=== PATIENT | male | born 1940 | race Caucasian/White ===

== ENCOUNTER 2017-09-27 15:44 | Inpatient (IN) | payer OTHER, MEDICARE ==
--- NOTE | 2017-09-27 15:53 | PDOC ---
Attending Attestation - HPI HPI: 09/27/17 16:30 The patient is a 77 year old male, with a significant PMH of NIDDM, parkinson's , dementia, wheelchair bound, who presents to the emergency department sent in from Ldr Nurse Dr. Finnegan office for evaluation of a chronic right heel ulcer and sacral decubitus ulcer. As per patients , she has noted purulent fluid draining from the right heel ulcer over the past 3 days. She also reports the patient has a sacral decubitus ulcer but denies any recent changes or drainage. She denies any recent fevers, changes in behavior, nausea or vomiting. She states she has been dressing the patients wound at home. Allergies: NKA - Physicial Exam PE: 09/27/17 16:31 Vitals: Triage vital signs reviewed General Appearance: +Mild distress. Pt. is nonverbal at baseline, accompanied by family. Head: Atraumatic Neck: Supple; No nuchal rigidity Chest Wall: Nontender Cardiac: +2/6 systolic murmur. Regular rate and rhythm, no rubs, no gallops Lungs: Clear to auscultation bilateral, good air movement bilaterally Abdomen: Soft, nondistended, normal bowel sounds, nontender to palpation Back: +Sacral decubitus ulcer approx. 2x2 cm. Rectal: Exam deferred Extremities: +Right heel 2x2 cm ulceration with surrounding necrotic appearing tissue. +Active drainage. +Malodorous. Full range of motion to all extremities, no cyanosis, clubbing, or edema Skin: Warm and dry - Medical Decision Making 09/27/17 16:35 77 year old male, with a significant PMH of NIDDM, parkinson's, dementia, wheelchair bound, presents to the ED sent in from Ldr Nurse Dr. Finnegan office for evaluation of a chronic right heel ulcer and sacral decubitus ulcer. Plan: Labs, EKG, chest x-ray, right foot x-ray. <Tadeo Mares - Last Filed: 09/27/17 18:25> - Resident Resident Name: Eli Ayala - ED Attending Attestation I have performed the following: I have examined & evaluated the patient, The case was reviewed & discussed with the resident, I agree w/resident's findings & plan, Exceptions are as noted - Medical Decision Making Patient sent to ED for evaluation of diabetic foot ulcer. Cultures drawn Vancocin Zosyn ordered Patient will require inpatient arterial Dopplers vascular consult infectious disease consult <Jg Cuba - Last Filed: 09/27/17 19:05> Attestations - Attestations 09/27/17 16:36 Documentation prepared by Tadeo Mares, acting as medical instrument technician for Jg Cuba MD. <Tadeo Mares - Last Filed: 09/27/17 18:25>
--- NOTE | 2017-09-27 16:09 | PDOC ---
History of Present Illness - General Chief Complaint: Wound Stated Complaint: PCP SENT Time Seen by Provider: 09/27/17 15:46 History Source: Patient, Primary Care Provider Exam Limitations: No Limitations - History of Present Illness Initial Comments: This is a 77 YOM with h/o DM and Parkinson's disease with dementia, wheelchair bound, who presents as directed by his state manager's office (Dr. Cabello) for a chronic right heel wound which has been draining purulent malodorous fluid for the past 3-4 days, as well as a nonhealing sacral decubitus ulcer. Dr. Mccauley called ahead to inform the ED that the patient was coming in at the request of Dr. Cabello. The patient presents with his who provides the bulk of his medical history as the patient is nonverbal 2/2 dementia and Parkinson's. The notes that the patient has had an ulcer on his right heel for the past month or two, but in the past 3-4 days it has been draining malodorous pus. She additionally notes a sacral decubitus ulcer which is unchanged and does not appear to have abnormal drainage. She has not taken his temperature at home. She denies any obvious nausea, vomiting, change in bowel habits, pain, change in baseline mental status, or other symptoms. Past History - Past Medical History Allergies/Adverse Reactions: Allergies Allergy/AdvReac Type Severity Reaction Status Date / Time No Known Allergies Allergy Verified 09/27/17 17:17 Review of Systems - Review of Systems Able to Perform ROS?: No (dementia) *Physical Exam - Physical Exam General Appearance: Yes: Nourished, Other (nonverbal, accompanied by family at bedside, appears to be a bit uncomfortable, consistent shaking/tremor) HEENT: positive: EOMI (but does not make eye contact with examiner or family). negative: Scleral Icterus (R), Scleral Icterus (L), Nasal Congestion Neck: positive: Trachea midline, Supple. negative: Tender, Rigid Respiratory/Chest: positive: Lungs Clear, Normal Breath Sounds. negative: Respiratory Distress, Crackles, Rhonchi, Stridor, Wheezing Cardiovascular: positive: Regular Rhythm, Regular Rate, Murmur (2/6), Other ( unable to palpate DP or PT pulses RLE but foot and digits are wwp and capillary refill is 2 seconds). negative: Edema Gastrointestinal/Abdominal: positive: Normal Bowel Sounds, Flat, Soft. negative : Tender, Organomegaly, Pulsatile Mass, Guarding Musculoskeletal: positive: Normal Inspection. negative: Decreased Range of Motion, Vertebral Tenderness Extremity: positive: Normal Capillary Refill, Normal Inspection, Normal Range of Motion. negative: Tender, Cyanosis Integumentary: positive: Normal Color, Dry, Warm, Other (right heel with 2x2 cm ulcer with overlying necrotic-appearing tissue with malodorous purulent drainage and surrounding white-appearing tissue breakdown extending 1 cm from the ulceration, mild surrounding erythema, no streaking erythema). negative: Rash, Bruising Neurologic: positive: women specialist II-XII NML intact, Alert, Respond to painful stimul, Other (able to move all four extremities but weakness in BLE) Heart Score/ECG Review #1 NSR rate 82 with left axis deviation, T-wave inversion in aVL, no additional ischemic changes ED Treatment Course - LABORATORY CBC & Chemistry Diagram: 09/27/17 17:30 09/27/17 17:30 Medical Decision Making - Medical Decision Making Patient p/w right heel redness/warmth/ulcer with malodorous drainage. Initial Vital Signs Temp Pulse Resp BP Pulse Ox 97.4 F L 81 18 109/73 97 09/27/17 16:29 09/27/17 16:29 09/27/17 16:29 09/27/17 16:29 09/27/17 16:29 Exam: right heel with 2x2 cm ulcer with overlying necrotic-appearing tissue with malodorous purulent drainage and surrounding white-appearing tissue breakdown extending 1 cm from the ulceration, mild surrounding erythema, no streaking erythema DDX IBNLT: infected foot ulcer, cellulitis, osteomyelitis, necrotizing soft tissue infection, sepsis, DVT, superficial venous thrombosis, CHF exacerbation, PVD, pulmonary HTN, etc W/U ordered: CBCD CMP BCx Coags T&S EKG CXR TX ordered: Vancomycin/Zosyn EKG: NSR rate 82 with left axis deviation, T-wave inversion in aVL, no additional ischemic changes CXR: NADP Foot Xray: No soft tissue gas, no bony involvement Laboratory Tests 09/27/17 09/27/17 09/27/17 17:30 17:30 17:30 WBC 7.4 RBC 3.19 L Hgb 10.3 L Hct 30.6 L MCV 95.9 MCH 32.3 MCHC 33.7 RDW 12.6 Plt Count 274 MPV 7.5 Absolute Neuts (auto) 5.5 Neutrophils % 74.8 Lymphocytes % 14.1 Monocytes % 8.0 Eosinophils % 2.8 Basophils % 0.3 Nucleated RBC % 0 Sodium 141 Potassium 4.7 Chloride 104 Carbon Dioxide 29 Anion Gap 8 BUN 51 H Creatinine 1.6 H Random Glucose 124 H Calcium 9.3 C-Reactive Protein 3.9 H Repeat VS: Reassessment: Exam unchanged. The Pt is unsafe for discharge at this time. They require further hospital observation, workup, and treatment. Dr. Mccauley's patients are currently going to hospitalists. Microblog sent to [facility] for admission. Spoke with [facility], in agreement Pt to be admitted to Inpatient Med/Surg. Decision to Admit order placed to covering attending Dr. Spencer. 09/27/17 18:39 *DC/Admit/Observation/Transfer Diagnosis at time of Disposition: YENI (acute kidney injury) Heel ulceration Qualifiers: Laterality: right Non-pressure ulcer stage: unspecified non-pressure ulcer stage Qualified Code(s): L97.419 - Non-pressure chronic ulcer of right heel and midfoot with unspecified severity Cellulitis Qualifiers: Site of cellulitis: extremity Site of cellulitis of extremity: lower extremity Laterality: right Qualified Code(s): L03.115 - Cellulitis of right lower limb - Discharge Dispostion Condition at time of disposition: Guarded Decision to Admit order: Yes - Referrals Referrals: Alexandre Mccauley MD [Primary Care Provider] - - Patient Instructions - Post Discharge Activity
[2017-09-27 17:48] LABS: BASO % 0.3 % (0-2.0); EOS % 2.8 % (0-4.5); HEMATOCRIT 30.6 % (35.4-49); HEMOGLOBIN 10.3 GM/dL (11.7-16.9); LYMPH % 14.1 % (8-40); MCH 32.3 pg (25.7-33.7); MCHC 33.7 g/dl (32.0-35.9); MEAN CELL VOLUME 95.9 fl (80-96); MEAN PLT VOLUME 7.5 fl (7.5-11.1); NEUT % 74.8 % (42.8-82.8); PLATELET COUNT 274 K/MM3 (134-434); RBC 3.19 M/mm3 (4.00-5.60); RDW 12.6 % (11.9-15.9); WHITE BLOOD COUNT 7.4 K/mm3 (4.0-10.0)
[2017-09-27 18:13] LABS: ANION GAP 8 (8-16); BLOOD UREA NITROGEN 51 mg/dL (7-18); CALCIUM 9.3 mg/dL (8.5-10.1); CHLORIDE 104 mmol/L (98-107); CO2 29 mmol/L (21-32); CREATININE 1.6 mg/dL (0.7-1.3); GLUCOSE,RANDOM 124 mg/dL (74-106); POTASSIUM 4.7 mmol/L (3.5-5.1); SODIUM 141 mmol/L (136-145)
[2017-09-27] MEDS ORDERED: VANCOMYCIN 1,000 MG in DEXTROSE 5%-WATER - 250 ML IVPB ONE (18:13)
[2017-09-27] MEDS ORDERED: PIPERACILLIN/TAZOB 3.375 GM 3.375 GM in DEXTROSE 5%-WATER - 50 ML IVPB ONE (18:13)
[2017-09-27] MEDS ORDERED: PIPERACILLIN/TAZOB 3.375 GM 3.375 GM/50 ML BAG IVPB ONE (18:19)
[2017-09-27] MEDS ORDERED: VANCOMYCIN 1 GRAM (PRE-DOCKED) 1,000 MG/250 ML BAG IVPB ONE (18:19)
[2017-09-27] MEDS ORDERED: SODIUM CHLORIDE 0.9% 500 ML INFUS.BAG IV ONE (18:40)
--- NOTE | 2017-09-27 19:29 | HP ---
CHIEF COMPLAINT: R foot ulcer PCP: Dr. Alexandre Mccauley Limitations to hx: Pt demented, nonverbal. All hx given by HISTORY OF PRESENT ILLNESS: 77 yo F with hx of NIDDM2, parkinson's disease, dementia who presents with 3-4 days of scant purulent drainage from R decubitus heel ulcer. Pt with intermittent diabetic ulcers on feet for last 7 years, around 1 per year, most recently on R heel, which began one month ago. Per , pt was seen 1.5 weeks ago by mural painter Dr. Cabello for R heel ulcer, who recommended continuation of typically wound care regimen with daily peroxide rinses and zinc supplements to support wound healing. However, over last 3-4 days, pt's noted scant purulent drainage from R heel ulcer and trace erythema at wound margins. Pt contacted Dr. Cabello and PCP Dr. Mccauley and was urged to go ED for further evaluation. Pt with no prior hx of infected decubitus ulcers requiring IV antibiotics or osteomyelitis. Per , pt diabetes is well controlled on PO hypoglycemic agents, however does not know last A1C value. Denies any f/c/n/v/d , FERNANDEZ, cough, sob, chest pain, chest tightness, ab pain, cva tenderness, LE edema , FNDs. No recent travel, sick contacts or diet changes. Pt is wheelchair bound secondary to progression of parkinson's disease (7 years ago). ER course was notable for: (1)Cr 1.6 (2)Vanc/Zosyn, NS (3)No fever, normal WBC count Recent Travel: None PAST MEDICAL HISTORY: DM2 Parkinson's Dz Dementia PAST SURGICAL HISTORY: Unknown Social History: Smoking: Unknown Alcohol: Unknown Drugs: Unknown Family History: NC Allergies No Known Allergies Allergy (Verified 09/27/17 17:17) HOME MEDICATIONS: Home Medications Medication Instructions Recorded Citalopram HBr 40 mg PO DAILY 09/27/17 Metformin HCl 500 mg PO BID 09/27/17 REVIEW OF SYSTEMS Unable to perform PHYSICAL EXAMINATION Vital Signs - 24 hr 09/27/17 16:29 Temperature 97.4 F L Pulse Rate 81 Respiratory 18 Rate Blood Pressure 109/73 O2 Sat by Pulse 97 Oximetry (%) GENERAL: Elderly man, Awake, A&Ox0, in NAD HEAD: Normal with no signs of trauma. EYES: Pupils equal, round and reactive to light, extraocular movements intact, sclera anicteric, conjunctiva clear. No lid lag. EARS, NOSE, THROAT: Ears normal, nares patent, oropharynx clear without exudates. Moist mucous membranes. NECK: Normal range of motion, supple without lymphadenopathy, JVD, or masses. LUNGS: Breath sounds equal, clear to auscultation bilaterally. No wheezes, and no crackles. No accessory muscle use. HEART: 2/6+ systolic ejection murmur best heard at RUSB, Regular rate and rhythm , normal S1 and S2 without rub or gallop. ABDOMEN: Soft, nontender, not distended, normoactive bowel sounds, no guarding, no rebound, no masses. No hepatomegaly or splenomegaly. MUSCULOSKELETAL: Normal range of motion at all joints. No bony deformities or tenderness. No CVA tenderness. 2x2cm stage 1 decubitus ulcer on mid sacrum, with no drainage, purulence or erythema. UPPER EXTREMITIES: 2+ pulses, warm, well-perfused. No cyanosis. No clubbing. No peripheral edema. LOWER EXTREMITIES: R lateral malleolar deformity and scars. R 2x2cm stage 1 ulcer on dorsal surface of R heel with necrotic center, no purulent drainage/ erythema/crepitus. 2+ DP/PT pulses, warm, well-perfused. No calf tenderness. No peripheral edema. NEUROLOGICAL: Limited due to mental status. Facial symmetry grossly noted. Speech non-sensical. Gait noted observed. PSYCHIATRIC: Cooperative. Good eye contact. Appropriate mood and affect. Laboratory Results - last 24 hr CBC, BMP 09/27/17 17:30 09/27/17 17:30 09/27/17 09/27/17 09/27/17 17:30 17:30 17:30 WBC 7.4 RBC 3.19 L Hgb 10.3 L Hct 30.6 L MCV 95.9 MCH 32.3 MCHC 33.7 RDW 12.6 Plt Count 274 MPV 7.5 Absolute Neuts (auto) 5.5 Neutrophils % 74.8 Lymphocytes % 14.1 Monocytes % 8.0 Eosinophils % 2.8 Basophils % 0.3 Nucleated RBC % 0 Sodium 141 Potassium 4.7 Chloride 104 Carbon Dioxide 29 Anion Gap 8 BUN 51 H Creatinine 1.6 H Random Glucose 124 H Calcium 9.3 C-Reactive Protein 3.9 H No micro Per ED note: EKG: NSR rate 82 with left axis deviation, T-wave inversion in aVL, no additional ischemic changes CXR: No acute pathology Foot Xray: No soft tissue gas, no bony involvement ASSESSMENT/PLAN: 77 yo F with hx of NIDDM2, parkinson's disease, dementia who presents with 3-4 days of scant purulent drainage from R decubitus heel ulcer. Pt with intermittent diabetic ulcers on feet for last 7 years, around 1 per year, most recently on R heel, which began one month ago. #R diabetic ulcer - XR of R ankle with no evidence of osteo; elevated CRP 3.9 - wound culture - f/u blood cultures - clinda/zosyn for abx coverage - ID consult, f/u abx recs - Vascular consult - - podiatry consult - f/u ESR - consider bone scan vs. MRI. Must confirm presence of metal in R ankle. #Elevated Cr - YENI vs. CKD? No prior Cr on record. No hx of renal dz. - Trend Cr - IVFs - avoid nephrotoxic agents - f/u mg, phos, Ca - spot urine protein - Serum PTH levels #Anemia - 10.3 on admission. Normocytic. Likely secondary to chronic renal dz. Unknown date of last colonoscopy. - Tranfuse at <7 - consider FOBT - Iron studies #NIDDM - on metformin at home - bgm q4h - ISS - f/u A1C - endocrine consult - Dr. Mancilla #Parkinson's Disease - wheelchair bound - c/w home Sinemet #Dementia - secondary to parkinson's - f/u with neurology as outpt. Outpt Neurologist based in [place]. PPX HSQ FEN NS 50cc/hr daily lytes Puree diet Plan discussed with attending, Dr. Juvencio Roberts, PGY1 Visit type - Emergency Visit Emergency Visit: Yes ED Registration Date: 09/27/17 Care time: The patient presented to the Emergency Department on the above date and was hospitalized for further evaluation of their emergent condition. - New Patient This patient is new to me today: Yes Date on this admission: 09/28/17 - Critical Care Critical Care patient: No Hospitalist Screening - Colonoscopy Questionnaire Colonoscopy Questionnaire: Colonoscopy Questionnaire - Patient: 50 - 75 years old and never had a screening colonoscopy: Unknown History of colon or rectal polyps, or CA: Unknown History of IBD, Crohn's disease or UC: Unknown History of abdominal radiation therapy as a child: Unknown - Relative: 1 with colon or rectal CA, or polyps at age 60 or younger: Unknown Colon or rectal CA diagnosed at age 45 or younger: Unknown Multiple relatives with colon or rectal CA: Unknown - Outcome: Screening Result: Negative Screen
[2017-09-27] MEDS ORDERED: SODIUM CHLORIDE 1,000 ML IV SCH (21:00)
--- NOTE | 2017-09-27 21:17 | PN ---
Teaching Attending Note Name of Resident: Jayy Roberts ATTENDING PHYSICIAN STATEMENT I saw and evaluated the patient. I reviewed the resident's note and discussed the case with the resident. I agree with the resident's findings and plan as documented. SUBJECTIVE: Patient is a 77 year old man with history of DM, Parkinson's disease, dementia, wheelchair use, receurrent foot ulcers and sacral decubitus ulcer, who presents as directed by his screen room operator's office (Dr. Cabello) for a chronic right heel wound which has been draining purulent malodorous fluid for the past 3-4 days, as well as a nonhealing sacral decubitus ulcer. Patient is nonverbal 2/2 dementia and Parkinson's. The says that the patient has had an ulcer on his right heel for the past month or two, but in the past 3-4 days it has been draining malodorous pus. She additionally notes a sacral decubitus ulcer which is unchanged and does not appear to have abnormal drainage. She denies any obvious nausea, vomiting, change in bowel habits, pain, change in baseline mental status, or other symptoms. OBJECTIVE: Nonverbal and in no acute distress. Vital Signs Period Temp Pulse Resp BP Sys/Kebede Pulse Ox Last 24 Hr 97.4 F-99.3 F 79-81 17-18 109-138/73-105 97-100 HEENT: Alopecia; No Jaundice, eye redness or discharge, PERRLA, Normocephalic, atraumatic. External ears are normal; unable to assess hearing ; No nasal discharge. Neck: Supple, nontender. No palpable adenopathy or thyromegaly. No JVD Chest: Good effort. Clear to auscultation and percussion. Heart: Regular. No S3, rub or murmur Abdomen: Not distended, soft, nontender and no HSM. No rebound or guarding. Wears diapers. Stage I sacral decubitus ulcer. Normoactive bowel sounds. Ext: Right heel ulcer with necrotic base. Hallux valgus deformity of both feet. Peripheral pulses intact. No leg edema. Skin: Warm and dry. No petechiae, rash or ecchymosis. Neuro: Nonverbal. Wheelchair bound. Sensation grossly intact in all four extremities. No facial asymmetry. Current Medications Generic Name Dose Route Start Last Admin Trade Name Freq PRN Reason Stop Dose Admin Acetaminophen 650 mg 09/27/17 20:49 Tylenol - PO Q4H PRN PAIN LEVEL 1-5 Enoxaparin Sodium 40 mg 09/28/17 10:00 Lovenox - SQ DAILY [facility] Sodium Chloride 1,000 mls @ 50 mls/hr 09/27/17 21:00 Normal Saline - IV 09/28/17 20:51 ASDIR ABIGAIL Clindamycin Phosphate 600 mg in 50 mls @ 100 mls/hr 09/28/17 02:00 Cleocin 600 Mg Premix Ivpb - IVPB Q8H-IV [facility] Protocol Insulin Aspart 1 vial 09/27/17 22:00 Novolog Vial Sliding Scale - SQ ACHS [facility] Protocol Abnormal Lab Results 09/27/17 09/27/17 09/27/17 17:30 17:30 17:30 RBC 3.19 L Hgb 10.3 L Hct 30.6 L BUN 51 H Creatinine 1.6 H Random Glucose 124 H C-Reactive Protein 3.9 H ASSESSMENT AND PLAN: 1. Infected diabetic right foot ulcer - Will treat with IV zosyn (dose adjusted to GFR) and clindamycin 600 mg IV q 6hrs pending the result of wound culture. Would avoid vancomycin in view of azotemia. Daily wound care with Santyl dressing. Consult ID, Wound care and podiatry. Xray of the foot is unrevealing. Though the gives a history of a jere inserted in his foot in the past to treat a work-related injury, xray does not show any metal. Will consult PCP and possibly get different views of foot xray to confirm whether he has a metal jere in the foot or not - because he will need an MRI or bone scan to rule out osteomyelitis depending on whether he has a jere or not. 2. YENI vs CKD - He has a risk factor for CKD but may also not be ingesting enough liquids. Will get urinalysis, check for proteinuria, get PTH level, calcium, phosphate, kidney sonogram and check for diabetic retinopathy to help determine whether he has CKD. Will encourage liberal oral fluid intake and give IV NS at 50 ml/hour to correct any superimposed dehydration. 3. Parkinsons/Dementia/Sacral decubitus/Wheelchair use - Will continue comprehensive care and ensure frequent repositioning. Use Desitin powder twice daily on decubitus ulcer. 4. Anemia - Etiology unclear. May be partly due to CKD if he has it. Do basic anemia workup with serial stool guaiacs and iron studies. 5. DM - Continue sliding scale insulin and comprehensive diabetes care. Stress eye care upon discharge. 6. DVT prophylaxis - Heparin 5000u sq tid 7. Advance directives - Full code
[2017-09-27] MEDS: HEPARIN NA (PORCINE) 5,000 UNITS/ML 1ML VIAL SQ SCH (22:26)
[2017-09-27] MEDS: INSULIN SLIDING SCALE (NOVOLOG) 1 VIAL SQ SCH (22:26)
--- NOTE | 2017-09-27 22:40 | CONSULT ---
Consult Consult Specialty:: endocrine/ diabetes mellitus Referred by:: karlee Reason for Consultation:: diabetes mellitus - History of Present Illness Chief Complaint: foot infection History of Present Illness: 77 year old man with history of DM, Parkinson's disease, dementia, wheelchair use, receurrent foot ulcers and sacral decubitus ulcer, who presents as directed by his paint prep technician's office (Dr. Cabello) for a chronic right heel wound which has been draining purulent malodorous fluid.he has had diabetes mellitus for several years which his controls with oral agents,she states she gives him if his sugars are high.she has home care to help with bathing and moving him from bed to chair,which he is totally dependent on others for adl. - History Source History Provided By: Family Member Limitations to Obtaining History: Dementia - Past Medical History DENTAL ASSISTANT: Yes: Dementia, Peripheral Neuropathy, Parkinson's - Alcohol/Substance Use Hx Alcohol Use: No - Smoking History Smoking history: Never smoked Have you smoked in the past 12 months: No Home Medications - Allergies Allergies/Adverse Reactions: Allergies Allergy/AdvReac Type Severity Reaction Status Date / Time No Known Allergies Allergy Verified 09/27/17 17:17 - Home Medications Home Medications: Ambulatory Orders Carbidopa/Levodopa 25/100 PO 09/27/17 Citalopram HBr 40 mg PO DAILY 09/27/17 Glimepiride 4 mg PO PRN 09/27/17 Metformin HCl 500 mg PO BID 09/27/17 Tradjenta 5 mg PO DAILY 09/27/17 Review of Systems Unable to obtain ROS, reason: dementia - Review of Systems Constitutional: reports: Lethargy, Weakness Physical Exam Vital Signs: Vital Signs Temperature 99.3 F 09/27/17 19:53 Pulse Rate 79 09/27/17 19:53 Respiratory Rate 17 09/27/17 19:53 Blood Pressure 138/105 09/27/17 19:53 O2 Sat by Pulse Oximetry (%) 100 09/27/17 19:53 Constitutional: Yes: Calm Eyes: Yes: EOM Intact HENT: Yes: Normocephalic Neck: Yes: Trachea Midline Cardiovascular: Yes: Regular Rate and Rhythm Respiratory: Yes: CTA Bilaterally Gastrointestinal: Yes: Normal Bowel Sounds ...Rectal Exam: Yes: Deferred Renal/: Yes: WNL Extremities: Yes: Pallor Edema: No Integumentary: Yes: Pressure Ulcer, Skin Tear, Venous Stasis Changes Wound/Incision: Yes: Dressing Removed, Draining Neurological: Yes: Alert, Confusion, Lethargy Labs: CBC, BMP 09/27/17 17:30 09/27/17 17:30 Problem List - Problems (1) Type 2 diabetes mellitus with unspecified complications Code(s): E11.8 - TYPE 2 DIABETES MELLITUS WITH UNSPECIFIED COMPLICATIONS (2) YENI (acute kidney injury) Code(s): N17.9 - ACUTE KIDNEY FAILURE, UNSPECIFIED (3) Cellulitis Code(s): L03.90 - CELLULITIS, UNSPECIFIED Qualifiers: Site of cellulitis: extremity Site of cellulitis of extremity: lower extremity Laterality: right Qualified Code(s): L03.115 - Cellulitis of right lower limb (4) Heel ulceration Code(s): L97.409 - NON-PRS CHRONIC ULCER OF UNSP HEEL AND MIDFOOT W UNSP SEVERT Qualifiers: Laterality: right Non-pressure ulcer stage: unspecified non-pressure ulcer stage Qualified Code(s): L97.419 - Non-pressure chronic ulcer of right heel and midfoot with unspecified severity Assessment/Plan Current Active Problems YENI (acute kidney injury) (Acute) Cellulitis (Acute) Heel ulceration (Acute) diabetes mellitus hyperglycemia Abnormal Lab Results 09/27/17 09/27/17 09/27/17 17:30 17:30 17:30 RBC 3.19 L Hgb 10.3 L Hct 30.6 L ESR BUN 51 H Creatinine 1.6 H Random Glucose 124 H C-Reactive Protein 3.9 H 09/27/17 17:30 RBC Hgb Hct ESR 96 H BUN Creatinine Random Glucose C-Reactive Protein Laboratory Tests 09/27/17 09/27/17 17:30 17:30 WBC 7.4 RBC 3.19 L Hgb 10.3 L Hct 30.6 L MCV 95.9 MCH 32.3 MCHC 33.7 RDW 12.6 Plt Count 274 ESR 96 H plan : bgm achs novolog coverage ck hb a 1c renal consult ckd\ nutrition consult for calorie count
[2017-09-27 23:39] VITALS: BMI 23.6
[2017-09-28] MEDS ORDERED: PIPERACILLIN/TAZOBACTAM 3.375 GM VIAL IVPB ONE ×3 (01:53→17:05)
[2017-09-28] MEDS ORDERED: DEXTROSE 5%-WATER - 50 ML IVPB ONE ×3 (01:53→17:05)
[2017-09-28] MEDS ORDERED: CLINDAMYCIN 600MG PREMIX IVPB 600 MG/50 ML BAG IVPB SCH (02:00)
[2017-09-28] MEDS ORDERED: PIPERACILLIN/TAZOB 3.375 GM 3.375 GM in DEXTROSE 5%-WATER - 50 ML IVPB SCH (02:00)
[2017-09-28] MEDS ORDERED: CARBIDOPA PO SCH (06:15)
[2017-09-28] MEDS ORDERED: LEVODOPA PO SCH (06:15)
[2017-09-28] MEDS: HEPARIN NA (PORCINE) 5,000 UNITS/ML 1ML VIAL SQ SCH ×3 (06:30→21:58)
[2017-09-28] MEDS: INSULIN SLIDING SCALE (NOVOLOG) 1 VIAL SQ SCH ×4 (06:31→22:00)
[2017-09-28] MEDS: ACETAMINOPHEN 325 MG TABLET (FP) PO PRN (07:06)
--- NOTE | 2017-09-28 07:44 | PN ---
Progress Note (short form) - Note Progress Note: ID Diabetic heel ulcer Sent by podiatry foul smelling NO fever Microbiology Selected Entries 09/28/17 05:47 Temperature 98.2 F Pulse Rate 98 H Respiratory 20 Rate Blood Pressure 102/75 Laboratory Tests 09/27/17 09/27/17 09/27/17 17:30 17:30 17:30 WBC 7.4 Hgb 10.3 L Hct 30.6 L Plt Count 274 ESR 96 H BUN 51 H Creatinine 1.6 H Plan Zosyn 3.375gr q 8 Debridement Jason GUERRERO Problem List - Problems (1) Heel ulceration Code(s): L97.409 - NON-PRS CHRONIC ULCER OF UNSP HEEL AND MIDFOOT W UNSP SEVERT Qualifiers: Laterality: right Non-pressure ulcer stage: unspecified non-pressure ulcer stage Qualified Code(s): L97.419 - Non-pressure chronic ulcer of right heel and midfoot with unspecified severity (2) Type 2 diabetes mellitus with unspecified complications Code(s): E11.8 - TYPE 2 DIABETES MELLITUS WITH UNSPECIFIED COMPLICATIONS
--- NOTE | 2017-09-28 08:13 | CONS ---
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 He has had a history of diabetic ulcers for several years and Dr. Cabello has been treating him during this period of time. Most recently, purulent drainage from the right heel ulcer has been noted and he was then referred to the emergency room for IV antibiotics. He received a dose of Clindamycin, Vancomycin, and piperacillin/tazobactam and I am asked to see him at this time. He can offer no history. Though he is alert, he is unable to answer questions. PAST MEDICAL HISTORY: Includes [id number] diabetes, Parkinson's and dementia. CURRENT MEDICATIONS: Include Celexa and antibiotics as mentioned. ALLERGIES: None known. SOCIAL HISTORY: , lives at home with his . No history of recent travel. Unknown if ever smoked or drank alcohol. FAMILY HISTORY: The patient cannot provide. REVIEW OF SYSTEMS: Respiratory: No cough, shortness of breath. Cardiac: No recent chest pain, palpitations, syncope. Gastrointestinal: No abdominal pain, vomiting diarrhea, blood per rectum. Genitourinary: Incontinent of urine. No gross hematuria. PHYSICAL EXAMINATION: General: A 77-year-old male in no distress. Vital Signs: Temperature 98.2, pulse 98, blood pressure 102/75, respirations 20. Neck: Supple. No adenopathy. Lungs: Clear to percussion and auscultation. Heart: S1, S2 regular rhythm with 2/6 systolic murmur noted. Abdomen: Soft, nontender without hepatosplenomegaly. Extremities: Contractures of the lower extremities with a right heel ulcer with necrotic center, foul smell, no crepitus, no erythema, no purulent drainage. Fluctuance noted. T The white count is 7.4, hemoglobin 10.3, ESR of 96, BUN 51, creatinine 1.6, CRP of 3.9. X-ray of the foot preliminary reading shows no evidence of bony destruction. ASSESSMENT: A 77-year-old diabetic male with chronic right heel ulcer, infected, as per Dr. Cabello, with foul, necrotic tissue with odor noted. PLAN: Piperacillin/tazobactam 3.375 g q. 8 hours, blood cultures sent. Discontinue clindamycin. Vascular evaluation for circulation. Will need debridement of the ulcer. Given the high sed rate an MRI of the heel should be ordered for evaluation of possible osteomyelitis. ADDENDUM: Mention is made of possible hardware in the right lower extremity, though none seen on evaluation of the ankle and foot. Bone scan could be considered. JAIME KEITH M.D. [id number]
[2017-09-28 08:21] LABS: BASO % 0.5 % (0-2.0); EOS % 3.8 % (0-4.5); HEMATOCRIT 29.8 % (35.4-49); HEMOGLOBIN 10.2 GM/dL (11.7-16.9); LYMPH % 24.1 % (8-40); MCHC 34.3 g/dl (32.0-35.9); MEAN PLT VOLUME 7.6 fl (7.5-11.1); MONO % 8.9 % (3.8-10.2); NEUT % 62.7 % (42.8-82.8); PLATELET COUNT 271 K/MM3 (134-434); RDW 12.5 % (11.9-15.9); WHITE BLOOD COUNT 7.9 K/mm3 (4.0-10.0)
[2017-09-28 08:58] LABS: INR 1.06 (0.82-1.09)
[2017-09-28 09:00] LABS: ACTIVATED PTT 32.1 SECONDS (26.9-34.4)
[2017-09-28 09:02] LABS: CHLORIDE 106 mmol/L (98-107); POTASSIUM 4.6 mmol/L (3.5-5.1); SODIUM 142 mmol/L (136-145)
[2017-09-28 09:14] LABS: ALBUMIN 3.3 g/dl (3.4-5.0); ALK PHOS 102 U/L (45-117); ANION GAP 11 (8-16); BILIRUBIN,TOTAL 0.4 mg/dL (0.2-1.0); BLOOD UREA NITROGEN 40 mg/dL (7-18); CALCIUM 9.2 mg/dL (8.5-10.1); CO2 25 mmol/L (21-32); CREATININE 1.4 mg/dL (0.7-1.3); GLUCOSE,RANDOM 71 mg/dL (74-106); MAGNESIUM 1.9 mg/dL (1.8-2.4); SGOT/AST 16 U/L (15-37); SGPT/ALT 13 U/L (12-78); TOT PROT 6.9 g/dl (6.4-8.2)
--- NOTE | 2017-09-28 09:44 | EKG ---
Test Reason : Blood Pressure : / mmHG Vent. Rate : 082 BPM Atrial Rate : 082 BPM P-R Int : 198 ms QRS Dur : 100 ms QT Int : 380 ms P-R-T Axes : 066 -42 064 degrees QTc Int : 443 ms NORMAL SINUS RHYTHM LEFT AXIS DEVIATION NONSPECIFIC ST ABNORMALITY WHEN COMPARED WITH ECG OF 26-SEP-2008 10:14, NO SIGNIFICANT CHANGE WAS FOUND Confirmed by BERKLEY DAILY MD ([id number]) on 09/28/2017 9:44:37 AM Referred By: Confirmed By:BERKLEY DAILY MD
[2017-09-28 10:00] LABS: URINE APPEARANCE CLEAR; URINE BILIRUBIN NEGATIVE (<2.0 mg/dL); URINE COLOR STRAW; URINE GLUCOSE (UA) NEGATIVE (NEGATIVE); URINE KETONE NEGATIVE (NEGATIVE); URINE LEUK ESTERASE NEGATIVE (NEGATIVE); URINE NITRITE NEGATIVE (NEGATIVE); URINE UROBILINOGEN NEGATIVE mg/dL (0.2-1.0)
[2017-09-28] MEDS ORDERED: ENOXAPARIN NA (PORCINE) 40 MG/0.4 ML DISP.SYRIN SQ SCH (10:00)
[2017-09-28 10:04] LABS: URINE PROTEIN 1+ (NEGATIVE)
[2017-09-28 10:06] LABS: URINE HYALINE CAST 1 /lpf
[2017-09-28] MEDS: PIPERACILLIN/TAZOB 3.375 GM 3.375 GM in DEXTROSE 5%-WATER - 50 ML IVPB SCH ×2 (10:28→17:34)
[2017-09-28] MEDS: CITALOPRAM HYDROBROMIDE 20 MG TABLET (FP) PO SCH (11:24)
[2017-09-28] MEDS ORDERED: CARBIDOPA/LEVODOPA 25/100 TABLET (FP) PO SCH ×2 (13:00→21:00)
--- NOTE | 2017-09-28 14:22 | PN ---
Teaching Attending Note Name of Resident: Cary Gonzales ATTENDING PHYSICIAN STATEMENT I saw and evaluated the patient. I reviewed the resident's note and discussed the case with the resident. I agree with the resident's findings and plan as documented. SUBJECTIVE: Unable to obtain hx due to dementia OBJECTIVE: NAD , awake , not cooperative, minimally communicative round pupils. MMM ,No JVD Cv; RRR, no JVD Lungs: CTAB Abd: soft, NT, ND , NL BS Ext: R heel ulcer with eschcar on part of it, foul smelling . no discharge noted . dark brownish blackish discoloration on R lateral malleolus . no edema on legs . course tremor in hands Skin : stage 2 sacral decub with clean base ASSESSMENT AND PLAN: 77 y/o gentleman with h/o Parkinson's , DM, dementia , sacral decub ulcer and other medical problems who was brought due to R heel ulcer 1- R heel infected wound. although xray has no bone destruction, this luke snot r /o OM . - MRI of foot pending - cont zosyn - follow wound cx - follow ESR, and CRP - podiatry consult l 2- YENI: unclear if he has CKD or not. US with mild L sided hydro. - check CT scan to r/o distal obstruction - cont IVF - will obtain base line cr from PCP 's office 3- Normocytic anemia ;start with iron studies , B12 and folate 4- Decub ulcer: does not look infected. frequent positioning 5- DM: A1c 5.9. on 3 oral meds at home . will not dc on any, and will have to follow A1c. sugars are Nl here . SSi in case exacerbated by infection Heparin Sq .
--- NOTE | 2017-09-28 16:20 | PN ---
Physical Exam: SUBJECTIVE: Patient seen and examined at bedside. Resting in bed, mumbling to self. Unable to provide information d/t dementia. OBJECTIVE: Vital Signs Period Temp Pulse Resp BP Sys/Kebede Pulse Ox Last 24 Hr 97.4 F-99.3 F 68-98 17-20 102-145/59-105 97-100 GENERAL: Mumbling to self. eyes closed. in no acute distress HEAD: Normal with no signs of trauma. EYES: PERRL, extraocular movements intact, sclera anicteric, conjunctiva clear. No ptosis. ENT: Ears normal, nares patent NECK: Trachea midline, supple. LUNGS: would not permit, did not follow commands HEART: Regular rate and rhythm, S1, S2 +systolic ejection murmur RUSB ABDOMEN: Soft, nontender, nondistended, normoactive bowel sounds, no guarding, no rebound EXTREMITIES: 2+ pt pulses, contracted, no edema . +L heel: with eroded ulcer, with mild purulent drainage. non malodorous NEUROLOGICAL: pt mumbling to self, not interactive. able to move upper and lower extremities however with rigidity Laboratory Results 09/28/17 09/28/17 09/28/17 07:00 07:00 07:00 WBC 7.9 Hgb 10.2 L Hct 29.8 L Plt Count 271 Sodium 142 Potassium 4.6 Chloride 106 Carbon Dioxide 25 BUN 40 H D Creatinine 1.4 H PTH Intact Pending 09/28/17 07:00 WBC Carbon Dioxide BUN Creatinine Iron Pending TIBC Pending Iron Saturation Pending Transferrin Pending PTH Intact Active Medications Generic Name Dose Route Start Last Admin Trade Name Jessy PRN Reason Stop Dose Admin Acetaminophen 650 mg 09/27/17 20:49 09/28/17 07:06 Tylenol - PO 650 mg Q4H PRN Administration PAIN LEVEL 1-5 Carbidopa/Levodopa 2 each 09/28/17 21:00 Sinemet 25/100 - PO 0600,1300,2100 ABIGAIL Carbidopa/Levodopa 1 each 09/28/17 17:00 Sinemet 25/100 - PO BID@0900,1700 ABIGAIL Citalopram Hydrobromide 40 mg 09/28/17 10:00 09/28/17 11:24 Celexa - PO 40 mg DAILY ABIGAIL Administration Heparin Sodium (Porcine) 5,000 unit 09/27/17 22:00 09/28/17 14:24 Heparin - SQ 5,000 unit TID ABIGAIL Administration Sodium Chloride 1,000 mls @ 50 mls/hr 09/27/17 21:00 09/27/17 22:25 Normal Saline - IV 09/28/17 20:51 50 mls/hr ASDIR ABIGAIL Administration Piperacillin Sod/Tazobactam 50 mls @ 100 mls/hr 09/28/17 10:00 09/28/17 10:28 Sod 3.375 gm/ Dextrose IVPB 100 mls/hr Q8H-IV ABIGAIL Administration Protocol Insulin Aspart 1 vial 09/27/17 22:00 09/28/17 13:55 Novolog Vial Sliding Scale - SQ Not Given ACHS ABIGAIL Protocol IMAGING 09/27/17: CXR: no active pulmonary disease 09/27/17: R foot XR: loss of bone density, extensive degenerative changes, bunion formation by first MTP joint and previous partial resection of the third metatarsal with the base remaining. the toes are angulated. there are vascular calcifications. a destructive process is not seen. no blastic or lytic findings. incidental note is made of calcification by the distal tibia. 09/28/17: Renal US: mild L sided hydronephrosis Microbiology 09/27/17 17:30 Blood - Peripheral Venous Blood Culture - Preliminary NO GROWTH OBTAINED AFTER 24 HOURS, INCUBATION TO CONTINUE FOR 4 DAYS. 09/27/17 17:30 Blood - Peripheral Venous Blood Culture - Preliminary NO GROWTH OBTAINED AFTER 24 HOURS, INCUBATION TO CONTINUE FOR 4 DAYS. 09/27/17: ankle wound cx - pending ASSESSMENT/PLAN: 77 yo F with hx of NIDDM2, parkinson's disease, dementia who presents with 3-4 days of scant purulent drainage from R decubitus heel ulcer. Pt with intermittent diabetic ulcers on feet for last 7 years, around 1 per year, most recently on R heel, which began one month ago. #R diabetic ulcer - r/o osteo -continue zosyn 3.375gm IVPB q8h (Today is Day 1) -f/u wound cx, blood cx -f/u ESR, CRP elevated -F/u MRI R foot to r/o osteo -vascular consult: Dr. Jerry -podiatry consult : Dr. Cabello -ID: Dr. Gomez #Elevated Cr - YENI vs. CKD -with mild L sided hydronephrosis -F/u CT w/o contrast - to r/o obstruction -Continue to trend Cr -gentle fluids -avoid nephrotoxic agents -spot urine protein -Serum PTH levels - pending #Anemia - 10.3 on admission. Normocytic. Likely secondary to chronic renal dz. Unknown date of last colonoscopy. - Tranfuse at <7 - F/u iron studies, B12, folate #NIDDM - on metformin at home - bgm q4h - ISS - A1c 5.9% - endocrine consult - Dr. 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 Outpt Neurologist based in [place]. #DVT PPX Hep 5000 SQ TID #F/E/N NS 50cc/hr daily lytes Puree diet #Code status unable to reach , will try again - will need to determine d/t pt's age, dementia #Dispo continued monitoring on med -surg Visit type - Emergency Visit Emergency Visit: No - New Patient This patient is new to me today: No - Critical Care Critical Care patient: No
[2017-09-28] MEDS ORDERED: INSULIN (NOVOLOG) ASPART 100 UNITS/ML 10ML VIAL ONE (17:05)
[2017-09-28] MEDS: CARBIDOPA/LEVODOPA 25/100 TABLET (FP) PO SCH ×2 (17:34→22:03)
[2017-09-29] MEDS ORDERED: PIPERACILLIN/TAZOBACTAM 3.375 GM VIAL IVPB ONE ×3 (02:36→17:12)
[2017-09-29] MEDS ORDERED: DEXTROSE 5%-WATER - 50 ML IVPB ONE ×3 (02:36→17:13)
[2017-09-29] MEDS: PIPERACILLIN/TAZOB 3.375 GM 3.375 GM in DEXTROSE 5%-WATER - 50 ML IVPB SCH ×3 (02:44→17:18)
[2017-09-29] MEDS: HEPARIN NA (PORCINE) 5,000 UNITS/ML 1ML VIAL SQ SCH ×3 (06:32→21:48)
[2017-09-29] MEDS: CARBIDOPA/LEVODOPA 25/100 TABLET (FP) PO SCH ×5 (06:32→21:47)
[2017-09-29] MEDS: INSULIN SLIDING SCALE (NOVOLOG) 1 VIAL SQ SCH ×4 (06:36→21:48)
[2017-09-29 07:39] LABS: BASO % 0.4 % (0-2.0); EOS % 3.2 % (0-4.5); HEMATOCRIT 29.3 % (35.4-49); HEMOGLOBIN 10.2 GM/dL (11.7-16.9); LYMPH % 19.2 % (8-40); MCH 33.2 pg (25.7-33.7); MCHC 34.8 g/dl (32.0-35.9); MEAN CELL VOLUME 95.3 fl (80-96); MEAN PLT VOLUME 7.6 fl (7.5-11.1); NEUT % 69.2 % (42.8-82.8); PLATELET COUNT 242 K/MM3 (134-434); RBC 3.08 M/mm3 (4.00-5.60); RDW 12.4 % (11.9-15.9); WHITE BLOOD COUNT 7.6 K/mm3 (4.0-10.0)
[2017-09-29 08:08] LABS: ANION GAP 6 (8-16); BLOOD UREA NITROGEN 35 mg/dL (7-18); CHLORIDE 106 mmol/L (98-107); CO2 29 mmol/L (21-32); GLUCOSE,RANDOM 73 mg/dL (74-106); POTASSIUM 4.2 mmol/L (3.5-5.1); SODIUM 141 mmol/L (136-145)
[2017-09-29 08:46] LABS: CALCIUM 8.8 mg/dL (8.5-10.1); CREATININE 1.5 mg/dL (0.7-1.3)
[2017-09-29 09:04] LABS: MAGNESIUM 1.8 mg/dL (1.8-2.4); PHOSPHOROUS 3.9 mg/dL (2.5-4.9)
[2017-09-29] MEDS ORDERED: CARBIDOPA/LEVODOPA 25/100 TABLET (FP) PO SCH (10:00)
[2017-09-29] MEDS: CITALOPRAM HYDROBROMIDE 20 MG TABLET (FP) PO SCH (10:13)
--- NOTE | 2017-09-29 12:16 | CONSULT ---
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 He also has a sacral wound. He lives at home with nursing care, no home wound medical care. No history of PAD. There is no off-loading used in the home. 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, Peripheral Neuropathy, Parkinson's Endocrine: Yes: Diabetes Mellitus - Alcohol/Substance Use Hx Alcohol Use: No - Smoking History Smoking history: Never smoked Have you smoked in the past 12 months: No Home Medications - Allergies Allergies/Adverse Reactions: Allergies Allergy/AdvReac Type Severity Reaction Status Date / Time No Known Allergies Allergy Verified 09/27/17 17:17 - Home Medications Home Medications: Ambulatory Orders Carbidopa/Levodopa 25/100 PO 09/27/17 Citalopram HBr 40 mg PO DAILY 09/27/17 Glimepiride 4 mg PO PRN 09/27/17 Metformin HCl 500 mg PO BID 09/27/17 Tradjenta 5 mg PO DAILY 09/27/17 Aspirin 81 mg PO DAILY 09/28/17 Physical Exam Vital Signs: Vital Signs Temperature 97.7 F 09/29/17 06:00 Pulse Rate 73 09/29/17 06:00 Respiratory Rate 20 09/28/17 23:06 Blood Pressure 138/66 09/29/17 06:00 O2 Sat by Pulse Oximetry (%) 99 09/28/17 21:00 Constitutional: Yes: No Distress Edema: No Integumentary: Yes: Other (Stage 3 wound right heel, ~4 x 4 cm, with loose skin and callus aroud wound. No erythema or pus. No deep tracts to bone.) Wound/Incision: Yes: Other (Small sacral wound < 1 cm, stage 2) Labs: CBC, BMP 09/29/17 06:15 09/29/17 06:15 Problem List - Problems (1) Heel ulceration Assessment/Plan: Pressure ulcer of right heel related to fixed contracture of hip and knee. Local , non-excisional debridement performed to remove loos surrounding callus and epithelium. No evidence for severe malnutrition or arterial disease. Wound care with foam and Santyl recommended. I have provided family with information about an off-loading splint to relieve the pressure component causing the wound. Home wound care and off-loading should allow for healing of this wound. Foam to sacral wound should also continue. Code(s): L97.409 - NON-PRS CHRONIC ULCER OF UNSP HEEL AND MIDFOOT W UNSP SEVERT Qualifiers: Laterality: right Non-pressure ulcer stage: with fat layer exposed Qualified Code(s): L97.412 - Non-pressure chronic ulcer of right heel and midfoot with fat layer exposed
--- NOTE | 2017-09-29 15:02 | PN ---
Teaching Attending Note Name of Resident: Cary Gonzales ATTENDING PHYSICIAN STATEMENT I saw and evaluated the patient. I reviewed the resident's note and discussed the case with the resident. I agree with the resident's findings and plan as documented. SUBJECTIVE:seen at 9 am No events . unable to take hx .. OBJ : NAD , awake , not cooperative, minimally communicative Cv; RRR, no JVD Lungs: CTAB anteriorly Abd: soft, NT, ND , NL BS Ext: R heel ulcer with callus, foul smelling . no discharge noted. . no edema on legs . course tremor in hands Skin : stage 2 sacral decub with clean base ASSESSMENT AND PLAN: 77 y/o gentleman with h/o Parkinson's , DM, dementia , sacral decub ulcer and other medical problems who was brought due to R heel ulcer 1- R heel infected wound. can't r/o OM . - MRI of foot pending - cont zosyn - wound cx with non lactose fermenting and another pending organism -wound care 2- YENI: unclear if he has CKD or not. US with mild L sided hydro. - CT scan of Abd /pelvis pending to r/o obstruction - uro consult - cont IVF - will obtain base line cr from PCP 's office 3- Normocytic anemia ;iron sudies pending . folate and B12 elevated 4- Decub ulcer: does not look infected. frequent positioning 5- DM: A1c 5.9. cont SSI here . will stop all oral meds at discharge follow a1c in 3 months Heparin Sq .
--- NOTE | 2017-09-29 16:36 | PN ---
Physical Exam: SUBJECTIVE: Patient seen and examined at bedside. No acute events overnight. Today, pt resting with at bedside. Discussed case, answered questions. interested in rehab for pt after d/c. D/t pt's mental state, unable to express physical complaints. OBJECTIVE: Vital Signs Period Temp Pulse Resp BP Sys/Kebede Pulse Ox Last 24 Hr 97.0 F-98.2 F 72-82 20-20 120-138/66-80 98-99 GENERAL: awake. in no acute distress. at bedside HEAD: Normal with no signs of trauma. EYES: PERRL, extraocular movements intact, sclera anicteric, conjunctiva clear. No ptosis. ENT: Ears normal, nares patent NECK: Trachea midline, supple. LUNGS: would not permit, did not follow commands HEART: Regular rate and rhythm, S1, S2 +systolic ejection murmur RUSB ABDOMEN: Soft, nontender, nondistended, normoactive bowel sounds, no guarding, no rebound EXTREMITIES: 2+ pt pulses, contracted, no edema . +L heel: with ulcer, mild purulent drainage. non malodorous. clean NEUROLOGICAL: pt unable to interact to sensory or verbal stimuli. +rigidity Laboratory Results - last 24 hr 09/28/17 09/28/17 09/29/17 17:00 21:57 06:15 Nucleated RBC % Sodium 141 Potassium 4.2 Chloride 106 Carbon Dioxide 29 Anion Gap 6 L BUN 35 H Creatinine 1.5 H Creat Clearance w eGFR 45.62 POC Glucometer 163 175 Random Glucose 73 L Calcium 8.8 Phosphorus 3.9 Magnesium 1.8 Vitamin B12 1533 H Serum Folate 54 H 09/29/17 09/29/17 09/29/17 06:15 06:23 11:03 WBC 7.6 RBC 3.08 L Hgb 10.2 L Hct 29.3 L MCV 95.3 MCH 33.2 MCHC 34.8 RDW 12.4 Plt Count 242 MPV 7.6 Absolute Neuts (auto) 5.2 Neutrophils % 69.2 Lymphocytes % 19.2 D Monocytes % 8.0 Eosinophils % 3.2 Basophils % 0.4 Nucleated RBC % 0 Sodium POC Glucometer 75 151 Active Medications Generic Name Dose Route Start Last Admin Trade Name Freq PRN Reason Stop Dose Admin Acetaminophen 650 mg 09/27/17 20:49 09/28/17 07:06 Tylenol - PO 650 mg Q4H PRN Administration PAIN LEVEL 1-5 Carbidopa/Levodopa 2 each 09/28/17 21:00 09/29/17 13:31 Sinemet 25/100 - PO 2 each 0600,1300,2100 ABIGAIL Administration Carbidopa/Levodopa 1 each 09/28/17 17:00 09/29/17 10:13 Sinemet 25/100 - PO 1 each BID@0900,1700 ABIGAIL Administration Citalopram Hydrobromide 40 mg 09/28/17 10:00 09/29/17 10:13 Celexa - PO 40 mg DAILY ABIGAIL Administration Collagenase 1 applic 09/29/17 13:00 Santyl - TP DAILY ABIGAIL Heparin Sodium (Porcine) 5,000 unit 09/27/17 22:00 09/29/17 13:30 Heparin - SQ 5,000 unit TID ABIGAIL Administration Piperacillin Sod/Tazobactam 50 mls @ 100 mls/hr 09/28/17 10:00 09/29/17 10:12 Sod 3.375 gm/ Dextrose IVPB 100 mls/hr Q8H-IV ABIGAIL Administration Protocol Insulin Aspart 1 vial 09/27/17 22:00 09/29/17 12:32 Novolog Vial Sliding Scale - SQ Not Given ACHS ABIGAIL Protocol IMAGING 09/27/17: CXR: no active pulmonary disease 09/27/17: R foot XR: loss of bone density, extensive degenerative changes, bunion formation by first MTP joint and previous partial resection of the third metatarsal with the base remaining. the toes are angulated. there are vascular calcifications. a destructive process is not seen. no blastic or lytic findings. incidental note is made of calcification by the distal tibia. 09/28/17: Renal US: mild L sided hydronephrosis Microbiology 09/27/17 06:45 Ankle - Right Gram Stain - Final 09/27/17 17:30 Blood - Peripheral Venous Blood Culture - Preliminary NO GROWTH OBTAINED AFTER 24 HOURS, INCUBATION TO CONTINUE FOR 4 DAYS. 09/27/17 17:30 Blood - Peripheral Venous Blood Culture - Preliminary NO GROWTH OBTAINED AFTER 24 HOURS, INCUBATION TO CONTINUE FOR 4 DAYS. 09/27/17 06:45 Ankle - Right Wound Culture - Preliminary Non Lactose Fermenting Gnb Pending Organism ASSESSMENT/PLAN: 77 yo F with hx of NIDDM2, parkinson's disease, dementia who presents with 3-4 days of scant purulent drainage from R decubitus heel ulcer. Pt with intermittent diabetic ulcers on feet for last 7 years, around 1 per year, most recently on R heel, which began one month ago. #R diabetic ulcer - r/o osteo -continue zosyn 3.375gm IVPB q8h (Today is Day 2) -Wound cx, ankle: non lactose fermenting gnb, follow sensitivities -non excisional debridement, Santyl application -wound care -F/u MRI R foot to r/o osteo. Questionnaire completed -vascular consult: Dr. Jerry -podiatry consult : Dr. Cabello. Message left -ID: Dr. Gomez #Elevated Cr - YENI vs. CKD -with mild L sided hydronephrosis -F/u CT w/o contrast - to r/o obstruction -Continue to trend Cr -gentle fluids -avoid nephrotoxic agents -spot urine protein -Serum PTH levels - pending #Anemia - 10.3 on admission. Normocytic. Likely secondary to chronic renal dz. Unknown date of last colonoscopy. - Tranfuse at <7 - F/u iron studies -B12, folate - elevated #NIDDM - on metformin at home - bgm q4h - ISS - A1c 5.9% - endocrine consult - Dr. 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 Outpt Neurologist based in [place]. #DVT PPX Hep 5000 SQ TID #F/E/N NS 50cc/hr daily lytes Puree diet #Code status requesting full code #Dispo continued monitoring on med -surg interested in wound care and rehab after d/c Visit type - Emergency Visit Emergency Visit: No - New Patient This patient is new to me today: No - Critical Care Critical Care patient: No
[2017-09-29] MEDS ORDERED: INSULIN (NOVOLOG) ASPART 100 UNITS/ML 10ML VIAL ONE (17:12)
[2017-09-30] MEDS ORDERED: DEXTROSE 5%-WATER - 50 ML IVPB ONE ×3 (01:53→17:06)
[2017-09-30] MEDS ORDERED: PIPERACILLIN/TAZOBACTAM 3.375 GM VIAL IVPB ONE ×3 (01:53→17:06)
[2017-09-30] MEDS: PIPERACILLIN/TAZOB 3.375 GM 3.375 GM in DEXTROSE 5%-WATER - 50 ML IVPB SCH ×3 (02:05→17:08)
[2017-09-30] MEDS: CARBIDOPA/LEVODOPA 25/100 TABLET (FP) PO SCH ×5 (06:22→20:51)
[2017-09-30] MEDS: HEPARIN NA (PORCINE) 5,000 UNITS/ML 1ML VIAL SQ SCH ×3 (06:22→21:43)
[2017-09-30] MEDS: INSULIN SLIDING SCALE (NOVOLOG) 1 VIAL SQ SCH ×4 (06:30→21:43)
[2017-09-30 07:17] LABS: BASO % 0.5 % (0-2.0); EOS % 2.6 % (0-4.5); HEMATOCRIT 29.9 % (35.4-49); HEMOGLOBIN 10.1 GM/dL (11.7-16.9); LYMPH % 22.1 % (8-40); MCH 32.6 pg (25.7-33.7); MCHC 33.9 g/dl (32.0-35.9); MEAN CELL VOLUME 96.2 fl (80-96); MEAN PLT VOLUME 7.5 fl (7.5-11.1); MONO % 10.1 % (3.8-10.2); NEUT % 64.7 % (42.8-82.8); PLATELET COUNT 223 K/MM3 (134-434); RBC 3.11 M/mm3 (4.00-5.60); RDW 12.4 % (11.9-15.9); WHITE BLOOD COUNT 7.3 K/mm3 (4.0-10.0)
[2017-09-30 07:42] LABS: ANION GAP 5 (8-16); BLOOD UREA NITROGEN 32 mg/dL (7-18); CALCIUM 8.8 mg/dL (8.5-10.1); CHLORIDE 105 mmol/L (98-107); CO2 29 mmol/L (21-32); CREATININE 1.4 mg/dL (0.7-1.3); GLUCOSE,RANDOM 94 mg/dL (74-106); POTASSIUM 4.5 mmol/L (3.5-5.1); SODIUM 139 mmol/L (136-145)
[2017-09-30 08:07] LABS: SERUM IRON SATURATION 12 % (15-55); TOTAL IRON BINDING CAPACITY 234 ug/dL (250-450); TRANSFERRIN 164 mg/dL (200-370); UIBC 206 ug/dL (111-343)
[2017-09-30] MEDS: ACETAMINOPHEN 325 MG TABLET (FP) PO PRN (08:50)
[2017-09-30] MEDS: COLLAGENASE CLOSTRIDIUM HIST. 30 GRAMS TUBE TP SCH ×2 (09:03→20:40)
[2017-09-30] MEDS: CITALOPRAM HYDROBROMIDE 20 MG TABLET (FP) PO SCH (09:06)
--- NOTE | 2017-09-30 10:23 | CON.GU ---
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, Peripheral Neuropathy, Parkinson's Endocrine: Yes: Diabetes Mellitus - Alcohol/Substance Use Hx Alcohol Use: No - Smoking History Smoking history: Never smoked Have you smoked in the past 12 months: No Home Medications - Allergies Allergies/Adverse Reactions: Allergies Allergy/AdvReac Type Severity Reaction Status Date / Time No Known Allergies Allergy Verified 09/27/17 17:17 - Home Medications Home Medications: Ambulatory Orders Carbidopa/Levodopa 25/100 PO 09/27/17 Citalopram HBr 40 mg PO DAILY 09/27/17 Glimepiride 4 mg PO PRN 09/27/17 Metformin HCl 500 mg PO BID 09/27/17 Tradjenta 5 mg PO DAILY 09/27/17 Aspirin 81 mg PO DAILY 09/28/17 Physical Exam- Vital Signs: Vital Signs Temperature 98.9 F 09/30/17 05:30 Pulse Rate 67 09/30/17 05:30 Respiratory Rate 18 09/30/17 03:00 Blood Pressure 128/73 09/30/17 05:30 O2 Sat by Pulse Oximetry (%) 98 09/29/17 21:00 Labs: CBC, BMP 09/30/17 07:00 09/30/17 07:00 Assessment/Plan 77 year old male seen in 6 S, asked to the pt. for mild hydro. He had ct scan will review the films. Pt unresponsive. Does not appear to be in any acute urological condition. Dr Perera will be back tomorrow. Will follow as necessary.
--- NOTE | 2017-09-30 17:08 | PN ---
Progress Note (short form) - Note Progress Note: Subjective: unable to get hx . at bed side states he is at base line Objective: Vital Signs: Last Vital Signs Temp Pulse Resp BP Pulse Ox 98.7 F 72 16 110/57 95 09/30/17 14:40 09/30/17 09:00 09/30/17 14:40 09/30/17 14:40 09/30/17 09:00 Laboratory Results - last 24 hr 09/28/17 09/29/17 09/29/17 07:00 17:10 21:47 WBC RBC Hgb Hct MCV MCH MCHC RDW Plt Count MPV Absolute Neuts (auto) Neutrophils % Lymphocytes % Monocytes % Eosinophils % Basophils % Nucleated RBC % Sodium Potassium Chloride Carbon Dioxide Anion Gap BUN Creatinine Creat Clearance w eGFR POC Glucometer 199 124 Random Glucose Calcium Iron 28 L TIBC 234 L Iron Saturation 12 L Transferrin 164 L 09/30/17 09/30/17 09/30/17 06:27 07:00 07:00 WBC 7.3 RBC 3.11 L Hgb 10.1 L Hct 29.9 L MCV 96.2 H MCH 32.6 MCHC 33.9 RDW 12.4 Plt Count 223 MPV 7.5 Absolute Neuts (auto) 4.7 Neutrophils % 64.7 Lymphocytes % 22.1 Monocytes % 10.1 Eosinophils % 2.6 Basophils % 0.5 Nucleated RBC % 0 Sodium 139 Potassium 4.5 Chloride 105 Carbon Dioxide 29 Anion Gap 5 L BUN 32 H Creatinine 1.4 H Creat Clearance w eGFR 49.41 POC Glucometer 94 Random Glucose 94 D Calcium 8.8 Iron TIBC Iron Saturation Transferrin 09/30/17 09/30/17 10:16 15:30 WBC RBC Hgb Hct MCV MCH MCHC RDW Plt Count MPV Absolute Neuts (auto) Neutrophils % Lymphocytes % Monocytes % Eosinophils % Basophils % Nucleated RBC % Sodium Potassium Chloride Carbon Dioxide Anion Gap BUN Creatinine Creat Clearance w eGFR POC Glucometer 157 197 Random Glucose Calcium Iron TIBC Iron Saturation Transferrin OBJectives: NAD, awake , not cooperative, minimally communicative Cv; RRR, no JVD Lungs: CTAB anteriorly Abd: soft, NT, ND , NL BS Ext: R heel ulcer with minimal draiange . no discharge noted. no edema on legs . course tremor in hands ASSESSMENT AND PLAN: 77 y/o gentleman with h/o Parkinson's , DM, dementia , sacral decub ulcer and other medical problems who was brought due to R heel ulcer 1- R heel infected wound. can't r/o OM. - MRI of foot pending - cont zosyn - wound cx with non lactose fermenting lactose fermenting organisms. follow sinal - wound care 2- YENI: unclear if he has CKD or not. - CT scan with bilateral dilation of collecting system but no actual obstruction - uro input appreciated - cont IVF - will obtain base line cr from PCP 's office when able to reach 3- Normocytic anemia ;iron sudies indicate anemia of chronic disease. folate and B12 elevated stable HB 4- Decub ulcer: frequent positioning. clean 5- DM: A1c 5.9. cont SSI here . will stop all oral meds at discharge follow a1c in 3 months Heparin Sq . Visit type - Emergency Visit Emergency Visit: Yes ED Registration Date: 09/27/17 Care time: The patient presented to the Emergency Department on the above date and was hospitalized for further evaluation of their emergent condition. - New Patient This patient is new to me today: No - Critical Care Critical Care patient: No
[2017-09-30] MEDS ORDERED: INSULIN (NOVOLOG) ASPART 100 UNITS/ML 10ML VIAL ONE (21:36)
[2017-10-01] MEDS ORDERED: PIPERACILLIN/TAZOBACTAM 3.375 GM VIAL IVPB ONE ×3 (01:30→16:51)
[2017-10-01] MEDS ORDERED: DEXTROSE 5%-WATER - 50 ML IVPB ONE ×3 (01:31→16:51)
[2017-10-01] MEDS: PIPERACILLIN/TAZOB 3.375 GM 3.375 GM in DEXTROSE 5%-WATER - 50 ML IVPB SCH ×3 (01:38→17:13)
[2017-10-01] MEDS: CARBIDOPA/LEVODOPA 25/100 TABLET (FP) PO SCH ×5 (06:42→21:30)
[2017-10-01] MEDS: HEPARIN NA (PORCINE) 5,000 UNITS/ML 1ML VIAL SQ SCH ×3 (06:43→21:27)
[2017-10-01] MEDS: sitaGLIPtin PHOSPHATE 25 MG TABLET (FP) PO SCH (06:43)
[2017-10-01] MEDS: INSULIN SLIDING SCALE (NOVOLOG) 1 VIAL SQ SCH ×4 (06:44→21:27)
[2017-10-01 08:15] LABS: ANION GAP 7 (8-16); BLOOD UREA NITROGEN 34 mg/dL (7-18); CALCIUM 8.7 mg/dL (8.5-10.1); CHLORIDE 105 mmol/L (98-107); CO2 27 mmol/L (21-32); CREATININE 1.7 mg/dL (0.7-1.3); GLUCOSE,RANDOM 108 mg/dL (74-106); POTASSIUM 4.2 mmol/L (3.5-5.1); SODIUM 139 mmol/L (136-145)
[2017-10-01] MEDS ORDERED: PT OWN MED DRAWER 7, Y5N ONE (09:55)
[2017-10-01] MEDS: CITALOPRAM HYDROBROMIDE 20 MG TABLET (FP) PO SCH (10:00)
[2017-10-01] MEDS: COLLAGENASE CLOSTRIDIUM HIST. 30 GRAMS TUBE TP SCH (10:01)
--- NOTE | 2017-10-01 12:17 | PN ---
Progress Note (short form) - Note Progress Note: ID Zosyn gus Seen by Dr Jerry and debrided heel ulcer Selected Entries 10/01/17 10/01/17 02:00 05:30 Temperature 97.9 F Pulse Rate 70 Respiratory 18 Rate Blood Pressure 123/55 Microbiology 09/27/17 06:45 Ankle - Right Gram Stain - Final 09/27/17 17:30 Blood - Peripheral Venous Blood Culture - Preliminary NO GROWTH OBTAINED AFTER 72 HOURS, INCUBATION TO CONTINUE FOR 2 DAYS. 09/27/17 17:30 Blood - Peripheral Venous Blood Culture - Preliminary NO GROWTH OBTAINED AFTER 72 HOURS, INCUBATION TO CONTINUE FOR 2 DAYS. 09/27/17 06:45 Ankle - Right Wound Culture - Preliminary Non Lactose Fermenting Gnb Lactose Fermenting Neg Bacilli Laboratory Tests 09/30/17 10/01/17 07:00 06:20 WBC 7.3 Hgb 10.1 L Hct 29.9 L Plt Count 223 BUN 34 H Creatinine 1.7 H D Assessment Diabetic heel ulcer debrided MRI pending for osteo Plan Please advise me with MRI report so can determine need for antibiotics Jason GUERRERO Problem List - Problems (1) Heel ulceration Code(s): L97.409 - NON-PRS CHRONIC ULCER OF UNSP HEEL AND MIDFOOT W UNSP SEVERT Qualifiers: Laterality: right Non-pressure ulcer stage: with fat layer exposed Qualified Code(s): L97.412 - Non-pressure chronic ulcer of right heel and midfoot with fat layer exposed (2) Type 2 diabetes mellitus with unspecified complications Code(s): E11.8 - TYPE 2 DIABETES MELLITUS WITH UNSPECIFIED COMPLICATIONS
--- NOTE | 2017-10-01 16:40 | PN ---
Teaching Attending Note Name of Resident: Cary Gonzales ATTENDING PHYSICIAN STATEMENT I saw and evaluated the patient. I reviewed the resident's note and discussed the case with the resident. I agree with the resident's findings and plan as documented. SUBJECTIVE: same per . no change . [facility] base [facility] Ext: R heel ulcer with minimal drainage . no discharge noted. no edema on legs . course tremor in hands ASSESSMENT AND PLAN: 77 y/o gentleman with h/o Parkinson's , DM, dementia , sacral decub ulcer and other medical problems who was brought due to R heel ulcer 1- R heel infected wound. MRI limited but no OM seen . will d/w ID if further imaging is needed - cont zosyn - wound cx with non lactose fermenting and E coli - wound care 2- YENI: unclear if he has CKD or not. unable to reach PCP fro [facility] . - no intervention per urology - cr is worse, will check PVR and insert dawn if needed - cont IVF 3- Decub ulcer: frequent positioning. 5- DM: A1c 5.9. cont SSI here . will stop all oral meds at discharge follow a1c in 3 months Heparin Sq .
--- NOTE | 2017-10-01 18:35 | PN ---
Physical Exam: SUBJECTIVE: Patient seen and examined at bedside. Overnight, pt afebrile. No acute events. Today, pt with at bedside. For MRI. denies pt has other complaints. OBJECTIVE: Vital Signs Period Temp Pulse Resp BP Sys/Kebede Pulse Ox Last 24 Hr 97.8 F-98.9 F 70-86 18-22 110-138/55-70 96-98 GENERAL: resting in bed, awake. in no acute distress. HEAD: Normal with no signs of trauma. EYES: PERRL, extraocular movements intact, sclera anicteric, conjunctiva clear. ENT: Ears normal, nares patent NECK: Trachea midline, supple. LUNGS: did not follow commands HEART: Regular rate and rhythm, S1, S2 +systolic ejection murmur RUSB ABDOMEN: Soft, nontender, nondistended, normoactive bowel sounds, no guarding, no rebound EXTREMITIES: 2+ pt pulses, contracted, no edema . +L heel: with ulcer, clean. NEUROLOGICAL: pt unable to interact to sensory or verbal stimuli. +rigidity Laboratory Results - last 24 hr 09/28/17 09/30/17 10/01/17 07:00 21:43 06:20 Sodium 139 Potassium 4.2 Chloride 105 Carbon Dioxide 27 Anion Gap 7 L BUN 34 H Creatinine 1.7 H D Creat Clearance w eGFR 39.49 POC Glucometer 198 Random Glucose 108 H Calcium 8.7 PTH Intact 26 10/01/17 10/01/17 10/01/17 06:42 12:13 17:09 Creatinine POC Glucometer 123 186 137 Random Glucose Active Medications Generic Name Dose Route Start Last Admin Trade Name Jessy PRN Reason Stop Dose Admin Acetaminophen 650 mg 09/27/17 20:49 09/30/17 08:50 Tylenol - PO 650 mg Q4H PRN Administration PAIN LEVEL 1-5 Carbidopa/Levodopa 2 each 09/28/17 21:00 10/01/17 14:21 Sinemet 25/100 - PO 2 each 0600,1300,2100 ABIGAIL Administration Carbidopa/Levodopa 1 each 09/28/17 17:00 10/01/17 17:12 Sinemet 25/100 - PO 1 each BID@0900,1700 ABIGAIL Administration Citalopram Hydrobromide 40 mg 09/28/17 10:00 10/01/17 10:00 Celexa - PO 40 mg DAILY ABIGAIL Administration Collagenase 1 applic 09/29/17 13:00 10/01/17 10:01 Santyl - TP 1 applic DAILY ABIGAIL Administration Heparin Sodium (Porcine) 5,000 unit 09/27/17 22:00 10/01/17 14:21 Heparin - SQ 5,000 unit TID ABIGAIL Administration Piperacillin Sod/Tazobactam 50 mls @ 100 mls/hr 09/28/17 10:00 10/01/17 17:13 Sod 3.375 gm/ Dextrose IVPB 100 mls/hr Q8H-IV ABIGAIL Administration Protocol Insulin Aspart 1 vial 09/27/17 22:00 10/01/17 17:11 Novolog Vial Sliding Scale - SQ Not Given ACHS [facility] Protocol Sitagliptin Phosphate 25 mg 10/01/17 07:00 10/01/17 06:43 Januvia - PO 25 mg DAILY@0700 ABIGAIL Administration Tamsulosin HCl 0.4 mg 10/02/17 08:30 Flomax - PO DAILY@0830 [facility] IMAGING 09/27/17: CXR: no active pulmonary disease 09/27/17: R foot XR: loss of bone density, extensive degenerative changes, bunion formation by first MTP joint and previous partial resection of the third metatarsal with the base remaining. the toes are angulated. there are vascular calcifications. a destructive process is not seen. no blastic or lytic findings. incidental note is made of calcification by the distal tibia. 09/28/17: Renal US: mild L sided hydronephrosis 09/29/17: CTAP w/o contrast: dilation of R renal collecting system and proximal R ureter. mild distensionof left renal collecting system and proximal left ureter. no definitive obstructing calculi identified but recommend follow up studies 10/01/17: MRI w/o cont: severely limited exam d/t motion artifact. probable open wound versus micrometallic artifact over the posterior plantar aspect over the lateral calcaneous with underlying soft tissue edema. no definite osteomyelitis is seen however examination is limited Microbiology 09/27/17 06:45 Ankle - Right Gram Stain - Final 09/27/17 17:30 Blood - Peripheral Venous Blood Culture - Preliminary NO GROWTH OBTAINED AFTER 96 HOURS, INCUBATION TO CONTINUE FOR 1 DAYS. 09/27/17 17:30 Blood - Peripheral Venous Blood Culture - Preliminary NO GROWTH OBTAINED AFTER 96 HOURS, INCUBATION TO CONTINUE FOR 1 DAYS. 09/27/17 06:45 Ankle - Right Wound Culture - Preliminary Non Lactose Fermenting Gnb Escherichia Coli ASSESSMENT/PLAN: 77 yo F with hx of NIDDM2, parkinson's disease, dementia who presents with 3-4 days of scant purulent drainage from R decubitus heel ulcer. Pt with intermittent diabetic ulcers on feet for last 7 years, around 1 per year, most recently on R heel, which began one month ago. #R diabetic ulcer - r/o osteo -continue zosyn 3.375gm IVPB q8h (Today is Day 4) -Wound cx, ankle: e.coli (sens to zosyn) and non lactose fermenting gnb- awaiting sensitivity -Santyl application -wound care -MRI: poor study, however without evidence of osteo -vascular consult: Dr. Jerry -podiatry consult : Dr. Cabello. Message left -ID: Dr. Gomez #Elevated Cr - YENI vs. CKD -with mild L sided hydronephrosis -CT without evidence obstruction -Continue to trend Cr -gentle fluids -avoid nephrotoxic agents -started on flomax 0.4mg PO qd -continue to follow urinary void -message left for Dr. Mccauley - [phone]; to find out baseline Cr -uro consult- Dr. Perera #Anemia - 10.3 on admission. Normocytic. Likely secondary to chronic renal dz. Unknown date of last colonoscopy. -Tranfuse at <7 -iron studies - decr iron, TIBC, iron sat -possible 2/2 acd -B12, folate - elevated #NIDDM - on metformin at home -bgm q4h -ISS -started on sitagliptin 25mg PO qd -A1c 5.9% -F/u A1c - endocrine consult - Dr. 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 Outpt Neurologist based in [place]. #DVT PPX Hep 5000 SQ TID #F/E/N NS 50cc/hr daily lytes Puree diet #Code status full code #Dispo continued monitoring on med -surg interested in wound care and rehab after d/c Visit type - Emergency Visit Emergency Visit: No - New Patient This patient is new to me today: No - Critical Care Critical Care patient: No
[2017-10-02] MEDS ORDERED: PIPERACILLIN/TAZOBACTAM 3.375 GM VIAL IVPB ONE ×2 (02:30→09:14)
[2017-10-02] MEDS ORDERED: DEXTROSE 5%-WATER - 50 ML IVPB ONE ×2 (02:31→09:14)
[2017-10-02] MEDS: PIPERACILLIN/TAZOB 3.375 GM 3.375 GM in DEXTROSE 5%-WATER - 50 ML IVPB SCH ×2 (02:36→09:15)
[2017-10-02] MEDS: CARBIDOPA/LEVODOPA 25/100 TABLET (FP) PO SCH ×5 (06:14→22:30)
[2017-10-02] MEDS: HEPARIN NA (PORCINE) 5,000 UNITS/ML 1ML VIAL SQ SCH ×3 (06:15→22:31)
[2017-10-02] MEDS: sitaGLIPtin PHOSPHATE 25 MG TABLET (FP) PO SCH (06:15)
[2017-10-02] MEDS: INSULIN SLIDING SCALE (NOVOLOG) 1 VIAL SQ SCH ×4 (06:17→22:33)
[2017-10-02] MEDS: TAMSULOSIN HCL 0.4 MG CAP.ER.24H (FP) PO SCH (08:19)
[2017-10-02] MEDS: CITALOPRAM HYDROBROMIDE 20 MG TABLET (FP) PO SCH (09:16)
[2017-10-02 10:36] LABS: CHLORIDE 106 mmol/L (98-107); POTASSIUM 4.1 mmol/L (3.5-5.1); SODIUM 141 mmol/L (136-145)
[2017-10-02] MEDS: COLLAGENASE CLOSTRIDIUM HIST. 30 GRAMS TUBE TP SCH (10:36)
[2017-10-02 10:51] LABS: ANION GAP 9 (8-16); BLOOD UREA NITROGEN 36 mg/dL (7-18); CALCIUM 8.5 mg/dL (8.5-10.1); CO2 26 mmol/L (21-32); CREATININE 1.7 mg/dL (0.7-1.3); GLUCOSE,RANDOM 96 mg/dL (74-106)
[2017-10-02] MEDS ORDERED: INSULIN (NOVOLOG) ASPART 100 UNITS/ML 10ML VIAL ONE ×4 (11:45→17:29)
--- NOTE | 2017-10-02 15:24 | PN ---
Progress Note (short form) - Note Progress Note: alert nad s/p bedside debridement Vital Signs Period Temp Pulse Resp BP Sys/Kebede Pulse Ox Last 24 Hr 97.8 F-99.6 F 64-71 19-21 112-137/51-61 96-98 cor-rrr lungs clear abd soft,nt ext heel is clean no drainage, no fluctuance, no exposed bone, no erythema MRI-no osteomyelitis CBC, BMP 09/30/17 07:00 10/02/17 09:50 Microbiology 09/27/17 06:45 Ankle - Right Gram Stain - Final 09/27/17 06:45 Ankle - Right Wound Culture - Final Morganella Morganii Escherichia Coli 09/27/17 17:30 Blood - Peripheral Venous Blood Culture - Preliminary NO GROWTH OBTAINED AFTER 96 HOURS, INCUBATION TO CONTINUE FOR 1 DAYS. 09/27/17 17:30 Blood - Peripheral Venous Blood Culture - Preliminary NO GROWTH OBTAINED AFTER 96 HOURS, INCUBATION TO CONTINUE FOR 1 DAYS. a/p pressure ulcer on the heel- wound is clean, no cellulitis, no drainage no evidence of osteomyelitis this is a pressure phenomenon and the heel will never heal unless the pressure if offloaded please call back if needed
--- NOTE | 2017-10-02 15:52 | PN ---
Physical Exam: SUBJECTIVE: Patient seen and examined at bedside. No acute events overnight. Today, pt resting in bed. Unable to offer additional information d/t clinical state. OBJECTIVE: Vital Signs Period Temp Pulse Resp BP Sys/Kebede Pulse Ox Last 24 Hr 97.8 F-99.6 F 64-71 19-21 112-137/51-61 96-98 GENERAL: The patient is resting in bed. awake, appears in no acute distress HEAD: Normal with no signs of trauma. EYES: PERRL, extraocular movements intact, sclera anicteric, conjunctiva clear. ENT: Ears normal, nares patent, oropharynx clear without exudates, moist mucous membranes. NECK: Trachea midline, supple. LUNGS: Breath sounds equal, clear to auscultation bilaterally, no wheezes, no crackles, no accessory muscle use. HEART: Regular rate and rhythm, +systolic murmur 2nd R IS ABDOMEN: Soft, nontender, nondistended, normoactive bowel sounds, no guarding EXTREMITIES: 2+ pt pulses, contracted. no edema. +R ankle - clean ulcer, w/o drainage. NEUROLOGICAL: pt minimally interactive, observed moving upper and lower extremities. PSYCH: Normal mood, normal affect. SKIN: Warm, dry Laboratory Results - last 24 hr 10/01/17 10/01/17 10/02/17 17:09 21:26 05:20 BUN POC Glucometer 137 214 97 Calcium 10/02/17 10/02/17 09:50 11:31 Sodium 141 Potassium 4.1 Chloride 106 Carbon Dioxide 26 Anion Gap 9 BUN 36 H Creatinine 1.7 H Creat Clearance w eGFR 39.49 POC Glucometer 161 Random Glucose 96 Calcium 8.5 Active Medications Generic Name Dose Route Start Last Admin Trade Name Freq PRN Reason Stop Dose Admin Acetaminophen 650 mg 09/27/17 20:49 09/30/17 08:50 Tylenol - PO 650 mg Q4H PRN Administration PAIN LEVEL 1-5 Carbidopa/Levodopa 2 each 09/28/17 21:00 10/02/17 13:19 Sinemet 25/100 - PO 2 each 0600,1300,2100 ABIGAIL Administration Carbidopa/Levodopa 1 each 09/28/17 17:00 10/02/17 08:20 Sinemet 25/100 - PO 1 each BID@0900,1700 ABIGAIL Administration Citalopram Hydrobromide 40 mg 09/28/17 10:00 10/02/17 09:16 Celexa - PO 40 mg DAILY ABIGAIL Administration Collagenase 1 applic 09/29/17 13:00 10/02/17 10:36 Santyl - TP 1 applic DAILY ABIGAIL Administration Heparin Sodium (Porcine) 5,000 unit 09/27/17 22:00 10/02/17 13:19 Heparin - SQ 5,000 unit TID ABIGAIL Administration Insulin Aspart 1 vial 09/27/17 22:00 10/02/17 11:58 Novolog Vial Sliding Scale - SQ 2 units ACHS ABIGAIL Administration Protocol Sitagliptin Phosphate 25 mg 10/01/17 07:00 10/02/17 06:15 Januvia - PO 25 mg DAILY@0700 ABIGAIL Administration Tamsulosin HCl 0.4 mg 10/02/17 08:30 10/02/17 08:19 Flomax - PO 0.4 mg DAILY@0830 ABIGAIL Administration IMAGING 09/27/17: CXR: no active pulmonary disease 09/27/17: R foot XR: loss of bone density, extensive degenerative changes, bunion formation by first MTP joint and previous partial resection of the third metatarsal with the base remaining. the toes are angulated. there are vascular calcifications. a destructive process is not seen. no blastic or lytic findings. incidental note is made of calcification by the distal tibia. 09/28/17: Renal US: mild L sided hydronephrosis 09/29/17: CTAP w/o contrast: dilation of R renal collecting system and proximal R ureter. mild distensionof left renal collecting system and proximal left ureter. no definitive obstructing calculi identified but recommend follow up studies 10/01/17: MRI w/o cont: severely limited exam d/t motion artifact. probable open wound versus micrometallic artifact over the posterior plantar aspect over the lateral calcaneous with underlying soft tissue edema. no definite osteomyelitis is seen however examination is limited Microbiology 09/27/17 06:45 Ankle - Right Gram Stain - Final 09/27/17 06:45 Ankle - Right Wound Culture - Final Morganella Morganii Escherichia Coli 09/27/17 17:30 Blood - Peripheral Venous Blood Culture - Preliminary NO GROWTH OBTAINED AFTER 96 HOURS, INCUBATION TO CONTINUE FOR 1 DAYS. 09/27/17 17:30 Blood - Peripheral Venous Blood Culture - Preliminary NO GROWTH OBTAINED AFTER 96 HOURS, INCUBATION TO CONTINUE FOR 1 DAYS. ASSESSMENT/PLAN: 77 yo F with hx of NIDDM2, parkinson's disease, dementia who presents with 3-4 days of scant purulent drainage from R decubitus heel ulcer. Pt with intermittent diabetic ulcers on feet for last 7 years, around 1 per year, most recently on R heel, which began one month ago. #R diabetic ulcer - r/o osteo -completed five days zosyn 3.375gm IVPB q8h -without white count, afebrile, clean ulcer already debrided. -will watch off abx, d/t pressure. will continue to occur - d/w ID -foam dressing ordered for off loading area -Santyl application -wound care -MRI: poor study, however without evidence of osteo -vascular consult: Dr. Jerry -podiatry consult : Dr. Cabello. Message left -ID: Dr. Gomez #Elevated Cr - YENI vs. CKD -with mild L sided hydronephrosis -CT without evidence obstruction -Continue to trend Cr -gentle fluids -avoid nephrotoxic agents -started on flomax 0.4mg PO qd -continue to follow urinary void -message left for Dr. Mccauley - [phone]; to find out baseline Cr -uro consult- Dr. Perera #Anemia - 10.3 on admission. Normocytic. Likely secondary to chronic renal dz. Unknown date of last colonoscopy. -Tranfuse at <7 -iron studies - decr iron, TIBC, iron sat -possible 2/2 acd -B12, folate - elevated #NIDDM - on metformin at home -bgm q4h -ISS -started on sitagliptin 25mg PO qd -A1c 5.9% -endocrine consult - Dr. 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 Outpt Neurologist based in [place]. #DVT PPX Hep 5000 SQ TID #F/E/N off IVF daily lytes Puree diet #Code status full code #Dispo continued monitoring on med -surg d/c planning; d/w SW, will go tomorrow Visit type - Emergency Visit Emergency Visit: No - New Patient This patient is new to me today: No - Critical Care Critical Care patient: No
--- NOTE | 2017-10-02 18:59 | PN ---
Teaching Attending Note Name of Resident: Cary Gonzales ATTENDING PHYSICIAN STATEMENT I saw and evaluated the patient. I reviewed the resident's note and discussed the case with the resident. I agree with the resident's findings and plan as documented. SUBJECTIVE: Unable to get history . no events OBJECTIVE: NAD, non verbal CV: RRR Lungs: CTAB Ext: R heel ulcer with no drainage . no discharge noted. no edema on legs . course tremor in hands ASSESSMENT AND PLAN: 77 y/o gentleman with h/o Parkinson's , DM, dementia , sacral decub ulcer and other medical problems who was brought due to R heel ulcer 1- R heel infected wound. MRI with no OM seen . - d/w ID . stop Abx and monitor as out pt - wound cx reviewed. 2- Likely CKD, cr has been stable during this hospitalization. hydro on CT: no intervention per uro PCP on vacation can't obtain base line cr on IVF here . can dc in am 3- Sacral Decub ulcer: frequent positioning. 5- DM: A1c 5.9. cont SSI here. will stop all oral meds at discharge follow a1c in 3 months Heparin Sq . d/w . wants patient to go home with services . SW updated. arrange for dc tomorrow if services are set
[2017-10-02] MEDS: ACETAMINOPHEN 325 MG TABLET (FP) PO PRN (22:31)
[2017-10-03 03:38] VITALS: TEMP 98.8
[2017-10-03] MEDS: HEPARIN NA (PORCINE) 5,000 UNITS/ML 1ML VIAL SQ SCH ×2 (06:18→13:04)
[2017-10-03] MEDS: sitaGLIPtin PHOSPHATE 25 MG TABLET (FP) PO SCH (06:19)
[2017-10-03] MEDS: CARBIDOPA/LEVODOPA 25/100 TABLET (FP) PO SCH ×3 (06:19→13:04)
[2017-10-03] MEDS: INSULIN SLIDING SCALE (NOVOLOG) 1 VIAL SQ SCH ×2 (06:20→12:08)
[2017-10-03] MEDS: TAMSULOSIN HCL 0.4 MG CAP.ER.24H (FP) PO SCH (08:15)
[2017-10-03] MEDS: ACETAMINOPHEN 325 MG TABLET (FP) PO PRN (08:47)
[2017-10-03] MEDS: CITALOPRAM HYDROBROMIDE 20 MG TABLET (FP) PO SCH (09:11)
[2017-10-03] MEDS: COLLAGENASE CLOSTRIDIUM HIST. 30 GRAMS TUBE TP SCH (09:12)
--- NOTE | 2017-10-03 13:37 | DS ---
Physical Exam: SUBJECTIVE: Patient seen and examined at bedside. No acute events overnight. Today, pt resting comfortably. D/t mental status, unable to voice any physical complaints. OBJECTIVE: Vital Signs Period Temp Pulse Resp BP Sys/Kebede Pulse Ox Last 24 Hr 97.9 F-99.4 F 64-76 19-20 95-114/48-63 97-97 PHYSICAL EXAM GENERAL: The patient has dementia. resting in bed, in no acute distress. HEAD: Normal with no signs of trauma. EYES: PERRL, extraocular movements intact, sclera anicteric, conjunctiva clear. ENT: Ears normal, nares patent, oropharynx clear without exudates, moist mucous membranes. NECK: Trachea midline, supple. LUNGS: Breath sounds equal, clear to auscultation bilaterally, no wheezes, no crackles, no accessory muscle use. +poor effort as pt unable to follow commands HEART: Regular rate and rhythm, S1, S2. +systolic ejection murmur R 2nd IS ABDOMEN: Soft, nontender, nondistended, normoactive bowel sounds, no guarding, no rebound EXTREMITIES: 2+ pt pulses, contracted. rigid, no edema. +R heel: with clean ulcer, without drainage. NEUROLOGICAL: pt with dementia. able to move upper and lower extremities. non interactive. unable to follow commands. PSYCH: +dementia SKIN: Warm, dry, normal turgor LABS 09/27/17 09/27/17 09/28/17 17:30 17:30 07:00 WBC 7.4 7.9 Hgb 10.3 L 10.2 L Hct 30.6 L 29.8 L BUN 51 H Creatinine 1.6 H 09/28/17 09/28/17 09/29/17 07:00 07:00 06:15 BUN 40 H D 35 H Creatinine 1.4 H 1.5 H Iron 28 L TIBC 234 L Iron Saturation 12 L Transferrin 164 L Vitamin B12 1533 H Serum Folate 54 H 09/29/17 09/30/17 09/30/17 06:15 07:00 07:00 WBC 7.6 7.3 Hgb 10.1 L Hct 29.9 L BUN 32 H Creatinine 1.4 H 10/01/17 10/02/17 06:20 09:50 BUN 34 H 36 H Creatinine 1.7 H D 1.7 H IMAGING 09/27/17: CXR: no active pulmonary disease 09/27/17: R foot XR: loss of bone density, extensive degenerative changes, bunion formation by first MTP joint and previous partial resection of the third metatarsal with the base remaining. the toes are angulated. there are vascular calcifications. a destructive process is not seen. no blastic or lytic findings. incidental note is made of calcification by the distal tibia. 09/28/17: Renal US: mild L sided hydronephrosis 09/29/17: CTAP w/o contrast: dilation of R renal collecting system and proximal R ureter. mild distensionof left renal collecting system and proximal left ureter. no definitive obstructing calculi identified but recommend follow up studies 10/01/17: MRI w/o cont: severely limited exam d/t motion artifact. probable open wound versus micrometallic artifact over the posterior plantar aspect over the lateral calcaneous with underlying soft tissue edema. no definite osteomyelitis is seen however examination is limited Microbiology 09/27/17 17:30 Blood - Peripheral Venous Blood Culture - Final NO GROWTH AFTER 5 DAYS INCUBATION 09/27/17 17:30 Blood - Peripheral Venous Blood Culture - Final NO GROWTH AFTER 5 DAYS INCUBATION 09/27/17 06:45 Ankle - Right Gram Stain - Final 09/27/17 06:45 Ankle - Right Wound Culture - Final Morganella Morganii Escherichia Coli HOSPITAL COURSE: Date of Admission:09/27/17 Date of Discharge: 10/03/17 Admit diagnosis: R diabetic foot ulcer 77 y/o M with hx of NIDDM2,Parkinson's disease, dementia who presented to the ED with 3-4 days of scant purulent drainage from R decubitus diabetic heel ulcer. Pt has had intermittent diabetic ulcers on feet for the past seven years. His most recent infection on his R heel began one month ago. Per , pt was seen 1.5 weeks before admission by caustic liquor maker, Dr. Cabello for R heel ulcer, who recommended continuation of typically wound care regimen with daily peroxide rinses and zinc supplements to support wound healing. However, more recently, pt's noted scant purulent drainage and trace erythema at wound margins. Pt contacted Dr. Cabello and PCP Dr. Mccauley and was urged to go ED for further evaluation. Pt with no prior hx of infected decubitus ulcers requiring IV antibiotics or osteomyelitis. Per , pt diabetes is well controlled on PO hypoglycemic agents, however did not know last A1C value. Denied any f/c/n/v/d, FERNANDEZ, cough, sob, chest pain, chest tightness, abd pain, CVA tenderness, LE edema, FNDs. No recent travel, sick contacts or diet changes. Pt is wheelchair bound secondary to progression of Pparkinson's disease (7 years ago). Pt admitted for R diabetic foot ulcer. While pt on the floor, he underwent an MRI which did not reveal osteomyelitis. His R heel ulcer was also cultured and grew Morganella Morgaii and E.coli. However, blood cx negative. During this time, pt was afebrile, without white count and did not meet sepsis criteria. He was tx with five days of zosyn 3.375gm IVPB q8h. Pt is not recommended abx on d/c as per ID, as wound not infected, without signs of sepsis and appears clean. Wound debrided at bedside by vascular team, with recommendation of off-loading and santyl application. Concerning pt's YENI, pt underwent CT which did not reveal signs of obstruction/ nephrolithiasis. Only revealed mild L sided hydronephrosis. Pt seen by urology without further interventions/recommendations needed. Pt is rec wound care, f/u with vascular, PCP in 1 week. He should also f/u with his outpt neurologist. Minutes to complete discharge: 45 <Cary Gonzales - Last Filed: 10/03/17 14:15> Physical Exam: Agree with the resident's note. Vital Signs Temperature 98.8 F 10/03/17 14:00 Pulse Rate 74 10/03/17 14:00 Respiratory Rate 20 10/03/17 14:00 Blood Pressure 128/68 10/03/17 14:00 O2 Sat by Pulse Oximetry (%) 97 10/03/17 09:00 CBCD WBC 7.3 K/mm3 (4.0-10.0) 09/30/17 07:00 RBC 3.11 M/mm3 (4.00-5.60) L 09/30/17 07:00 Hgb 10.1 GM/dL (11.7-16.9) L 09/30/17 07:00 Hct 29.9 % (35.4-49) L 09/30/17 07:00 MCV 96.2 fl (80-96) H 09/30/17 07:00 MCHC 33.9 g/dl (32.0-35.9) 09/30/17 07:00 RDW 12.4 % (11.9-15.9) 09/30/17 07:00 Plt Count 223 K/MM3 (134-434) 09/30/17 07:00 MPV 7.5 fl (7.5-11.1) 09/30/17 07:00 CMP Sodium 141 mmol/L (136-145) 10/02/17 09:50 Potassium 4.1 mmol/L (3.5-5.1) 10/02/17 09:50 Chloride 106 mmol/L (98-107) 10/02/17 09:50 Carbon Dioxide 26 mmol/L (21-32) 10/02/17 09:50 Anion Gap 9 (8-16) 10/02/17 09:50 BUN 36 mg/dL (7-18) H 10/02/17 09:50 Creatinine 1.7 mg/dL (0.7-1.3) H 10/02/17 09:50 Creat Clearance w eGFR 39.49 (>60) 10/02/17 09:50 Random Glucose 96 mg/dL (74-106) 10/02/17 09:50 Calcium 8.5 mg/dL (8.5-10.1) 10/02/17 09:50 Total Bilirubin 0.4 mg/dL (0.2-1.0) 09/28/17 07:00 AST 16 U/L (15-37) 09/28/17 07:00 ALT 13 U/L (12-78) 09/28/17 07:00 Alkaline Phosphatase 102 U/L (45-117) 09/28/17 07:00 Total Protein 6.9 g/dl (6.4-8.2) 09/28/17 07:00 Albumin 3.3 g/dl (3.4-5.0) L 09/28/17 07:00 Home Medications Medication Instructions Recorded Citalopram HBr 40 mg PO DAILY 09/27/17 Aspirin 81 mg PO DAILY 09/28/17 Carbidopa/Levodopa 25/ [Sinemet 1 each PO BID@0900,1700 tablet 10/03/17 25/100 -] Carbidopa/Levodopa 25/100 [Sinemet 2 each PO 0600,1300,2100 tablet 10/03/17 25/100 -] Collagenase Clostridium Hist. 1 applic TP DAILY tube 10/03/17 [Santyl -] <Stephanie Clemons - Last Filed: 10/03/17 18:59> Discharge Summary Reason For Visit: ACUTE KIDNEY INJURY,PRESSURE ULCER,CELLULITIS Current Active Problems YENI (acute kidney injury) (Acute) Heel ulceration (Acute) Parkinson disease (Chronic) Sacral decubitus ulcer (Chronic) Type 2 diabetes mellitus with unspecified complications (Chronic) - Home Medications Comprehensive Discharge Medication List: Ambulatory Orders Citalopram HBr 40 mg PO DAILY 09/27/17 Aspirin 81 mg PO DAILY 09/28/17 Carbidopa/Levodopa 25/100 [Sinemet 25/100 -] 1 each PO BID@0900,1700 tablet Carbidopa/Levodopa 25/100 [Sinemet 25/100 -] 2 each PO 0600,1300,2100 tablet Collagenase Clostridium Hist. [Santyl -] 1 applic TP DAILY tube 10/03/17 <Cary Gonzales - Last Filed: 10/03/17 14:15> - Home Medications Comprehensive Discharge Medication List: Ambulatory Orders Citalopram HBr 40 mg PO DAILY 09/27/17 Aspirin 81 mg PO DAILY 09/28/17 Carbidopa/Levodopa 25/100 [Sinemet 25/100 -] 1 each PO BID@0900,1700 tablet Carbidopa/Levodopa 25/100 [Sinemet 25/100 -] 2 each PO 0600,1300,2100 tablet Collagenase Clostridium Hist. [Santyl -] 1 applic TP DAILY tube 10/03/17 <Stephanie Clemons - Last Filed: 10/03/17 18:59> Condition: Guarded - Instructions Diet, Activity, Other Instructions: You were in the hospital for a diabetic ulcer of your right foot. You were treated with IV antibiotics. You will not need to continue antibiotics upon leaving the hospital. Your visit You were seen by: the vascular, medicine, endocrinology, urology, and infection teams Medications You may continue your home medications. Your recent A1c was 5.6. This means that you are currently not diabetic. We have stopped the following medications: Januvia Tests -Please have your facility check your A1c level (for diabetes) in 3 months. Care -Please continue with wound care to the affected area -You will need to offload your right heel. This means decreasing the amount of pressure placed on the area. You can do this by using a foam insert on your foot. You will continue to develop these ulcers, or they will worsen if you do not offload affected areas. -You will need to be frequently repositioned to avoid worsening of your sacral ulcer. Follow up Please follow up with the following doctors: -Dr. Mccauley - your primary care doctor, 1 week -Dr. Jerry, the vascular doctor that saw you in the hospital - 1week -Dr. Cabello, your caustic liquor maker - 1 week If you develop chest pain, shortness of breath, or worsening ulcers, please go to the hospital. Referrals: Nic Cabello MD [Staff Physician] - 1 Week Alexandre Mccauley MD [Primary Care Provider] - 1 Week Ken Jerry MD [Staff Physician] - 1 Week Disposition: LONGTERM FACILITY This patient is new to me today: No Emergency Visit: No Critical Care patient: No - Discharge Referral Referred to [facility] Med P.C.: No <Cary Gonzales - Last Filed: 10/03/17 14:15>
[2017-10-03 15:04] VITALS: BP 128/68; PULSE 74
== END 2017-10-03 16:40 | DRG 592 ==
LOC: JER 15:44 → J6S 18:19 → JERBED 20:01 → J6S 20:59
PROVIDERS: ADMIT Internal Medicine; ATTEND Internal Medicine
PROC: 0HDMXZZ Extraction of Right Foot Skin, External Approach (ICD-10-PCS; principal; 2017-09-29)
DX: L89.613 Pressure ulcer of right heel, stage 3 (principal); L03.115 Cellulitis of right lower limb; N13.30 Unspecified hydronephrosis; R47.01 Aphasia; N17.9 Acute kidney failure, unspecified; E11.621 Type 2 diabetes mellitus with foot ulcer; G20 Parkinson's disease; F02.80 Dementia in other diseases classified elsewhere, unspecified severity, without behavioral disturbance, psychotic disturbance, mood disturbance, and anxiety; L89.152 Pressure ulcer of sacral region, stage 2; E11.65 Type 2 diabetes mellitus with hyperglycemia; E11.42 Type 2 diabetes mellitus with diabetic polyneuropathy; M24.552 Contracture, left hip; M24.551 Contracture, right hip; M24.562 Contracture, left knee; M24.561 Contracture, right knee; N18.9 Chronic kidney disease, unspecified; D63.8 Anemia in other chronic diseases classified elsewhere; Z99.3 Dependence on wheelchair
CPT/HCPCS: 36415; 71045-TC-FY; 73630-TC-RT-FY; 73718-TC; 74176-TC; 76775-TC; 80048; 80053; 81003; 81015; 82607; 82728; 82746; 82962; 83036; 83540; 83550; 83735; 83970; 84100; 84156; 84466; 85025; 85610; 85651; 85730; 86140; 87040; 87070; 87186; 87205; 93005; 93010; 99283-25; J1644; J7030

== ENCOUNTER 2017-11-29 12:31 | Inpatient (IN) | payer OTHER, MEDICARE ==
[2017-11-29] MEDS ORDERED: VANCOMYCIN 1,000 MG in DEXTROSE 5%-WATER - 250 ML IVPB ONE (13:28)
[2017-11-29] MEDS ORDERED: AZTREONAM 1 GM VIAL (RESTRICTED TO ID) IVPB ONE (13:46)
[2017-11-29] MEDS ORDERED: VANCOMYCIN 1 GRAM (PRE-DOCKED) 1,000 MG/250 ML BAG IVPB ONE (14:00)
[2017-11-29 14:08] LABS: BASO % 0.7 % (0-2.0); EOS % 1.1 % (0-4.5); HEMATOCRIT 24.7 % (35.4-49); HEMOGLOBIN 8.3 GM/dL (11.7-16.9); LYMPH % 16.7 % (8-40); MCH 30.8 pg (25.7-33.7); MCHC 33.5 g/dl (32.0-35.9); MEAN CELL VOLUME 91.9 fl (80-96); MEAN PLT VOLUME 7.4 fl (7.5-11.1); MONO % 8.2 % (3.8-10.2); NEUT % 73.3 % (42.8-82.8); PLATELET COUNT 283 K/MM3 (134-434); RBC 2.68 M/mm3 (4.00-5.60); RDW 14.7 % (11.9-15.9); WHITE BLOOD COUNT 6.7 K/mm3 (4.0-10.0)
--- NOTE | 2017-11-29 14:17 | PDOC ---
History of Present Illness - General Chief Complaint: Wound Stated Complaint: INFECTED WOUND Time Seen by Provider: 11/29/17 12:51 History Source: Patient Exam Limitations: No Limitations - History of Present Illness Initial Comments: 11/29/17 13:52 The patient is a 77M with a PMH of DM, HTN, CKD, and Parkinson's disease with dementia who presents to the ER with complaints of R heel chronic wound. The patient is with his who provides the history as the patient is nonverbal. The states that she was in the prison as the prison physician evaluated the patient's wound and recommended coming to the ER. The patient has no complaints but is also nonverbal. Past History - Past Medical History Allergies/Adverse Reactions: Allergies Allergy/AdvReac Type Severity Reaction Status Date / Time shellfish derived Allergy Verified 11/29/17 14:23 Home Medications: Ambulatory Orders Aspirin 81 mg PO DAILY 09/28/17 Carbidopa/Levodopa 25/100 [Sinemet 25/100 -] 1 each PO BID@0900,1700 tablet Carbidopa/Levodopa 25/100 [Sinemet 25/100 -] 2 each PO 0600,1300,2100 tablet Collagenase Clostridium Hist. [Santyl -] 1 applic TP DAILY tube 10/03/17 Acetaminophen [8Hr Arthritis Pain Relief] 650 mg PO BID 11/29/17 Ascorbic Acid [Vitamin C] 500 mg PO DAILY 11/29/17 Citalopram Hydrobromide [Citalopram HBr] 40 mg PO DAILY 11/29/17 Insulin Glargine,Hum.rec.anlog [Lantus Solostar] 15 unit SQ DAILY 11/29/17 Insulin Lispro [Humalog] 5 unit SQ ASDIR 11/29/17 Multivitamin [Daily Multiple Vitamin] 1 each PO DAILY 11/29/17 Anemia: No Asthma: No Cancer: No Cardiac Disorders: No CVA: No COPD: No CHF: No Dementia: No Diabetes: Yes GI Disorders: No Disorders: No HTN: No Hypercholesterolemia: No Liver Disease: No Seizures: No Thyroid Disease: No - Suicide/Smoking/Psychosocial Hx Smoking History: Never smoked Have you smoked in the past 12 months: No Information on smoking cessation initiated: No Hx Alcohol Use: No Drug/Substance Use Hx: No Substance Use Type: None Review of Systems - Review of Systems Able to Perform ROS?: No (nonverbal) *Physical Exam - Vital Signs Last Vital Signs Temp Pulse Resp BP Pulse Ox 98.4 F 61 20 127/57 100 11/29/17 13:07 11/29/17 13:07 11/29/17 13:07 11/29/17 13:07 11/29/17 13:07 - Physical Exam Comments: 11/29/17 14:17 GENERAL: Well developed, well nourished. Awake. No acute distress. HEENT: Normocephalic, atraumatic. Hearing grossly normal. Moist mucous membranes. PERRLA, EOMI. No conjunctival pallor. Sclera are non-icteric. NECK: Supple. Full ROM. CARDIOVASCULAR: Regular rate and rhythm. No murmurs, rubs, or gallops. Distal pulses are 2+ and symmetric. PULMONARY: No evidence of respiratory distress. Lungs clear to auscultation bilaterally. No wheezing, rales or rhonchi. ABDOMINAL: Soft. Non-tender. Non-distended. No rebound or guarding. RECTAL: No gross blood noted. No hemorrhoids noted. MUSCULOSKELETAL: Not moving with commands. EXTREMITIES: No cyanosis. No clubbing. No edema. No calf tenderness or swelling. SKIN: 4cm x 8.5cm unstageable wound on R heel. .5cm healing wound on L bunion. Warm and dry. Normal capillary refill. No jaundice. NEUROLOGICAL: Awake, nonverbal. Cranial nerves grossly 2-12 intact. PSYCHIATRIC: Noncooperative, nonverbal. ED Treatment Course - LABORATORY CBC & Chemistry Diagram: 11/29/17 13:30 11/29/17 13:30 - RADIOLOGY Radiology Studies Ordered: Category Date Time Status FOOT-RIGHT [RAD] Stat Radiology 11/29/17 13:46 Ordered Medical Decision Making - Medical Decision Making 11/29/17 14:19 The patient is a 77M from a NH with a PMH of DM, HTN, CKD, and dementia who presents to the ER with a worsening R heel wound. He sees Dr. Lopez for his wound. Will order labs and admit for worsening chronic wound. 11/29/17 15:28 Pt has new anemia of 8.3 from 10.1. Stool occult pending. Cr elevated indicating YENI. I have endorsed the pt to Dr. Hutton for admission. 11/29/17 16:23 Family has asked me to document that they request another vascular surgeon as they are not content with the care of Dr. Lopez. *DC/Admit/Observation/Transfer Diagnosis at time of Disposition: YENI (acute kidney injury), Chronic wound of extremity - Discharge Dispostion Condition at time of disposition: Guarded Decision to Admit order: Yes - Referrals - Patient Instructions - Post Discharge Activity
--- NOTE | 2017-11-29 14:18 | PDOC ---
Attending Attestation - Resident Resident Name: Kyaw Aparicio - ED Attending Attestation I have performed the following: I have examined & evaluated the patient, The case was reviewed & discussed with the resident, I agree w/resident's findings & plan - HPI HPI: 11/29/17 17:21 [place] 77M with DM2, Parkinsons dementia, [facility] with worsening right heel wound/ulceration with malodor and discharge. No known fever or chills. history limited due to dementia and nonverbal status 11/29/17 17:33 - Physicial Exam PE: 11/29/17 17:21 NAD, nonverbal; neck supple. lungs clear, RRR, abdomen soft nontender. No peripheral edema. normal color for ethnicity, WWP. +right heel large ulcer no active drainage or purulence, +malodor - Medical Decision Making 11/29/17 14:18 [place] 77M with DM2, Parkinsons dementia, baseline nonverbal from [facility] with worsening right heel wound/ulceration with malodor and discharge. No known fever or chills. history limited due to dementia and nonverbal status dDx. Calcaneal ulcer, diabetic foot ulcer, bacteremia, sepsis, osteomyelitis, electrolyte/metabolic derangements, anemia, Vital signs reviewed, wnl. No fever Medical Plan: CBC, CMP, UA, urine cx, ECG, XR foot, IV abx zosyn/vancomycin, IVF , blood and wound cultures. Prior notes reviewed, including admissions, discharges and consultations. laboratory results and imaging reviewed, basic labs and lytes notable for elevated Cr, normal lytes and new anemia, guaiac negative. wound cs obtained. IV abx administered given diabetes and risk factors. Dispo: Admit for diabetic foot ulcer/wound, IV abx and supportive care; also found to have new onset renal insufficiency and anemia requiring further workup.. Discussed results and management plan with pt and family member at bedside, agree with impression and plan 11/29/17 17:31
[2017-11-29 14:23] LABS: INR 1.18 (0.83-1.09); PROTHROMBIN TIME (PATIENT) 13.3 SEC (9.7-13.0)
[2017-11-29 14:35] LABS: ALBUMIN 2.5 g/dl (3.4-5.0); ANION GAP 9 (8-16); BLOOD UREA NITROGEN 84 mg/dL (7-18); CALCIUM 8.6 mg/dL (8.5-10.1); CHLORIDE 104 mmol/L (98-107); CO2 28 mmol/L (21-32); GLUCOSE,RANDOM 80 mg/dL (74-106); POTASSIUM 4.4 mmol/L (3.5-5.1); SODIUM 141 mmol/L (136-145)
[2017-11-29 14:41] LABS: ALK PHOS 104 U/L (45-117); BILIRUBIN,TOTAL 0.3 mg/dL (0.2-1.0); CREATININE 2.1 mg/dL (0.7-1.3); SGOT/AST 14 U/L (15-37); SGPT/ALT 8 U/L (12-78); TOT PROT 6.7 g/dl (6.4-8.2)
--- NOTE | 2017-11-29 16:28 | CONSULT ---
<Tadeo Canchola - Last Filed: 11/29/17 16:18> - Consultation REQUESTING PROVIDER: CONSULT REQUEST: We have been asked to surgically evaluate this patient for Right heel pressure wound PCP: HISTORY OF PRESENT ILLNESS: 77yo M h/o Parkinson's and contractures presents to the ED from his longterm for concerns of infection of Right heel ulcer. Pt is known to service and has chronic Right heel ulcer. Pt was noted to have redness and malordorous drainage from heel so was sent to the ED for ealuation. Pt is nonverbal so history is limited. no fevers. PMHx: DM, Parkinson's, dementia Home Medications Medication Instructions Recorded Aspirin 81 mg PO DAILY 09/28/17 Carbidopa/Levodopa 25/100 [Sinemet 1 each PO BID@0900,1700 tablet 10/03/17 25/100 -] Carbidopa/Levodopa 25/100 [Sinemet 2 each PO 0600,1300,2100 tablet 10/03/17 25/100 -] Collagenase Clostridium Hist. 1 applic TP DAILY tube 10/03/17 [Santyl -] Acetaminophen [8Hr Arthritis Pain 650 mg PO BID 11/29/17 Relief] Ascorbic Acid [Vitamin C] 500 mg PO DAILY 11/29/17 Citalopram Hydrobromide 40 mg PO DAILY 11/29/17 [Citalopram HBr] Insulin Glargine,Hum.rec.anlog 15 unit SQ DAILY 11/29/17 [Lantus Solostar] Insulin Lispro [Humalog] 5 unit SQ ASDIR 11/29/17 Multivitamin [Daily Multiple 1 each PO DAILY 11/29/17 Vitamin] Allergies Allergy/AdvReac Type Severity Reaction Status Date / Time shellfish derived Allergy Verified 11/29/17 14:23 PHYSICAL EXAM: GENERAL: Awake HEAD: Normal with no signs of trauma. EYES: PERRL, sclera anicteric, conjunctiva clear. NECK: Normal ROM, supple without lymphadenopathy, JVD, or masses. LUNGS: Clear to auscultation bilat anteriorly. No wheezes, and no crackles. No accessory muscle use. LOWER EXTREMITIES: 2+ pulses, warm, well-perfused. No calf tenderness. No peripheral edema. Bilateral contractures, Right heel ulcer 7 x 4 cm with eschar in place, surrounding erythema and mild swelling, no bogginess, serous drainage. Vital Signs Temperature 98.4 F 11/29/17 13:07 Pulse Rate 61 11/29/17 13:07 Respiratory Rate 20 11/29/17 13:07 Blood Pressure 127/57 11/29/17 13:07 O2 Sat by Pulse Oximetry (%) 99 11/29/17 13:30 Lab Results WBC 6.7 K/mm3 (4.0-10.0) 11/29/17 13:30 RBC 2.68 M/mm3 (4.00-5.60) L 11/29/17 13:30 Hgb 8.3 GM/dL (11.7-16.9) L 11/29/17 13:30 Hct 24.7 % (35.4-49) L D 11/29/17 13:30 MCV 91.9 fl (80-96) 11/29/17 13:30 MCHC 33.5 g/dl (32.0-35.9) 11/29/17 13:30 RDW 14.7 % (11.9-15.9) D 11/29/17 13:30 Plt Count 283 K/MM3 (134-434) D 11/29/17 13:30 Sodium 141 mmol/L (136-145) 11/29/17 13:30 Potassium 4.4 mmol/L (3.5-5.1) 11/29/17 13:30 Chloride 104 mmol/L (98-107) 11/29/17 13:30 Carbon Dioxide 28 mmol/L (21-32) 11/29/17 13:30 Anion Gap 9 (8-16) 11/29/17 13:30 BUN 84 mg/dL (7-18) H 11/29/17 13:30 Creatinine 2.1 mg/dL (0.7-1.3) H 11/29/17 13:30 Random Glucose 80 mg/dL (74-106) 11/29/17 13:30 Calcium 8.6 mg/dL (8.5-10.1) 11/29/17 13:30 Blood Type O POSITIVE 11/29/17 13:30 Antibody Screen Negative 11/29/17 13:30 INR 1.18 (0.83-1.09) H 11/29/17 13:30 Problem List - Problems (1) Heel ulceration Assessment/Plan: Plan -continue abx as per medicine/ID -pt has difficult contractures, but heel elevation very important to relieve pressure and wound healing. -Santyl and clean dressing -may require bedside debridement of eschar in future. Code(s): L97.409 - NON-PRS CHRONIC ULCER OF UNSP HEEL AND MIDFOOT W UNSP SEVERT <Ken Jerry - Last Filed: 11/29/17 20:39> - Consultation REQUESTING PROVIDER: CONSULT REQUEST: We have been asked to surgically evaluate this patient for ( specify). PCP:Eliseo Hutton HISTORY OF PRESENT ILLNESS: PMHx: PSHx: Home Medications Medication Instructions Recorded Aspirin 81 mg PO DAILY 09/28/17 Carbidopa/Levodopa 25/100 [Sinemet 1 each PO BID@0900,1700 tablet 10/03/17 25/100 -] Carbidopa/Levodopa 25/100 [Sinemet 2 each PO 0600,1300,2100 tablet 10/03/17 25/100 -] Collagenase Clostridium Hist. 1 applic TP DAILY tube 10/03/17 [Santyl -] Acetaminophen [8Hr Arthritis Pain 650 mg PO BID 11/29/17 Relief] Ascorbic Acid [Vitamin C] 500 mg PO DAILY 11/29/17 Citalopram Hydrobromide 40 mg PO DAILY 11/29/17 [Citalopram HBr] Insulin Glargine,Hum.rec.anlog 15 unit SQ DAILY 11/29/17 [Lantus Solostar] Insulin Lispro [Humalog] 5 unit SQ ASDIR 11/29/17 Multivitamin [Daily Multiple 1 each PO DAILY 11/29/17 Vitamin] Allergies Allergy/AdvReac Type Severity Reaction Status Date / Time shellfish derived Allergy Verified 11/29/17 14:23 REVIEW OF SYSTEMS: CONSTITUTIONAL: Absent: fever, chills, diaphoresis, generalized weakness, malaise, loss of appetite, weight change CARDIOVASCULAR: Absent: chest pain, syncope, palpitations, irregular heart rate, lightheadedness , peripheral edema RESPIRATORY: Absent: cough, shortness of breath, dyspnea with exertion, wheezing, stridor, hemoptysis GASTROINTESTINAL: Absent: abdominal pain, abdominal distension, nausea, vomiting, diarrhea, constipation, melena, hematochezia GENITOURINARY: Absent: dysuria, frequency, urgency, hesitancy, hematuria, flank pain, genital pain MUSCULOSKELETAL: Absent: myalgia, arthralgia, joint swelling, back pain, neck pain SKIN: Absent: rash, itching, pallor HEMATOLOGIC/IMMUNOLOGIC: Absent: easy bleeding, easy bruising, lymphadenopathy NEUROLOGIC: Absent: headache, focal weakness, paresthesias, dizziness, unsteady gait, seizure, mental status changes, bladder or bowel incontinence PSYCHIATRIC: Absent: anxiety, depression, suicidal or homicidal ideation, hallucinations. PHYSICAL EXAM: GENERAL: Awake, alert, and fully oriented, in no acute distress. HEAD: Normal with no signs of trauma. EYES: PERRL, sclera anicteric, conjunctiva clear. NECK: Normal ROM, supple without lymphadenopathy, JVD, or masses. LUNGS: Clear to auscultation bilat anteriorly. No wheezes, and no crackles. No accessory muscle use. HEART: Regular rate and rhythm. No murmurs ABDOMEN: Soft, nontender, not distended, normoactive bowel sounds, no guarding, no rebound, no masses. No organomegaly. MUSCULOSKELETAL: Normal ROM at all joints. No bony deformities or tenderness. No CVA tenderness. UPPER EXTREMITIES: 2+ pulses, warm, well-perfused. No cyanosis. Cap refill <2 seconds. No peripheral edema. LOWER EXTREMITIES: 2+ pulses, warm, well-perfused. No calf tenderness. No peripheral edema. NEUROLOGICAL: Normal speech, gait not observed. PSYCH: Cooperative. Good eye contact. Appropriate mood and affect. SKIN: Warm, dry, normal turgor, no rashes or lesions noted. Vital Signs Temperature 98.9 F 11/29/17 19: Pulse Rate 62 11/29/17 19: Respiratory Rate 17 11/29/17 19:01 Blood Pressure 132/89 11/29/17 19:01 O2 Sat by Pulse Oximetry (%) 96 11/29/17 19:01 Lab Results WBC 6.7 K/mm3 (4.0-10.0) 11/29/17 13:30 RBC 2.68 M/mm3 (4.00-5.60) L 11/29/17 13:30 Hgb 8.3 GM/dL (11.7-16.9) L 11/29/17 13:30 Hct 24.7 % (35.4-49) L D 11/29/17 13:30 MCV 91.9 fl (80-96) 11/29/17 13:30 MCHC 33.5 g/dl (32.0-35.9) 11/29/17 13:30 RDW 14.7 % (11.9-15.9) D 11/29/17 13:30 Plt Count 283 K/MM3 (134-434) D 11/29/17 13:30 Sodium 141 mmol/L (136-145) 11/29/17 13:30 Potassium 4.4 mmol/L (3.5-5.1) 11/29/17 13:30 Chloride 104 mmol/L (98-107) 11/29/17 13:30 Carbon Dioxide 28 mmol/L (21-32) 11/29/17 13:30 Anion Gap 9 (8-16) 11/29/17 13:30 BUN 84 mg/dL (7-18) H 11/29/17 13:30 Creatinine 2.1 mg/dL (0.7-1.3) H 11/29/17 13:30 Random Glucose 80 mg/dL (74-106) 11/29/17 13:30 Calcium 8.6 mg/dL (8.5-10.1) 11/29/17 13:30 Blood Type O POSITIVE 11/29/17 13:30 Antibody Screen Negative 11/29/17 13:30 INR 1.18 (0.83-1.09) H 11/29/17 13:30 History reviewed, patient examined. Stage 3 ulcer right hell due to pressure with leg contracture and tremors from Parkinson's disease. No evidence for systemic infection Foot warm, well perfused. heel with necrotic eschar, no cellulitis. Wound care with Santyl. Heel off-loading boot must be used to allow skin to heal.
--- NOTE | 2017-11-29 19:15 | HP ---
Admitting History and Physical - Primary Care Physician PCP: Eliseo Hutton - Admission Chief Complaint: Heel infection History of Present Illness: Pt is a resident of [facility] with significant Hx/o Dementia, Parkinson, Contractures of LE , Right Heel infection was seen this AM by Wound doctor who recommended transfer to hospital of IV abtx and wound reevaluation. 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 MANAGER: Yes: Dementia, Peripheral Neuropathy, Parkinson's Psych: Yes: Depression Endocrine: Yes: Diabetes Mellitus Dermatology: Yes: Other (right heel ulcer) - Smoking History Smoking history: Never smoked Have you smoked in the past 12 months: No - Alcohol/Substance Use Hx Alcohol Use: No Home Medications - Allergies Allergies/Adverse Reactions: Allergies Allergy/AdvReac Type Severity Reaction Status Date / Time shellfish derived Allergy Verified 11/29/17 14:23 - Home Medications Home Medications: Ambulatory Orders Aspirin 81 mg PO DAILY 09/28/17 Carbidopa/Levodopa 25/100 [Sinemet 25/100 -] 1 each PO BID@0900,1700 tablet Carbidopa/Levodopa 25/100 [Sinemet 25/100 -] 2 each PO 0600,1300,2100 tablet Collagenase Clostridium Hist. [Santyl -] 1 applic TP DAILY tube 10/03/17 Acetaminophen [8Hr Arthritis Pain Relief] 650 mg PO BID 11/29/17 Ascorbic Acid [Vitamin C] 500 mg PO DAILY 11/29/17 Citalopram Hydrobromide [Citalopram HBr] 40 mg PO DAILY 11/29/17 Insulin Glargine,Hum.rec.anlog [Lantus Solostar] 15 unit SQ DAILY 11/29/17 Insulin Lispro [Humalog] 5 unit SQ ASDIR 11/29/17 Multivitamin [Daily Multiple Vitamin] 1 each PO DAILY 11/29/17 Review of Systems Unable to obtain ROS, reason: advanced dementia Physical Examination Vital Signs: Vital Signs Temperature 98.9 F 11/29/17 19:01 Pulse Rate 62 11/29/17 19:01 Respiratory Rate 17 11/29/17 19:01 Blood Pressure 132/89 11/29/17 19:01 O2 Sat by Pulse Oximetry (%) 96 11/29/17 19:01 Findings/Remarks: Limited secondary to pt's lack of cooperation, secondary to dementia. Constitutional: Yes: No Distress, Calm Eyes: Yes: Conjunctiva Clear HENT: Yes: Normocephalic. No: Nasal Congestion Neck: Yes: Trachea Midline. No: Lymphadenopathy Cardiovascular: Yes: Regular Rate and Rhythm, S1, S2 Respiratory: Yes: Regular, CTA Bilaterally. No: Rales Gastrointestinal: Yes: Normal Bowel Sounds, Soft. No: Palpable Mass ...Rectal Exam: Yes: Deferred Extremities: Yes: Other (contracted) Edema: No Wound/Incision: Yes: Dressing Dry and Intact (of right heel) Neurological: Yes: Alert Labs: CBC, BMP 11/29/17 13:30 11/29/17 13:30 Imaging - Results X-ray: Report Reviewed Problem List - Problems (1) Heel ulceration Code(s): L97.409 - NON-PRS CHRONIC ULCER OF UNSP HEEL AND MIDFOOT W UNSP SEVERT Qualifiers: (2) Anemia Assessment/Plan: Can be multifactorial (CRF, Chronic infection) It seems worse than most recent values. Send Iron studies, stool for occult blood. Pt w/o Hx/o CAD, CHF, advanced COPD. To monitor. Code(s): D64.9 - ANEMIA, UNSPECIFIED (3) CRF (chronic renal failure) Assessment/Plan: Creatinine is trending up. Start slight hydration. To monitor in AM Code(s): N18.9 - CHRONIC KIDNEY DISEASE, UNSPECIFIED (4) Parkinson disease Code(s): G20 - PARKINSON'S DISEASE (5) Type 2 diabetes mellitus with unspecified complications Code(s): E11.8 - TYPE 2 DIABETES MELLITUS WITH UNSPECIFIED COMPLICATIONS Assessment/Plan Vasc Sx consult ID consult To hold on PRBC transfusion tonight and f/u H/H in AM. Mild Hydration and f/u creatinine in AM. Pt's condition was d/w pt's , at bedside. AM labs.
[2017-11-29] MEDS ORDERED: SODIUM CHLORIDE 1,000 ML IV SCH (19:30)
--- NOTE | 2017-11-29 20:33 | OP ---
Operative Note - Note: Operative Date: 11/29/17 Pre-Operative Diagnosis: Thrombosed fem-pop bypass Operation: Open thrombectomy fem-pop bypass. Placment covered stent at distal anastomosis Findings: Thrombosed fem-pop graft. Kink in distal graft at site of new anastomosis patent popliteal and proximal tibials Implants: 7 x 39 mm baloon expandable covered stent LifeStent Post-Operative Diagnosis: Same as Pre-op Surgeon: Ken Jerry Curator Herbarium: Isadora Ramírez Anesthesiologist/EARRING MAKER: Yves Norton Anesthesia: Fractional Specimens Removed: Clot from graft Estimated Blood Loss (mls): 150
[2017-11-29] MEDS ORDERED: INSULIN (LEVEMIR) 100 UNITS/ML UNITS SQ ONE (21:01)
[2017-11-29] MEDS ORDERED: INSULIN (NOVOLOG) ASPART 100 UNITS/ML 10ML VIAL ONE (21:01)
[2017-11-29] MEDS: CARBIDOPA/LEVODOPA 25/100 TABLET (FP) PO SCH ×2 (21:09→22:30)
[2017-11-29] MEDS: HEPARIN NA (PORCINE) 5,000 UNITS/ML 1ML VIAL SQ SCH (21:10)
[2017-11-29] MEDS: INSULIN SLIDING SCALE (NOVOLOG) 1 VIAL SQ SCH (21:11)
[2017-11-29] MEDS: ACETAMINOPHEN 325 MG TABLET (FP) PO SCH (21:11)
[2017-11-29] MEDS ORDERED: ACETAMINOPHEN 650 MG PO SCH (22:00)
[2017-11-30] MEDS: INSULIN SLIDING SCALE (NOVOLOG) 1 VIAL SQ SCH ×4 (06:30→21:24)
[2017-11-30] MEDS: CARBIDOPA/LEVODOPA 25/100 TABLET (FP) PO SCH ×5 (06:31→22:49)
[2017-11-30] MEDS: INSULIN (LEVEMIR) 100 UNITS/ML UNITS SQ SCH (06:31)
[2017-11-30 08:23] LABS: HEMATOCRIT 24.7 % (35.4-49); HEMOGLOBIN 8.3 GM/dL (11.7-16.9); MCHC 33.4 g/dl (32.0-35.9); MEAN CELL VOLUME 92.7 fl (80-96); MEAN PLT VOLUME 7.2 fl (7.5-11.1); PLATELET COUNT 249 K/MM3 (134-434); RBC 2.67 M/mm3 (4.00-5.60); RDW 14.4 % (11.9-15.9); WHITE BLOOD COUNT 8.3 K/mm3 (4.0-10.0)
[2017-11-30 09:01] LABS: ALBUMIN 2.6 g/dl (3.4-5.0); ANION GAP 9 (8-16); BILIRUBIN,TOTAL 0.3 mg/dL (0.2-1.0); BLOOD UREA NITROGEN 79 mg/dL (7-18); CALCIUM 8.6 mg/dL (8.5-10.1); CHLORIDE 108 mmol/L (98-107); CO2 26 mmol/L (21-32); CREATININE 2.1 mg/dL (0.7-1.3); GLUCOSE,RANDOM 100 mg/dL (74-106); POTASSIUM 4.7 mmol/L (3.5-5.1); SGOT/AST 14 U/L (15-37); SGPT/ALT 8 U/L (12-78); SODIUM 143 mmol/L (136-145)
[2017-11-30 09:30] LABS: ALK PHOS 111 U/L (45-117); TOT PROT 6.7 g/dl (6.4-8.2)
[2017-11-30] MEDS ORDERED: PT OWN MED DRAWER 7, Y5N ONE (09:37)
[2017-11-30] MEDS: ACETAMINOPHEN 325 MG TABLET (FP) PO SCH ×2 (09:40→22:49)
[2017-11-30] MEDS: MULTIVITAMINS (DAILY MVI) TABLET (FP) PO SCH (09:42)
[2017-11-30] MEDS: HEPARIN NA (PORCINE) 5,000 UNITS/ML 1ML VIAL SQ SCH ×2 (09:42→22:50)
[2017-11-30] MEDS: CITALOPRAM HYDROBROMIDE 20 MG TABLET (FP) PO SCH (09:42)
[2017-11-30] MEDS: ASPIRIN 81 MG CHEWABLE TABLETS PO SCH (09:42)
[2017-11-30] MEDS ORDERED: PATIENT'S OWN MEDICATION (NON-FORMULARY) (Citalopram Hydrobromide [Citalopram Hbr] 40 MG) PO SCH (10:00)
--- NOTE | 2017-11-30 10:12 | PN ---
Progress Note, Physician History of Present Illness: ptis unable to provide HPI nor ROS, secondary to advanced dementia. - Current Medication List Current Medications: Active Medications Acetaminophen (Tylenol -) 650 mg PO BID [facility] Last Admin: 11/30/17 09:40 Dose: 650 mg Aspirin (Asa -) 81 mg PO DAILY [facility] Last Admin: 11/30/17 09:42 Dose: 81 mg Carbidopa/Levodopa (Sinemet 25/100 -) 1 each PO BID@0900,1700 [facility] Last Admin: 11/30/17 09:39 Dose: 1 each Carbidopa/Levodopa (Sinemet 25/100 -) 2 each PO 0600,1300,2100 [facility] Last Admin: 11/30/17 06:31 Dose: 2 each Citalopram Hydrobromide (Celexa -) 40 mg PO DAILY [facility] Last Admin: 11/30/17 09:42 Dose: 40 mg Collagenase (Santyl -) 1 applic TP DAILY [facility]; Protocol Heparin Sodium (Porcine) (Heparin -) 5,000 unit SQ BID [facility] Last Admin: 11/30/17 09:42 Dose: 5,000 unit Sodium Chloride (Normal Saline -) 1,000 mls @ 42 mls/hr IV ASDIR [facility] Stop: 11/30/17 19:19 Last Admin: 11/29/17 21:10 Dose: 42 mls/hr Insulin Aspart (Novolog Vial Sliding Scale -) 1 vial SQ ACHS [facility]; Protocol Last Admin: 11/30/17 06:30 Dose: Not Given Insulin Detemir (Levemir Vial) 15 units SQ DAILY@0700 [facility] Last Admin: 11/30/17 06:31 Dose: 15 units Multivitamins/Minerals/Vitamin C (Tab-A-Vit -) 1 tab PO DAILY [facility] Last Admin: 11/30/17 09:42 Dose: 1 tab - Objective Vital Signs: Vital Signs Temperature 98.0 F 11/30/17 09:03 Pulse Rate 74 11/30/17 09:03 Respiratory Rate 21 11/30/17 09:03 Blood Pressure 120/60 11/30/17 09:03 O2 Sat by Pulse Oximetry (%) 96 11/30/17 04:20 Labs: CBC, BMP 11/30/17 07:00 11/30/17 07:00 INR, PTT INR 1.18 (0.83-1.09) H 11/29/17 13:30 Problem List - Problems (1) Heel ulceration Code(s): L97.409 - NON-PRS CHRONIC ULCER OF UNSP HEEL AND MIDFOOT W UNSP SEVERT Qualifiers: (2) Anemia Code(s): D64.9 - ANEMIA, UNSPECIFIED (3) CRF (chronic renal failure) Code(s): N18.9 - CHRONIC KIDNEY DISEASE, UNSPECIFIED (4) Parkinson disease Code(s): G20 - PARKINSON'S DISEASE (5) Type 2 diabetes mellitus with unspecified complications Code(s): E11.8 - TYPE 2 DIABETES MELLITUS WITH UNSPECIFIED COMPLICATIONS Assessment/Plan Vasc Sx consult ID consult; case was d/w Dr. Mata -to cont abtx, to f/u CXs To hold on PRBC transfusion; H/H stable; to monitor. Mild Hydration and f/u creatinine.
--- NOTE | 2017-11-30 10:55 | PN ---
Progress Note (short form) - Note Progress Note: ID Consult dictated Infected necrotic R heel ulcer Possible underlying osteomyelitis CKD Parkinsonism /OBS Obtain BC, ESR,CRP Empiric zosyn/ vancomycin adjusted for renal failure
--- NOTE | 2017-11-30 11:12 | EKG ---
Test Reason : Blood Pressure : / mmHG Vent. Rate : 062 BPM Atrial Rate : 062 BPM P-R Int : 192 ms QRS Dur : 096 ms QT Int : 432 ms P-R-T Axes : 039 -23 043 degrees QTc Int : 438 ms POOR DATA QUALITY, INTERPRETATION MAY BE ADVERSELY AFFECTED NORMAL SINUS RHYTHM SEPTAL INFARCT , AGE UNDETERMINED ABNORMAL ECG Confirmed by BERKLEY DAILY MD ([id number]) on 11/30/2017 11:11:34 AM Referred By: Confirmed By:BERKLEY DAILY MD
--- NOTE | 2017-11-30 11:56 | CONS ---
DATE OF CONSULTATION: DATE OF DICTATION: 11/30/2017 HISTORY OF PRESENT ILLNESS: The patient is a 77-year-old male with history of Parkinsonism, dementia, diabetes, and chronic kidney disease evaluated for worsening right heel ulcer. He is a resident of a snf facility. He was noted at the facility to have a worsening right heel ulcer with a necrotic eschar, increasing erythema, and malodorous drainage. He was evaluated by his provider and was referred to the emergency room for further evaluation. The patient was found to have a necrotic right heel ulcer with foul odor. He was empirically treated with IV antibiotics. A wound culture was performed and reveals mixed organisms. He suffers from dementia. He is unable to offer any additional details. No reports of high grade fever or shaking chills. He was hospitalized in September of this year with acute kidney injury, pressure ulcer, and cellulitis of the heel. PAST MEDICAL HISTORY: Positive for Parkinsonism, dementia, diabetes mellitus, hypertension, chronic kidney disease, contractures of the extremities. ALLERGIES: To SHELLFISH. MEDICATIONS: Include aspirin, Sinemet, vitamin C, Lantus. SOCIAL HISTORY: He resides in a snf facility. He suffers from dementia. He is dependent on activities of daily living. SYSTEMS REVIEW: Neurologic: Positive for dementia and Parkinsonism. Cardiac: Negative for chest pain or palpitations. Respiratory: Negative for cough or sputum production. Gastrointestinal: Negative for vomiting or diarrhea. Genitourinary: Negative for urinary tract infection. LABORATORY DATA: White count 8.3, hematocrit 24.7, platelet count 249. BUN 79, creatinine 2.1. X-ray shows irregularity of the inferior aspect of the calcaneus, soft tissue calcifications. PHYSICAL EXAMINATION: General: He is awake and alert. He is confused. Vital signs: Temperature 98.0, blood pressure 120/60, pulse 74 and regular, respirations 21 per minute. HEENT: Sclerae anicteric. Heart: Heart sounds S1, S2. Lungs: Clear. Abdomen: Soft. No tenderness elicited. No mass, rebound, or rigidity. Extremities: Examination of the right heel, there is a large necrotic ulceration present over the heel with foul-smelling drainage. There is slight surrounding erythema. No crepitus or fluctuance. No lymphangitic streaking. IMPRESSION: 1. Infected necrotic right heel ulcer. 2. 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 3. Chronic kidney disease. 4. Parkinsonism/dementia. Will obtain blood cultures, C-reactive protein, sedimentation rate, surgical evaluation for possible debridement of the heel, empiric antibiotic coverage with vancomycin and Zosyn adjusted for renal failure. Thank you for the kind referral. BERKLEY MORIN M.D. RAFAEL/[id number]
[2017-11-30] MEDS ORDERED: VANCOMYCIN 1 GM PREMIX - 1 GM/200 ML BAG IVPB ONE (12:00)
[2017-11-30] MEDS ORDERED: PIPERACILLIN/TAZOBACTAM 2.25 GM VIAL IVPB ONE ×3 (12:04→17:56)
[2017-11-30] MEDS ORDERED: DEXTROSE 5%-WATER - 50 ML IVPB ONE ×2 (12:04→17:23)
[2017-11-30] MEDS: PIPERACILLIN/TAZOB 2.25 GM 2.25 GM in DEXTROSE 5%-WATER - 50 ML IVPB SCH ×2 (12:27→17:30)
[2017-11-30] MEDS: COLLAGENASE CLOSTRIDIUM HIST. 30 GRAMS TUBE TP SCH (17:21)
[2017-12-01] MEDS ORDERED: PIPERACILLIN/TAZOBACTAM 2.25 GM VIAL IVPB ONE ×3 (01:38→18:25)
[2017-12-01] MEDS ORDERED: DEXTROSE 5%-WATER - 50 ML IVPB ONE ×3 (01:38→18:25)
[2017-12-01] MEDS: PIPERACILLIN/TAZOB 2.25 GM 2.25 GM in DEXTROSE 5%-WATER - 50 ML IVPB SCH ×3 (02:52→18:28)
[2017-12-01 06:06] LABS: SERUM IRON SATURATION 9 % (15-55); TOTAL IRON BINDING CAPACITY 184 ug/dL (250-450); UIBC 167 ug/dL (111-343)
[2017-12-01] MEDS: INSULIN SLIDING SCALE (NOVOLOG) 1 VIAL SQ SCH ×4 (06:20→21:52)
[2017-12-01] MEDS: INSULIN (LEVEMIR) 100 UNITS/ML UNITS SQ SCH (06:20)
[2017-12-01] MEDS: CARBIDOPA/LEVODOPA 25/100 TABLET (FP) PO SCH ×5 (06:21→21:49)
[2017-12-01] MEDS: COLLAGENASE CLOSTRIDIUM HIST. 30 GRAMS TUBE TP SCH (10:34)
[2017-12-01] MEDS: CITALOPRAM HYDROBROMIDE 20 MG TABLET (FP) PO SCH (10:45)
[2017-12-01] MEDS: ASPIRIN 81 MG CHEWABLE TABLETS PO SCH (10:45)
[2017-12-01] MEDS: ACETAMINOPHEN 325 MG TABLET (FP) PO SCH ×2 (10:45→21:49)
[2017-12-01] MEDS: MULTIVITAMINS (DAILY MVI) TABLET (FP) PO SCH (10:45)
[2017-12-01] MEDS: HEPARIN NA (PORCINE) 5,000 UNITS/ML 1ML VIAL SQ SCH ×2 (10:46→21:50)
--- NOTE | 2017-12-01 11:46 | PN ---
Progress Note, Physician History of Present Illness: Pt is unable to provide HPI nor ROS, secondary to advanced dementia. - Current Medication List Current Medications: Active Medications Acetaminophen (Tylenol -) 650 mg PO BID [facility] Last Admin: 12/01/17 10:45 Dose: 650 mg Aspirin (Asa -) 81 mg PO DAILY [facility] Last Admin: 12/01/17 10:45 Dose: 81 mg Carbidopa/Levodopa (Sinemet 25/100 -) 1 each PO BID@0900,1700 [facility] Last Admin: 12/01/17 10:00 Dose: 1 each Carbidopa/Levodopa (Sinemet 25/100 -) 2 each PO 0600,1300,2100 [facility] Last Admin: 12/01/17 06:21 Dose: 2 each Citalopram Hydrobromide (Celexa -) 40 mg PO DAILY [facility] Last Admin: 12/01/17 10:45 Dose: 40 mg Collagenase (Santyl -) 1 applic TP DAILY [facility]; Protocol Last Admin: 11/30/17 17:21 Dose: 1 applic Heparin Sodium (Porcine) (Heparin -) 5,000 unit SQ BID [facility] Last Admin: 12/01/17 10:46 Dose: 5,000 unit Piperacillin Sod/Tazobactam (Sod 2.25 gm/ Dextrose) 50 mls @ 100 mls/hr IVPB Q8H-IV [facility]; Protocol Last Admin: 12/01/17 10:44 Dose: 100 mls/hr Insulin Aspart (Novolog Vial Sliding Scale -) 1 vial SQ ACHS [facility]; Protocol Last Admin: 12/01/17 06:20 Dose: Not Given Insulin Detemir (Levemir Vial) 15 units SQ DAILY@0700 [facility] Last Admin: 12/01/17 06:20 Dose: 15 units Multivitamins/Minerals/Vitamin C (Tab-A-Vit -) 1 tab PO DAILY [facility] Last Admin: 12/01/17 10:45 Dose: 1 tab - Objective Vital Signs: Vital Signs Temperature 98.2 F 12/01/17 06:00 Pulse Rate 59 L 12/01/17 06:00 Respiratory Rate 18 12/01/17 06:00 Blood Pressure 123/76 12/01/17 06:00 O2 Sat by Pulse Oximetry (%) 100 11/30/17 21:00 Constitutional: Yes: No Distress, Calm Cardiovascular: Yes: Regular Rate and Rhythm, S1, S2 Respiratory: Yes: Regular, CTA Bilaterally. No: Rales Gastrointestinal: Yes: Normal Bowel Sounds, Soft. No: Palpable Mass Edema: No Labs: CBC, BMP 11/30/17 07:00 11/30/17 07:00 INR, PTT INR 1.18 (0.83-1.09) H 11/29/17 13:30 Problem List - Problems (1) Heel ulceration Code(s): L97.409 - NON-PRS CHRONIC ULCER OF UNSP HEEL AND MIDFOOT W UNSP SEVERT Qualifiers: (2) Anemia Code(s): D64.9 - ANEMIA, UNSPECIFIED (3) CRF (chronic renal failure) Code(s): N18.9 - CHRONIC KIDNEY DISEASE, UNSPECIFIED (4) Parkinson disease Code(s): G20 - PARKINSON'S DISEASE (5) Type 2 diabetes mellitus with unspecified complications Code(s): E11.8 - TYPE 2 DIABETES MELLITUS WITH UNSPECIFIED COMPLICATIONS Assessment/Plan Vasc Sx consult ID consult; to cont abtx. Wound CXs + for VREF, pt to be placed in an different room. To f/u labs. Pt's at bedside, pt's condition was reviewed with her, all questions were answered.
[2017-12-01 13:11] LABS: HEMATOCRIT 24.6 % (35.4-49); HEMOGLOBIN 8.2 GM/dL (11.7-16.9); MCH 30.7 pg (25.7-33.7); MCHC 33.3 g/dl (32.0-35.9); PLATELET COUNT 252 K/MM3 (134-434); RBC 2.67 M/mm3 (4.00-5.60); RDW 14.6 % (11.9-15.9); WHITE BLOOD COUNT 7.5 K/mm3 (4.0-10.0)
[2017-12-01 13:37] VITALS: BMI 23.9
[2017-12-01 13:39] LABS: ANION GAP 9 (8-16); BLOOD UREA NITROGEN 70 mg/dL (7-18); CALCIUM 8.5 mg/dL (8.5-10.1); CHLORIDE 106 mmol/L (98-107); CO2 26 mmol/L (21-32); GLUCOSE,RANDOM 207 mg/dL (74-106); POTASSIUM 4.6 mmol/L (3.5-5.1); SODIUM 141 mmol/L (136-145)
--- NOTE | 2017-12-01 16:33 | PN ---
Progress Note, Physician History of Present Illness: Awake, confused Offers no complaints Afebrile WBC WNL Wound c/s mixed organisms, inc VRE - Current Medication List Current Medications: Active Medications Acetaminophen (Tylenol -) 650 mg PO BID [facility] Last Admin: 12/01/17 10:45 Dose: 650 mg Aspirin (Asa -) 81 mg PO DAILY [facility] Last Admin: 12/01/17 10:45 Dose: 81 mg Carbidopa/Levodopa (Sinemet 25/100 -) 1 each PO BID@0900,1700 [facility] Last Admin: 12/01/17 10:00 Dose: 1 each Carbidopa/Levodopa (Sinemet 25/100 -) 2 each PO 0600,1300,2100 [facility] Last Admin: 12/01/17 14:08 Dose: 2 each Citalopram Hydrobromide (Celexa -) 40 mg PO DAILY [facility] Last Admin: 12/01/17 10:45 Dose: 40 mg Collagenase (Santyl -) 1 applic TP DAILY [facility]; Protocol Last Admin: 11/30/17 17:21 Dose: 1 applic Heparin Sodium (Porcine) (Heparin -) 5,000 unit SQ BID [facility] Last Admin: 12/01/17 10:46 Dose: 5,000 unit Piperacillin Sod/Tazobactam (Sod 2.25 gm/ Dextrose) 50 mls @ 100 mls/hr IVPB Q8H-IV [facility]; Protocol Last Admin: 12/01/17 10:44 Dose: 100 mls/hr Insulin Aspart (Novolog Vial Sliding Scale -) 1 vial SQ ACHS [facility]; Protocol Last Admin: 12/01/17 12:12 Dose: 6 units Insulin Detemir (Levemir Vial) 15 units SQ DAILY@0700 [facility] Last Admin: 12/01/17 06:20 Dose: 15 units Multivitamins/Minerals/Vitamin C (Tab-A-Vit -) 1 tab PO DAILY [facility] Last Admin: 12/01/17 10:45 Dose: 1 tab - Objective Vital Signs: Vital Signs Temperature 99.3 F 12/01/17 15:35 Pulse Rate 73 12/01/17 15:35 Respiratory Rate 17 12/01/17 15:35 Blood Pressure 117/60 12/01/17 15:35 O2 Sat by Pulse Oximetry (%) 100 11/30/17 21:00 Constitutional: Yes: No Distress Eyes: Yes: Conjunctiva Clear Cardiovascular: Yes: Regular Rate and Rhythm, S1, S2 Respiratory: Yes: CTA Bilaterally Gastrointestinal: Yes: Normal Bowel Sounds, Soft. No: Tenderness Extremities: Yes: Other (+ necrotic heel ulcer; serous drainage on dressing; malodorous) Labs: CBC, BMP 12/01/17 12:42 12/01/17 12:42 INR, PTT INR 1.18 (0.83-1.09) H 11/29/17 13:30 Assessment/Plan Necrotic heel ulcer CKD Parkinsonism/ WHIT Continue zosyn D/C vancomycin Contact precautions Local wound care
[2017-12-01] MEDS ORDERED: INSULIN (NOVOLOG) ASPART 100 UNITS/ML 10ML VIAL ONE (20:53)
[2017-12-02] MEDS ORDERED: PIPERACILLIN/TAZOBACTAM 2.25 GM VIAL IVPB ONE ×3 (00:48→15:27)
[2017-12-02] MEDS ORDERED: DEXTROSE 5%-WATER - 50 ML IVPB ONE ×3 (00:49→15:27)
[2017-12-02] MEDS: PIPERACILLIN/TAZOB 2.25 GM 2.25 GM in DEXTROSE 5%-WATER - 50 ML IVPB SCH ×3 (02:39→17:03)
[2017-12-02] MEDS: INSULIN SLIDING SCALE (NOVOLOG) 1 VIAL SQ SCH ×4 (06:41→21:44)
[2017-12-02] MEDS: CARBIDOPA/LEVODOPA 25/100 TABLET (FP) PO SCH ×5 (06:50→21:03)
[2017-12-02] MEDS: INSULIN (LEVEMIR) 100 UNITS/ML UNITS SQ SCH (06:56)
[2017-12-02 09:31] LABS: HEMATOCRIT 24.9 % (35.4-49); HEMOGLOBIN 8.4 GM/dL (11.7-16.9); MCH 31.2 pg (25.7-33.7); MCHC 33.8 g/dl (32.0-35.9); MEAN CELL VOLUME 92.2 fl (80-96); PLATELET COUNT 258 K/MM3 (134-434); RDW 14.6 % (11.9-15.9); WHITE BLOOD COUNT 7.3 K/mm3 (4.0-10.0)
[2017-12-02 09:53] LABS: ANION GAP 12 (8-16); BLOOD UREA NITROGEN 68 mg/dL (7-18); CALCIUM 8.6 mg/dL (8.5-10.1); CHLORIDE 109 mmol/L (98-107); CO2 22 mmol/L (21-32); CREATININE 2.2 mg/dL (0.7-1.3); GLUCOSE,RANDOM 123 mg/dL (74-106); POTASSIUM 4.6 mmol/L (3.5-5.1); SODIUM 143 mmol/L (136-145)
[2017-12-02] MEDS: MULTIVITAMINS (DAILY MVI) TABLET (FP) PO SCH (10:11)
[2017-12-02] MEDS: ACETAMINOPHEN 325 MG TABLET (FP) PO SCH ×2 (10:11→21:03)
[2017-12-02] MEDS: ASPIRIN 81 MG CHEWABLE TABLETS PO SCH (10:11)
[2017-12-02] MEDS: CITALOPRAM HYDROBROMIDE 20 MG TABLET (FP) PO SCH (10:11)
[2017-12-02] MEDS: HEPARIN NA (PORCINE) 5,000 UNITS/ML 1ML VIAL SQ SCH ×2 (10:12→21:04)
[2017-12-02] MEDS ORDERED: PT OWN MED DRAWER 7, Y5N ONE (11:55)
[2017-12-02] MEDS: COLLAGENASE CLOSTRIDIUM HIST. 30 GRAMS TUBE TP SCH (11:59)
--- NOTE | 2017-12-02 14:19 | PN ---
Progress Note, Physician History of Present Illness: Pt is unable to provide HPI nor ROS, secondary to advanced dementia. - Current Medication List Current Medications: Active Medications Acetaminophen (Tylenol -) 650 mg PO BID [facility] Last Admin: 12/02/17 10:11 Dose: 650 mg Aspirin (Asa -) 81 mg PO DAILY [facility] Last Admin: 12/02/17 10:11 Dose: 81 mg Carbidopa/Levodopa (Sinemet 25/100 -) 1 each PO BID@0900,1700 [facility] Last Admin: 12/02/17 08:53 Dose: 1 each Carbidopa/Levodopa (Sinemet 25/100 -) 2 each PO 0600,1300,2100 [facility] Last Admin: 12/02/17 13:13 Dose: 2 each Citalopram Hydrobromide (Celexa -) 40 mg PO DAILY [facility] Last Admin: 12/02/17 10:11 Dose: 40 mg Collagenase (Santyl -) 1 applic TP DAILY [facility]; Protocol Last Admin: 12/02/17 11:59 Dose: 1 applic Heparin Sodium (Porcine) (Heparin -) 5,000 unit SQ BID [facility] Last Admin: 12/02/17 10:12 Dose: 5,000 unit Piperacillin Sod/Tazobactam (Sod 2.25 gm/ Dextrose) 50 mls @ 100 mls/hr IVPB Q8H-IV [facility]; Protocol Last Admin: 12/02/17 10:12 Dose: 100 mls/hr Sodium Chloride (Normal Saline -) 1,000 mls @ 50 mls/hr IV ASDIR [facility] Stop: 12/03/17 14:17 Insulin Aspart (Novolog Vial Sliding Scale -) 1 vial SQ ACHS [facility]; Protocol Last Admin: 12/02/17 11:46 Dose: 2 units Insulin Detemir (Levemir Vial) 15 units SQ DAILY@0700 [facility] Last Admin: 12/02/17 06:56 Dose: 15 units Multivitamins/Minerals/Vitamin C (Tab-A-Vit -) 1 tab PO DAILY [facility] Last Admin: 12/02/17 10:11 Dose: 1 tab - Objective Vital Signs: Vital Signs Temperature 97.9 F 12/02/17 06:00 Pulse Rate 61 12/02/17 06:00 Respiratory Rate 20 12/02/17 06:00 Blood Pressure 110/56 12/02/17 06:00 O2 Sat by Pulse Oximetry (%) 100 12/01/17 21:00 Constitutional: Yes: No Distress, Calm HENT: Yes: Other (Dry oral mucosa) Cardiovascular: Yes: Regular Rate and Rhythm, S1, S2 Respiratory: Yes: Regular, CTA Bilaterally. No: Rales Gastrointestinal: Yes: Normal Bowel Sounds, Soft. No: Tenderness Edema: No Neurological: Yes: Alert Labs: CBC, BMP 12/02/17 09:15 12/02/17 09:15 INR, PTT INR 1.18 (0.83-1.09) H 11/29/17 13:30 Problem List - Problems (1) Heel ulceration Code(s): L97.409 - NON-PRS CHRONIC ULCER OF UNSP HEEL AND MIDFOOT W UNSP SEVERT Qualifiers: (2) Anemia Code(s): D64.9 - ANEMIA, UNSPECIFIED (3) CRF (chronic renal failure) Code(s): N18.9 - CHRONIC KIDNEY DISEASE, UNSPECIFIED (4) Parkinson disease Code(s): G20 - PARKINSON'S DISEASE (5) Type 2 diabetes mellitus with unspecified complications Code(s): E11.8 - TYPE 2 DIABETES MELLITUS WITH UNSPECIFIED COMPLICATIONS (6) YENI (acute kidney injury) Assessment/Plan: IVF, Renal and bladder US Code(s): N17.9 - ACUTE KIDNEY FAILURE, UNSPECIFIED Assessment/Plan Vasc Sx consult ID consult; to cont abtx. Wound CXs + for VREF. Renal consult IVF To f/u labs.
[2017-12-02] MEDS: SODIUM CHLORIDE 1,000 ML IV SCH (15:15)
[2017-12-03] MEDS ORDERED: PIPERACILLIN/TAZOBACTAM 2.25 GM VIAL IVPB ONE ×3 (00:31→17:52)
[2017-12-03] MEDS ORDERED: DEXTROSE 5%-WATER - 50 ML IVPB ONE ×3 (00:31→17:52)
[2017-12-03] MEDS: PIPERACILLIN/TAZOB 2.25 GM 2.25 GM in DEXTROSE 5%-WATER - 50 ML IVPB SCH ×3 (01:24→18:04)
[2017-12-03 05:12] LABS: URINE APPEARANCE TURBID; URINE BILIRUBIN NEGATIVE (<2.0 mg/dL); URINE COLOR DKYELLOW; URINE GLUCOSE (UA) NEGATIVE (NEGATIVE); URINE KETONE NEGATIVE (NEGATIVE); URINE NITRITE NEGATIVE (NEGATIVE); URINE UROBILINOGEN NEGATIVE mg/dL (0.2-1.0)
[2017-12-03 05:13] LABS: URINE LEUK ESTERASE 3+ (NEGATIVE); URINE PROTEIN 1+ (NEGATIVE)
[2017-12-03 05:16] LABS: URINE BACTERIA RARE /hpf (NONE SEEN)
[2017-12-03] MEDS: SODIUM CHLORIDE 1,000 ML IV SCH (06:00)
[2017-12-03] MEDS: CARBIDOPA/LEVODOPA 25/100 TABLET (FP) PO SCH ×5 (06:23→22:49)
[2017-12-03] MEDS: INSULIN (LEVEMIR) 100 UNITS/ML UNITS SQ SCH (06:24)
[2017-12-03] MEDS: INSULIN SLIDING SCALE (NOVOLOG) 1 VIAL SQ SCH ×4 (06:25→22:50)
[2017-12-03 08:05] LABS: ANION GAP 10 (8-16); BLOOD UREA NITROGEN 60 mg/dL (7-18); CALCIUM 8.5 mg/dL (8.5-10.1); CHLORIDE 109 mmol/L (98-107); CO2 25 mmol/L (21-32); GLUCOSE,RANDOM 146 mg/dL (74-106); POTASSIUM 4.6 mmol/L (3.5-5.1); SODIUM 144 mmol/L (136-145)
[2017-12-03 08:06] LABS: CREATININE 2.1 mg/dL (0.7-1.3); PHOSPHOROUS 3.9 mg/dL (2.5-4.9)
[2017-12-03 08:17] LABS: HEMATOCRIT 23.4 % (35.4-49); HEMOGLOBIN 7.9 GM/dL (11.7-16.9); MCH 31.3 pg (25.7-33.7); MCHC 33.8 g/dl (32.0-35.9); MEAN CELL VOLUME 92.5 fl (80-96); PLATELET COUNT 260 K/MM3 (134-434); RBC 2.54 M/mm3 (4.00-5.60); RDW 14.7 % (11.9-15.9); WHITE BLOOD COUNT 7.7 K/mm3 (4.0-10.0)
--- NOTE | 2017-12-03 09:56 | PN ---
Progress Note, Physician History of Present Illness: Pt is unable to provide HPI nor ROS, secondary to advanced dementia. Pt's is at bedside. - Current Medication List Current Medications: Active Medications Acetaminophen (Tylenol -) 650 mg PO BID [facility] Last Admin: 12/02/17 21:03 Dose: 650 mg Aspirin (Asa -) 81 mg PO DAILY [facility] Last Admin: 12/02/17 10:11 Dose: 81 mg Carbidopa/Levodopa (Sinemet 25/100 -) 1 each PO BID@0900,1700 [facility] Last Admin: 12/02/17 17:03 Dose: 1 each Carbidopa/Levodopa (Sinemet 25/100 -) 2 each PO 0600,1300,2100 [facility] Last Admin: 12/03/17 06:23 Dose: 2 each Citalopram Hydrobromide (Celexa -) 40 mg PO DAILY [facility] Last Admin: 12/02/17 10:11 Dose: 40 mg Collagenase (Santyl -) 1 applic TP DAILY [facility]; Protocol Last Admin: 12/02/17 11:59 Dose: 1 applic Heparin Sodium (Porcine) (Heparin -) 5,000 unit SQ BID [facility] Last Admin: 12/02/17 21:04 Dose: 5,000 unit Piperacillin Sod/Tazobactam (Sod 2.25 gm/ Dextrose) 50 mls @ 100 mls/hr IVPB Q8H-IV [facility]; Protocol Last Admin: 12/03/17 01:24 Dose: 100 mls/hr Sodium Chloride (Normal Saline -) 1,000 mls @ 50 mls/hr IV ASDIR [facility] Stop: 12/03/17 14:17 Last Admin: 12/03/17 06:00 Dose: 50 mls/hr Insulin Aspart (Novolog Vial Sliding Scale -) 1 vial SQ [facility]; Protocol Last Admin: 12/03/17 06:25 Dose: 2 units Insulin Detemir (Levemir Vial) 15 units SQ DAILY@0700 [facility] Last Admin: 12/03/17 06:24 Dose: 15 units Multivitamins/Minerals/Vitamin C (Tab-A-Vit -) 1 tab PO DAILY [facility] Last Admin: 12/02/17 10:11 Dose: 1 tab - Objective Vital Signs: Vital Signs Temperature 98.1 F 12/03/17 06:00 Pulse Rate 70 12/03/17 06:00 Respiratory Rate 20 12/03/17 06:00 Blood Pressure 132/80 12/03/17 06:00 O2 Sat by Pulse Oximetry (%) 99 12/02/17 21:00 Constitutional: Yes: No Distress, Calm Cardiovascular: Yes: Regular Rate and Rhythm, S1, S2 Respiratory: Yes: Regular, CTA Bilaterally. No: Rales Gastrointestinal: Yes: Normal Bowel Sounds, Soft Edema: No Neurological: Yes: Alert Labs: CBC, BMP 12/03/17 06:30 12/03/17 06:30 INR, PTT INR 1.18 (0.83-1.09) H 11/29/17 13:30 Problem List - Problems (1) Heel ulceration Code(s): L97.409 - NON-PRS CHRONIC ULCER OF UNSP HEEL AND MIDFOOT W UNSP SEVERT Qualifiers: (2) Anemia Code(s): D64.9 - ANEMIA, UNSPECIFIED (3) CRF (chronic renal failure) Code(s): N18.9 - CHRONIC KIDNEY DISEASE, UNSPECIFIED (4) Parkinson disease Code(s): G20 - PARKINSON'S DISEASE (5) Type 2 diabetes mellitus with unspecified complications Code(s): E11.8 - TYPE 2 DIABETES MELLITUS WITH UNSPECIFIED COMPLICATIONS (6) YENI (acute kidney injury) Code(s): N17.9 - ACUTE KIDNEY FAILURE, UNSPECIFIED Assessment/Plan Vasc Sx consult ID consult; to cont abtx. Wound CXs + for VREF. Renal consult IVF To give one unit PRBC To f/u labs. Pt's contions and treatment was reviewed with pt's . Pt's case was d/w his .
[2017-12-03] MEDS ORDERED: PT OWN MED DRAWER 7, Y5N ONE (11:18)
[2017-12-03] MEDS: CITALOPRAM HYDROBROMIDE 20 MG TABLET (FP) PO SCH (11:26)
[2017-12-03] MEDS: MULTIVITAMINS (DAILY MVI) TABLET (FP) PO SCH (11:26)
[2017-12-03] MEDS: ASPIRIN 81 MG CHEWABLE TABLETS PO SCH (11:26)
[2017-12-03] MEDS: ACETAMINOPHEN 325 MG TABLET (FP) PO SCH ×2 (11:26→22:50)
[2017-12-03] MEDS: HEPARIN NA (PORCINE) 5,000 UNITS/ML 1ML VIAL SQ SCH ×2 (11:27→22:52)
[2017-12-03] MEDS: COLLAGENASE CLOSTRIDIUM HIST. 30 GRAMS TUBE TP SCH (11:29)
--- NOTE | 2017-12-03 11:58 | PN ---
Progress Note (short form) - Note Progress Note: Chronic RLE heel wound - re-evaluation Physical exam findings remain unchanged from initial consultation. --> mild periwound erythema. mild odor. eschar soft. no induration/bogginess or discharge WBC 7.7 Last Vital Signs Temp Pulse Resp BP Pulse Ox 98.1 F 70 20 132/80 99 12/03/17 06:00 12/03/17 06:00 12/03/17 06:00 12/03/17 06:00 12/02/17 21:00 Problem List - Problems (1) Chronic wound of extremity Assessment/Plan: Cont leg elevation Offload all pressure sensitive areas. Dry dressing changes (changed on rounds) Cont care per medicine Cont to observe heel as it may require bedside debridement in future. Code(s): [id number] -
--- NOTE | 2017-12-03 12:14 | PN ---
Progress Note, Physician History of Present Illness: Awake, confused Not conversant Afebrile WBC WNL Wound c/s mixed organisms, inc VRE - Current Medication List Current Medications: Active Medications Acetaminophen (Tylenol -) 650 mg PO BID [facility] Last Admin: 12/03/17 11:26 Dose: 650 mg Aspirin (Asa -) 81 mg PO DAILY [facility] Last Admin: 12/03/17 11:26 Dose: 81 mg Carbidopa/Levodopa (Sinemet 25/100 -) 1 each PO BID@0900,1700 [facility] Last Admin: 12/03/17 11:26 Dose: 1 each Carbidopa/Levodopa (Sinemet 25/100 -) 2 each PO 0600,1300,2100 [facility] Last Admin: 12/03/17 06:23 Dose: 2 each Citalopram Hydrobromide (Celexa -) 40 mg PO DAILY [facility] Last Admin: 12/03/17 11:26 Dose: 40 mg Collagenase (Santyl -) 1 applic TP DAILY [facility]; Protocol Last Admin: 12/03/17 11:29 Dose: 1 applic Heparin Sodium (Porcine) (Heparin -) 5,000 unit SQ BID [facility] Last Admin: 12/03/17 11:27 Dose: 5,000 unit Piperacillin Sod/Tazobactam (Sod 2.25 gm/ Dextrose) 50 mls @ 100 mls/hr IVPB Q8H-IV [facility]; Protocol Last Admin: 12/03/17 11:27 Dose: 100 mls/hr Sodium Chloride (Normal Saline -) 1,000 mls @ 50 mls/hr IV ASDIR [facility] Stop: 12/03/17 14:17 Last Admin: 12/03/17 06:00 Dose: 50 mls/hr Insulin Aspart (Novolog Vial Sliding Scale -) 1 vial SQ ACHS [facility]; Protocol Last Admin: 12/03/17 06:25 Dose: 2 units Insulin Detemir (Levemir Vial) 15 units SQ DAILY@0700 [facility] Last Admin: 12/03/17 06:24 Dose: 15 units Multivitamins/Minerals/Vitamin C (Tab-A-Vit -) 1 tab PO DAILY [facility] Last Admin: 12/03/17 11:26 Dose: 1 tab - Objective Vital Signs: Vital Signs Temperature 98.1 F 12/03/17 06:00 Pulse Rate 70 12/03/17 06:00 Respiratory Rate 20 12/03/17 06:00 Blood Pressure 132/80 12/03/17 06:00 O2 Sat by Pulse Oximetry (%) 99 12/02/17 21:00 Constitutional: Yes: No Distress Eyes: Yes: Conjunctiva Clear Cardiovascular: Yes: Regular Rate and Rhythm, S1, S2 Respiratory: Yes: CTA Bilaterally Gastrointestinal: Yes: Normal Bowel Sounds, Soft, Abdomen, Obese. No: Tenderness Extremities: Yes: Other (heel ulcer necrotic, dry, malodorous. Slight surrounding erythema) Labs: CBC, BMP 12/03/17 06:30 12/03/17 06:30 INR, PTT INR 1.18 (0.83-1.09) H 11/29/17 13:30 Assessment/Plan Necrotic heel ulcer CKD Parkinsonism/ WHIT Continue zosyn Contact precautions Local wound care
[2017-12-03] MEDS ORDERED: TAMSULOSIN HCL 0.4 MG CAP.ER.24H (FP) PO ONE (13:00)
--- NOTE | 2017-12-03 17:36 | CON.GU ---
Consult - History of Present Illness History of Present Illness: 77 yo male, NH patient with Dementia, Parkinsons, Diabetes, admitted with wounfdinfection. 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: Dementia, Peripheral Neuropathy, Parkinson's Psych: Yes: Depression Endocrine: Yes: Diabetes Mellitus Dermatology: Yes: Other (right heel ulcer) - Alcohol/Substance Use Hx Alcohol Use: No - Smoking History Smoking history: Never smoked Have you smoked in the past 12 months: No Home Medications - Allergies Allergies/Adverse Reactions: Allergies Allergy/AdvReac Type Severity Reaction Status Date / Time shellfish derived Allergy Verified 11/29/17 14:23 - Home Medications Home Medications: Ambulatory Orders Aspirin 81 mg PO DAILY 09/28/17 Carbidopa/Levodopa 25/100 [Sinemet 25/100 -] 1 each PO BID@0900,1700 tablet Carbidopa/Levodopa 25/100 [Sinemet 25/100 -] 2 each PO 0600,1300,2100 tablet Collagenase Clostridium Hist. [Santyl -] 1 applic TP DAILY tube 10/03/17 Acetaminophen [8Hr Arthritis Pain Relief] 650 mg PO BID 11/29/17 Ascorbic Acid [Vitamin C] 500 mg PO DAILY 11/29/17 Citalopram Hydrobromide [Citalopram HBr] 40 mg PO DAILY 11/29/17 Insulin Glargine,Hum.rec.anlog [Lantus Solostar] 15 unit SQ DAILY 11/29/17 Insulin Lispro [Humalog] 5 unit SQ ASDIR 11/29/17 Multivitamin [Daily Multiple Vitamin] 1 each PO DAILY 11/29/17 Physical Exam- Vital Signs: Vital Signs Temperature 98.3 F 12/03/17 14:48 Pulse Rate 68 12/03/17 14:48 Respiratory Rate 20 12/03/17 14:48 Blood Pressure 122/60 12/03/17 14:48 O2 Sat by Pulse Oximetry (%) 99 12/02/17 21:00 Labs: CBC, BMP 12/03/17 06:30 12/03/17 06:30 Imaging - Results Ultrasound: Report Reviewed Problem List - Problems (1) Incomplete bladder emptying Assessment/Plan: would start flomax 0.4 bid to improve bladder emptying in an effort to avoid chronic cath Code(s): R33.9 - RETENTION OF URINE, UNSPECIFIED
--- NOTE | 2017-12-03 18:28 | CONSULT ---
Consult - text type - Consultation Consultation Note: Renal Consult for YENI on CKD This is a 77 year old gentleman with hx of Parkinson's, Dementia, Contracted LE , Heel infection who presented with suspected wound infection left foot and found to have elevated BUN/Cr. Pt is unable to provide any history. Pt was started on IVF during the admission w/o improvement in renal function. No IV contrast or NSAID exposure noted. Pt had an US yesterday that showed > 900cc bladder volume and an inability to void. Dawn placed today with 1000cc intial output. PMhx: as above Allergies: NKDA Family hx: NC Social hx: No T/A/D ROS: unable to obtain because of clinical status Home Medications Medication Instructions Recorded Aspirin 81 mg PO DAILY 09/28/17 Carbidopa/Levodopa 25/100 [Sinemet 1 each PO BID@0900,1700 tablet 10/03/17 25/100 -] Carbidopa/Levodopa 25/100 [Sinemet 2 each PO 0600,1300,2100 tablet 10/03/17 25/100 -] Collagenase Clostridium Hist. 1 applic TP DAILY tube 10/03/17 [Santyl -] Acetaminophen [8Hr Arthritis Pain 650 mg PO BID 11/29/17 Relief] Ascorbic Acid [Vitamin C] 500 mg PO DAILY 11/29/17 Citalopram Hydrobromide 40 mg PO DAILY 11/29/17 [Citalopram HBr] Insulin Glargine,Hum.rec.anlog 15 unit SQ DAILY 11/29/17 [Lantus Solostar] Insulin Lispro [Humalog] 5 unit SQ ASDIR 11/29/17 Multivitamin [Daily Multiple 1 each PO DAILY 11/29/17 Vitamin] Vital Signs Temperature 98.3 F 12/03/17 14:48 Pulse Rate 68 12/03/17 14:48 Respiratory Rate 20 12/03/17 14:48 Blood Pressure 122/60 12/03/17 14:48 O2 Sat by Pulse Oximetry (%) 99 12/02/17 21:00 Intake & Output 11/30/17 12/01/17 12/02/17 12/03/17 23:59 23:59 23:59 23:59 Intake Total 9128 876 4897 1200 Output Total 1300 Balance 3814 376 2124 -100 Weight 69.4 kg NAD awake Neck supple, no JVD MMM RRR, No M/R + abd distension, mild guarding no Le edmea left foot in dressing CBC, BMP 12/03/17 06:30 12/03/17 06:30 Current Medications Acetaminophen (Tylenol -) 650 mg PO BID [facility] Last Admin: 12/03/17 11:26 Dose: 650 mg Aspirin (Asa -) 81 mg PO DAILY [facility] Last Admin: 12/03/17 11:26 Dose: 81 mg Carbidopa/Levodopa (Sinemet 25/100 -) 1 each PO BID@0900,1700 [facility] Last Admin: 12/03/17 18:03 Dose: 1 each Carbidopa/Levodopa (Sinemet 25/100 -) 2 each PO 0600,1300,2100 [facility] Last Admin: 12/03/17 15:00 Dose: 2 each Citalopram Hydrobromide (Celexa -) 40 mg PO DAILY [facility] Last Admin: 12/03/17 11:26 Dose: 40 mg Collagenase (Santyl -) 1 applic TP DAILY [facility]; Protocol Last Admin: 12/03/17 11:29 Dose: 1 applic Heparin Sodium (Porcine) (Heparin -) 5,000 unit SQ BID [facility] Last Admin: 12/03/17 11:27 Dose: 5,000 unit Piperacillin Sod/Tazobactam (Sod 2.25 gm/ Dextrose) 50 mls @ 100 mls/hr IVPB Q8H-IV [facility]; Protocol Last Admin: 12/03/17 18:04 Dose: 100 mls/hr Insulin Aspart (Novolog Vial Sliding Scale -) 1 vial SQ ACHS [facility]; Protocol Last Admin: 12/03/17 18:04 Dose: 2 units Insulin Detemir (Levemir Vial) 15 units SQ DAILY@0700 [facility] Last Admin: 12/03/17 06:24 Dose: 15 units Multivitamins/Minerals/Vitamin C (Tab-A-Vit -) 1 tab PO DAILY [facility] Last Admin: 12/03/17 11:26 Dose: 1 tab Tamsulosin HCl (Flomax -) 0.8 mg PO DAILY@0830 [facility] 77 year old gentleman with hx of Parkinson's, Dementia, Contracted LE, Heel infection who presented with suspected wound infection left foot and found to have elevated BUN/Cr. #YENI on CKD secondary to bladder outlet obstruction #CKD (Cr 1.5-1.7 during last admission) #wound infection #BPH s/p dawn placement Trend renal function with dawn in place start 1/2 NS as pt may have post obstructive diuresis Continue Abx for LE wound continue flomax Urology follow up Thank you Nicolas Kinney DO
[2017-12-03] MEDS: SODIUM CHLORIDE 0.45% 1,000 ML IV SCH (20:38)
[2017-12-04] MEDS ORDERED: PIPERACILLIN/TAZOBACTAM 2.25 GM VIAL IVPB ONE ×3 (01:39→16:48)
[2017-12-04] MEDS ORDERED: DEXTROSE 5%-WATER - 50 ML IVPB ONE ×3 (01:40→16:49)
[2017-12-04] MEDS: SODIUM CHLORIDE 0.45% 1,000 ML IV SCH ×2 (02:24→18:49)
[2017-12-04] MEDS: PIPERACILLIN/TAZOB 2.25 GM 2.25 GM in DEXTROSE 5%-WATER - 50 ML IVPB SCH ×3 (02:24→18:04)
[2017-12-04] MEDS: CARBIDOPA/LEVODOPA 25/100 TABLET (FP) PO SCH ×5 (06:27→22:24)
[2017-12-04] MEDS: INSULIN (LEVEMIR) 100 UNITS/ML UNITS SQ SCH (06:27)
[2017-12-04] MEDS: INSULIN SLIDING SCALE (NOVOLOG) 1 VIAL SQ SCH ×4 (06:28→22:24)
[2017-12-04 07:55] LABS: BASO % 0.4 % (0-2.0); EOS % 1.1 % (0-4.5); HEMATOCRIT 27.1 % (35.4-49); HEMOGLOBIN 9.2 GM/dL (11.7-16.9); LYMPH % 12.3 % (8-40); MCH 30.4 pg (25.7-33.7); MCHC 33.9 g/dl (32.0-35.9); MEAN CELL VOLUME 89.6 fl (80-96); MEAN PLT VOLUME 6.8 fl (7.5-11.1); MONO % 6.6 % (3.8-10.2); NEUT % 79.6 % (42.8-82.8); PLATELET COUNT 261 K/MM3 (134-434); RBC 3.02 M/mm3 (4.00-5.60); RDW 15.1 % (11.9-15.9); WHITE BLOOD COUNT 8.5 K/mm3 (4.0-10.0)
[2017-12-04] MEDS ORDERED: PT OWN MED DRAWER 7, Y5N ONE ×2 (08:12→17:59)
[2017-12-04 08:33] LABS: ALBUMIN 2.3 g/dl (3.4-5.0); ALK PHOS 107 U/L (45-117); ANION GAP 8 (8-16); BILIRUBIN,TOTAL 0.5 mg/dL (0.2-1.0); BLOOD UREA NITROGEN 51 mg/dL (7-18); CALCIUM 8.5 mg/dL (8.5-10.1); CHLORIDE 108 mmol/L (98-107); CO2 27 mmol/L (21-32); CREATININE 1.8 mg/dL (0.7-1.3); GLUCOSE,RANDOM 147 mg/dL (74-106); MAGNESIUM 2.1 mg/dL (1.8-2.4); PHOSPHOROUS 3.6 mg/dL (2.5-4.9); POTASSIUM 5.2 mmol/L (3.5-5.1); SGOT/AST 20 U/L (15-37); SGPT/ALT 6 U/L (12-78); SODIUM 143 mmol/L (136-145); TOT PROT 6.5 g/dl (6.4-8.2)
[2017-12-04] MEDS: TAMSULOSIN HCL 0.4 MG CAP.ER.24H (FP) PO SCH (09:00)
[2017-12-04] MEDS ORDERED: SODIUM POLYSTYRENE SULFONATE 15 GM/60 ML BOTTLE PO ONE (09:55)
--- NOTE | 2017-12-04 09:55 | PN ---
Progress Note, Physician History of Present Illness: Pt w/o SOB, CP, abd pain (pt is awake, answers simple questions). Pt's is at bedside. - Current Medication List Current Medications: Active Medications Acetaminophen (Tylenol -) 650 mg PO BID [facility] Last Admin: 12/03/17 22:50 Dose: 650 mg Aspirin (Asa -) 81 mg PO DAILY [facility] Last Admin: 12/03/17 11:26 Dose: 81 mg Carbidopa/Levodopa (Sinemet 25/100 -) 1 each PO BID@0900,1700 [facility] Last Admin: 12/03/17 18:03 Dose: 1 each Carbidopa/Levodopa (Sinemet 25/100 -) 2 each PO 0600,1300,2100 [facility] Last Admin: 12/04/17 06:27 Dose: 2 each Citalopram Hydrobromide (Celexa -) 40 mg PO DAILY [facility] Last Admin: 12/03/17 11:26 Dose: 40 mg Collagenase (Santyl -) 1 applic TP DAILY [facility]; Protocol Last Admin: 12/03/17 11:29 Dose: 1 applic Heparin Sodium (Porcine) (Heparin -) 5,000 unit SQ BID [facility] Last Admin: 12/03/17 22:52 Dose: Not Given Piperacillin Sod/Tazobactam (Sod 2.25 gm/ Dextrose) 50 mls @ 100 mls/hr IVPB Q8H-IV [facility]; Protocol Last Admin: 12/04/17 02:24 Dose: 100 mls/hr Sodium Chloride (1/2 Normal Saline) 1,000 mls @ 83 mls/hr IV ASDIR [facility] Last Admin: 12/04/17 02:24 Dose: 83 mls/hr Insulin Aspart (Novolog Vial Sliding Scale -) 1 vial SQ ACHS [facility]; Protocol Last Admin: 12/04/17 06:28 Dose: 2 units Insulin Detemir (Levemir Vial) 15 units SQ DAILY@0700 [facility] Last Admin: 12/04/17 06:27 Dose: 15 units Multivitamins/Minerals/Vitamin C (Tab-A-Vit -) 1 tab PO DAILY [facility] Last Admin: 12/03/17 11:26 Dose: 1 tab Tamsulosin HCl (Flomax -) 0.8 mg PO DAILY@0830 [facility] - Objective Vital Signs: Vital Signs Temperature 97.9 F 08/21/18 06:00 Pulse Rate 68 12/04/17 06:00 Respiratory Rate 20 12/04/17 06:00 Blood Pressure 138/66 12/04/17 06:00 O2 Sat by Pulse Oximetry (%) 99 12/03/17 21:00 Constitutional: Yes: No Distress, Calm Cardiovascular: Yes: Regular Rate and Rhythm, S1, S2 Respiratory: Yes: Regular, CTA Bilaterally. No: Rales Gastrointestinal: Yes: Normal Bowel Sounds, Soft, Tenderness Edema: No Neurological: Yes: Alert, Oriented (to family) Labs: CBC, BMP 12/04/17 06:30 12/04/17 06:30 INR, PTT INR 1.18 (0.83-1.09) H 11/29/17 13:30 Problem List - Problems (1) Heel ulceration Code(s): L97.409 - NON-PRS CHRONIC ULCER OF UNSP HEEL AND MIDFOOT W UNSP SEVERT Qualifiers: (2) Anemia Code(s): D64.9 - ANEMIA, UNSPECIFIED (3) CRF (chronic renal failure) Code(s): N18.9 - CHRONIC KIDNEY DISEASE, UNSPECIFIED (4) Parkinson disease Code(s): G20 - PARKINSON'S DISEASE (5) Type 2 diabetes mellitus with unspecified complications Code(s): E11.8 - TYPE 2 DIABETES MELLITUS WITH UNSPECIFIED COMPLICATIONS (6) YENI (acute kidney injury) Code(s): N17.9 - ACUTE KIDNEY FAILURE, UNSPECIFIED (7) Hyperkalemia Code(s): E87.5 - HYPERKALEMIA (8) Urinary retention Code(s): R33.9 - RETENTION OF URINE, UNSPECIFIED Assessment/Plan Vasc Sx, ID consults are appreciated To cont abtx per ID. Wound CXs + for VREF. Renal consult is appreciated IVF s/p PRBC Tx s/p Hernandez placement secondary to UR; started on Flomax. consult is appreciated. Kayexalate To f/u labs. Pt's contions and treatment was reviewed with pt's . Pt's case was d/w pt's nurse, Joyce
[2017-12-04] MEDS: CITALOPRAM HYDROBROMIDE 20 MG TABLET (FP) PO SCH (11:22)
[2017-12-04] MEDS: ACETAMINOPHEN 325 MG TABLET (FP) PO SCH ×2 (11:22→22:25)
[2017-12-04] MEDS: MULTIVITAMINS (DAILY MVI) TABLET (FP) PO SCH (11:23)
[2017-12-04] MEDS: ASPIRIN 81 MG CHEWABLE TABLETS PO SCH (11:23)
[2017-12-04] MEDS: COLLAGENASE CLOSTRIDIUM HIST. 30 GRAMS TUBE TP SCH (11:24)
[2017-12-04] MEDS: HEPARIN NA (PORCINE) 5,000 UNITS/ML 1ML VIAL SQ SCH ×2 (11:24→22:24)
--- NOTE | 2017-12-04 16:38 | PN ---
Progress Note (short form) - Note Progress Note: Renal follow up for YENI Pt seen and examined at the bedside no overnight events pt unable to provide ROS making urine via dawn gets feed by nursing staff Vital Signs Temperature 99.8 F H 12/04/17 15:25 Pulse Rate 73 12/04/17 15:25 Respiratory Rate 18 12/04/17 15:25 Blood Pressure 150/64 12/04/17 15:25 O2 Sat by Pulse Oximetry (%) 99 12/03/17 21:00 Intake & Output 12/01/17 12/02/17 12/03/17 12/04/17 23:59 23:59 23:59 23:59 Intake Total 605 1020 1200 Output Total 2900 1050 Balance 605 1020 -1700 -1050 Weight 69.4 kg NAD MMM RRR CTA No LE edema no bladder distension CBC, BMP 12/04/17 06:30 12/04/17 06:30 Current Medications Acetaminophen (Tylenol -) 650 mg PO BID [facility] Last Admin: 12/04/17 11:22 Dose: 650 mg Aspirin (Asa -) 81 mg PO DAILY [facility] Last Admin: 12/04/17 11:23 Dose: 81 mg Carbidopa/Levodopa (Sinemet 25/100 -) 1 each PO BID@0900,1700 [facility] Last Admin: 12/04/17 10:00 Dose: 1 each Carbidopa/Levodopa (Sinemet 25/100 -) 2 each PO 0600,1300,2100 [facility] Last Admin: 12/04/17 06:27 Dose: 2 each Citalopram Hydrobromide (Celexa -) 40 mg PO DAILY [facility] Last Admin: 12/04/17 11:22 Dose: 40 mg Collagenase (Santyl -) 1 applic TP DAILY [facility]; Protocol Last Admin: 12/04/17 11:24 Dose: 1 applic Heparin Sodium (Porcine) (Heparin -) 5,000 unit SQ BID [facility] Last Admin: 12/04/17 11:24 Dose: 5,000 unit Piperacillin Sod/Tazobactam (Sod 2.25 gm/ Dextrose) 50 mls @ 100 mls/hr IVPB Q8H-IV [facility]; Protocol Last Admin: 12/04/17 11:24 Dose: 100 mls/hr Sodium Chloride (1/2 Normal Saline) 1,000 mls @ 83 mls/hr IV ASDIR [facility] Last Admin: 12/04/17 02:24 Dose: 83 mls/hr Insulin Aspart (Novolog Vial Sliding Scale -) 1 vial SQ ACHS [facility]; Protocol Last Admin: 12/04/17 14:02 Dose: Not Given Insulin Detemir (Levemir Vial) 15 units SQ DAILY@0700 [facility] Last Admin: 12/04/17 06:27 Dose: 15 units Multivitamins/Minerals/Vitamin C (Tab-A-Vit -) 1 tab PO DAILY [facility] Last Admin: 12/04/17 11:23 Dose: 1 tab Tamsulosin HCl (Flomax -) 0.8 mg PO DAILY@0830 [facility] Last Admin: 12/04/17 09:00 Dose: 0.8 mg 77 year old gentleman with hx of Parkinson's, Dementia, Contracted LE, Heel infection who presented with suspected wound infection left foot and found to have elevated BUN/Cr. #YENI on CKD secondary to bladder outlet obstruction #CKD (Cr 1.5-1.7 during last admission) #wound infection #BPH #Mild hyperkalemia Renal function improved to near baseline continue 1/2 NS for 24 hours maintain dawn continue flomax urology follow up trend serum K, change diet to low potassium trend renal function and electrolytes Thank you Nicolas Kinney DO
[2017-12-05] MEDS ORDERED: PIPERACILLIN/TAZOBACTAM 2.25 GM VIAL IVPB ONE ×2 (01:01→09:37)
[2017-12-05] MEDS ORDERED: DEXTROSE 5%-WATER - 50 ML IVPB ONE ×2 (01:01→09:37)
[2017-12-05] MEDS: PIPERACILLIN/TAZOB 2.25 GM 2.25 GM in DEXTROSE 5%-WATER - 50 ML IVPB SCH ×2 (02:28→09:53)
[2017-12-05] MEDS: SODIUM CHLORIDE 0.45% 1,000 ML IV SCH ×2 (04:23→14:29)
[2017-12-05] MEDS: INSULIN (LEVEMIR) 100 UNITS/ML UNITS SQ SCH (06:45)
[2017-12-05] MEDS: CARBIDOPA/LEVODOPA 25/100 TABLET (FP) PO SCH ×5 (06:46→22:35)
[2017-12-05] MEDS: INSULIN SLIDING SCALE (NOVOLOG) 1 VIAL SQ SCH ×4 (06:46→22:34)
[2017-12-05] MEDS ORDERED: INSULIN (NOVOLOG) ASPART 100 UNITS/ML 10ML VIAL ONE ×2 (06:58→11:46)
[2017-12-05 08:02] LABS: HEMATOCRIT 27.1 % (35.4-49); HEMOGLOBIN 9.1 GM/dL (11.7-16.9); MCH 30.1 pg (25.7-33.7); MCHC 33.5 g/dl (32.0-35.9); MEAN CELL VOLUME 89.7 fl (80-96); MEAN PLT VOLUME 6.6 fl (7.5-11.1); PLATELET COUNT 244 K/MM3 (134-434); RBC 3.02 M/mm3 (4.00-5.60); RDW 14.7 % (11.9-15.9)
[2017-12-05] MEDS: TAMSULOSIN HCL 0.4 MG CAP.ER.24H (FP) PO SCH (08:29)
[2017-12-05 08:48] LABS: CHLORIDE 106 mmol/L (98-107); POTASSIUM 4.4 mmol/L (3.5-5.1); SODIUM 141 mmol/L (136-145)
[2017-12-05 08:58] LABS: ANION GAP 10 MMOL/L (8-16); BLOOD UREA NITROGEN 42 mg/dL (7-18); CALCIUM 8.2 mg/dL (8.5-10.1); CO2 25 mmol/L (21-32); CREATININE 1.7 mg/dL (0.7-1.3); GLUCOSE,RANDOM 122 mg/dL (74-106); MAGNESIUM 1.9 mg/dL (1.8-2.4); PHOSPHOROUS 3.7 mg/dL (2.5-4.9)
[2017-12-05] MEDS ORDERED: PT OWN MED DRAWER 7, Y5N ONE ×2 (09:37→19:56)
[2017-12-05] MEDS: ASPIRIN 81 MG CHEWABLE TABLETS PO SCH (09:54)
[2017-12-05] MEDS: ACETAMINOPHEN 325 MG TABLET (FP) PO SCH ×2 (09:54→22:34)
[2017-12-05] MEDS: CITALOPRAM HYDROBROMIDE 20 MG TABLET (FP) PO SCH (09:55)
[2017-12-05] MEDS: MULTIVITAMINS (DAILY MVI) TABLET (FP) PO SCH (09:55)
[2017-12-05] MEDS: HEPARIN NA (PORCINE) 5,000 UNITS/ML 1ML VIAL SQ SCH ×2 (09:55→22:34)
[2017-12-05] MEDS: COLLAGENASE CLOSTRIDIUM HIST. 30 GRAMS TUBE TP SCH (10:19)
--- NOTE | 2017-12-05 13:02 | PN ---
Progress Note, Physician History of Present Illness: Pt w/o SOB, CP, abd pain (pt is awake, answers simple questions). - Current Medication List Current Medications: Active Medications Acetaminophen (Tylenol -) 650 mg PO BID [facility] Last Admin: 12/05/17 09:54 Dose: 650 mg Aspirin (Asa -) 81 mg PO DAILY [facility] Last Admin: 12/05/17 09:54 Dose: 81 mg Carbidopa/Levodopa (Sinemet 25/100 -) 1 each PO BID@0900,1700 [facility] Last Admin: 12/05/17 08:30 Dose: 1 each Carbidopa/Levodopa (Sinemet 25/100 -) 2 each PO 0600,1300,2100 [facility] Last Admin: 12/05/17 12:32 Dose: 2 each Citalopram Hydrobromide (Celexa -) 40 mg PO DAILY [facility] Last Admin: 12/05/17 09:55 Dose: 40 mg Collagenase (Santyl -) 1 applic TP DAILY [facility]; Protocol Last Admin: 12/05/17 10:19 Dose: 1 applic Heparin Sodium (Porcine) (Heparin -) 5,000 unit SQ BID [facility] Last Admin: 12/05/17 09:55 Dose: 5,000 unit Piperacillin Sod/Tazobactam (Sod 2.25 gm/ Dextrose) 50 mls @ 100 mls/hr IVPB Q8H-IV [facility]; Protocol Last Admin: 12/05/17 09:53 Dose: 100 mls/hr Sodium Chloride (1/2 Normal Saline) 1,000 mls @ 83 mls/hr IV ASDIR [facility] Last Admin: 12/05/17 04:23 Dose: 83 mls/hr Insulin Aspart (Novolog Vial Sliding Scale -) 1 vial SQ ACHS [facility]; Protocol Last Admin: 12/05/17 12:19 Dose: 4 units Insulin Detemir (Levemir Vial) 15 units SQ DAILY@0700 [facility] Last Admin: 12/05/17 06:45 Dose: 15 units Multivitamins/Minerals/Vitamin C (Tab-A-Vit -) 1 tab PO DAILY [facility] Last Admin: 12/05/17 09:55 Dose: 1 tab Tamsulosin HCl (Flomax -) 0.8 mg PO DAILY@0830 [facility] Last Admin: 12/05/17 08:29 Dose: 0.8 mg - Objective Vital Signs: Vital Signs Temperature 98.1 F 12/05/17 10:03 Pulse Rate 63 12/05/17 10:03 Respiratory Rate 17 12/05/17 10:03 Blood Pressure 103/50 12/05/17 10:03 O2 Sat by Pulse Oximetry (%) 98 12/04/17 21:00 Constitutional: Yes: No Distress, Calm Cardiovascular: Yes: Regular Rate and Rhythm, S1, S2 Respiratory: Yes: Regular, CTA Bilaterally. No: Rales Gastrointestinal: Yes: Normal Bowel Sounds, Soft. No: Tenderness Edema: No Neurological: Yes: Alert Labs: CBC, BMP 12/05/17 06:30 12/05/17 06:30 INR, PTT INR 1.18 (0.83-1.09) H 11/29/17 13:30 Problem List - Problems (1) Heel ulceration Code(s): L97.409 - NON-PRS CHRONIC ULCER OF UNSP HEEL AND MIDFOOT W UNSP SEVERT Qualifiers: (2) Anemia Code(s): D64.9 - ANEMIA, UNSPECIFIED (3) CRF (chronic renal failure) Code(s): N18.9 - CHRONIC KIDNEY DISEASE, UNSPECIFIED (4) Parkinson disease Code(s): G20 - PARKINSON'S DISEASE (5) Type 2 diabetes mellitus with unspecified complications Code(s): E11.8 - TYPE 2 DIABETES MELLITUS WITH UNSPECIFIED COMPLICATIONS (6) YENI (acute kidney injury) Code(s): N17.9 - ACUTE KIDNEY FAILURE, UNSPECIFIED (7) Hyperkalemia Code(s): E87.5 - HYPERKALEMIA (8) Urinary retention Code(s): R33.9 - RETENTION OF URINE, UNSPECIFIED Assessment/Plan Vasc Sx, ID consults are appreciated To cont abtx per ID. Wound CXs + for VREF. Renal consult is appreciated IVF s/p PRBC Tx s/p Hernandez placement secondary to UR; started on Flomax. consult is appreciated. To f/u labs. Case was d/w Dr. Jerry at bedside Pt's condition and treatment was reviewed with pt's ; all questions were answered.
--- NOTE | 2017-12-05 13:21 | PROC ---
Procedure Note Procedure: After betadine prep, excisional debridement performed of right heel wound with scalpel to excise skin and subcutaneous tissues. No purulent fluid in wound. Santyl dressing applied. Patent tolerated procedure well.
--- NOTE | 2017-12-05 13:48 | PN ---
Progress Note (short form) - Note Progress Note: Renal follow up for YENI Pt seen and examined at the bedside no overnight events making urine via dawn s/p debridement of wound by vascular sx this am on IVF Vital Signs Temperature 98.1 F 12/05/17 10:03 Pulse Rate 63 12/05/17 10:03 Respiratory Rate 17 12/05/17 10:03 Blood Pressure 103/50 12/05/17 10:03 O2 Sat by Pulse Oximetry (%) 98 12/04/17 21:00 Intake & Output 12/02/17 12/03/17 12/04/17 12/05/17 23:59 23:59 23:59 23:59 Intake Total 1020 1200 250 450 Output Total 2900 1850 1400 Balance 1020 -1700 -1600 -950 NAD MMM RRR CTA No LE edema no bladder distension CBC, BMP 12/05/17 06:30 12/05/17 06:30 Current Medications Acetaminophen (Tylenol -) 650 mg PO BID [facility] Last Admin: 12/05/17 09:54 Dose: 650 mg Aspirin (Asa -) 81 mg PO DAILY [facility] Last Admin: 12/05/17 09:54 Dose: 81 mg Carbidopa/Levodopa (Sinemet 25/100 -) 1 each PO BID@0900,1700 [facility] Last Admin: 12/05/17 08:30 Dose: 1 each Carbidopa/Levodopa (Sinemet 25/100 -) 2 each PO 0600,1300,2100 [facility] Last Admin: 12/05/17 12:32 Dose: 2 each Citalopram Hydrobromide (Celexa -) 40 mg PO DAILY [facility] Last Admin: 12/05/17 09:55 Dose: 40 mg Collagenase (Santyl -) 1 applic TP DAILY [facility]; Protocol Last Admin: 12/05/17 10:19 Dose: 1 applic Heparin Sodium (Porcine) (Heparin -) 5,000 unit SQ BID [facility] Last Admin: 12/05/17 09:55 Dose: 5,000 unit Piperacillin Sod/Tazobactam (Sod 2.25 gm/ Dextrose) 50 mls @ 100 mls/hr IVPB Q8H-IV [facility]; Protocol Last Admin: 12/05/17 09:53 Dose: 100 mls/hr Sodium Chloride (1/2 Normal Saline) 1,000 mls @ 83 mls/hr IV ASDIR [facility] Last Admin: 12/05/17 04:23 Dose: 83 mls/hr Insulin Aspart (Novolog Vial Sliding Scale -) 1 vial SQ ACHS [facility]; Protocol Last Admin: 12/05/17 12:19 Dose: 4 units Insulin Detemir (Levemir Vial) 15 units SQ DAILY@0700 [facility] Last Admin: 12/05/17 06:45 Dose: 15 units Multivitamins/Minerals/Vitamin C (Tab-A-Vit -) 1 tab PO DAILY [facility] Last Admin: 12/05/17 09:55 Dose: 1 tab Tamsulosin HCl (Flomax -) 0.8 mg PO DAILY@0830 [facility] Last Admin: 12/05/17 08:29 Dose: 0.8 mg 77 year old gentleman with hx of Parkinson's, Dementia, Contracted LE, Heel infection who presented with suspected wound infection left foot and found to have elevated BUN/Cr. #YENI on CKD secondary to bladder outlet obstruction #CKD (Cr 1.5-1.7 during last admission) #wound infection #BPH #Mild hyperkalemia Renal function continues to have gradual improvement continue dawn for now continue flomax, add proscar as well will decrease IVF rate trial of void as per urology continue Abx as per ID Wound care Thank you Nicolas Kinney DO
--- NOTE | 2017-12-05 17:35 | PN ---
Progress Note, Physician History of Present Illness: Awake, confused Not conversant Afebrile WBC WNL Wound c/s mixed organisms, inc VRE - Current Medication List Current Medications: Active Medications Acetaminophen (Tylenol -) 650 mg PO BID [facility] Last Admin: 12/05/17 09:54 Dose: 650 mg Aspirin (Asa -) 81 mg PO DAILY [facility] Last Admin: 12/05/17 09:54 Dose: 81 mg Carbidopa/Levodopa (Sinemet 25/100 -) 1 each PO BID@0900,1700 [facility] Last Admin: 12/05/17 08:30 Dose: 1 each Carbidopa/Levodopa (Sinemet 25/100 -) 2 each PO 0600,1300,2100 [facility] Last Admin: 12/05/17 12:32 Dose: 2 each Citalopram Hydrobromide (Celexa -) 40 mg PO DAILY [facility] Last Admin: 12/05/17 09:55 Dose: 40 mg Collagenase (Santyl -) 1 applic TP DAILY [facility]; Protocol Last Admin: 12/05/17 10:19 Dose: 1 applic Heparin Sodium (Porcine) (Heparin -) 5,000 unit SQ BID [facility] Last Admin: 12/05/17 09:55 Dose: 5,000 unit Piperacillin Sod/Tazobactam (Sod 2.25 gm/ Dextrose) 50 mls @ 100 mls/hr IVPB Q8H-IV [facility]; Protocol Last Admin: 12/05/17 09:53 Dose: 100 mls/hr Sodium Chloride (1/2 Normal Saline) 1,000 mls @ 60 mls/hr IV ASDIR [facility] Insulin Aspart (Novolog Vial Sliding Scale -) 1 vial SQ ACHS [facility]; Protocol Last Admin: 12/05/17 12:19 Dose: 4 units Insulin Detemir (Levemir Vial) 15 units SQ DAILY@0700 [facility] Last Admin: 12/05/17 06:45 Dose: 15 units Multivitamins/Minerals/Vitamin C (Tab-A-Vit -) 1 tab PO DAILY [facility] Last Admin: 12/05/17 09:55 Dose: 1 tab Tamsulosin HCl (Flomax -) 0.8 mg PO DAILY@0830 [facility] Last Admin: 12/05/17 08:29 Dose: 0.8 mg - Objective Vital Signs: Vital Signs Temperature 98.5 F 12/05/17 15:40 Pulse Rate 70 12/05/17 15:40 Respiratory Rate 18 12/05/17 15:40 Blood Pressure 97/71 12/05/17 15:40 O2 Sat by Pulse Oximetry (%) 98 12/05/17 09:00 Constitutional: Yes: No Distress Cardiovascular: Yes: Regular Rate and Rhythm, S1, S2 Respiratory: Yes: CTA Bilaterally Gastrointestinal: Yes: Normal Bowel Sounds, Soft Extremities: Yes: Other (+ dry heel ulcer) Labs: CBC, BMP 12/05/17 06:30 12/05/17 06:30 INR, PTT INR 1.18 (0.83-1.09) H 11/29/17 13:30 Assessment/Plan Necrotic heel ulcer S/P debridement CKD Parkinsonism/ WHIT Substitute po Augmentn Local wound care
[2017-12-06] MEDS: INSULIN SLIDING SCALE (NOVOLOG) 1 VIAL SQ SCH ×4 (06:42→23:39)
[2017-12-06] MEDS: INSULIN (LEVEMIR) 100 UNITS/ML UNITS SQ SCH (06:43)
[2017-12-06] MEDS: CARBIDOPA/LEVODOPA 25/100 TABLET (FP) PO SCH ×5 (06:43→23:36)
[2017-12-06] MEDS ORDERED: PT OWN MED DRAWER 7, Y5N ONE ×2 (07:45→17:30)
[2017-12-06] MEDS: CITALOPRAM HYDROBROMIDE 20 MG TABLET (FP) PO SCH (09:27)
[2017-12-06] MEDS: MULTIVITAMINS (DAILY MVI) TABLET (FP) PO SCH (09:28)
[2017-12-06] MEDS: ACETAMINOPHEN 325 MG TABLET (FP) PO SCH ×2 (09:28→23:35)
[2017-12-06] MEDS: HEPARIN NA (PORCINE) 5,000 UNITS/ML 1ML VIAL SQ SCH ×2 (09:28→23:39)
[2017-12-06] MEDS: ASPIRIN 81 MG CHEWABLE TABLETS PO SCH (09:28)
[2017-12-06 09:36] LABS: ANION GAP 7 MMOL/L (8-16); BLOOD UREA NITROGEN 39 mg/dL (7-18); CALCIUM 8.1 mg/dL (8.5-10.1); CHLORIDE 107 mmol/L (98-107); CO2 27 mmol/L (21-32); GLUCOSE,RANDOM 74 mg/dL (74-106); POTASSIUM 4.2 mmol/L (3.5-5.1); SODIUM 141 mmol/L (136-145)
[2017-12-06 09:39] LABS: CREATININE 1.6 mg/dL (0.7-1.3)
[2017-12-06] MEDS: TAMSULOSIN HCL 0.4 MG CAP.ER.24H (FP) PO SCH (09:42)
[2017-12-06] MEDS: AMOX TR/POT CLAV 500MG/125MG TABLETS (FP) PO SCH ×2 (09:43→17:32)
[2017-12-06] MEDS: SODIUM CHLORIDE 0.45% 1,000 ML IV SCH ×2 (12:10→17:33)
--- NOTE | 2017-12-06 17:41 | PN ---
Progress Note (short form) - Note Progress Note: Renal follow up for YENI Pt seen and examined at the bedside no overnight events making urine Vital Signs Temperature 99.5 F 12/06/17 15:40 Pulse Rate 68 12/06/17 15:40 Respiratory Rate 17 12/06/17 15:40 Blood Pressure 101/48 12/06/17 15:40 O2 Sat by Pulse Oximetry (%) 98 12/06/17 09:00 Intake & Output 12/03/17 12/04/17 12/05/17 12/06/17 23:59 23:59 23:59 23:59 Intake Total 6856 179 4414 720 Output Total 2900 1850 2200 1300 Balance -1700 -1600 -1090 -580 NAD MMM RRR CTA No LE edema no bladder distension CBC, BMP 12/05/17 06:30 12/06/17 07:35 Current Medications Acetaminophen (Tylenol -) 650 mg PO BID [facility] Last Admin: 12/06/17 09:28 Dose: 650 mg Amoxicillin/Clavulanate Potassium (Augmentin - 500mg Tablet) 1 tab PO BID@0800, 1730 [facility] Last Admin: 12/06/17 17:32 Dose: 1 tab Aspirin (Asa -) 81 mg PO DAILY [facility] Last Admin: 12/06/17 09:28 Dose: 81 mg Carbidopa/Levodopa (Sinemet 25/100 -) 1 each PO BID@0900,1700 [facility] Last Admin: 12/06/17 17:33 Dose: 1 each Carbidopa/Levodopa (Sinemet 25/100 -) 2 each PO 0600,1300,2100 [facility] Last Admin: 12/06/17 12:12 Dose: 2 each Citalopram Hydrobromide (Celexa -) 40 mg PO DAILY [facility] Last Admin: 12/06/17 09:27 Dose: 40 mg Collagenase (Santyl -) 1 applic TP DAILY [facility]; Protocol Last Admin: 12/05/17 10:19 Dose: 1 applic Heparin Sodium (Porcine) (Heparin -) 5,000 unit SQ BID [facility] Last Admin: 12/06/17 09:28 Dose: 5,000 unit Sodium Chloride (1/2 Normal Saline) 1,000 mls @ 60 mls/hr IV ASDIR [facility] Last Admin: 12/06/17 17:33 Dose: Not Given Insulin Aspart (Novolog Vial Sliding Scale -) 1 vial SQ ACHS [facility]; Protocol Last Admin: 12/06/17 17:33 Dose: Not Given Insulin Detemir (Levemir Vial) 15 units SQ DAILY@0700 [facility] Last Admin: 12/06/17 06:43 Dose: 15 units Multivitamins/Minerals/Vitamin C (Tab-A-Vit -) 1 tab PO DAILY [facility] Last Admin: 12/06/17 09:28 Dose: 1 tab Tamsulosin HCl (Flomax -) 0.8 mg PO DAILY@0830 [facility] Last Admin: 12/06/17 09:42 Dose: 0.8 mg 77 year old gentleman with hx of Parkinson's, Dementia, Contracted LE, Heel infection who presented with suspected wound infection left foot and found to have elevated BUN/Cr. #YENI on CKD secondary to bladder outlet obstruction #CKD (Cr 1.5-1.7 during last admission) #wound infection #BPH #Mild hyperkalemia Renal function improving continue gentle IVF continue dawn and flomax Thank you Nicolas Kinney DO
[2017-12-06] MEDS: COLLAGENASE CLOSTRIDIUM HIST. 30 GRAMS TUBE TP SCH (20:04)
--- NOTE | 2017-12-06 23:11 | PN ---
Progress Note, Physician History of Present Illness: pt cannot provide ROS today; his dg is at bed side this afternoon, states that in AM he was more alert and interactive. - Current Medication List Current Medications: Active Medications Acetaminophen (Tylenol -) 650 mg PO BID [facility] Last Admin: 12/06/17 09:28 Dose: 650 mg Amoxicillin/Clavulanate Potassium (Augmentin - 500mg Tablet) 1 tab PO BID@0800, 1730 [facility] Last Admin: 12/06/17 17:32 Dose: 1 tab Aspirin (Asa -) 81 mg PO DAILY [facility] Last Admin: 12/06/17 09:28 Dose: 81 mg Carbidopa/Levodopa (Sinemet 25/100 -) 1 each PO BID@0900,1700 [facility] Last Admin: 12/06/17 17:33 Dose: 1 each Carbidopa/Levodopa (Sinemet 25/100 -) 2 each PO 0600,1300,2100 [facility] Last Admin: 12/06/17 12:12 Dose: 2 each Citalopram Hydrobromide (Celexa -) 40 mg PO DAILY [facility] Last Admin: 12/06/17 09:27 Dose: 40 mg Collagenase (Santyl -) 1 applic TP DAILY [facility]; Protocol Last Admin: 12/06/17 20:04 Dose: 1 applic Heparin Sodium (Porcine) (Heparin -) 5,000 unit SQ BID [facility] Last Admin: 12/06/17 09:28 Dose: 5,000 unit Sodium Chloride (1/2 Normal Saline) 1,000 mls @ 60 mls/hr IV ASDIR [facility] Last Admin: 12/06/17 17:33 Dose: Not Given Insulin Aspart (Novolog Vial Sliding Scale -) 1 vial SQ ACHS [facility]; Protocol Last Admin: 12/06/17 17:33 Dose: Not Given Insulin Detemir (Levemir Vial) 15 units SQ DAILY@0700 [facility] Last Admin: 12/06/17 06:43 Dose: 15 units Multivitamins/Minerals/Vitamin C (Tab-A-Vit -) 1 tab PO DAILY [facility] Last Admin: 12/06/17 09:28 Dose: 1 tab Tamsulosin HCl (Flomax -) 0.8 mg PO DAILY@0830 [facility] Last Admin: 12/06/17 09:42 Dose: 0.8 mg - Objective Vital Signs: Vital Signs Temperature 98.8 F 12/06/17 19:06 Pulse Rate 84 08/23/18 19:06 Respiratory Rate 18 12/06/17 19:06 Blood Pressure 136/63 12/06/17 19:06 O2 Sat by Pulse Oximetry (%) 98 12/06/17 09:00 Constitutional: Yes: No Distress, Calm Cardiovascular: Yes: Regular Rate and Rhythm, S1, S2 Respiratory: Yes: Regular, CTA Bilaterally. No: Rales Gastrointestinal: Yes: Normal Bowel Sounds, Soft Edema: No Neurological: Yes: Alert Labs: CBC, BMP 12/05/17 06:30 12/06/17 07:35 INR, PTT INR 1.18 (0.83-1.09) H 11/29/17 13:30 Problem List - Problems (1) Heel ulceration Code(s): L97.409 - NON-PRS CHRONIC ULCER OF UNSP HEEL AND MIDFOOT W UNSP SEVERT Qualifiers: (2) Anemia Code(s): D64.9 - ANEMIA, UNSPECIFIED (3) CRF (chronic renal failure) Code(s): N18.9 - CHRONIC KIDNEY DISEASE, UNSPECIFIED (4) Parkinson disease Code(s): G20 - PARKINSON'S DISEASE (5) Type 2 diabetes mellitus with unspecified complications Code(s): E11.8 - TYPE 2 DIABETES MELLITUS WITH UNSPECIFIED COMPLICATIONS (6) YENI (acute kidney injury) Code(s): N17.9 - ACUTE KIDNEY FAILURE, UNSPECIFIED (7) Hyperkalemia Code(s): E87.5 - HYPERKALEMIA (8) Urinary retention Code(s): R33.9 - RETENTION OF URINE, UNSPECIFIED Assessment/Plan Vasc Sx, ID consults are appreciated To cont abtx per ID -were change to PO starting today. Wound CXs + for VREF. Renal consult is appreciated IVF per renal and f/u BUN and creat s/p one unit PRBC Tx s/p Hernandez placement secondary to UR; started on Flomax. consult is appreciated. To f/u labs. Pt's condition and treatment was reviewed with pt's dg (at bedside); all questions were answered. DC plannig as renal function improves and stable.
[2017-12-07] MEDS: CARBIDOPA/LEVODOPA 25/100 TABLET (FP) PO SCH ×5 (06:23→22:51)
[2017-12-07] MEDS: INSULIN SLIDING SCALE (NOVOLOG) 1 VIAL SQ SCH ×4 (06:24→22:51)
[2017-12-07] MEDS: INSULIN (LEVEMIR) 100 UNITS/ML UNITS SQ SCH (06:24)
[2017-12-07 07:50] LABS: ANION GAP 7 MMOL/L (8-16); BLOOD UREA NITROGEN 39 mg/dL (7-18); CALCIUM 8.5 mg/dL (8.5-10.1); CHLORIDE 107 mmol/L (98-107); CO2 27 mmol/L (21-32); GLUCOSE,RANDOM 105 mg/dL (74-106); MAGNESIUM 1.8 mg/dL (1.8-2.4); POTASSIUM 4.7 mmol/L (3.5-5.1); SODIUM 141 mmol/L (136-145)
[2017-12-07 07:59] LABS: CREATININE 1.6 mg/dL (0.7-1.3); PHOSPHOROUS 3.6 mg/dL (2.5-4.9)
[2017-12-07] MEDS ORDERED: PT OWN MED DRAWER 7, Y5N ONE ×2 (08:25→17:14)
[2017-12-07] MEDS: TAMSULOSIN HCL 0.4 MG CAP.ER.24H (FP) PO SCH (08:29)
[2017-12-07] MEDS: AMOX TR/POT CLAV 500MG/125MG TABLETS (FP) PO SCH ×2 (08:29→18:02)
--- NOTE | 2017-12-07 10:29 | PN ---
Progress Note, Physician History of Present Illness: Limited ROS seconadary to pt's dementia Pt w/o SOB, CP, abd pain (pt is awake, answers simple questions). Pt's is at bedside. - Current Medication List Current Medications: Active Medications Acetaminophen (Tylenol -) 650 mg PO BID [facility] Last Admin: 12/06/17 23:35 Dose: 650 mg Amoxicillin/Clavulanate Potassium (Augmentin - 500mg Tablet) 1 tab PO BID@0800, 1730 [facility] Last Admin: 12/07/17 08:29 Dose: 1 tab Aspirin (Asa -) 81 mg PO DAILY [facility] Last Admin: 12/06/17 09:28 Dose: 81 mg Carbidopa/Levodopa (Sinemet 25/100 -) 1 each PO BID@0900,1700 [facility] Last Admin: 12/07/17 08:29 Dose: 1 each Carbidopa/Levodopa (Sinemet 25/100 -) 2 each PO 0600,1300,2100 [facility] Last Admin: 12/07/17 06:23 Dose: 2 each Citalopram Hydrobromide (Celexa -) 40 mg PO DAILY [facility] Last Admin: 12/06/17 09:27 Dose: 40 mg Collagenase (Santyl -) 1 applic TP DAILY [facility]; Protocol Last Admin: 12/06/17 20:04 Dose: 1 applic Heparin Sodium (Porcine) (Heparin -) 5,000 unit SQ BID [facility] Last Admin: 12/06/17 23:39 Dose: 5,000 unit Sodium Chloride (1/2 Normal Saline) 1,000 mls @ 60 mls/hr IV ASDIR [facility] Last Admin: 12/06/17 17:33 Dose: Not Given Insulin Aspart (Novolog Vial Sliding Scale -) [address] [facility]; Protocol Last Admin: 12/07/17 06:24 Dose: Not Given Insulin Detemir (Levemir Vial) 15 units SQ DAILY@0700 [facility] Last Admin: 12/07/17 06:24 Dose: 15 units Multivitamins/Minerals/Vitamin C (Tab-A-Vit -) 1 tab PO DAILY [facility] Last Admin: 12/06/17 09:28 Dose: 1 tab Tamsulosin HCl (Flomax -) 0.8 mg PO DAILY@0830 [facility] Last Admin: 12/07/17 08:29 Dose: 0.8 mg - Objective Vital Signs: Vital Signs Temperature 98.7 F 12/07/17 07:49 Pulse Rate 59 L 12/07/17 07:49 Respiratory Rate 20 12/07/17 07:49 Blood Pressure 126/55 12/07/17 07:49 O2 Sat by Pulse Oximetry (%) 98 12/06/17 09:00 Constitutional: Yes: No Distress, Calm Cardiovascular: Yes: Regular Rate and Rhythm, S1, S2 Respiratory: Yes: Regular, CTA Bilaterally. No: Rales Gastrointestinal: Yes: Normal Bowel Sounds, Soft, Tenderness Edema: No Neurological: Yes: Alert Labs: CBC, BMP 12/05/17 06:30 12/07/17 06:15 INR, PTT INR 1.18 (0.83-1.09) H 11/29/17 13:30 Problem List - Problems (1) Heel ulceration Code(s): L97.409 - NON-PRS CHRONIC ULCER OF UNSP HEEL AND MIDFOOT W UNSP SEVERT Qualifiers: (2) Anemia Code(s): D64.9 - ANEMIA, UNSPECIFIED (3) CRF (chronic renal failure) Code(s): N18.9 - CHRONIC KIDNEY DISEASE, UNSPECIFIED (4) Parkinson disease Code(s): G20 - PARKINSON'S DISEASE (5) Type 2 diabetes mellitus with unspecified complications Code(s): E11.8 - TYPE 2 DIABETES MELLITUS WITH UNSPECIFIED COMPLICATIONS (6) YENI (acute kidney injury) Code(s): N17.9 - ACUTE KIDNEY FAILURE, UNSPECIFIED (7) Hyperkalemia Code(s): E87.5 - HYPERKALEMIA (8) Urinary retention Code(s): R33.9 - RETENTION OF URINE, UNSPECIFIED (9) Functional quadriplegia Assessment/Plan: Pt with functional quadraplegia since admission Code(s): R53.2 - FUNCTIONAL QUADRIPLEGIA Assessment/Plan Vasc Sx, ID consults are appreciated To cont PO abtx for 7 more days -case was d/w Dr. Mata. Wound CXs + for VREF. Renal consult is appreciated; case was d/w Dr. Kinney, renal function at baseline ; consider to DC IVF and f/u renal function. s/p PRBC Tx s/p Hernandez placement secondary to UR; started on Flomax. consult is appreciated. TOV today; to repeat bladder scan in the afternoon if minimum or no voiding Pt's condition and treatment was reviewed with pt's ; DC planning; all questions were answered. Case was d/w pt's nurse and nursing supervisor drapery hanging. Time spent for manging pt's care: over 30 minutes.
[2017-12-07] MEDS: CITALOPRAM HYDROBROMIDE 20 MG TABLET (FP) PO SCH (12:13)
[2017-12-07] MEDS: ACETAMINOPHEN 325 MG TABLET (FP) PO SCH ×2 (12:13→22:50)
[2017-12-07] MEDS: ASPIRIN 81 MG CHEWABLE TABLETS PO SCH (12:13)
[2017-12-07] MEDS: MULTIVITAMINS (DAILY MVI) TABLET (FP) PO SCH (12:14)
[2017-12-07] MEDS: HEPARIN NA (PORCINE) 5,000 UNITS/ML 1ML VIAL SQ SCH ×2 (12:14→22:49)
[2017-12-07] MEDS: COLLAGENASE CLOSTRIDIUM HIST. 30 GRAMS TUBE TP SCH (12:14)
--- NOTE | 2017-12-07 17:37 | PN ---
Progress Note (short form) - Note Progress Note: Renal follow up for YENI Pt seen and examined at the bedside no overnight events nereyda discontinued this am tolerating oral diet when fed Vital Signs Temperature 98.2 F 12/07/17 14:23 Pulse Rate 86 12/07/17 14:23 Respiratory Rate 20 12/07/17 14:23 Blood Pressure 153/53 12/07/17 14:23 O2 Sat by Pulse Oximetry (%) 98 12/06/17 09:00 Intake & Output 12/04/17 12/05/17 12/06/17 12/07/17 23:59 23:59 23:59 23:59 Intake Total 250 1110 1070 1690 Output Total 1850 2200 2000 1100 Balance -1600 -1090 -930 590 NAD MMM RRR CTA No LE edema no bladder distension CBC, BMP 12/05/17 06:30 12/07/17 06:15 Current Medications Acetaminophen (Tylenol -) 650 mg PO BID [facility] Last Admin: 12/07/17 12:13 Dose: 650 mg Amoxicillin/Clavulanate Potassium (Augmentin - 500mg Tablet) 1 tab PO BID@0800, 1730 [facility] Last Admin: 12/07/17 08:29 Dose: 1 tab Aspirin (Asa -) 81 mg PO DAILY [facility] Last Admin: 12/07/17 12:13 Dose: 81 mg Carbidopa/Levodopa (Sinemet 25/100 -) 1 each PO BID@0900,1700 [facility] Last Admin: 12/07/17 08:29 Dose: 1 each Carbidopa/Levodopa (Sinemet 25/100 -) 2 each PO 0600,1300,2100 [facility] Last Admin: 12/07/17 06:23 Dose: 2 each Citalopram Hydrobromide (Celexa -) 40 mg PO DAILY [facility] Last Admin: 12/07/17 12:13 Dose: 40 mg Collagenase (Santyl -) 1 applic TP DAILY [facility]; Protocol Last Admin: 12/07/17 12:14 Dose: 1 applic Heparin Sodium (Porcine) (Heparin -) 5,000 unit SQ BID [facility] Last Admin: 12/07/17 12:14 Dose: 5,000 unit Insulin Aspart (Novolog Vial Sliding Scale -) 1 vial SQ ACHS [facility]; Protocol Last Admin: 12/07/17 12:42 Dose: Not Given Insulin Detemir (Levemir Vial) 15 units SQ DAILY@0700 [facility] Last Admin: 12/07/17 06:24 Dose: 15 units Multivitamins/Minerals/Vitamin C (Tab-A-Vit -) 1 tab PO DAILY [facility] Last Admin: 12/07/17 12:14 Dose: 1 tab Tamsulosin HCl (Flomax -) 0.8 mg PO DAILY@0830 [facility] Last Admin: 12/07/17 08:29 Dose: 0.8 mg 77 year old gentleman with hx of Parkinson's, Dementia, Contracted LE, Heel infection who presented with suspected wound infection left foot and found to have elevated BUN/Cr. #YENI on CKD secondary to bladder outlet obstruction #CKD (Cr 1.5-1.7 during last admission) #wound infection #BPH #Mild hyperkalemia Renal function improved to baseline can d/c IVF Trial fo void today abx as per ID Thank you Nicolas Kinney DO
[2017-12-07] MEDS: SODIUM CHLORIDE 0.45% 1,000 ML IV SCH (22:52)
[2017-12-08 06:10] LABS: SERUM IRON SATURATION 13 % (15-55); TOTAL IRON BINDING CAPACITY 156 ug/dL (250-450); UIBC 136 ug/dL (111-343)
[2017-12-08] MEDS: INSULIN (LEVEMIR) 100 UNITS/ML UNITS SQ SCH (06:25)
[2017-12-08] MEDS: CARBIDOPA/LEVODOPA 25/100 TABLET (FP) PO SCH ×4 (06:25→18:05)
[2017-12-08] MEDS: INSULIN SLIDING SCALE (NOVOLOG) 1 VIAL SQ SCH ×3 (06:27→18:05)
[2017-12-08 07:57] LABS: ANION GAP 9 MMOL/L (8-16); BLOOD UREA NITROGEN 38 mg/dL (7-18); CALCIUM 8.7 mg/dL (8.5-10.1); CHLORIDE 109 mmol/L (98-107); CO2 24 mmol/L (21-32); GLUCOSE,RANDOM 108 mg/dL (74-106); POTASSIUM 5.6 mmol/L (3.5-5.1); SODIUM 142 mmol/L (136-145)
[2017-12-08 07:58] LABS: CREATININE 1.6 mg/dL (0.7-1.3)
[2017-12-08] MEDS ORDERED: PT OWN MED DRAWER 7, Y5N ONE ×2 (08:27→18:01)
[2017-12-08] MEDS: TAMSULOSIN HCL 0.4 MG CAP.ER.24H (FP) PO SCH (08:30)
[2017-12-08] MEDS: AMOX TR/POT CLAV 500MG/125MG TABLETS (FP) PO SCH ×2 (08:30→18:05)
[2017-12-08] MEDS: COLLAGENASE CLOSTRIDIUM HIST. 30 GRAMS TUBE TP SCH (10:01)
[2017-12-08] MEDS: ASPIRIN 81 MG CHEWABLE TABLETS PO SCH (10:32)
[2017-12-08] MEDS: ACETAMINOPHEN 325 MG TABLET (FP) PO SCH (10:32)
[2017-12-08] MEDS: HEPARIN NA (PORCINE) 5,000 UNITS/ML 1ML VIAL SQ SCH (10:32)
[2017-12-08] MEDS: CITALOPRAM HYDROBROMIDE 20 MG TABLET (FP) PO SCH (10:32)
[2017-12-08] MEDS: MULTIVITAMINS (DAILY MVI) TABLET (FP) PO SCH (10:32)
[2017-12-08] MEDS ORDERED: INSULIN (NOVOLOG) ASPART 100 UNITS/ML 10ML VIAL ONE (11:55)
[2017-12-08 14:17] LABS: ANION GAP 5 MMOL/L (8-16); BLOOD UREA NITROGEN 36 mg/dL (7-18); CHLORIDE 106 mmol/L (98-107); CO2 28 mmol/L (21-32); CREATININE 1.5 mg/dL (0.7-1.3); GLUCOSE,RANDOM 97 mg/dL (74-106); SODIUM 139 mmol/L (136-145)
--- NOTE | 2017-12-08 14:35 | DS ---
Physical Examination Vital Signs: Vital Signs Temperature 98.0 F 12/08/17 05:27 Pulse Rate 63 12/08/17 05:27 Respiratory Rate 18 12/08/17 05:27 Blood Pressure 132/50 12/08/17 05:27 O2 Sat by Pulse Oximetry (%) 98 12/06/17 09:00 Findings/Remarks: Pt cannot provide ROS, secondary to dementia Constitutional: Yes: No Distress, Calm Cardiovascular: Yes: Regular Rate and Rhythm, S1, S2 Respiratory: Yes: Regular, CTA Bilaterally. No: Rales Gastrointestinal: Yes: Normal Bowel Sounds, Soft. No: Tenderness Edema: No Neurological: Yes: Alert Labs: CBC, BMP 12/05/17 06:30 12/08/17 13:30 Discharge Summary Reason For Visit: ACUTE KIDNEY INJURY; ULCER OF HEEL Current Active Problems YENI (acute kidney injury) (Acute) Anemia (Acute) CRF (chronic renal failure) (Acute) Chronic wound of extremity (Acute) Hyperkalemia (Acute) Incomplete bladder emptying (Acute) Urinary retention (Acute) Procedures: Principal: Kidney US. Bladder US Hospital Course: Pt with chronic right heel ulcer, f/u at [facility] by Wound doctor who recommended transfer to hospital for evaluation and abtx treatment. Pt was seen by ID (Dr. Mata), was started on IV abtx. Pt was seen by Surgery (Dr. Jerry), had heel ulcer debridement. Pt was noticed to have YENI, was started on IVF, ahd Kidney and bladder US c/w urinary retention (970 ml); Pt was seen by Renal (Dr. Kinney) and (Dr. Uriarte); pt was started on Flomax; pt ahd TOV yesterday but failed it (450 ml). Pt to be DC'ed back to [place] with local heel care and abtx for 6 more days. Condition: Guarded - Instructions Diet, Activity, Other Instructions: Resume diet. Encourage PO fluid intake. Referrals: Eliseo Hutton MD [Primary Care Provider] - Disposition: [facility]ILITY - Home Medications Comprehensive Discharge Medication List: Ambulatory Orders
--- NOTE | 2017-12-08 14:55 | PN ---
Progress Note (short form) - Note Progress Note: Current Medications Acetaminophen (Tylenol -) 650 mg PO BID [facility] Last Admin: 12/08/17 10:32 Dose: 650 mg Amoxicillin/Clavulanate Potassium (Augmentin - 500mg Tablet) 1 tab PO BID@0800, 1730 [facility] Last Admin: 12/08/17 08:30 Dose: 1 tab Aspirin (Asa -) 81 mg PO DAILY [facility] Last Admin: 12/08/17 10:32 Dose: 81 mg Carbidopa/Levodopa (Sinemet 25/100 -) 1 each PO BID@0900,1700 [facility] Last Admin: 12/08/17 08:30 Dose: 1 each Carbidopa/Levodopa (Sinemet 25/100 -) 2 each PO 0600,1300,2100 [facility] Last Admin: 12/08/17 13:59 Dose: 2 each Citalopram Hydrobromide (Celexa -) 40 mg PO DAILY [facility] Last Admin: 12/08/17 10:32 Dose: 40 mg Collagenase (Santyl -) 1 applic TP DAILY [facility]; Protocol Last Admin: 12/08/17 10:01 Dose: 1 applic Heparin Sodium (Porcine) (Heparin -) 5,000 unit SQ BID [facility] Last Admin: 12/08/17 10:32 Dose: 5,000 unit Insulin Aspart (Novolog Vial Sliding Scale -) 1 vial SQ [facility]; Protocol Last Admin: 12/08/17 12:26 Dose: Not Given Insulin Detemir (Levemir Vial) 15 units SQ DAILY@0700 [facility] Last Admin: 12/08/17 06:25 Dose: 15 units Multivitamins/Minerals/Vitamin C (Tab-A-Vit -) 1 tab PO DAILY [facility] Last Admin: 12/08/17 10:32 Dose: 1 tab Tamsulosin HCl (Flomax -) 0.8 mg PO DAILY@0830 [facility] Last Admin: 12/08/17 08:30 Dose: 0.8 mg Last Vital Signs Temp Pulse Resp BP Pulse Ox 98.0 F 63 18 132/50 98 12/08/17 05:27 12/08/17 05:27 12/08/17 05:27 12/08/17 05:27 12/06/17 09:00 CBC, BMP 12/05/17 06:30 12/08/17 13:30 IMP- dementia infected heel wound s/p terry/ obstructive spurious hyperkalemia- self corrected on repeat labs Plan- continue current rx
[2017-12-08 23:37] VITALS: BP 122/53; PULSE 63; TEMP 97.6
== END 2017-12-08 19:45 | DRG 570 ==
LOC: JER 12:31 → JERBED 15:29 → J5S 19:08
PROVIDERS: ADMIT Specialist; ATTEND Specialist
PROC: 30233N1 Transfusion of Nonautologous Red Blood Cells into Peripheral Vein, Percutaneous Approach (ICD-10-PCS; 2017-12-03)
PROC: 0JBQ0ZZ Excision of Right Foot Subcutaneous Tissue and Fascia, Open Approach (ICD-10-PCS; principal; 2017-12-05)
DX: L89.613 Pressure ulcer of right heel, stage 3 (principal); R53.2 Functional quadriplegia; N17.9 Acute kidney failure, unspecified; L97.518 Non-pressure chronic ulcer of other part of right foot with other specified severity; N13.8 Other obstructive and reflux uropathy; I12.9 Hypertensive chronic kidney disease with stage 1 through stage 4 chronic kidney disease, or unspecified chronic kidney disease; E11.22 Type 2 diabetes mellitus with diabetic chronic kidney disease; N18.9 Chronic kidney disease, unspecified; G20 Parkinson's disease; F02.80 Dementia in other diseases classified elsewhere, unspecified severity, without behavioral disturbance, psychotic disturbance, mood disturbance, and anxiety; D64.9 Anemia, unspecified; E11.621 Type 2 diabetes mellitus with foot ulcer; E11.42 Type 2 diabetes mellitus with diabetic polyneuropathy; F32.9 Major depressive disorder, single episode, unspecified; R33.9 Retention of urine, unspecified; N40.1 Benign prostatic hyperplasia with lower urinary tract symptoms; E87.5 Hyperkalemia; M24.50 Contracture, unspecified joint; Z16.21 Resistance to vancomycin
CPT/HCPCS: 36415; 36430; 73630-TC-RT-FY; 76775-TC; 76856-TC; 80048; 80053; 81003; 81015; 82272; 82570; 82607; 82728; 82747; 82962; 83540; 83550; 83735; 84100; 84156; 84300; 84540; 85014; 85025; 85027; 85044; 85610; 85651; 86140; 86850; 86900; 86901; 86922; 87040; 87070; 87186; 87205; 93005; 93010; 99283-25; J1644; J7030; P9038; P9058

== ENCOUNTER 2018-03-13 15:57 | Inpatient (IN) | payer OTHER, MEDICARE ==
--- NOTE | 2018-03-13 16:16 | PDOC ---
Rapid Medical Evaluation Time Seen by Provider: 03/13/18 16:07 Medical Evaluation: Allergies Allergy/AdvReac Type Severity Reaction Status Date / Time shellfish derived Allergy Verified 11/29/17 14:23 03/13/18 16:14 I have performed a brief in-person evaluation of this patient. The patient presents with a chief complaint of:sacral decubitus Pertinent physical exam findings: deferred in triage I have ordered the following: labs The patient will proceed to the ED for further evaluation. Discharge Disposition - Diagnosis Sacral decubitus ulcer - Referrals Referrals: Eliseo Hutton MD [Primary Care Provider] - - Patient Instructions - Post Discharge Activity
--- NOTE | 2018-03-13 18:23 | PDOC ---
History of Present Illness - General Chief Complaint: Wound Stated Complaint: WOUND Time Seen by Provider: 03/13/18 16:07 History Source: Patient Exam Limitations: No Limitations - History of Present Illness Initial Comments: 03/13/18 18:25 This is a 77 YOM with h/o IDDM, infected heel ulcer, peripheral neuropathy, CKD , anemia, Parkinson's disease with dementia, depression, who was BIBEMS from [facility] for evaluation of a month long h/o worsening sacral decubitus ulcer. The patient himself is nonverbal and unable to provide history, and as such his family is at bedside to provide the recap of events. Family notes his ulcer has been present for at least a month but they are unaware of any signs of infection reported by the SNF. He has been acting per his baseline and seems to be uncomfortable. Family explains he was seen in wound care clinic today by Dr. Jerry, and it was recommended that he come in for admission to the hospital and general surgery consultation for OR debridement. Past History - Past Medical History Allergies/Adverse Reactions: Allergies Allergy/AdvReac Type Severity Reaction Status Date / Time shellfish derived Allergy Verified 03/13/18 16:19 Home Medications: Ambulatory Orders Aspirin 81 mg PO DAILY 09/28/17 Carbidopa/Levodopa 25/100 [Sinemet 25/100 -] 1 each PO BID@0900,1700 tablet Carbidopa/Levodopa 25/100 [Sinemet 25/100 -] 2 each PO 0600,1300,2100 tablet Acetaminophen [8Hr Arthritis Pain Relief] 650 mg PO BID 11/29/17 Ascorbic Acid [Vitamin C] 500 mg PO DAILY 11/29/17 Citalopram Hydrobromide [Citalopram HBr] 40 mg PO DAILY 11/29/17 Insulin Glargine,Hum.rec.anlog [Lantus Solostar] 15 unit SQ DAILY 11/29/17 Insulin Lispro [Humalog] 5 unit SQ ASDIR 11/29/17 Multivitamin [Daily Multiple Vitamin] 1 each PO DAILY 11/29/17 Amox-Tr/K Cl [Augmentin 500-125mg Tablet -] 1 tab PO Q12H #12 tablet MDD 2 12/08 Collagenase Clostridium Hist. [Santyl -] 1 applic TP DAILY tube 12/08/17 Heparin - 5,000 unit SQ BID vial 12/08/17 Tamsulosin HCl [Flomax -] 0.8 mg PO DAILY@0830 #60 cap.er.24h MDD 2 12/08/17 Anemia: No Asthma: No Cancer: No Cardiac Disorders: No CVA: No COPD: No CHF: No Dementia: Yes Diabetes: Yes GI Disorders: No Disorders: No HTN: No Hypercholesterolemia: No Liver Disease: No Psychiatric Problems: Yes (Major Depressive Disorder) Seizures: No Thyroid Disease: No Other medical history: PARKINSONS - Suicide/Smoking/Psychosocial Hx Smoking History: Never smoked Have you smoked in the past 12 months: No Hx Alcohol Use: No Drug/Substance Use Hx: No Substance Use Type: None Review of Systems - Review of Systems Able to Perform ROS?: No (dementia, nonverbal) *Physical Exam - Vital Signs Last Vital Signs Temp Pulse Resp BP Pulse Ox 98.0 F 80 18 187/67 H 98 03/13/18 16:11 03/13/18 16:11 03/13/18 16:11 03/13/18 16:11 03/13/18 16:11 03/13/18 18:45 GENERAL: nonverbal, unable to answer questions, not responding to verbal stimuli , BUE and head resting tremor HEENT: PERRLA, EOMI, moist mucous membranes NECK/BACK: no spinal stepoff or deformity, no hematoma, neck supple, see skin exam for decubitus ulcer CARDIOVASCULAR: regular rate/rhythm, normal S1S2, no MGR, capillary refill <2 seconds, extremities wwp, no edema LUNGS/RESPIRATORY: nononlabored respirations, lungs CTAB GI/ABDOMEN: symmetric [id number]-[id number], normoactive BS, soft, no midline pulsatile masses, no organomegaly : normal external appearance, no lesions, no swelling, non-malodorous EXTREMITIES: muscle atrophy BLE>BUE, contractures BUE, RLE AKA, no acute deformity, no edema SKIN: large 10x10 cm lower sacral decubitus ulcer with minimal surrounding erythema and small active nonmalodorous drainage and eschar, otherwise skin is warm and dry, no pallor, no jaundice, no rash, no bruising NEUROLOGICAL: Not alert or oriented, CN II-XII grossly intact, no obvious facial droop, otherwise patient is unable to participate in exam Moderate Sedation - Procedure Monitoring Vital Signs: Procedure Monitoring Vital Signs Temperature 98.0 F 03/13/18 16:11 Pulse Rate 80 03/13/18 16:11 Respiratory Rate 18 03/13/18 16:11 Blood Pressure 187/67 H 03/13/18 16:11 O2 Sat by Pulse Oximetry (%) 98 03/13/18 16:11 ED Treatment Course - LABORATORY CBC & Chemistry Diagram: 03/13/18 19:22 03/13/18 19:00 Medical Decision Making - Medical Decision Making 03/13/18 18:50 Elderly Pt p/w 1 month worsening sacral decubitus ulcer here for evaluation and admission for OR debridement. Initial Vital Signs Temp Pulse Resp BP Pulse Ox 98.0 F 80 18 187/67 H 98 03/13/18 16:11 03/13/18 16:11 03/13/18 16:11 03/13/18 16:11 03/13/18 16:11 Exam: As noted in Physical Exam section. Primary concern in the ER is for infection/sepsis. There is very little concern for pelvic/rectal extension, Pinky's gangrene, or other more serious etiology as the ulcer does not invade the perirectal area. W/U ordered: Septic workup, wound ctx TX ordered: Vancomycin, Zosyn, IVF 30 mg/kg bolus EKG: Reviewed; results as noted in ECG Review section. CXR: Laboratory Tests 03/13/18 03/13/18 03/13/18 19:00 19:00 19:00 WBC RBC Hgb Hct MCV MCH MCHC RDW Plt Count MPV Absolute Neuts (auto) Neutrophils % Lymphocytes % Monocytes % Eosinophils % Basophils % Nucleated RBC % PT with INR INR PTT (Actin FS) Sodium 138 Potassium 5.6 H Chloride 102 Carbon Dioxide 27 Anion Gap 9 BUN 62 H Creatinine 1.5 H Creat Clearance w eGFR 45.62 Random Glucose 105 Lactic Acid 2.5 H* Calcium 8.8 Total Bilirubin 0.3 AST 22 ALT 14 Alkaline Phosphatase 138 H Creatine Kinase 20 L Total Protein 7.5 Albumin 2.4 L Urine Color Urine Appearance Urine pH Ur Specific [place] Urine Protein Urine Glucose (UA) Urine Ketones Urine Blood Urine Nitrite Urine Bilirubin Urine Urobilinogen Ur Leukocyte Esterase Urine WBC (Auto) Urine RBC (Auto) Urine Bacteria Hyaline Casts 03/13/18 03/13/18 03/13/18 19:22 19:53 20:12 WBC 10.8 H RBC 3.33 L Hgb 10.6 L Hct 30.9 L MCV 92.7 MCH 31.9 MCHC 34.4 RDW 17.0 H Plt Count 360 D MPV 7.1 L Absolute Neuts (auto) 9.0 H Neutrophils % 83.8 H Lymphocytes % 10.3 Monocytes % 4.6 Eosinophils % 0.6 Basophils % 0.7 Nucleated RBC % 0 PT with INR 13.80 H INR 1.17 H PTT (Actin FS) 31.8 Sodium Potassium Chloride Carbon Dioxide Anion Gap BUN Creatinine Creat Clearance w eGFR Random Glucose Lactic Acid Calcium Total Bilirubin AST ALT Alkaline Phosphatase Creatine Kinase Total Protein Albumin Urine Color Yellow Urine Appearance Slcloudy Urine pH 5.0 Ur Specific [place] 1.015 Urine Protein 1+ H Urine Glucose (UA) Negative Urine Ketones Trace H Urine Blood Negative Urine Nitrite Negative Urine Bilirubin Negative Urine Urobilinogen Negative Ur Leukocyte Esterase 3+ H Urine WBC (Auto) 42 Urine RBC (Auto) 1 Urine Bacteria Rare Hyaline Casts 4 Vital Signs Temperature 101.9 F H 03/13/18 19:59 Pulse Rate 76 03/13/18 19:59 Respiratory Rate 18 03/13/18 19:59 Blood Pressure 100/63 03/13/18 19:59 O2 Sat by Pulse Oximetry (%) 100 03/13/18 19:59 03/13/18 21:04 The Pt is unsafe for discharge at this time. They require further hospital observation, workup, and treatment. Page sent to patient's PCP Eliseo Hutton. Decision to Admit order placed, patient going to Med/Surg. *DC/Admit/Observation/Transfer Diagnosis at time of Disposition: Sacral decubitus ulcer Qualifiers: Pressure injury stage: unspecified pressure injury stage Qualified Code(s): L89.159 - Pressure ulcer of sacral region, unspecified stage Sepsis Qualifiers: Sepsis type: sepsis due to unspecified organism Qualified Code(s): A41.9 - Sepsis, unspecified organism CRF (chronic renal failure) Qualifiers: Chronic kidney disease stage: unspecified stage Qualified Code(s): N18.9 - Chronic kidney disease, unspecified - Discharge Dispostion Condition at time of disposition: Guarded Decision to Admit order: Yes - Referrals Referrals: Eliseo Hutton MD [Primary Care Provider] - - Patient Instructions - Post Discharge Activity
[2018-03-13] MEDS ORDERED: SODIUM CHLORIDE 1,783 ML IV ONE (19:02)
[2018-03-13 19:40] LABS: ALBUMIN 2.4 g/dl (3.4-5.0); ALK PHOS 138 U/L (45-117); ANION GAP 9 MMOL/L (8-16); BILIRUBIN,TOTAL 0.3 mg/dL (0.2-1); BLOOD UREA NITROGEN 62 mg/dL (7-18); CALCIUM 8.8 mg/dL (8.5-10.1); CHLORIDE 102 mmol/L (98-107); CO2 27 mmol/L (21-32); CREATININE 1.5 mg/dL (0.55-1.3); GLUCOSE,RANDOM 105 mg/dL (74-106); POTASSIUM 5.6 mmol/L (3.5-5.1); SGOT/AST 22 U/L (15-37); SGPT/ALT 14 U/L (13-61); SODIUM 138 mmol/L (136-145); TOT PROT 7.5 g/dl (6.4-8.2)
[2018-03-13 19:41] LABS: BASO % 0.7 % (0-2.0); EOS % 0.6 % (0-4.5); HEMATOCRIT 30.9 % (35.4-49); HEMOGLOBIN 10.6 GM/dL (11.7-16.9); LYMPH % 10.3 % (8-40); MCH 31.9 pg (25.7-33.7); MCHC 34.4 g/dl (32.0-35.9); MEAN CELL VOLUME 92.7 fl (80-96); MEAN PLT VOLUME 7.1 fl (7.5-11.1); MONO % 4.6 % (3.8-10.2); NEUT % 83.8 % (42.8-82.8); PLATELET COUNT 360 K/MM3 (134-434); RBC 3.33 M/mm3 (4.00-5.60); WHITE BLOOD COUNT 10.8 K/mm3 (4.0-10.0)
[2018-03-13] MEDS ORDERED: ACETAMINOPHEN INJECTION 100 ML IVPB ONE (19:47)
--- NOTE | 2018-03-13 19:54 | PDOC ---
Attending Attestation - Resident Resident Name: Eli Ayala - Attending Attestation I have performed the following: I have examined & evaluated the patient, The case was reviewed & discussed with the resident, I agree w/resident's findings & plan, Exceptions are as noted <Alex Ramos - Last Filed: 03/13/18 19:54> - HPI HPI: 03/13/18 19:58 Patient is a 77 year old male with a significant past medical history of Diabetes (on insulin), CKD, Parkinsons, Dementia, and resting tremor, who presents to the ED with complaints of sacral ulcer that began earlier this month. As per patient's family, patient began to develop a sacral ulcer that she states has increased in size over time, prompting them to take the patient in to see Dr. Jerry to have it evaluated and debrided. Patient's family reports Dr. Jerry advised patient to go to the ED for further evaluation and admission to be seen by general surgery, has he was unable to debride in his office due to the size of the ulcer. Denies chest pain, Sob. Denies nausea, vomiting. Denies fevers, chills. Denies contact with sick individuals, out of state travelling.. Denies dysuria, hematuria. Denies diarrhea, constipation. Denies trauma to affected area. Denies any other symptoms. Allergies: None Social history: No smoking. No alcohol. No illicit drugs. Surgical history: PMD: Dr. Hutton Vascular surgery: Dr. Jerry <Adis Joe - Last Filed: 03/13/18 19:58> - Resident Resident Name: Eli Ayala - DENNY Attending Attestation I have performed the following: I have examined & evaluated the patient, The case was reviewed & discussed with the resident, I agree w/resident's findings & plan - Physicial Exam PE: 03/13/18 20:18 nonverbal. dry membranes. neck supple. lungs clear, RRR, abdomen soft nontender. ZAMORA x4, no focal neuro deficits. No peripheral edema. normal color for ethnicity, WWP. +right AKA. dawn in place. +large deep sacral ulcer. left foot with multiple superficial ulcers - Medical Decision Making 03/13/18 20:19 HPI as noted. fever noted. otherwise at baseline status, nonverbal, normotensive. NAD sacral wound noted, basic labs and lytes IV abx with vanc/zosyn coverage, cultures ordered and pending. tylenol for analgesia and antipyretic. UTI present. lactic acid elevated 2.5. mild wbc ct. abx cover for both admit to Dr. Hutton 03/13/18 20:20 <Sasha Ying - Last Filed: 03/13/18 20:21>
[2018-03-13] MEDS ORDERED: VANCOMYCIN 1 GRAM (PRE-DOCKED) 1,000 MG/250 ML BAG IVPB ONE ×2 (19:58→20:01)
[2018-03-13] MEDS ORDERED: PIPERACILLIN/TAZOB 3.375 GM 3.375 GM in DEXTROSE 5%-WATER - 50 ML IVPB ONE (19:59)
[2018-03-13 20:01] LABS: URINE APPEARANCE SLCLOUDY; URINE BILIRUBIN NEGATIVE (<2.0 mg/dL); URINE COLOR YELLOW; URINE GLUCOSE (UA) NEGATIVE (NEGATIVE); URINE KETONE TRACE (NEGATIVE); URINE LEUK ESTERASE 3+ (NEGATIVE); URINE NITRITE NEGATIVE (NEGATIVE); URINE PROTEIN 1+ (NEGATIVE); URINE UROBILINOGEN NEGATIVE mg/dL (0.2-1.0)
[2018-03-13] MEDS ORDERED: PIPERACILLIN/TAZOB 3.375 GM 3.375 GM/50 ML BAG IVPB ONE (20:02)
[2018-03-13] MEDS ORDERED: ACETAMINOPHEN 1000 MG/100 ML VIAL (NON FORMULARY) IVPB ONE (20:03)
[2018-03-13 20:07] LABS: URINE BACTERIA RARE /hpf (NONE SEEN); URINE HYALINE CAST 4 /lpf
[2018-03-13 20:44] LABS: INR 1.17 (0.83-1.09); PROTHROMBIN TIME (PATIENT) 13.8 SEC (9.7-13.0)
[2018-03-13 20:46] LABS: ACTIVATED PTT 31.8 SECONDS (25.2-36.5)
[2018-03-13] MEDS ORDERED: morphine CARPU-JECT 2 MG/1 ML DISP.SYRIN IVPUSH ONE (23:37)
[2018-03-13] MEDS ORDERED: MORPHINE SULFATE 2 MG/ML VIAL ONE (23:40)
[2018-03-14] MEDS ORDERED: SODIUM POLYSTYRENE SULFONATE 15 GM/60 ML BOTTLE PO ONE (00:25)
[2018-03-14] MEDS ORDERED: SODIUM POLYSTYRENE SULFONATE 15 GM/60 ML BOTTLE ONE ×2 (01:12→01:14)
[2018-03-14] MEDS: INSULIN SLIDING SCALE (NOVOLOG) 1 VIAL SQ SCH ×6 (02:14→23:04)
[2018-03-14] MEDS ORDERED: CARBIDOPA/LEVODOPA 25/100 TABLET (FP) ONE ×2 (06:06→15:04)
[2018-03-14] MEDS: CARBIDOPA/LEVODOPA 25/100 TABLET (FP) PO SCH ×3 (06:16→20:23)
[2018-03-14] MEDS: INSULIN (LEVEMIR) 100 UNITS/ML UNITS SQ SCH (07:20)
--- NOTE | 2018-03-14 08:30 | CONSULT ---
- Consultation REQUESTING PROVIDER: Jose A Susannah - General Surgery CONSULT REQUEST: We have been asked to surgically evaluate this patient for sacral ulcer PCP: Eliseo Hutton HPI: Called to evdiana 77 yo male with PMHx as noted below. JULIO from [facility] for evaluation of a month long h/o worsening sacral decubitus ulcer. of patient states she took him to see Dr. Jerry who recommended he go straight to [facility] ED for further evaluation by a General Surgeon. Patient is non-verbal. No apparent distress. at his bedside. Deneis n/v/f/c, CP, SOB, ANDERSON, palpitations. Denies cough. Denies dysuria, hematuria. PMHx: IDDM, CKD, Parkinson's, Dementia, BPH PSHx: RLE AKA - unkown date Home Medications: Aspirin 81 mg PO DAILY 09/28/17 Carbidopa/Levodopa 25/100 [Sinemet 25/100 -] 1 each PO BID@0900,1700 tablet Carbidopa/Levodopa 25/100 [Sinemet 25/100 -] 2 each PO 0600,1300,2100 tablet Acetaminophen [8Hr Arthritis Pain Relief] 650 mg PO BID 11/29/17 Ascorbic Acid [Vitamin C] 500 mg PO DAILY 11/29/17 Citalopram Hydrobromide [Citalopram HBr] 40 mg PO DAILY 11/29/17 Insulin Glargine,Hum.rec.anlog [Lantus Solostar] 15 unit SQ DAILY 11/29/17 Insulin Lispro [Humalog] 5 unit SQ ASDIR 11/29/17 Multivitamin [Daily Multiple Vitamin] 1 each PO DAILY 11/29/17 Amox-Tr/K Cl [Augmentin 500-125mg Tablet -] 1 tab PO Q12H #12 tablet MDD 2 12/08 Collagenase Clostridium Hist. [Santyl -] 1 applic TP DAILY tube 12/08/17 Heparin - 5,000 unit SQ BID vial 12/08/17 Tamsulosin HCl [Flomax -] 0.8 mg PO DAILY@0830 #60 cap.er.24h MDD 2 12/08/17 Allergies: Shellfish ROS: CONSTITUTIONAL: Absent: diaphoresis, generalized weakness, malaise, loss of appetite, weight change CARDIOVASCULAR: Absent: syncope, irregular heart rate, lightheadedness RESPIRATORY: Absent: cough, shortness of breath, dyspnea with exertion, wheezing , stridor, hemoptysis GASTROINTESTINAL:Absent: abd pain, distension, constipation, melena, hematochezia GENITOURINARY: Absent: frequency, urgency, hesitancy, hematuria, flank pain, genital pain MUSCULOSKELETAL: Absent: myalgia, arthralgia, joint swelling, back pain, neck pain SKIN: Absent: rash, itching, pallor HEMATOLOGIC/IMMUNOLOGIC: Absent: easy bleeding, easy bruising, lymphadenopathy NEUROLOGIC: Absent: headache, focal weakness, paresthesias, dizziness, unsteady gait, seizure, mental status changes, bladder or bowel incontinence PSYCHIATRIC: Absent: anxiety, depression, suicidal or homicidal ideation, hallucinations. PE: GENERAL: Awake, alert, non-verbal. In no acute distress. HEAD: Normal with no signs of trauma. NECK: Normal ROM, supple without lymphadenopathy, JVD, or masses. ABD: Soft, nt, nd, normoactive bowel sounds. MUSCULOSKELETAL: No CVA tenderness bilat UE: 2+ pulses, warm, well-perfused. No cyanosis. Cap refill <2 seconds. No peripheral edema. LE: 2+ pulses, warm, well-perfused. No calf tenderness. No peripheral edema. SKIN: Sacrum with UNSATGEABLE ULCER ~ 10 x 10 cm. No bogginess or induration. Mild periwound erythema. No foul odor emanating from wound. No drainage expressed Last Vital Signs Temp Pulse Resp BP Pulse Ox 98.4 F 72 15 114/65 100 03/14/18 06:25 03/14/18 06:25 03/14/18 06:25 03/14/18 06:25 03/14/18 06:25 CBC, BMP 03/13/18 19:22 03/13/18 19:00 INR, PTT INR 1.17 (0.83-1.09) H 03/13/18 20:12 Blood Type Blood Type O POSITIVE 03/13/18 20:12 Hepatic Panel Total Bilirubin 0.3 mg/dL (0.2-1) 03/13/18 19:00 AST 22 U/L (15-37) 03/13/18 19:00 ALT 14 U/L (13-61) 03/13/18 19:00 Alkaline Phosphatase 138 U/L (45-117) H 03/13/18 19:00 Albumin 2.4 g/dl (3.4-5.0) L 03/13/18 19:00 Problem List - Problems (1) Decubitus ulcer of sacral region, unstageable Assessment/Plan: 77 yo male with unstageable sacral ulcer ~ 10 cm x 10 cm with a developing soft eschar. Patient does have a mild leukocytosis. -Tight glycemic control -Recommend getting UA with C/S -Reposition every two hours while in bed -Air mattress recommended -Use drawsheets and Trendelenburg when repositioning to reduce friction and shear -Manage incontinence via timely cleansing, use of appropriate incontinence disposables & use of barrier ointment to intact skin -Ensure adequate hydration/nutrition, supplementation per primary team -Ensure off-loading to all bony areas (Left ankle/heel, hips and tailbone) with Allevyn/Optifoam -Recommend surgical debridement with application of wound VAC (bridged to hip) Above plan discussed with Dr. Davalos and agrees. He will be in to see patient later today as well. Code(s): L89.150 - PRESSURE ULCER OF SACRAL REGION, UNSTAGEABLE (2) Parkinson disease Code(s): G20 - PARKINSON'S DISEASE Visit type - Case Type Case Type: ED Admission - Emergency Emergency Visit: Yes ED Registration Date: 03/13/18 Care time: The patient presented to the Emergency Department on the above date and was hospitalized for further evaluation of their emergent condition. - New patient This patient is new to me today: Yes Date on this admission: 03/14/18
[2018-03-14] MEDS ORDERED: CARBIDOPA/LEVODOPA 25/100 TABLET (FP) PO SCH (10:00)
[2018-03-14] MEDS ORDERED: PIPERACILLIN/TAZOB 3.375 GM 3.375 GM in DEXTROSE 5%-WATER - 50 ML IVPB ONE (10:00)
--- NOTE | 2018-03-14 10:05 | HP ---
Admitting History and Physical - Primary Care Physician PCP: Eliseo Hutton - Admission Chief Complaint: Infected sacral ulcer. Sepsis History of Present Illness: Pt with significant Hx/o DM, right AKA, left heel ulcer, sacral ulcer, dementia was seen History Source: Significant Other (Dr. Jerry, ER doctor) - Past Medical History [employer]: Yes: Dementia, Peripheral Neuropathy, Parkinson's Heme/Onc: Yes: Anemia Psych: Yes: Depression Endocrine: Yes: Diabetes Mellitus Dermatology: Yes: Other (right heel ulcer) - Past Surgical History Additional Past Surgical History: right AKA. left heel ulcer - Smoking History Smoking history: Never smoked Have you smoked in the past 12 months: No - Alcohol/Substance Use Hx Alcohol Use: No Home Medications - Allergies Allergies/Adverse Reactions: Allergies Allergy/AdvReac Type Severity Reaction Status Date / Time shellfish derived Allergy Verified 03/13/18 16:19 - Home Medications Home Medications: Ambulatory Orders Aspirin 81 mg PO DAILY 09/28/17 Acetaminophen [8Hr Arthritis Pain Relief] 650 mg PO BID 11/29/17 Ascorbic Acid [Vitamin C] 500 mg PO DAILY 11/29/17 Citalopram Hydrobromide [Citalopram HBr] 40 mg PO DAILY 11/29/17 Insulin Glargine,Hum.rec.anlog [Lantus Solostar] 16 unit SQ DAILY 11/29/17 Insulin Lispro [Humalog] 5 unit SQ TID 11/29/17 Heparin - 5,000 unit SQ BID vial 12/08/17 Carbidopa/Levodopa 25/100 [Sinemet 25/100 -] 1 each PO TID 03/13/18 Carbidopa/Levodopa [Carbidopa-Levodopa 25-100 Tab] 1 tab PO BID 03/13/18 Polyethylene Glycol 3350 17 gm PO DAILY 03/13/18 Review of Systems Findings/Remarks: unable to obtain secondary to dementia Physical Examination Vital Signs: Vital Signs Temperature 98.4 F 03/14/18 06:25 Pulse Rate 72 03/14/18 06:25 Respiratory Rate 15 03/14/18 06:25 Blood Pressure 114/65 03/14/18 06:25 O2 Sat by Pulse Oximetry (%) 100 03/14/18 06:25 Constitutional: Yes: No Distress, Calm Eyes: Yes: EOM Intact HENT: Yes: Epistaxis. No: Nasal Congestion, Rhinnorhea Neck: Yes: Trachea Midline. No: Lymphadenopathy Cardiovascular: Yes: Regular Rate and Rhythm, S1, S2 Respiratory: Yes: Regular, CTA Bilaterally. No: Rales Gastrointestinal: Yes: Normal Bowel Sounds, Soft ...Rectal Exam: Yes: Deferred Edema: No Neurological: Yes: Alert Labs: CBC, BMP 03/13/18 19:22 03/13/18 19:00 Imaging - Results Chest X-ray: Report Reviewed Problem List - Problems (1) Decubitus ulcer of sacral region, unstageable Code(s): L89.150 - PRESSURE ULCER OF SACRAL REGION, UNSTAGEABLE (2) Sepsis Code(s): A41.9 - SEPSIS, UNSPECIFIED ORGANISM Qualifiers: Sepsis type: sepsis due to unspecified organism Qualified Code(s): A41.9 - Sepsis, unspecified organism (3) Anemia Code(s): D64.9 - ANEMIA, UNSPECIFIED (4) Dementia Code(s): F03.90 - UNSPECIFIED DEMENTIA WITHOUT BEHAVIORAL DISTURBANCE (5) Urinary retention Code(s): R33.9 - RETENTION OF URINE, UNSPECIFIED (6) Parkinson disease Code(s): G20 - PARKINSON'S DISEASE (7) Dysphagia Assessment/Plan: on puree diet and nectar thick fluid Code(s): R13.10 - DYSPHAGIA, UNSPECIFIED Assessment/Plan IV abtx Surgery consult ID consult
[2018-03-14 10:17] LABS: HEMATOCRIT 28.4 % (35.4-49); HEMOGLOBIN 9.9 GM/dL (11.7-16.9); MCH 32.3 pg (25.7-33.7); MCHC 34.8 g/dl (32.0-35.9); MEAN CELL VOLUME 92.7 fl (80-96); MEAN PLT VOLUME 6.8 fl (7.5-11.1); PLATELET COUNT 281 K/MM3 (134-434); RBC 3.06 M/mm3 (4.00-5.60); RDW 16.7 % (11.9-15.9); WHITE BLOOD COUNT 10.1 K/mm3 (4.0-10.0)
[2018-03-14] MEDS: ASPIRIN 81 MG CHEWABLE TABLETS PO SCH (10:58)
[2018-03-14] MEDS: HEPARIN NA (PORCINE) 5,000 UNITS/ML 1ML VIAL SQ SCH ×2 (10:59→23:01)
[2018-03-14] MEDS: CITALOPRAM HYDROBROMIDE 20 MG TABLET (FP) PO SCH (10:59)
[2018-03-14] MEDS ORDERED: ACETAMINOPHEN 325 MG TABLET (FP) ONE (11:08)
[2018-03-14] MEDS: ACETAMINOPHEN 325 MG TABLET (FP) PO PRN ×2 (11:14→21:59)
[2018-03-14 11:35] LABS: ALBUMIN 2.2 g/dl (3.4-5.0); ALK PHOS 258 U/L (45-117); ANION GAP 10 MMOL/L (8-16); BILIRUBIN,TOTAL 0.4 mg/dL (0.2-1); BLOOD UREA NITROGEN 50 mg/dL (7-18); CALCIUM 8.3 mg/dL (8.5-10.1); CHLORIDE 105 mmol/L (98-107); CO2 23 mmol/L (21-32); CREATININE 1.4 mg/dL (0.55-1.3); GLUCOSE,RANDOM 116 mg/dL (74-106); POTASSIUM 4.6 mmol/L (3.5-5.1); SGOT/AST 62 U/L (15-37); SGPT/ALT 19 U/L (13-61); SODIUM 138 mmol/L (136-145)
--- NOTE | 2018-03-14 11:59 | EKG ---
Test Reason : Blood Pressure : / mmHG Vent. Rate : 076 BPM Atrial Rate : 076 BPM P-R Int : 172 ms QRS Dur : 092 ms QT Int : 400 ms P-R-T Axes : 060 -29 085 degrees QTc Int : 450 ms NORMAL SINUS RHYTHM NONSPECIFIC ST AND T WAVE ABNORMALITY ABNORMAL ECG WHEN COMPARED WITH ECG OF 29-NOV-2017 13:58, CRITERIA FOR SEPTAL INFARCT ARE NO LONGER PRESENT NON-SPECIFIC CHANGE IN ST SEGMENT IN INFERIOR LEADS Confirmed by KASIE BALDWIN MD ([id number]) on 03/14/2018 11:58:53 AM Referred By: Confirmed By:KASIE BALDWIN MD
[2018-03-14] MEDS ORDERED: MORPHINE SULFATE 2 MG/ML VIAL IVPUSH PRN (12:42)
--- NOTE | 2018-03-14 12:51 | SPA.PREOP ---
- PRE-OP NOTE Dx: Unstageable Sacral Decubitus Ulcer Planned Procedure: Sacral debridement with wound VAC application Surgeon: Jose A Davalos Consent: To be obtained by surgeon all risks, benefits and alternatives explained to his and or HCP as patient unable to sign for consent due to h/o Dementia. Last Vital Signs Temp Pulse Resp BP Pulse Ox 98.4 F 73 16 120/55 L 100 03/14/18 10:00 03/14/18 10:00 03/14/18 10:00 03/14/18 10:00 03/14/18 06:25 CBC, BMP 03/14/18 09:59 03/14/18 09:59 INR, PTT INR 1.17 (0.83-1.09) H 03/13/18 20:12 Blood Type Blood Type O POSITIVE 03/13/18 20:12 - IMAGING Chest X-ray: Report Reviewed, Image Reviewed - ASSESSMENT/PLAN Problem List - Problems (1) Decubitus ulcer of sacral region, unstageable Assessment/Plan: 1. NPO after midnight except po meds 2. GI/DVT PPX 3. Medical optimization / clearance 4. Consent 5. Wound VAC supplies to be delivered to OR Code(s): L89.150 - PRESSURE ULCER OF SACRAL REGION, UNSTAGEABLE (2) Parkinson disease Code(s): G20 - PARKINSON'S DISEASE Visit type - Case Type Case Type: ED Admission
--- NOTE | 2018-03-14 14:13 | PN ---
Progress Note (short form) - Note Progress Note: ID Consult dictated Infected decubitus ulcers R/O Sepsis secondary to skin focus Azotemia Parkinsonism/ OBS Await c/s Surgical evaluation Empiric vancomycin/ unasyn
--- NOTE | 2018-03-14 14:45 | CONS ---
DATE OF CONSULTATION: DATE OF DICTATION: 03/14/2018 The patient is a 77-year-old male with a history of advanced parkinsonism, evaluated for infected decubitus ulcer. History was obtained from the chart as well as patient's who is present at the time of the examination. He is unable to give a history secondary to dementia. He is a [facility] resident. Over the past several weeks he has had a worsening sacral decubitus ulcer. He had been seen by wound care specialists at the snf. He was taken by his to the office of Dr. Jerry where he was evaluated. At that time he was advised to go to the emergency room for surgical debridement and IV antibiotic therapy. His course has now been complicated by fever of 101.9. He is awake; however, he is not verbally responsive. He does not appear to be in any acute distress. The patient was recently hospitalized at [facility] in November of this year for a nonhealing right heel ulcer. He ultimately required a right [id number] amputation. PAST MEDICAL HISTORY: Positive for parkinsonism, dementia, insulin-dependent diabetes mellitus, peripheral neuropathy, chronic kidney disease, chronic anemia. ALLERGIES: SHELLFISH. MEDICATIONS: Aspirin, Sinemet, vitamin C, insulin, Flomax. SOCIAL HISTORY: He is a snf resident. He is dependent in activities of daily living. No active tobacco or alcohol use. REVIEW OF SYSTEMS: Neurologic: No loss of consciousness, seizure activity, or focal weakness. Positive parkinsonism with rigidity. Cardiac: Negative chest pain or palpitations. Respiratory: Negative cough or sputum production. Gastrointestinal: Negative vomiting or diarrhea. Genitourinary: Negative for urinary tract infection. LABORATORY DATA: White count 10.1, hematocrit 28.4, platelet count 281. BUN 50, creatinine 1.4. Urinalysis with 42 white cells. Cultures are pending. Previous cultures positive for morganella, enterococcus, VRE, coagulase-negative staph, and E. coli. PHYSICAL EXAMINATION: General: He is awake. He is not verbally responsive. Vital Signs: Temperature 98.4, T-max 101.9. Blood pressure 120/55, pulse 73, regular. Respirations 16 per minute. HEENT: Sclerae anicteric. Cardiovascular: Heart sounds S1, S2. Lungs: Clear. Abdomen: Soft. No tenderness elicited. Extremities: Status post right [id number] amputation. Left heel with an infected decubitus ulcer with surrounding erythema. Skin: Sacrum with a large, malodorous decubitus ulcer with surrounding erythema. IMPRESSION: 1. Infected necrotic decubitus ulcers of the sacrum and left heel. 2. Fever, rule out sepsis secondary to skin focus. 3. Azotemia. 4. Parkinsonism/dementia. Cultures have been obtained. Surgical evaluation for debridement. Antibiotic therapy based on previous wound culture results. Local wound care. Case discussed with the patient's present at the time of the examination. Thank you for the kind referral. BERKLEY MORIN M.D. [id number]
--- NOTE | 2018-03-14 14:57 | CON.CARD ---
Consult Consult Specialty:: Cardiology Referred by:: Anni Reason for Consultation:: Preoperative evaluation - History of Present Illness Chief Complaint: decubitus ulcer History of Present Illness: 77M h/o DM, PAD s/p R AKA, sacral ulcer, dementia p/w decub ulcer with plan for debridement. Lives at [facility], patient cannot given history, nonverbal. Ulcer increased in size over time, fever, leukocytosis, started on abx. Plan for debridement and consulted for preoperative evaluation. Patient cannot give further history. Discussed with , patient does not have cardiac history. 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, Parkinson's Psych: Yes: Depression Endocrine: Yes: Diabetes Mellitus Dermatology: Yes: Other (right heel ulcer) - Alcohol/Substance Use Hx Alcohol Use: No - Smoking History Smoking history: Never smoked Have you smoked in the past 12 months: No Home Medications - Allergies Allergies/Adverse Reactions: Allergies Allergy/AdvReac Type Severity Reaction Status Date / Time shellfish derived Allergy Verified 03/13/18 16:19 - Home Medications Home Medications: Ambulatory Orders Aspirin 81 mg PO DAILY 09/28/17 Acetaminophen [8Hr Arthritis Pain Relief] 650 mg PO BID 11/29/17 Ascorbic Acid [Vitamin C] 500 mg PO DAILY 11/29/17 Citalopram Hydrobromide [Citalopram HBr] 40 mg PO DAILY 11/29/17 Insulin Glargine,Hum.rec.anlog [Lantus Solostar] 16 unit SQ DAILY 11/29/17 Insulin Lispro [Humalog] 5 unit SQ TID 11/29/17 Heparin - 5,000 unit SQ BID vial 12/08/17 Carbidopa/Levodopa 25/100 [Sinemet 25/100 -] 1 each PO TID 03/13/18 Carbidopa/Levodopa [Carbidopa-Levodopa 25-100 Tab] 1 tab PO BID 03/13/18 Polyethylene Glycol 3350 17 gm PO DAILY 03/13/18 Family Disease History - Family Disease History Family History: Unable to Obtain Review of Systems Unable to obtain ROS, reason: dementia Vital Signs: Vital Signs Temperature 98.4 F 03/14/18 10:00 Pulse Rate 73 03/14/18 10:00 Respiratory Rate 16 03/14/18 10:00 Blood Pressure 120/55 L 03/14/18 10:00 O2 Sat by Pulse Oximetry (%) 100 03/14/18 06:25 Constitutional: Yes: No Distress, Calm Eyes: Yes: Conjunctiva Clear, EOM Intact HENT: Yes: Atraumatic, Normocephalic Neck: Yes: Supple, Trachea Midline Respiratory: Yes: Regular, CTA Bilaterally (auscultated anteriorly, poor effort) Gastrointestinal: Yes: Normal Bowel Sounds, Soft Cardiovascular: Yes: Regular Rate and Rhythm JVD: No Carotid Bruit: No Heart Sounds: Yes: S1, S2 Musculoskeletal: No: Joint Swelling Extremities: Yes: Amputation. No: Cold Edema: No Peripheral Pulses WNL: No Peripheral Pulses: 1+ Left Doralis Pedis Integumentary: No: Jaundice Neurological: Yes: Other (nonverbal) Psychiatric: No: Agitated - Other Data Labs, Other Data: CBC, BMP 03/14/18 09:59 03/14/18 09:59 INR, PTT INR 1.17 (0.83-1.09) H 03/13/18 20:12 Assessment/Plan EKG: sinus rhythm, nonspecific ST changes CXR: no acute process 77M h/o DM, R AKA, sacral ulcer, dementia p/w decub ulcer with plan for debridement Preoperative evaluation, decubitus ulcer - patient unable to give history, however patient is stable from cardiac perspective and at acceptable risk for noncardiac surgery - EKG no acute changes, echo done today - if benign findings may proceed as planned with debridement of decubitus ulcer with no further testing DM - manage per primary team dementia - nonverbal at baseline PAD, s/p AKA - continue aspirin
[2018-03-14] MEDS ORDERED: AMPICILLIN NA/SULBACTAM NA 1.5 GM in DEXTROSE 5%-WATER 100 ML IVPB SCH (15:00)
[2018-03-14] MEDS ORDERED: VANCOMYCIN 1 GRAM (PRE-DOCKED) 1,000 MG/250 ML BAG IVPB ONE (15:04)
[2018-03-14] MEDS: VANCOMYCIN 1 GRAM (PRE-DOCKED) 1,000 MG/250 ML BAG IVPB SCH (15:16)
[2018-03-14] MEDS: AMPICILLIN NA/SULBACTAM NA 1.5 GM in SODIUM CHLORIDE 100 ML IVPB SCH ×2 (15:42→23:01)
[2018-03-14] MEDS ORDERED: MORPHINE SULFATE 2 MG/ML VIAL ONE (16:24)
[2018-03-15] MEDS: AMPICILLIN NA/SULBACTAM NA 1.5 GM in SODIUM CHLORIDE 100 ML IVPB SCH ×5 (03:08→22:27)
[2018-03-15] MEDS: INSULIN SLIDING SCALE (NOVOLOG) 1 VIAL SQ SCH ×6 (03:21→22:36)
[2018-03-15] MEDS: INSULIN (LEVEMIR) 100 UNITS/ML UNITS SQ SCH (06:39)
[2018-03-15] MEDS: CARBIDOPA/LEVODOPA 25/100 TABLET (FP) PO SCH ×4 (06:40→22:27)
[2018-03-15] MEDS ORDERED: PT OWN MED DRAWER 7, Y5N ONE ×4 (08:02→21:30)
[2018-03-15 08:03] LABS: HEMATOCRIT 25.6 % (35.4-49); HEMOGLOBIN 8.7 GM/dL (11.7-16.9); MCH 31.5 pg (25.7-33.7); MCHC 34.1 g/dl (32.0-35.9); MEAN CELL VOLUME 92.5 fl (80-96); MEAN PLT VOLUME 7.1 fl (7.5-11.1); PLATELET COUNT 248 K/MM3 (134-434); RBC 2.77 M/mm3 (4.00-5.60); RDW 16.8 % (11.9-15.9); WHITE BLOOD COUNT 8.9 K/mm3 (4.0-10.0)
[2018-03-15 08:34] LABS: ALK PHOS 222 U/L (45-117); ANION GAP 9 MMOL/L (8-16); BILIRUBIN,TOTAL 0.3 mg/dL (0.2-1); BLOOD UREA NITROGEN 48 mg/dL (7-18); CALCIUM 7.9 mg/dL (8.5-10.1); CHLORIDE 106 mmol/L (98-107); CO2 22 mmol/L (21-32); CREATININE 1.6 mg/dL (0.55-1.3); GLUCOSE,RANDOM 182 mg/dL (74-106); POTASSIUM 4.7 mmol/L (3.5-5.1); SGOT/AST 41 U/L (15-37); SGPT/ALT 15 U/L (13-61); SODIUM 137 mmol/L (136-145); TOT PROT 6.4 g/dl (6.4-8.2)
[2018-03-15] MEDS ORDERED: CARBIDOPA/LEVODOPA 25/100 TABLET (FP) PO SCH (09:00)
[2018-03-15] MEDS: CITALOPRAM HYDROBROMIDE 20 MG TABLET (FP) PO SCH (09:25)
[2018-03-15] MEDS: ASPIRIN 81 MG CHEWABLE TABLETS PO SCH (09:25)
[2018-03-15] MEDS: HEPARIN NA (PORCINE) 5,000 UNITS/ML 1ML VIAL SQ SCH ×2 (09:53→22:27)
--- NOTE | 2018-03-15 10:41 | PN ---
Progress Note, Physician History of Present Illness: Pt is not able to provide ROS (secondary to dementia) - Current Medication List Current Medications: Active Medications Acetaminophen (Tylenol -) 650 mg PO Q6H PRN PRN Reason: FEVER Last Admin: 03/14/18 21:59 Dose: 650 mg Aspirin (Asa -) 81 mg PO DAILY [facility] Last Admin: 03/15/18 09:25 Dose: 81 mg Carbidopa/Levodopa (Sinemet 25/100 -) 2 each PO 0600,1300,2100 [facility] Last Admin: 03/15/18 06:40 Dose: 2 each Carbidopa/Levodopa (Sinemet 25/100 -) 1 each PO 0900,1700 [facility] Last Admin: 03/15/18 09:26 Dose: 1 each Citalopram Hydrobromide (Celexa -) 40 mg PO DAILY [facility] Last Admin: 03/15/18 09:25 Dose: 40 mg Heparin Sodium (Porcine) (Heparin -) 5,000 unit SQ BID [facility] Last Admin: 03/15/18 09:53 Dose: 5,000 unit Vancomycin HCl (Vancomycin (Pre-Docked)) 1,000 mg in 250 mls @ 200 mls/hr IVPB Q24H [facility]; Protocol Last Admin: 03/14/18 15:16 Dose: 200 mls/hr Ampicillin Sodium/Sulbactam (Sodium 1.5 gm/ Sodium Chloride) 100 mls @ 200 mls/ hr IVPB Q6H-IV [facility] Last Admin: 03/15/18 09:24 Dose: 200 mls/hr Sodium Chloride (Normal Saline -) 1,000 mls @ 50 mls/hr IV ASDIR [facility] Stop: 03/16/18 10:40 Insulin Aspart (Novolog Vial Sliding Scale -) 1 vial SQ Q4HPO [facility]; Protocol Last Admin: 03/15/18 10:01 Dose: 4 unit Insulin Detemir (Levemir Vial) 16 units SQ DAILY@0700 [facility] Last Admin: 03/15/18 06:39 Dose: Not Given Morphine Sulfate (Morphine Sulfate) 2 mg IVPUSH Q3H PRN PRN Reason: PAIN LEVEL 4 - 6 Last Admin: 03/14/18 18:46 Dose: 2 mg - Objective Vital Signs: Vital Signs Temperature 98.6 F 03/15/18 06:00 Pulse Rate 70 03/15/18 06:00 Respiratory Rate 20 03/15/18 06:00 Blood Pressure 104/56 L 03/15/18 06:00 O2 Sat by Pulse Oximetry (%) 96 03/14/18 21:00 Constitutional: Yes: No Distress, Calm Cardiovascular: Yes: Regular Rate and Rhythm, S1, S2 Respiratory: Yes: Regular, CTA Bilaterally. No: Rales Gastrointestinal: Yes: Normal Bowel Sounds, Soft. No: Palpable Mass Extremities: Yes: Amputation (Right AKA) Edema: No Neurological: Yes: Alert Labs: CBC, BMP 03/15/18 06:45 03/15/18 06:45 INR, PTT INR 1.17 (0.83-1.09) H 03/13/18 20:12 Problem List - Problems (1) Decubitus ulcer of sacral region, unstageable Code(s): L89.150 - PRESSURE ULCER OF SACRAL REGION, UNSTAGEABLE (2) Sepsis Code(s): A41.9 - SEPSIS, UNSPECIFIED ORGANISM Qualifiers: Sepsis type: sepsis due to unspecified organism Qualified Code(s): A41.9 - Sepsis, unspecified organism (3) Anemia Code(s): D64.9 - ANEMIA, UNSPECIFIED (4) Dementia Code(s): F03.90 - UNSPECIFIED DEMENTIA WITHOUT BEHAVIORAL DISTURBANCE (5) Urinary retention Code(s): R33.9 - RETENTION OF URINE, UNSPECIFIED (6) Parkinson disease Code(s): G20 - PARKINSON'S DISEASE (7) Dysphagia Code(s): R13.10 - DYSPHAGIA, UNSPECIFIED Assessment/Plan IV abtx Surgery, ID, Cardio consults are appreciated. Pt was cleared by Cardio for surgery consult. Procced with Sx. Pt's is at bedside, pt's condition was d/w his ; all questionsa were answered AM labs
[2018-03-15] MEDS ORDERED: SODIUM CHLORIDE 1,000 ML IV SCH ×2 (10:45→16:08)
--- NOTE | 2018-03-15 11:38 | PN ---
Progress Note (short form) - Note Progress Note: s: lethargic, has been comfortable as per o: Vital Signs Period Temp Pulse Resp BP Sys/Kebede Pulse Ox Last 24 Hr 98.5 F-99.5 F 70-82 16-20 96-117/51-60 95-96 Constitutional: Yes: No Distress, Calm Eyes: Yes: Conjunctiva Clear Neck: Yes: Supple, Trachea Midline Respiratory: Yes: Regular, CTA Bilaterally (auscultated anteriorly, poor effort) Gastrointestinal: Yes: Normal Bowel Sounds, Soft Cardiovascular: Yes: Regular Rate and Rhythm JVD: No Carotid Bruit: No Heart Sounds: Yes: S1, S2 Extremities: Yes: Amputation. No: Cold Edema: No Peripheral Pulses WNL: No Integumentary: No: Jaundice Neurological: Yes: Other (nonverbal) Psychiatric: No: Agitated Current Medications Generic Name Dose Route Start Last Admin Trade Name Freq PRN Reason Stop Dose Admin Acetaminophen 650 mg 03/14/18 00:27 03/14/18 21:59 Tylenol - PO 650 mg Q6H PRN Administration FEVER Aspirin 81 mg 03/14/18 10:00 03/15/18 09:25 Asa - PO 81 mg DAILY [facility] Administration Carbidopa/Levodopa 2 each 03/14/18 21:00 03/15/18 06:40 Sinemet 25/100 - PO 2 each 0600,1300,2100 [facility] Administration Carbidopa/Levodopa 1 each 03/15/18 09:00 03/15/18 09:26 Sinemet 25/100 - PO 1 each 0900,1700 [facility] Administration Citalopram Hydrobromide 40 mg 03/14/18 10:00 03/15/18 09:25 Celexa - PO 40 mg DAILY [facility] Administration Heparin Sodium (Porcine) 5,000 unit 03/14/18 10:00 03/15/18 09:53 Heparin - SQ 5,000 unit BID [facility] Administration Vancomycin HCl 1,000 mg in 250 mls @ 200 mls/hr 03/14/18 14:15 03/14/18 15:16 Vancomycin (Pre-Docked) IVPB 200 mls/hr Q24H [facility] Administration Protocol Ampicillin Sodium/Sulbactam 100 mls @ 200 mls/hr 03/15/18 08:15 03/15/18 09: 24 Sodium 1.5 gm/ Sodium Chloride IVPB 200 mls/hr Q6H-IV [facility] Administration Sodium Chloride 1,000 mls @ 50 mls/hr 03/15/18 10:45 03/15/18 10:53 Normal Saline - IV 03/16/18 10:40 50 mls/hr ASDIR [facility] Administration Insulin Aspart 1 vial 03/14/18 02:00 03/15/18 10:01 Novolog Vial Sliding Scale - SQ 4 unit Q4HPO [facility] Administration Protocol Insulin Detemir 16 units 03/14/18 07:00 03/15/18 06:39 Levemir Vial SQ Not Given DAILY@0700 [facility] Morphine Sulfate 2 mg 03/14/18 12:42 03/14/18 18:46 Morphine Sulfate IVPUSH 2 mg Q3H PRN Administration PAIN LEVEL 4 - 6 CBC, BMP 03/15/18 06:45 03/15/18 06:45 echo 02/2018: nl lv/rv, no sig valve path, ao root 3.9 cm EKG: sinus rhythm, nonspecific ST changes CXR: no acute process a/p: 77M h/o DM, R AKA, sacral ulcer, dementia p/w decub ulcer with plan for debridement Preoperative evaluation, decubitus ulcer - patient unable to give history, however patient is stable from cardiac perspective and at acceptable risk for noncardiac surgery - EKG no acute changes, echo unremarkable DM - manage per primary team dementia - nonverbal at baseline PAD, s/p AKA - continue aspirin
[2018-03-15] MEDS ORDERED: MIDAZOLAM HCL 2 MG/2 ML SINGLE DOSE VIAL ONE (14:31)
[2018-03-15] MEDS ORDERED: PROPOFOL 20 ML ONE (14:31)
[2018-03-15] MEDS ORDERED: VANCOMYCIN 1,000 MG VIAL (RESTRICTED TO ID ONLY) ONE (14:51)
[2018-03-15] MEDS ORDERED: VANCOMYCIN 1 GRAM (PRE-DOCKED) 1,000 MG/250 ML BAG IVPB ONE (14:55)
[2018-03-15] MEDS ORDERED: SODIUM CHLORIDE 100 ML IVPB ONE (15:51)
[2018-03-15] MEDS ORDERED: AMPICILLIN NA/SULBACTAM NA 1.5 GM VIAL ONE ×2 (15:51→21:30)
--- NOTE | 2018-03-15 15:58 | OP ---
Operative Note - Note: Operative Date: 03/15/18 Pre-Operative Diagnosis: sacral decubitus eschar Operation: excisional sharp Debridement of sacral decubitus eschar Findings: skin, subcutaneous fat and muscle and fascia debrided Post-Operative Diagnosis: Same as Pre-op Surgeon: Jose A Davalos Wheel Inspector: Isadora Ramírez Anesthesiologist/DERRICK MAN: Dereje Garduno Anesthesia: MAC Estimated Blood Loss (mls): 50 Fluid Volume Replaced (mls): 500 Operative Report Dictated: Yes
--- NOTE | 2018-03-15 16:00 | SURG ---
Surgery Picture Frames Inspector Note Picture Frames Inspector: Isadora Ramírez PA-C Date of Service: 03/15/18 Diagnosis: sacral decubitus ulcer Procedure: excisional sharp Debridement of sacral decubitus eschar I was present for the entirety of the operative procedure. For further detail, please refer to operative report. Visit type - Case Type Case Type: ED Admission - Emergency Emergency Visit: Yes ED Registration Date: 03/13/18 Care time: The patient presented to the Emergency Department on the above date and was hospitalized for further evaluation of their emergent condition. - New patient This patient is new to me today: Yes Date on this admission: 03/15/18
[2018-03-15] MEDS: VANCOMYCIN 1 GRAM (PRE-DOCKED) 1,000 MG/250 ML BAG IVPB SCH (16:42)
--- NOTE | 2018-03-15 17:54 | ECHO ---
Name: CHELA MERCADO Exam:Adult Echocardiogram Study Date: 03/14/2018 02:46 PM Age: 77 yrs Reason For Study: WALL MOTION ABNORMALITY Height: 68 in Weight: 131 lb BSA: 1.7 m2 MMode/2D Measurements & Calculations Ao root diam: 3.9 cm Doppler Measurements & Calculations MV E max loco: 76.0 cm/sec Ao V2 max: 156.8 cm/sec MV A max loco: 119.4 cm/sec Ao max P.9 mmHg MV E/A: 0.64 MV dec time: 0.21 sec LV V1 max P.3 mmHg PA V2 max: 84.2 cm/sec LV V1 max: 76.5 cm/sec PA max P.8 mmHg Med Peak E' Loco: 6.1 cm/sec Med E/e': 12.4 Lat Peak E' Loco: 8.9 cm/sec Lat E/e': 8.6 Procedure A complete two-dimensional transthoracic echocardiogram was performed (2D, M-mode, Doppler and color flow Doppler). Left Ventricle The left ventricular size, thickness and function are normal. The left ventricular ejection fraction is normal. Ejection Fraction = 60-65%. The left ventricular wall motion is normal. Right Ventricle The right ventricle is normal in size and function. Atria Normal left and right atrial size and function. Mitral Valve There is no mitral regurgitation noted. Tricuspid Valve There is trace tricuspid regurgitation. There was insufficient TR detected to calculate RV systolic p ressure. Aortic Valve No hemodynamically significant valvular aortic stenosis. No aortic regurgitation is present. Pulmonic Valve The pulmonic valve is not well visualized. Great Vessels Mild aortic root dilatation. Pericardium/Pleura There is no pericardial effusion. Interpretation Summary The left ventricular size, thickness and function are normal The right ventricle is normal in size and function. There is trace tricuspid regurgitation. Mild aortic root dilatation. MD Jg Cross 03/14/2018 04:19 PM
--- NOTE | 2018-03-15 18:42 | PN ---
Progress Note, Physician History of Present Illness: S/P debridement of sacral decubitus ulcer Being fed dinner by [employer], WBC down Cultures pending - Current Medication List Current Medications: Active Medications Acetaminophen (Tylenol -) 650 mg PO Q6H PRN PRN Reason: FEVER Aspirin (Asa -) 81 mg PO DAILY [facility] Carbidopa/Levodopa (Sinemet 25/100 -) 2 each PO 0600,1300,2100 [facility] Carbidopa/Levodopa (Sinemet 25/100 -) 1 each PO 0900,1700 [facility] Last Admin: 03/15/18 17:00 Dose: 1 each Citalopram Hydrobromide (Celexa -) 40 mg PO DAILY [facility] Heparin Sodium (Porcine) (Heparin -) 5,000 unit SQ BID [facility] Ampicillin Sodium/Sulbactam (Sodium 1.5 gm/ Sodium Chloride) 100 mls @ 200 mls/ hr IVPB Q6H-IV [facility] Sodium Chloride (Normal Saline -) 1,000 mls @ 50 mls/hr IV ASDIR [facility] Stop: 03/16/18 10:40 Last Admin: 03/15/18 16:42 Dose: 50 mls/hr Vancomycin HCl (Vancomycin (Pre-Docked)) 1,000 mg in 250 mls @ 200 mls/hr IVPB DAILY@1500 [facility]; Protocol Insulin Aspart (Novolog Vial Sliding Scale -) 1 vial SQ Q4HPO [facility]; Protocol Last Admin: 03/15/18 17:01 Dose: Not Given Insulin Detemir (Levemir Vial) 16 units SQ DAILY@0700 [facility] Morphine Sulfate (Morphine Sulfate) 2 mg IVPUSH Q3H PRN PRN Reason: PAIN LEVEL 4 - 6 - Objective Vital Signs: Vital Signs Temperature 99.6 F 03/15/18 16:57 Pulse Rate 76 03/15/18 16:57 Respiratory Rate 18 03/15/18 16:57 Blood Pressure 122/49 L 03/15/18 16:57 O2 Sat by Pulse Oximetry (%) 97 03/15/18 16:57 Constitutional: Yes: No Distress Cardiovascular: Yes: Regular Rate and Rhythm, S1, S2 Respiratory: Yes: CTA Bilaterally, Diminished Gastrointestinal: Yes: Normal Bowel Sounds, Soft Extremities: Yes: Other (+ heel ulcer) Labs: CBC, BMP 03/15/18 06:45 03/15/18 06:45 INR, PTT INR 1.17 (0.83-1.09) H 03/13/18 20:12 Assessment/Plan S/P debridement of sacral decubitus ulcer R/O sepsis secondary to skin source Azotemia Parkinsonism/ dementia Await c/s Continue vancomycin/ unasyn Local wound care
[2018-03-15] MEDS ORDERED: INSULIN (NOVOLOG) ASPART 100 UNITS/ML 10ML VIAL ONE (21:30)
[2018-03-15] MEDS ORDERED: SODIUM CHLORIDE 200 ML IVPB ONE (21:31)
[2018-03-15] MEDS: ACETAMINOPHEN 325 MG TABLET (FP) PO PRN (23:18)
[2018-03-16] MEDS: INSULIN SLIDING SCALE (NOVOLOG) 1 VIAL SQ SCH ×6 (01:04→22:44)
[2018-03-16] MEDS: AMPICILLIN NA/SULBACTAM NA 1.5 GM in SODIUM CHLORIDE 100 ML IVPB SCH ×4 (02:07→22:39)
[2018-03-16] MEDS: CARBIDOPA/LEVODOPA 25/100 TABLET (FP) PO SCH ×5 (06:32→22:42)
[2018-03-16] MEDS: INSULIN (LEVEMIR) 100 UNITS/ML UNITS SQ SCH (06:38)
[2018-03-16 07:33] LABS: HEMATOCRIT 23.8 % (35.4-49); HEMOGLOBIN 7.6 GM/dL (11.7-16.9); MCHC 31.8 g/dl (32.0-35.9); MEAN CELL VOLUME 94.2 fl (80-96); MEAN PLT VOLUME 7.1 fl (7.5-11.1); PLATELET COUNT 235 K/MM3 (134-434); RBC 2.53 M/mm3 (4.00-5.60); RDW 16.9 % (11.9-15.9); WHITE BLOOD COUNT 8.4 K/mm3 (4.0-10.0)
[2018-03-16 08:13] LABS: ALBUMIN 1.9 g/dl (3.4-5.0); ALK PHOS 195 U/L (45-117); ANION GAP 11 MMOL/L (8-16); BILIRUBIN,TOTAL 0.3 mg/dL (0.2-1); BLOOD UREA NITROGEN 52 mg/dL (7-18); CALCIUM 8.1 mg/dL (8.5-10.1); CHLORIDE 112 mmol/L (98-107); CO2 22 mmol/L (21-32); CREATININE 1.6 mg/dL (0.55-1.3); GLUCOSE,RANDOM 107 mg/dL (74-106); POTASSIUM 4.5 mmol/L (3.5-5.1); SGOT/AST 28 U/L (15-37); SGPT/ALT 13 U/L (13-61); SODIUM 145 mmol/L (136-145); TOT PROT 6.1 g/dl (6.4-8.2)
[2018-03-16] MEDS: CITALOPRAM HYDROBROMIDE 20 MG TABLET (FP) PO SCH (09:19)
[2018-03-16] MEDS: ASPIRIN 81 MG CHEWABLE TABLETS PO SCH (09:19)
[2018-03-16] MEDS: HEPARIN NA (PORCINE) 5,000 UNITS/ML 1ML VIAL SQ SCH ×2 (09:19→22:44)
--- NOTE | 2018-03-16 10:36 | PN ---
Progress Note (short form) - Note Progress Note: Progress Note: s: lethargic, nonverbal o: Vital Signs Period Temp Pulse Resp BP Sys/Kebede Pulse Ox Last 24 Hr 97.4 F-101.1 F 67-80 14-18 103-144/49-89 96-100 Constitutional: Yes: No Distress, Calm Eyes: Yes: Conjunctiva Clear Neck: Yes: Supple, Trachea Midline Respiratory: Yes: Regular, CTA Bilaterally (auscultated anteriorly, poor effort) Gastrointestinal: Yes: Normal Bowel Sounds, Soft Cardiovascular: Yes: Regular Rate and Rhythm JVD: No Carotid Bruit: No Heart Sounds: Yes: S1, S2 Extremities: Yes: Amputation. No: Cold Edema: No Peripheral Pulses WNL: No Integumentary: No: Jaundice Neurological: Yes: Other (nonverbal) Psychiatric: No: Agitated Current Medications Acetaminophen (Tylenol -) 650 mg PO Q6H PRN PRN Reason: FEVER Last Admin: 03/15/18 23:18 Dose: 650 mg Aspirin (Asa -) 81 mg PO DAILY [facility] Last Admin: 03/16/18 09:19 Dose: 81 mg Carbidopa/Levodopa (Sinemet 25/100 -) 2 each PO 0600,1300,2100 [facility] Last Admin: 03/16/18 06:32 Dose: 2 each Carbidopa/Levodopa (Sinemet 25/100 -) 1 each PO 0900,1700 [facility] Last Admin: 03/16/18 09:19 Dose: 1 each Citalopram Hydrobromide (Celexa -) 40 mg PO DAILY [facility] Last Admin: 03/16/18 09:19 Dose: 40 mg Heparin Sodium (Porcine) (Heparin -) 5,000 unit SQ BID [facility] Last Admin: 03/16/18 09:19 Dose: 5,000 unit Ampicillin Sodium/Sulbactam (Sodium 1.5 gm/ Sodium Chloride) 100 mls @ 200 mls/ hr IVPB Q6H-IV [facility] Last Admin: 03/16/18 09:18 Dose: 200 mls/hr Sodium Chloride (Normal Saline -) 1,000 mls @ 50 mls/hr IV ASDIR [facility] Stop: 03/16/18 10:40 Last Admin: 03/15/18 16:42 Dose: 50 mls/hr Vancomycin HCl (Vancomycin (Pre-Docked)) 1,000 mg in 250 mls @ 200 mls/hr IVPB DAILY@1500 [facility]; Protocol Insulin Aspart (Novolog Vial Sliding Scale -) 1 vial SQ Q4HPO [facility]; Protocol Last Admin: 03/16/18 10:05 Dose: 4 unit Insulin Detemir (Levemir Vial) 16 units SQ DAILY@0700 [facility] Last Admin: 03/16/18 06:38 Dose: 16 units Morphine Sulfate (Morphine Sulfate) 2 mg IVPUSH Q3H PRN PRN Reason: PAIN LEVEL 4 - 6 echo 02/2018: nl lv/rv, no sig valve path, ao root 3.9 cm EKG: sinus rhythm, nonspecific ST changes CXR: no acute process a/p: 77M h/o DM, R AKA, sacral ulcer, dementia p/w decub ulcer with plan for debridement decubitus ulcer - s/p debridement - manage per surgery, primary DM - manage per primary team dementia - nonverbal at baseline PAD, s/p AKA - continue aspirin
[2018-03-16] MEDS: MORPHINE SULFATE 2 MG/ML VIAL IVPUSH PRN (13:02)
[2018-03-16] MEDS ORDERED: VANCOMYCIN 1 GRAM (PRE-DOCKED) 1,000 MG/250 ML BAG IVPB SCH (15:00)
--- NOTE | 2018-03-16 15:20 | PN ---
Progress Note, Physician History of Present Illness: Pt is not able to provide ROS (secondary to dementia). Pt Hernandez is not draining now (last night was draining pinkish urine); bedside bladder scan is c/w UR. - Current Medication List Current Medications: Active Medications Acetaminophen (Tylenol -) 650 mg PO Q6H PRN PRN Reason: FEVER Last Admin: 03/15/18 23:18 Dose: 650 mg Aspirin (Asa -) 81 mg PO DAILY [facility] Last Admin: 03/16/18 09:19 Dose: 81 mg Carbidopa/Levodopa (Sinemet 25/100 -) 2 each PO 0600,1300,2100 [facility] Last Admin: 03/16/18 13:01 Dose: 2 each Carbidopa/Levodopa (Sinemet 25/100 -) 1 each PO 0900,1700 [facility] Last Admin: 03/16/18 09:19 Dose: 1 each Citalopram Hydrobromide (Celexa -) 40 mg PO DAILY [facility] Last Admin: 03/16/18 09:19 Dose: 40 mg Heparin Sodium (Porcine) (Heparin -) 5,000 unit SQ BID [facility] Last Admin: 03/16/18 09:19 Dose: 5,000 unit Ampicillin Sodium/Sulbactam (Sodium 1.5 gm/ Sodium Chloride) 100 mls @ 200 mls/ hr IVPB Q6H-IV [facility] Last Admin: 03/16/18 09:18 Dose: 200 mls/hr Vancomycin HCl (Vancomycin (Pre-Docked)) 1,000 mg in 250 mls @ 200 mls/hr IVPB DAILY@1500 [facility]; Protocol Insulin Aspart (Novolog Vial Sliding Scale -) 1 vial SQ Q4HPO [facility]; Protocol Last Admin: 03/16/18 14:56 Dose: Not Given Insulin Detemir (Levemir Vial) 16 units SQ DAILY@0700 [facility] Last Admin: 03/16/18 06:38 Dose: 16 units Morphine Sulfate (Morphine Sulfate) 2 mg IVPUSH Q3H PRN PRN Reason: PAIN LEVEL 4 - 6 Last Admin: 03/16/18 13:02 Dose: 2 mg - Objective Vital Signs: Vital Signs Temperature 97.4 F L 03/16/18 14:13 Pulse Rate 62 03/16/18 14:13 Respiratory Rate 20 03/16/18 14:13 Blood Pressure 111/64 03/16/18 14:13 O2 Sat by Pulse Oximetry (%) 96 03/16/18 09:00 Constitutional: Yes: No Distress, Calm Cardiovascular: Yes: Regular Rate and Rhythm, S1, S2 Respiratory: Yes: Regular, CTA Bilaterally. No: Rales Gastrointestinal: Yes: Normal Bowel Sounds, Soft, Other (suprapubic mass) Edema: No Neurological: Yes: Alert Labs: CBC, BMP 03/16/18 06:00 03/16/18 06:00 INR, PTT INR 1.17 (0.83-1.09) H 03/13/18 20:12 Problem List - Problems (1) Decubitus ulcer of sacral region, unstageable Code(s): L89.150 - PRESSURE ULCER OF SACRAL REGION, UNSTAGEABLE (2) Sepsis Code(s): A41.9 - SEPSIS, UNSPECIFIED ORGANISM Qualifiers: Sepsis type: sepsis due to unspecified organism Qualified Code(s): A41.9 - Sepsis, unspecified organism (3) Anemia Code(s): D64.9 - ANEMIA, UNSPECIFIED (4) Dementia Code(s): F03.90 - UNSPECIFIED DEMENTIA WITHOUT BEHAVIORAL DISTURBANCE (5) Urinary retention Code(s): R33.9 - RETENTION OF URINE, UNSPECIFIED (6) S/P AKA (above knee amputation) unilateral Code(s): Z89.619 - ACQUIRED ABSENCE OF UNSPECIFIED LEG ABOVE KNEE (7) PAD (peripheral artery disease) Code(s): I73.9 - PERIPHERAL VASCULAR DISEASE, UNSPECIFIED (8) Parkinson disease Code(s): G20 - PARKINSON'S DISEASE (9) Dysphagia Code(s): R13.10 - DYSPHAGIA, UNSPECIFIED (10) CRF (chronic renal failure) Code(s): N18.9 - CHRONIC KIDNEY DISEASE, UNSPECIFIED Qualifiers: Chronic kidney disease stage: stage 3 (moderate) Qualified Code(s): N18.3 - Chronic kidney disease, stage 3 (moderate) (11) Chronic heel ulcer Code(s): L97.409 - NON-PRS CHRONIC ULCER OF UNSP HEEL AND MIDFOOT W UNSP SEVERT (12) Obstructive and reflux uropathy Code(s): N13.9 - OBSTRUCTIVE AND REFLUX UROPATHY, UNSPECIFIED Assessment/Plan IV abtx -per ID Surgery, ID, Cardio consults are appreciated. S/p sacral ulcer debridement, post op day #1; Dr. Davalos at bedside. Replace Hernandez; it is draining clear urine; to send UA, UCX. Decrease in H/H; repeat CBC today; pt might need PRBC transfusion (his is aware). Pt's is at bedside, pt's condition was d/w his ; all questions were answered. AM labs.
--- NOTE | 2018-03-16 16:17 | PN ---
Progress Note (short form) - Note Progress Note: Attending Surgeon POD #1 No c/o ?? VSS AF wound-85% clean; area over sacrum has some necrotic residual after debridement; o/w negative. IMP: stable s/p debridement PLAN: LWC and VAC on 03/18/18; d/w the patients . Jose A Davalos MD FACS
[2018-03-16 17:25] LABS: HEMATOCRIT 22.7 % (35.4-49); HEMOGLOBIN 7.8 GM/dL (11.7-16.9); MCH 32.2 pg (25.7-33.7); MCHC 34.3 g/dl (32.0-35.9); MEAN CELL VOLUME 93.8 fl (80-96); MEAN PLT VOLUME 6.9 fl (7.5-11.1); PLATELET COUNT 243 K/MM3 (134-434); RBC 2.42 M/mm3 (4.00-5.60); RDW 16.8 % (11.9-15.9); WHITE BLOOD COUNT 8.1 K/mm3 (4.0-10.0)
[2018-03-16 17:28] LABS: URINE APPEARANCE CLOUDY; URINE BILIRUBIN NEGATIVE (<2.0 mg/dL); URINE COLOR YELLOW; URINE GLUCOSE (UA) NEGATIVE (NEGATIVE); URINE KETONE NEGATIVE (NEGATIVE); URINE LEUK ESTERASE 2+ (NEGATIVE); URINE NITRITE NEGATIVE (NEGATIVE); URINE PROTEIN 1+ (NEGATIVE); URINE UROBILINOGEN NEGATIVE mg/dL (0.2-1.0)
[2018-03-16] MEDS ORDERED: PT OWN MED DRAWER 7, Y5N ONE ×2 (17:33→21:38)
[2018-03-16 18:00] LABS: URINE BACTERIA MODERATE /hpf (NONE SEEN)
[2018-03-16] MEDS ORDERED: AMPICILLIN NA/SULBACTAM NA 1.5 GM VIAL ONE (21:38)
[2018-03-16] MEDS ORDERED: SODIUM CHLORIDE 100 ML IVPB ONE (21:38)
[2018-03-17] MEDS ORDERED: AMPICILLIN NA/SULBACTAM NA 1.5 GM VIAL ONE ×4 (01:50→20:04)
[2018-03-17] MEDS ORDERED: SODIUM CHLORIDE 100 ML IVPB ONE ×4 (01:50→20:04)
[2018-03-17] MEDS: INSULIN SLIDING SCALE (NOVOLOG) 1 VIAL SQ SCH ×6 (02:10→22:26)
[2018-03-17] MEDS: AMPICILLIN NA/SULBACTAM NA 1.5 GM in SODIUM CHLORIDE 100 ML IVPB SCH ×4 (02:14→22:19)
[2018-03-17] MEDS: CARBIDOPA/LEVODOPA 25/100 TABLET (FP) PO SCH ×5 (06:34→22:17)
[2018-03-17] MEDS: INSULIN (LEVEMIR) 100 UNITS/ML UNITS SQ SCH (06:55)
[2018-03-17 07:05] LABS: HEMATOCRIT 22.7 % (35.4-49); HEMOGLOBIN 7.2 GM/dL (11.7-16.9); MCH 29.7 pg (25.7-33.7); MCHC 31.9 g/dl (32.0-35.9); MEAN CELL VOLUME 93.1 fl (80-96); MEAN PLT VOLUME 6.6 fl (7.5-11.1); PLATELET COUNT 235 K/MM3 (134-434); RBC 2.43 M/mm3 (4.00-5.60); RDW 16.5 % (11.9-15.9); WHITE BLOOD COUNT 8.3 K/mm3 (4.0-10.0)
[2018-03-17] MEDS: TAMSULOSIN HCL 0.4 MG CAP PO SCH (07:50)
[2018-03-17 08:00] LABS: ALBUMIN 1.7 g/dl (3.4-5.0); ALK PHOS 169 U/L (45-117); ANION GAP 9 MMOL/L (8-16); BILIRUBIN,TOTAL 0.2 mg/dL (0.2-1); BLOOD UREA NITROGEN 46 mg/dL (7-18); CALCIUM 7.9 mg/dL (8.5-10.1); CHLORIDE 114 mmol/L (98-107); CO2 23 mmol/L (21-32); CREATININE 1.3 mg/dL (0.55-1.3); GLUCOSE,RANDOM 75 mg/dL (74-106); POTASSIUM 4.3 mmol/L (3.5-5.1); SGOT/AST 28 U/L (15-37); SGPT/ALT 7 U/L (13-61); SODIUM 146 mmol/L (136-145); TOT PROT 5.8 g/dl (6.4-8.2)
[2018-03-17] MEDS ORDERED: PT OWN MED DRAWER 7, Y5N ONE ×2 (08:14→08:39)
[2018-03-17] MEDS: HEPARIN NA (PORCINE) 5,000 UNITS/ML 1ML VIAL SQ SCH ×2 (09:14→22:19)
[2018-03-17] MEDS: CITALOPRAM HYDROBROMIDE 20 MG TABLET (FP) PO SCH (09:14)
[2018-03-17] MEDS: ASPIRIN 81 MG CHEWABLE TABLETS PO SCH (09:14)
--- NOTE | 2018-03-17 15:18 | PN ---
Progress Note, Physician History of Present Illness: Pt is not able to provide ROS (secondary to dementia). Pt Hernandez is draining clear urine. - Current Medication List Current Medications: Active Medications Acetaminophen (Tylenol -) 650 mg PO Q6H PRN PRN Reason: FEVER Last Admin: 03/15/18 23:18 Dose: 650 mg Aspirin (Asa -) 81 mg PO DAILY [facility] Last Admin: 03/17/18 09:14 Dose: 81 mg Carbidopa/Levodopa (Sinemet 25/100 -) 2 each PO 0600,1300,2100 [facility] Last Admin: 03/17/18 13:36 Dose: 2 each Carbidopa/Levodopa (Sinemet 25/100 -) 1 each PO 0900,1700 [facility] Last Admin: 03/17/18 08:40 Dose: 1 each Citalopram Hydrobromide (Celexa -) 40 mg PO DAILY [facility] Last Admin: 03/17/18 09:14 Dose: 40 mg Heparin Sodium (Porcine) (Heparin -) 5,000 unit SQ BID [facility] Last Admin: 03/17/18 09:14 Dose: 5,000 unit Ampicillin Sodium/Sulbactam (Sodium 1.5 gm/ Sodium Chloride) 100 mls @ 200 mls/ hr IVPB Q6H-IV [facility] Last Admin: 03/17/18 14:06 Dose: 200 mls/hr Insulin Aspart (Novolog Vial Sliding Scale -) 1 vial SQ Q4HPO [facility]; Protocol Last Admin: 03/17/18 13:52 Dose: Not Given Insulin Detemir (Levemir Vial) 16 units SQ DAILY@0700 [facility] Last Admin: 03/17/18 06:55 Dose: 16 units Morphine Sulfate (Morphine Sulfate) 2 mg IVPUSH Q3H PRN PRN Reason: PAIN LEVEL 4 - 6 Last Admin: 03/16/18 13:02 Dose: 2 mg Tamsulosin HCl (Flomax -) 0.4 mg PO DAILY@0830 [facility] Last Admin: 03/17/18 07:50 Dose: 0.4 mg - Objective Vital Signs: Vital Signs Temperature 98.6 F 03/17/18 14:21 Pulse Rate 73 03/17/18 14:21 Respiratory Rate 20 03/17/18 14:21 Blood Pressure 129/56 L 03/17/18 14:21 O2 Sat by Pulse Oximetry (%) 97 03/17/18 09:00 Constitutional: Yes: No Distress, Calm Cardiovascular: Yes: Regular Rate and Rhythm, S1, S2 Respiratory: Yes: Regular, CTA Bilaterally. No: Rales Gastrointestinal: Yes: Normal Bowel Sounds, Soft Extremities: Yes: Other (s/p right AKA) Edema: No (of left leg) Neurological: Yes: Alert Labs: CBC, BMP 03/17/18 06:20 03/17/18 06:20 INR, PTT INR 1.17 (0.83-1.09) H 03/13/18 20:12 Problem List - Problems (1) Decubitus ulcer of sacral region, unstageable Code(s): L89.150 - PRESSURE ULCER OF SACRAL REGION, UNSTAGEABLE (2) Sepsis Code(s): A41.9 - SEPSIS, UNSPECIFIED ORGANISM Qualifiers: Sepsis type: sepsis due to unspecified organism Qualified Code(s): A41.9 - Sepsis, unspecified organism (3) Anemia Code(s): D64.9 - ANEMIA, UNSPECIFIED (4) Dementia Code(s): F03.90 - UNSPECIFIED DEMENTIA WITHOUT BEHAVIORAL DISTURBANCE (5) Urinary retention Code(s): R33.9 - RETENTION OF URINE, UNSPECIFIED (6) S/P AKA (above knee amputation) unilateral Code(s): Z89.619 - ACQUIRED ABSENCE OF UNSPECIFIED LEG ABOVE KNEE (7) PAD (peripheral artery disease) Code(s): I73.9 - PERIPHERAL VASCULAR DISEASE, UNSPECIFIED (8) Parkinson disease Code(s): G20 - PARKINSON'S DISEASE (9) Dysphagia Code(s): R13.10 - DYSPHAGIA, UNSPECIFIED (10) CRF (chronic renal failure) Code(s): N18.9 - CHRONIC KIDNEY DISEASE, UNSPECIFIED Qualifiers: Chronic kidney disease stage: stage 3 (moderate) Qualified Code(s): N18.3 - Chronic kidney disease, stage 3 (moderate) (11) Chronic heel ulcer Code(s): L97.409 - NON-PRS CHRONIC ULCER OF UNSP HEEL AND MIDFOOT W UNSP SEVERT (12) Obstructive and reflux uropathy Code(s): N13.9 - OBSTRUCTIVE AND REFLUX UROPATHY, UNSPECIFIED Assessment/Plan IV abtx -per ID Surgery, ID, Cardio consults are appreciated. S/p sacral ulcer debridement, post op day #2. Decreased H/H; to transfuse PRBC. AM labs.
[2018-03-17] MEDS: ACETAMINOPHEN 325 MG TABLET (FP) PO PRN (17:11)
[2018-03-18] MEDS ORDERED: SODIUM CHLORIDE 100 ML IVPB ONE ×2 (01:13→09:41)
[2018-03-18] MEDS ORDERED: AMPICILLIN NA/SULBACTAM NA 1.5 GM VIAL ONE ×2 (01:13→09:41)
[2018-03-18] MEDS: AMPICILLIN NA/SULBACTAM NA 1.5 GM in SODIUM CHLORIDE 100 ML IVPB SCH ×2 (02:02→09:55)
[2018-03-18] MEDS: INSULIN SLIDING SCALE (NOVOLOG) 1 VIAL SQ SCH ×6 (02:02→22:33)
[2018-03-18] MEDS: CARBIDOPA/LEVODOPA 25/100 TABLET (FP) PO SCH ×5 (06:20→22:34)
[2018-03-18] MEDS: INSULIN (LEVEMIR) 100 UNITS/ML UNITS SQ SCH (06:50)
[2018-03-18] MEDS ORDERED: INSULIN (NOVOLOG) ASPART 100 UNITS/ML 10ML VIAL ONE ×2 (06:53→14:44)
[2018-03-18 07:22] LABS: HEMATOCRIT 26.5 % (35.4-49); HEMOGLOBIN 8.6 GM/dL (11.7-16.9); MCH 30.2 pg (25.7-33.7); MCHC 32.5 g/dl (32.0-35.9); MEAN CELL VOLUME 93.1 fl (80-96); MEAN PLT VOLUME 6.6 fl (7.5-11.1); PLATELET COUNT 241 K/MM3 (134-434); RBC 2.85 M/mm3 (4.00-5.60); RDW 16.3 % (11.9-15.9); WHITE BLOOD COUNT 7.2 K/mm3 (4.0-10.0)
[2018-03-18] MEDS: MORPHINE SULFATE 2 MG/ML VIAL IVPUSH PRN (08:00)
[2018-03-18 08:25] LABS: ANION GAP 9 MMOL/L (8-16); BLOOD UREA NITROGEN 34 mg/dL (7-18); CHLORIDE 114 mmol/L (98-107); CO2 25 mmol/L (21-32); CREATININE 1.3 mg/dL (0.55-1.3); GLUCOSE,RANDOM 113 mg/dL (74-106); POTASSIUM 4.4 mmol/L (3.5-5.1); SODIUM 147 mmol/L (136-145)
--- NOTE | 2018-03-18 08:31 | PN ---
Progress Note (short form) - Note Progress Note: POD# 3 sacral ulcer decubitus ulcer debridement. seen and examined at the bedside. Patient resting comfortably. Vital Signs Temp 98.8 F 03/18/18 06:00 Pulse 64 03/18/18 06:00 Resp 20 03/18/18 06:00 BP 125/60 03/18/18 06:00 Pulse Ox 97 03/17/18 21:00 Intake & Output 03/17/18 03/17/18 03/18/18 11:59 23:59 11:59 Intake Total 100 650 200 Output Total 500 1300 Balance -400 -650 200 Weight 135 lb Intake: IVPB 100 200 200 Oral 450 Output: Urine 500 1300 Hernandez 500 1300 Other: Voiding Method Indwelling Catheter Indwelling Catheter # Unmeasured Voids Hernandez 1 Bowel Movement Yes # Bowel Movements 2 Weight Measurement Method Patient Lift Scale CBC, BMP 03/18/18 06:30 PE: resting comfortably, NAD unlabored resp on RA Wound wound-75% clean; area over sacrum with areas of necrotic residual after debridement, only a few areas of bleeding base, bone exposed. wound margins clean. +odor with no active drainage. Problem List - Problems (1) Decubitus ulcer of sacral region, unstageable Assessment/Plan: POD #3 sacral ulcer debridement with limited bleeding and foul smell, not ready to wound vac at this time. 1) Dakins solution applied daily, wet dry 2) IV ABX per med/ID 3) Offload pressure sensitive areas, frequent positioning 4) Surgical team to follow and apply vac when appropriate. Code(s): L89.150 - PRESSURE ULCER OF SACRAL REGION, UNSTAGEABLE
[2018-03-18] MEDS: CITALOPRAM HYDROBROMIDE 20 MG TABLET (FP) PO SCH (09:55)
[2018-03-18] MEDS: ASPIRIN 81 MG CHEWABLE TABLETS PO SCH (09:55)
[2018-03-18] MEDS: HEPARIN NA (PORCINE) 5,000 UNITS/ML 1ML VIAL SQ SCH ×2 (09:57→22:34)
[2018-03-18] MEDS: TAMSULOSIN HCL 0.4 MG CAP PO SCH (09:57)
--- NOTE | 2018-03-18 11:07 | PN ---
Progress Note, Physician History of Present Illness: Awake, non-verbal S/P debridement of sacral decubitus ulcer POD #3 Temps, WBC down Cultures mixed organisms - Current Medication List Current Medications: Active Medications Acetaminophen (Tylenol -) 650 mg PO Q6H PRN PRN Reason: FEVER Last Admin: 03/17/18 17:11 Dose: 650 mg Aspirin (Asa -) 81 mg PO DAILY [facility] Last Admin: 03/18/18 09:55 Dose: 81 mg Carbidopa/Levodopa (Sinemet 25/100 -) 2 each PO 0600,1300,2100 [facility] Last Admin: 03/18/18 06:20 Dose: 2 each Carbidopa/Levodopa (Sinemet 25/100 -) 1 each PO 0900,1700 [facility] Last Admin: 03/18/18 09:56 Dose: 1 each Citalopram Hydrobromide (Celexa -) 40 mg PO DAILY [facility] Last Admin: 03/18/18 09:55 Dose: 40 mg Heparin Sodium (Porcine) (Heparin -) 5,000 unit SQ BID [facility] Last Admin: 03/18/18 09:57 Dose: 5,000 unit Ampicillin Sodium/Sulbactam (Sodium 1.5 gm/ Sodium Chloride) 100 mls @ 200 mls/ hr IVPB Q6H-IV [facility] Last Admin: 03/18/18 09:55 Dose: 200 mls/hr Insulin Aspart (Novolog Vial Sliding Scale -) 1 vial SQ Q4HPO [facility]; Protocol Last Admin: 03/18/18 06:20 Dose: Not Given Insulin Detemir (Levemir Vial) 16 units SQ DAILY@0700 [facility] Last Admin: 03/18/18 06:50 Dose: 16 units Morphine Sulfate (Morphine Sulfate) 2 mg IVPUSH Q3H PRN PRN Reason: PAIN LEVEL 4 - 6 Last Admin: 03/18/18 08:00 Dose: 2 mg Sodium Hypochlorite (Dakin's Solution 0.25% (Half-Strength) -) 1 applic TP DAILY [facility] Tamsulosin HCl (Flomax -) 0.4 mg PO DAILY@0830 [facility] Last Admin: 03/18/18 09:57 Dose: 0.4 mg - Objective Vital Signs: Vital Signs Temperature 98.8 F 03/18/18 06:00 Pulse Rate 64 03/18/18 06:00 Respiratory Rate 20 03/18/18 06:00 Blood Pressure 125/60 03/18/18 06:00 O2 Sat by Pulse Oximetry (%) 97 03/17/18 21:00 Constitutional: Yes: No Distress Eyes: Yes: Conjunctiva Clear Cardiovascular: Yes: Regular Rate and Rhythm, S1, S2 Respiratory: Yes: CTA Bilaterally Gastrointestinal: Yes: Normal Bowel Sounds, Soft. No: Tenderness Extremities: Yes: Other (S/P R LE amputation) Labs: CBC, BMP 03/18/18 06:30 03/18/18 06:30 INR, PTT INR 1.17 (0.83-1.09) H 03/13/18 20:12 Assessment/Plan S/P debridement of sacral decubitus ulcer POD #3 R/O sepsis secondary to skin source Azotemia improved Parkinsonism/ dementia Substitute zosyn Local wound care
[2018-03-18] MEDS ORDERED: DEXTROSE 5%-WATER - 50 ML IVPB ONE ×2 (11:59→18:17)
[2018-03-18] MEDS ORDERED: PIPERACILLIN/TAZOBACTAM 3.375 GM VIAL IVPB ONE ×2 (11:59→18:17)
[2018-03-18] MEDS: PIPERACILLIN/TAZOB 3.375 GM 3.375 GM in DEXTROSE 5%-WATER - 50 ML IVPB SCH ×2 (12:08→18:22)
[2018-03-18] MEDS: SODIUM HYPOCHLORITE 0.25%- 473 ML BULK BOTTLE TP SCH (12:08)
--- NOTE | 2018-03-18 13:17 | OP ---
DATE OF OPERATION: 03/15/2018 PREOPERATIVE DIAGNOSIS: Unstageable sacral ulcer. POSTOPERATIVE DIAGNOSIS: Unstageable sacral ulcer. PROCEDURE: Excisional debridement of unstageable sacral ulcer. SURGEON: Jose A Davalos MD CAR INSPECTION AND REPAIR MANAGER: Isadora Ramírez PA-C ANESTHESIA: MAC. OPERATIVE FINDINGS: There was an unstageable sacral decubitus consisting of nonviable skin, subcutaneous fat, and muscle. The rest of the findings were unremarkable. PROCEDURE: The patient was placed on the operating room table in supine position and turned to the left lateral decubitus position. A timeout was taken and after appropriate IV sedation and analgesia using the scalpel all nonviable skin, subcutaneous fat, fascia, and muscle were sharply debrided and sent to pathological examination. Excision was taken down to the periosteum of the sacrum. Hemostasis was secured with electrocautery, and the wound was copiously irrigated with a combination of saline and peroxide and then saline. Again, hemostasis was checked for and noted to be good, and then the wound was dressed with saline-soaked Kerlix followed by all gauze, 4 x 4's, and ABD pads. The procedure was terminated at this point, and the patient transferred to the postanesthesia care unit in stable condition awake and in his pre-surgical state. ESTIMATED BLOOD LOSS: 20 mL. REPLACEMENTS: Crystalloid. DRAINS: None. SPECIMENS: No viable sacral ulcer tissue to Pathology. I, Jose A Davalos MD, was physically present in the operating room from the time the patient was placed on the operating room table until he was transferred to the postanesthesia care unit in my accompaniment. Jose A Davalos MD /[id number] MTDD
--- NOTE | 2018-03-18 15:55 | PN ---
Progress Note, Physician History of Present Illness: Pt is not able to provide ROS (secondary to dementia). Pt Hernandez is draining clear urine. Pt is s/p one unit PRBC Tx - Current Medication List Current Medications: Active Medications Acetaminophen (Tylenol -) 650 mg PO Q6H PRN PRN Reason: FEVER Last Admin: 03/17/18 17:11 Dose: 650 mg Aspirin (Asa -) 81 mg PO DAILY [facility] Last Admin: 03/18/18 09:55 Dose: 81 mg Carbidopa/Levodopa (Sinemet 25/100 -) 2 each PO 0600,1300,2100 [facility] Last Admin: 03/18/18 14:39 Dose: 2 each Carbidopa/Levodopa (Sinemet 25/100 -) 1 each PO 0900,1700 [facility] Last Admin: 03/18/18 09:56 Dose: 1 each Citalopram Hydrobromide (Celexa -) 40 mg PO DAILY [facility] Last Admin: 03/18/18 09:55 Dose: 40 mg Heparin Sodium (Porcine) (Heparin -) 5,000 unit SQ BID [facility] Last Admin: 03/18/18 09:57 Dose: 5,000 unit Piperacillin Sod/Tazobactam (Sod 3.375 gm/ Dextrose) 50 mls @ 100 mls/hr IVPB Q8H-IV [facility]; Protocol Last Admin: 03/18/18 12:08 Dose: 100 mls/hr Insulin Aspart (Novolog Vial Sliding Scale -) 1 vial SQ ACHS [facility]; Protocol Insulin Detemir (Levemir Vial) 16 units SQ DAILY@0700 [facility] Last Admin: 03/18/18 06:50 Dose: 16 units Morphine Sulfate (Morphine Sulfate) 2 mg IVPUSH Q3H PRN PRN Reason: PAIN LEVEL 4 - 6 Last Admin: 03/18/18 08:00 Dose: 2 mg Sodium Hypochlorite (Dakin's Solution 0.25% (Half-Strength) -) 1 applic TP DAILY [facility] Last Admin: 03/18/18 12:08 Dose: 1 applic Tamsulosin HCl (Flomax -) 0.4 mg PO DAILY@0830 [facility] Last Admin: 03/18/18 09:57 Dose: 0.4 mg - Objective Vital Signs: Vital Signs Temperature 98.5 F 03/18/18 14:19 Pulse Rate 71 03/18/18 14:19 Respiratory Rate 20 03/18/18 14:19 Blood Pressure 116/54 L 03/18/18 14:19 O2 Sat by Pulse Oximetry (%) 95 03/18/18 09:00 Constitutional: Yes: No Distress, Calm Cardiovascular: Yes: Regular Rate and Rhythm, S1, S2 Respiratory: Yes: Regular, CTA Bilaterally. No: Rales Gastrointestinal: Yes: Normal Bowel Sounds, Soft Extremities: Yes: Delayed Capillary Refill Edema: No Neurological: Yes: Alert, Oriented Labs: CBC, BMP 03/18/18 06:30 03/18/18 06:30 INR, PTT INR 1.17 (0.83-1.09) H 03/13/18 20:12 Problem List - Problems (1) Decubitus ulcer of sacral region, unstageable Code(s): L89.150 - PRESSURE ULCER OF SACRAL REGION, UNSTAGEABLE (2) Sepsis Code(s): A41.9 - SEPSIS, UNSPECIFIED ORGANISM Qualifiers: Sepsis type: sepsis due to unspecified organism Qualified Code(s): A41.9 - Sepsis, unspecified organism (3) Anemia Code(s): D64.9 - ANEMIA, UNSPECIFIED (4) Dementia Code(s): F03.90 - UNSPECIFIED DEMENTIA WITHOUT BEHAVIORAL DISTURBANCE (5) Urinary retention Code(s): R33.9 - RETENTION OF URINE, UNSPECIFIED (6) S/P AKA (above knee amputation) unilateral Code(s): Z89.619 - ACQUIRED ABSENCE OF UNSPECIFIED LEG ABOVE KNEE (7) PAD (peripheral artery disease) Code(s): I73.9 - PERIPHERAL VASCULAR DISEASE, UNSPECIFIED (8) Parkinson disease Code(s): G20 - PARKINSON'S DISEASE (9) Dysphagia Code(s): R13.10 - DYSPHAGIA, UNSPECIFIED (10) CRF (chronic renal failure) Code(s): N18.9 - CHRONIC KIDNEY DISEASE, UNSPECIFIED Qualifiers: Chronic kidney disease stage: stage 3 (moderate) Qualified Code(s): N18.3 - Chronic kidney disease, stage 3 (moderate) (11) Chronic heel ulcer Code(s): L97.409 - NON-PRS CHRONIC ULCER OF UNSP HEEL AND MIDFOOT W UNSP SEVERT (12) Obstructive and reflux uropathy Code(s): N13.9 - OBSTRUCTIVE AND REFLUX UROPATHY, UNSPECIFIED Assessment/Plan IV abtx -per ID Surgery, ID, Cardio consults are appreciated. S/p sacral ulcer debridement, post op day #3. To DC Hernandez after VAC is placed AM labs.
[2018-03-19] MEDS ORDERED: DEXTROSE 5%-WATER - 50 ML IVPB ONE ×3 (01:16→17:50)
[2018-03-19] MEDS ORDERED: PIPERACILLIN/TAZOBACTAM 3.375 GM VIAL IVPB ONE ×3 (01:16→17:50)
[2018-03-19] MEDS: PIPERACILLIN/TAZOB 3.375 GM 3.375 GM in DEXTROSE 5%-WATER - 50 ML IVPB SCH ×3 (02:30→17:40)
[2018-03-19 04:16] LABS: SERUM IRON SATURATION 25 % (15-55); TOTAL IRON BINDING CAPACITY 130 ug/dL (250-450); UIBC 97 ug/dL (111-343)
[2018-03-19] MEDS: CARBIDOPA/LEVODOPA 25/100 TABLET (FP) PO SCH ×5 (06:02→22:20)
[2018-03-19] MEDS: INSULIN (LEVEMIR) 100 UNITS/ML UNITS SQ SCH (06:02)
[2018-03-19] MEDS: INSULIN SLIDING SCALE (NOVOLOG) 1 VIAL SQ SCH ×4 (06:02→22:21)
[2018-03-19 07:06] LABS: HEMATOCRIT 27.2 % (35.4-49); HEMOGLOBIN 8.7 GM/dL (11.7-16.9); MCH 29.7 pg (25.7-33.7); MEAN CELL VOLUME 92.8 fl (80-96); MEAN PLT VOLUME 6.6 fl (7.5-11.1); PLATELET COUNT 245 K/MM3 (134-434); RBC 2.93 M/mm3 (4.00-5.60); RDW 16.3 % (11.9-15.9); WHITE BLOOD COUNT 9.1 K/mm3 (4.0-10.0)
[2018-03-19 07:39] LABS: ANION GAP 9 MMOL/L (8-16); BLOOD UREA NITROGEN 29 mg/dL (7-18); CALCIUM 7.8 mg/dL (8.5-10.1); CHLORIDE 114 mmol/L (98-107); CO2 24 mmol/L (21-32); CREATININE 1.4 mg/dL (0.55-1.3); GLUCOSE,RANDOM 132 mg/dL (74-106); POTASSIUM 4.7 mmol/L (3.5-5.1); SODIUM 147 mmol/L (136-145)
[2018-03-19] MEDS ORDERED: PT OWN MED DRAWER 7, Y5N ONE ×2 (08:29→11:27)
[2018-03-19] MEDS: TAMSULOSIN HCL 0.4 MG CAP PO SCH (09:31)
[2018-03-19] MEDS: CITALOPRAM HYDROBROMIDE 20 MG TABLET (FP) PO SCH (09:31)
[2018-03-19] MEDS: HEPARIN NA (PORCINE) 5,000 UNITS/ML 1ML VIAL SQ SCH ×2 (09:32→22:17)
[2018-03-19] MEDS: ASPIRIN 81 MG CHEWABLE TABLETS PO SCH (09:32)
[2018-03-19] MEDS: SODIUM HYPOCHLORITE 0.25%- 473 ML BULK BOTTLE TP SCH (09:38)
[2018-03-19] MEDS: ACETAMINOPHEN 325 MG TABLET (FP) PO PRN ×2 (09:38→15:14)
--- NOTE | 2018-03-19 09:50 | PN ---
Progress Note, Physician History of Present Illness: Pt is not able to provide ROS (secondary to dementia). Pt's is at the bedside, states that pt becames sleepy after receiving Morphine (2 mg IVP). - Current Medication List Current Medications: Active Medications Acetaminophen (Tylenol -) 650 mg PO Q6H PRN PRN Reason: FEVER Last Admin: 03/19/18 09:38 Dose: 650 mg Aspirin (Asa -) 81 mg PO DAILY [facility] Last Admin: 03/19/18 09:32 Dose: 81 mg Carbidopa/Levodopa (Sinemet 25/100 -) 2 each PO 0600,1300,2100 [facility] Last Admin: 03/19/18 06:02 Dose: 2 each Carbidopa/Levodopa (Sinemet 25/100 -) 1 each PO 0900,1700 [facility] Last Admin: 03/18/18 17:53 Dose: 1 each Citalopram Hydrobromide (Celexa -) 40 mg PO DAILY [facility] Last Admin: 03/19/18 09:31 Dose: 40 mg Heparin Sodium (Porcine) (Heparin -) 5,000 unit SQ BID [facility] Last Admin: 03/19/18 09:32 Dose: 5,000 unit Piperacillin Sod/Tazobactam (Sod 3.375 gm/ Dextrose) 50 mls @ 100 mls/hr IVPB Q8H-IV [facility]; Protocol Last Admin: 03/19/18 09:32 Dose: 100 mls/hr Insulin Aspart (Novolog Vial Sliding Scale -) 1 vial SQ ACHS [facility]; Protocol Last Admin: 03/19/18 06:02 Dose: Not Given Insulin Detemir (Levemir Vial) 16 units SQ DAILY@0700 [facility] Last Admin: 03/19/18 06:02 Dose: 16 units Morphine Sulfate (Morphine Sulfate) 2 mg IVPUSH Q3H PRN PRN Reason: PAIN LEVEL 4 - 6 Last Admin: 03/18/18 08:00 Dose: 2 mg Sodium Hypochlorite (Dakin's Solution 0.25% (Half-Strength) -) 1 applic TP DAILY [facility] Last Admin: 03/19/18 09:38 Dose: 1 applic Tamsulosin HCl (Flomax -) 0.4 mg PO DAILY@0830 [facility] Last Admin: 03/19/18 09:31 Dose: 0.4 mg - Objective Vital Signs: Vital Signs Temperature 98 F 03/19/18 05:58 Pulse Rate 67 03/19/18 05:58 Respiratory Rate 20 03/19/18 05:58 Blood Pressure 143/60 03/19/18 05:58 O2 Sat by Pulse Oximetry (%) 96 03/18/18 21:00 Constitutional: Yes: No Distress, Calm Cardiovascular: Yes: Regular Rate and Rhythm, S1, S2 Respiratory: Yes: Regular, CTA Bilaterally. No: Rales Gastrointestinal: Yes: Normal Bowel Sounds, Soft. No: Tenderness Extremities: Yes: Other (s/p right AKA) Edema: No (on left leg) Neurological: Yes: Alert, Oriented Labs: CBC, BMP 03/19/18 06:30 03/19/18 06:30 INR, PTT INR 1.17 (0.83-1.09) H 03/13/18 20:12 Problem List - Problems (1) Decubitus ulcer of sacral region, unstageable Code(s): L89.150 - PRESSURE ULCER OF SACRAL REGION, UNSTAGEABLE (2) Sepsis Code(s): A41.9 - SEPSIS, UNSPECIFIED ORGANISM Qualifiers: Sepsis type: sepsis due to unspecified organism Qualified Code(s): A41.9 - Sepsis, unspecified organism (3) Anemia Code(s): D64.9 - ANEMIA, UNSPECIFIED (4) Dementia Code(s): F03.90 - UNSPECIFIED DEMENTIA WITHOUT BEHAVIORAL DISTURBANCE (5) Urinary retention Code(s): R33.9 - RETENTION OF URINE, UNSPECIFIED (6) S/P AKA (above knee amputation) unilateral Code(s): Z89.619 - ACQUIRED ABSENCE OF UNSPECIFIED LEG ABOVE KNEE (7) PAD (peripheral artery disease) Code(s): I73.9 - PERIPHERAL VASCULAR DISEASE, UNSPECIFIED (8) Parkinson disease Code(s): G20 - PARKINSON'S DISEASE (9) Dysphagia Code(s): R13.10 - DYSPHAGIA, UNSPECIFIED (10) CRF (chronic renal failure) Code(s): N18.9 - CHRONIC KIDNEY DISEASE, UNSPECIFIED Qualifiers: Chronic kidney disease stage: stage 3 (moderate) Qualified Code(s): N18.3 - Chronic kidney disease, stage 3 (moderate) (11) Chronic heel ulcer Code(s): L97.409 - NON-PRS CHRONIC ULCER OF UNSP HEEL AND MIDFOOT W UNSP SEVERT (12) Obstructive and reflux uropathy Code(s): N13.9 - OBSTRUCTIVE AND REFLUX UROPATHY, UNSPECIFIED Assessment/Plan IV abtx -per ID Surgery, ID, Cardio consults are appreciated. S/p sacral ulcer debridement; VAC placement per surgery. To DC Hernandez after VAC is placed (it was discussed with pt's ). To decrease Morphine dose. Pt's care was d/w pt's nurse. AM labs.
--- NOTE | 2018-03-19 12:16 | PN ---
Progress Note (short form) - Note Progress Note: Progress Note: s: lethargic, nonverbal h/o dementia o: Vital Signs Period Temp Pulse Resp BP Sys/Kebede Pulse Ox Last 24 Hr 98 F-98.6 F 63-73 20-20 116-143/50-66 96 Constitutional: Yes: No Distress, Calm Eyes: Yes: Conjunctiva Clear Neck: Yes: Supple, Trachea Midline Respiratory: Yes: Regular, CTA Bilaterally (auscultated anteriorly) Gastrointestinal: Yes: Normal Bowel Sounds, Soft Cardiovascular: Yes: Regular Rate and Rhythm JVD: No Carotid Bruit: No Heart Sounds: Yes: S1, S2 Extremities: Yes: Amputation. No: Cold Edema: No Peripheral Pulses WNL: No Integumentary: No: Jaundice Neurological: Yes: Other (nonverbal) Psychiatric: No: Agitated Current Medications Acetaminophen (Tylenol -) 650 mg PO Q6H PRN PRN Reason: FEVER Last Admin: 03/19/18 09:38 Dose: 650 mg Aspirin (Asa -) 81 mg PO DAILY [facility] Last Admin: 03/19/18 09:32 Dose: 81 mg Carbidopa/Levodopa (Sinemet 25/100 -) 2 each PO 0600,1300,2100 [facility] Last Admin: 03/19/18 06:02 Dose: 2 each Carbidopa/Levodopa (Sinemet 25/100 -) 1 each PO 0900,1700 [facility] Last Admin: 03/19/18 11:54 Dose: Not Given Citalopram Hydrobromide (Celexa -) 40 mg PO DAILY [facility] Last Admin: 03/19/18 09:31 Dose: 40 mg Heparin Sodium (Porcine) (Heparin -) 5,000 unit SQ BID [facility] Last Admin: 03/19/18 09:32 Dose: 5,000 unit Piperacillin Sod/Tazobactam (Sod 3.375 gm/ Dextrose) 50 mls @ 100 mls/hr IVPB Q8H-IV [facility]; Protocol Last Admin: 03/19/18 09:32 Dose: 100 mls/hr Insulin Aspart (Novolog Vial Sliding Scale -) 1 vial SQ ACHS [facility]; Protocol Last Admin: 03/19/18 12:01 Dose: 4 unit Insulin Detemir (Levemir Vial) 16 units SQ DAILY@0700 [facility] Last Admin: 03/19/18 06:02 Dose: 16 units Morphine Sulfate (Morphine Sulfate) 2 mg IVPUSH Q3H PRN PRN Reason: PAIN LEVEL 4 - 6 Last Admin: 03/18/18 08:00 Dose: 2 mg Sodium Hypochlorite (Dakin's Solution 0.25% (Half-Strength) -) 1 applic TP DAILY [facility] Last Admin: 03/19/18 09:38 Dose: 1 applic Tamsulosin HCl (Flomax -) 0.4 mg PO DAILY@0830 [facility] Last Admin: 03/19/18 09:31 Dose: 0.4 mg echo 02/2018: nl lv/rv, no sig valve path, ao root 3.9 cm EKG: sinus rhythm, nonspecific ST changes CXR: no acute process a/p: 77M h/o DM, R AKA, sacral ulcer, dementia p/w decub ulcer with plan for debridement decubitus ulcer - s/p debridement - manage per surgery, primary DM - manage per primary team dementia - nonverbal at baseline PAD, s/p AKA - continue aspirin
--- NOTE | 2018-03-19 16:07 | PATH ---
Surgical Pathology Report Patient Name: CHELA MERCADO Med. Rec. #: [id number] /Age/Gender: 1940 (Age: 77) / M Account: [id number] [facility] Taken: 03/15/2018 Received: 03/18/2018 Reported: 03/19/2018 Physicians: Jose A Davalos MD PHYSICIAN EMERGENCY DEPT Specimen(s) Received ESCHAR Clinical History Sacral ulcer Final Diagnosis SOFT TISSUE, SACRUM, DEBRIDEMENT: GANGRENOUS NECROSIS. Electronically Signed Timmy Hernandez M.D. Gross Description Received in formalin labeled "eschar decubitus," is an 8.5 x 7.5 x 2.3 cm brown-richardson, unoriented, necrotic portion of skin with underlying soft tissue. A petroleum products sales representative section is submitted in one cassette. 03/18/201803/18/2018
[2018-03-20] MEDS ORDERED: PIPERACILLIN/TAZOBACTAM 3.375 GM VIAL IVPB ONE ×3 (01:45→16:53)
[2018-03-20] MEDS ORDERED: DEXTROSE 5%-WATER - 50 ML IVPB ONE ×3 (01:46→16:53)
[2018-03-20] MEDS: PIPERACILLIN/TAZOB 3.375 GM 3.375 GM in DEXTROSE 5%-WATER - 50 ML IVPB SCH ×3 (02:49→17:28)
[2018-03-20] MEDS: CARBIDOPA/LEVODOPA 25/100 TABLET (FP) PO SCH ×5 (05:44→22:49)
[2018-03-20 06:54] LABS: HEMATOCRIT 26.4 % (35.4-49); HEMOGLOBIN 8.6 GM/dL (11.7-16.9); MCH 30.2 pg (25.7-33.7); MCHC 32.4 g/dl (32.0-35.9); MEAN CELL VOLUME 93.4 fl (80-96); PLATELET COUNT 259 K/MM3 (134-434); RBC 2.83 M/mm3 (4.00-5.60); RDW 16.3 % (11.9-15.9); WHITE BLOOD COUNT 20.9 K/mm3 (4.0-10.0)
[2018-03-20] MEDS: INSULIN (LEVEMIR) 100 UNITS/ML UNITS SQ SCH (06:59)
[2018-03-20] MEDS: INSULIN SLIDING SCALE (NOVOLOG) 1 VIAL SQ SCH ×4 (07:00→22:48)
[2018-03-20 09:29] LABS: ANION GAP 11 MMOL/L (8-16); BLOOD UREA NITROGEN 29 mg/dL (7-18); CALCIUM 7.8 mg/dL (8.5-10.1); CHLORIDE 112 mmol/L (98-107); CO2 22 mmol/L (21-32); CREATININE 1.8 mg/dL (0.55-1.3); GLUCOSE,RANDOM 145 mg/dL (74-106); POTASSIUM 4.7 mmol/L (3.5-5.1); SODIUM 145 mmol/L (136-145)
--- NOTE | 2018-03-20 09:35 | PN ---
Progress Note, Physician Chief Complaint: pt in bed R SALONI opens eyes, at bedside talks to him in yakut seems comfortable s/p decubs debridement; chart meds consults reviewed d/w dr Davalos - Current Medication List Current Medications: Active Medications Acetaminophen (Tylenol -) 650 mg PO Q6H PRN PRN Reason: FEVER Last Admin: 03/19/18 15:14 Dose: 650 mg Aspirin (Asa -) 81 mg PO DAILY [facility] Last Admin: 03/19/18 09:32 Dose: 81 mg Carbidopa/Levodopa (Sinemet 25/100 -) 2 each PO 0600,1300,2100 [facility] Last Admin: 03/20/18 05:44 Dose: 2 each Carbidopa/Levodopa (Sinemet 25/100 -) 1 each PO 0900,1700 [facility] Last Admin: 03/19/18 17:40 Dose: 1 each Citalopram Hydrobromide (Celexa -) 40 mg PO DAILY [facility] Last Admin: 03/19/18 09:31 Dose: 40 mg Heparin Sodium (Porcine) (Heparin -) 5,000 unit SQ BID [facility] Last Admin: 03/19/18 22:17 Dose: 5,000 unit Piperacillin Sod/Tazobactam (Sod 3.375 gm/ Dextrose) 50 mls @ 100 mls/hr IVPB Q8H-IV [facility]; Protocol Last Admin: 03/20/18 02:49 Dose: 100 mls/hr Insulin Aspart (Novolog Vial Sliding Scale -) 1 vial SQ ACHS [facility]; Protocol Last Admin: 03/20/18 07:00 Dose: 2 unit Insulin Detemir (Levemir Vial) 16 units SQ DAILY@0700 [facility] Last Admin: 03/20/18 06:59 Dose: 16 units Morphine Sulfate (Morphine Sulfate) 1 mg IVPUSH Q3H PRN PRN Reason: PAIN LEVEL 4 - 6 Sodium Hypochlorite (Dakin's Solution 0.25% (Half-Strength) -) 1 applic TP DAILY [facility] Last Admin: 03/19/18 09:38 Dose: 1 applic Tamsulosin HCl (Flomax -) 0.4 mg PO DAILY@0830 [facility] Last Admin: 03/19/18 09:31 Dose: 0.4 mg - Objective Vital Signs: Vital Signs Temperature 101.3 F H 03/20/18 06:00 Pulse Rate 71 03/20/18 06:00 Respiratory Rate 20 03/20/18 06:00 Blood Pressure 105/41 L 03/20/18 06:00 O2 Sat by Pulse Oximetry (%) 94 L 03/19/18 21:00 Constitutional: Yes: Calm Eyes: Yes: Conjunctiva Clear HENT: Yes: Atraumatic Neck: Yes: Supple Cardiovascular: Yes: Regular Rate and Rhythm Respiratory: Yes: Diminished Gastrointestinal: Yes: Soft. No: Distention Genitourinary: No: Hematuria Musculoskeletal: No: Joint Stiffness, Joint Swelling Extremities: Yes: Amputation (R AKA). No: Cold, Cool Edema: No Integumentary: Yes: Pressure Ulcer. No: Rash Neurological: Yes: Alert. No: Oriented Psychiatric: Yes: Alert. No: Oriented, Agitated Labs: CBC, BMP 03/20/18 06:00 03/20/18 06:00 INR, PTT INR 1.17 (0.83-1.09) H 03/13/18 20:12 - ....Imaging Other: Report Reviewed Assessment/Plan 78 year old gentleman with history of DM, PVD s/p Right AKA, Sacral ulcers, Dementia, BPH, CKD (baseline Cr ~1.6), anemia, UIT Pseudomonas, presented with sacral ulcerations requiring debridement rising WBC, mild increase in creatinine also noted short trial of IVF in addition to po intake IV ATB per ID f/u labs and cultures surgery f/u dr Davalos, to decide about VAC placement prognosis poor turn in bed for decubs PFX aspiration, falls DVT pfx d/w pt and pt's at bedside
[2018-03-20] MEDS: ASPIRIN 81 MG CHEWABLE TABLETS PO SCH (10:37)
[2018-03-20] MEDS: TAMSULOSIN HCL 0.4 MG CAP PO SCH (10:37)
[2018-03-20] MEDS: CITALOPRAM HYDROBROMIDE 20 MG TABLET (FP) PO SCH (10:37)
[2018-03-20] MEDS: HEPARIN NA (PORCINE) 5,000 UNITS/ML 1ML VIAL SQ SCH ×2 (10:37→22:49)
[2018-03-20] MEDS: SODIUM HYPOCHLORITE 0.25%- 473 ML BULK BOTTLE TP SCH (10:38)
--- NOTE | 2018-03-20 11:34 | PN ---
Progress Note, Physician History of Present Illness: Awake, non-verbal No acute distress Nopn toxic appearing Spiked temp 101.3 WBC increased 20.9 Cr increased 1.8 Cultures mixed organisms - Current Medication List Current Medications: Active Medications Acetaminophen (Tylenol -) 650 mg PO Q6H PRN PRN Reason: FEVER Last Admin: 03/19/18 15:14 Dose: 650 mg Aspirin (Asa -) 81 mg PO DAILY [facility] Last Admin: 03/20/18 10:37 Dose: 81 mg Carbidopa/Levodopa (Sinemet 25/100 -) 2 each PO 0600,1300,2100 [facility] Last Admin: 03/20/18 05:44 Dose: 2 each Carbidopa/Levodopa (Sinemet 25/100 -) 1 each PO 0900,1700 [facility] Last Admin: 03/20/18 10:36 Dose: 1 each Citalopram Hydrobromide (Celexa -) 40 mg PO DAILY [facility] Last Admin: 03/20/18 10:37 Dose: 40 mg Heparin Sodium (Porcine) (Heparin -) 5,000 unit SQ BID [facility] Last Admin: 03/20/18 10:37 Dose: 5,000 unit Piperacillin Sod/Tazobactam (Sod 3.375 gm/ Dextrose) 50 mls @ 100 mls/hr IVPB Q8H-IV [facility]; Protocol Last Admin: 03/20/18 10:37 Dose: 100 mls/hr Insulin Aspart (Novolog Vial Sliding Scale -) 1 vial SQ ACHS [facility]; Protocol Last Admin: 03/20/18 07:00 Dose: 2 unit Insulin Detemir (Levemir Vial) 16 units SQ DAILY@0700 [facility] Last Admin: 03/20/18 06:59 Dose: 16 units Morphine Sulfate (Morphine Sulfate) 1 mg IVPUSH Q3H PRN PRN Reason: PAIN LEVEL 4 - 6 Sodium Hypochlorite (Dakin's Solution 0.25% (Half-Strength) -) 1 applic TP DAILY [facility] Last Admin: 03/20/18 10:38 Dose: 1 applic Tamsulosin HCl (Flomax -) 0.4 mg PO DAILY@0830 [facility] Last Admin: 03/20/18 10:37 Dose: 0.4 mg - Objective Vital Signs: Vital Signs Temperature 101.3 F H 03/20/18 06:00 Pulse Rate 71 03/20/18 06:00 Respiratory Rate 20 03/20/18 06:00 Blood Pressure 105/41 L 03/20/18 06:00 O2 Sat by Pulse Oximetry (%) 94 L 03/19/18 21:00 Constitutional: Yes: No Distress, Pallor Cardiovascular: Yes: Regular Rate and Rhythm, S1, S2 Respiratory: Yes: Diminished Gastrointestinal: Yes: Normal Bowel Sounds, Soft. No: Tenderness Edema: No Labs: CBC, BMP 03/20/18 06:00 03/20/18 06:00 INR, PTT INR 1.17 (0.83-1.09) H 03/13/18 20:12 Assessment/Plan Fever/ leukocytosis S/P debridement of sacral decubitus ulcer POD #5 R/O sepsis secondary to skin source Azotemia worsened Parkinsonism/ dementia Repeat cultures, CXR Continue zosyn Local wound care
--- NOTE | 2018-03-20 11:49 | PN ---
Progress Note (short form) - Note Progress Note: Progress Note: s: lethargic, nonverbal h/o dementia. fever this morning o: Vital Signs Period Temp Pulse Resp BP Sys/Kebede Pulse Ox Last 24 Hr 98.0 F-101.3 F 66-80 20-20 105-122/41-61 94 Constitutional: Yes: No Distress, Calm Eyes: Yes: Conjunctiva Clear Neck: Yes: Supple, Trachea Midline Respiratory: Yes: Regular, CTA Bilaterally (auscultated anteriorly) Gastrointestinal: Yes: Normal Bowel Sounds, Soft Cardiovascular: Yes: Regular Rate and Rhythm JVD: No Carotid Bruit: No Heart Sounds: Yes: S1, S2 Extremities: Yes: Amputation. No: Cold Edema: No Peripheral Pulses WNL: No Integumentary: No: Jaundice Neurological: Yes: Other (nonverbal) Psychiatric: No: Agitated Current Medications Acetaminophen (Tylenol -) 650 mg PO Q6H PRN PRN Reason: FEVER Last Admin: 03/19/18 15:14 Dose: 650 mg Aspirin (Asa -) 81 mg PO DAILY [facility] Last Admin: 03/20/18 10:37 Dose: 81 mg Carbidopa/Levodopa (Sinemet 25/100 -) 2 each PO 0600,1300,2100 [facility] Last Admin: 03/20/18 05:44 Dose: 2 each Carbidopa/Levodopa (Sinemet 25/100 -) 1 each PO 0900,1700 [facility] Last Admin: 03/20/18 10:36 Dose: 1 each Citalopram Hydrobromide (Celexa -) 40 mg PO DAILY [facility] Last Admin: 03/20/18 10:37 Dose: 40 mg Heparin Sodium (Porcine) (Heparin -) 5,000 unit SQ BID [facility] Last Admin: 03/20/18 10:37 Dose: 5,000 unit Piperacillin Sod/Tazobactam (Sod 3.375 gm/ Dextrose) 50 mls @ 100 mls/hr IVPB Q8H-IV [facility]; Protocol Last Admin: 03/20/18 10:37 Dose: 100 mls/hr Insulin Aspart (Novolog Vial Sliding Scale -) 1 vial SQ ACHS [facility]; Protocol Last Admin: 03/20/18 07:00 Dose: 2 unit Insulin Detemir (Levemir Vial) 16 units SQ DAILY@0700 [facility] Last Admin: 03/20/18 06:59 Dose: 16 units Morphine Sulfate (Morphine Sulfate) 1 mg IVPUSH Q3H PRN PRN Reason: PAIN LEVEL 4 - 6 Sodium Hypochlorite (Dakin's Solution 0.25% (Half-Strength) -) 1 applic TP DAILY [facility] Last Admin: 03/20/18 10:38 Dose: 1 applic Tamsulosin HCl (Flomax -) 0.4 mg PO DAILY@0830 [facility] Last Admin: 03/20/18 10:37 Dose: 0.4 mg echo 02/2018: nl lv/rv, no sig valve path, ao root 3.9 cm EKG: sinus rhythm, nonspecific ST changes CXR: no acute process a/p: 77M h/o DM, R AKA, sacral ulcer, dementia p/w decub ulcer s/p debridement decubitus ulcer, fever - s/p debridement - manage per surgery, primary, ID DM - manage per primary team dementia - nonverbal at baseline PAD, s/p AKA - continue aspirin
--- NOTE | 2018-03-20 13:26 | PN ---
Progress Note (short form) - Note Progress Note: Attending Surgeon POD#5 Seen in f/u VSS Temp 101.3 wound open and starting to granulate e/f over the sacrum; o/w negative; wound is 10.0 cm. x 10.0 cm. WBC-elevated IMP: stable post op PLAN:Continue present tx.; if wound continues to improve will consider VAC tx.later in the week. Jose A Davalos MD FACS
[2018-03-20] MEDS: ACETAMINOPHEN 325 MG TABLET (FP) PO PRN (17:33)
[2018-03-20] MEDS ORDERED: PT OWN MED DRAWER 7, Y5N ONE (22:11)
[2018-03-21] MEDS ORDERED: PIPERACILLIN/TAZOBACTAM 3.375 GM VIAL IVPB ONE ×3 (00:14→17:51)
[2018-03-21] MEDS ORDERED: DEXTROSE 5%-WATER - 50 ML IVPB ONE ×3 (00:14→17:51)
[2018-03-21] MEDS: PIPERACILLIN/TAZOB 3.375 GM 3.375 GM in DEXTROSE 5%-WATER - 50 ML IVPB SCH ×3 (01:08→17:55)
[2018-03-21 02:40] LABS: URINE APPEARANCE CLEAR; URINE BILIRUBIN NEGATIVE (<2.0 mg/dL); URINE COLOR LTYELLOW; URINE GLUCOSE (UA) NEGATIVE (NEGATIVE); URINE KETONE NEGATIVE (NEGATIVE); URINE LEUK ESTERASE 1+ (NEGATIVE); URINE NITRITE NEGATIVE (NEGATIVE); URINE PROTEIN 1+ (NEGATIVE); URINE UROBILINOGEN NEGATIVE mg/dL (0.2-1.0)
[2018-03-21 02:46] LABS: URINE BACTERIA FEW /hpf (NONE SEEN); URINE HYALINE CAST 1 /lpf; URINE MUCUS RARE
[2018-03-21] MEDS: CARBIDOPA/LEVODOPA 25/100 TABLET (FP) PO SCH ×5 (06:34→21:32)
[2018-03-21] MEDS: INSULIN (LEVEMIR) 100 UNITS/ML UNITS SQ SCH (06:35)
[2018-03-21] MEDS: INSULIN SLIDING SCALE (NOVOLOG) 1 VIAL SQ SCH ×4 (06:36→21:33)
--- NOTE | 2018-03-21 07:17 | PN ---
Progress Note, Physician Chief Complaint: opens eye; NAD VSS; had some fever yesterday increased WBC increased creatinine; will ask renal in eval consults noted - Current Medication List Current Medications: Active Medications Acetaminophen (Tylenol -) 650 mg PO Q6H PRN PRN Reason: FEVER Last Admin: 03/20/18 17:33 Dose: 650 mg Aspirin (Asa -) 81 mg PO DAILY [facility] Last Admin: 03/20/18 10:37 Dose: 81 mg Carbidopa/Levodopa (Sinemet 25/100 -) 2 each PO 0600,1300,2100 [facility] Last Admin: 03/21/18 06:34 Dose: 2 each Carbidopa/Levodopa (Sinemet 25/100 -) 1 each PO 0900,1700 [facility] Last Admin: 03/20/18 17:28 Dose: 1 each Citalopram Hydrobromide (Celexa -) 40 mg PO DAILY [facility] Last Admin: 03/20/18 10:37 Dose: 40 mg Heparin Sodium (Porcine) (Heparin -) 5,000 unit SQ BID [facility] Last Admin: 03/20/18 22:49 Dose: 5,000 unit Piperacillin Sod/Tazobactam (Sod 3.375 gm/ Dextrose) 50 mls @ 100 mls/hr IVPB Q8H-IV [facility]; Protocol Last Admin: 03/21/18 01:08 Dose: 100 mls/hr Insulin Aspart (Novolog Vial Sliding Scale -) 1 vial SQ ACHS [facility]; Protocol Last Admin: 03/21/18 06:36 Dose: 4 unit Insulin Detemir (Levemir Vial) 16 units SQ DAILY@0700 [facility] Last Admin: 03/21/18 06:35 Dose: 16 units Morphine Sulfate (Morphine Sulfate) 1 mg IVPUSH Q3H PRN PRN Reason: PAIN LEVEL 4 - 6 Sodium Hypochlorite (Dakin's Solution 0.25% (Half-Strength) -) 1 applic TP DAILY [facility] Last Admin: 03/20/18 10:38 Dose: 1 applic Tamsulosin HCl (Flomax -) 0.4 mg PO DAILY@0830 [facility] Last Admin: 03/20/18 10:37 Dose: 0.4 mg - Objective Vital Signs: Vital Signs Temperature 98.1 F 03/21/18 05:39 Pulse Rate 59 L 03/21/18 05:39 Respiratory Rate 20 03/21/18 05:39 Blood Pressure 95/50 L 03/21/18 05:39 O2 Sat by Pulse Oximetry (%) 98 03/20/18 21:00 Constitutional: Yes: Calm Eyes: Yes: Conjunctiva Clear HENT: Yes: Atraumatic Neck: Yes: Supple Cardiovascular: Yes: Regular Rate and Rhythm Respiratory: Yes: Diminished Gastrointestinal: Yes: Soft. No: Distention Genitourinary: No: Hematuria Musculoskeletal: No: Joint Stiffness, Joint Swelling Extremities: Yes: Amputation. No: Cold, Cool, Cyanosis Edema: No Integumentary: Yes: Pressure Ulcer Neurological: Yes: Alert. No: Oriented Psychiatric: Yes: Alert. No: Oriented, Agitated Labs: CBC, BMP 03/20/18 06:00 03/20/18 06:00 INR, PTT INR 1.17 (0.83-1.09) H 03/13/18 20:12 - ....Imaging Other: Report Reviewed Assessment/Plan 78 year old gentleman with history of DM, PVD s/p Right AKA, Sacral ulcers, Dementia, BPH, CKD (baseline Cr ~1.6), anemia, UIT Pseudomonas, presented with sacral ulcerations requiring debridement rising WBC, increase in creatinine also noted short trial of IVF in addition to po intake IV ATB per ID f/u labs and cultures surgery f/u dr Davalos, to decide about VAC placement prognosis poor turn in bed for decubs PFX aspiration, falls DVT pfx d/w pt and staff.
[2018-03-21] MEDS: TAMSULOSIN HCL 0.4 MG CAP PO SCH (08:50)
[2018-03-21] MEDS ORDERED: SODIUM CHLORIDE 1,000 ML IV SCH (09:30)
[2018-03-21] MEDS: CITALOPRAM HYDROBROMIDE 20 MG TABLET (FP) PO SCH (09:44)
[2018-03-21] MEDS: ASPIRIN 81 MG CHEWABLE TABLETS PO SCH (09:44)
[2018-03-21] MEDS: HEPARIN NA (PORCINE) 5,000 UNITS/ML 1ML VIAL SQ SCH ×2 (09:46→21:33)
[2018-03-21] MEDS: SODIUM HYPOCHLORITE 0.25%- 473 ML BULK BOTTLE TP SCH (09:47)
[2018-03-21 10:14] LABS: BASO % 0.4 % (0-2.0); EOS % 0.9 % (0-4.5); HEMATOCRIT 27.4 % (35.4-49); HEMOGLOBIN 9.1 GM/dL (11.7-16.9); LYMPH % 6.8 % (8-40); MCH 31.4 pg (25.7-33.7); MCHC 33.2 g/dl (32.0-35.9); MEAN CELL VOLUME 94.5 fl (80-96); MEAN PLT VOLUME 6.9 fl (7.5-11.1); MONO % 3.1 % (3.8-10.2); NEUT % 88.8 % (42.8-82.8); PLATELET COUNT 281 K/MM3 (134-434); RDW 16.2 % (11.9-15.9); WHITE BLOOD COUNT 18.5 K/mm3 (4.0-10.0)
--- NOTE | 2018-03-21 10:21 | PN ---
Progress Note (short form) - Note Progress Note: s: lethargic, appears comfortable o: Vital Signs Period Temp Pulse Resp BP Sys/Kebede Pulse Ox Last 24 Hr 98.1 F-101.3 F 59-75 20-20 95-119/48-75 98 Constitutional: Yes: No Distress, Calm Eyes: Yes: Conjunctiva Clear Respiratory: Yes: Regular, CTA Bilaterally (auscultated anteriorly, poor effort) Gastrointestinal: Yes: Normal Bowel Sounds, Soft Cardiovascular: Yes: Regular Rate and Rhythm JVD: No Carotid Bruit: No Heart Sounds: Yes: S1, S2 Extremities: Yes: Amputation. No: Cold Edema: No Peripheral Pulses WNL: No Integumentary: No: Jaundice Neurological: Yes: Other (nonverbal) Psychiatric: No: Agitated Current Medications Generic Name Dose Route Start Last Admin Trade Name Freq PRN Reason Stop Dose Admin Acetaminophen 650 mg 03/15/18 16:08 03/20/18 17:33 Tylenol - PO 650 mg Q6H PRN Administration FEVER Aspirin 81 mg 03/16/18 10:00 03/21/18 09:44 Asa - PO 81 mg DAILY [facility] Administration Carbidopa/Levodopa 2 each 03/15/18 21:00 03/21/18 06:34 Sinemet 25/100 - PO 2 each 0600,1300,2100 [facility] Administration Carbidopa/Levodopa 1 each 03/15/18 17:00 03/21/18 09:45 Sinemet 25/100 - PO 1 each 0900,1700 [facility] Administration Citalopram Hydrobromide 40 mg 03/16/18 10:00 03/21/18 09:44 Celexa - PO 40 mg DAILY [facility] Administration Heparin Sodium (Porcine) 5,000 unit 03/15/18 22:00 03/21/18 09:46 Heparin - SQ 5,000 unit BID [facility] Administration Piperacillin Sod/Tazobactam 50 mls @ 100 mls/hr 03/18/18 11:15 03/21/18 09:46 Sod 3.375 gm/ Dextrose IVPB 100 mls/hr Q8H-IV [facility] Administration Protocol Sodium Chloride 1,000 mls @ 50 mls/hr 03/21/18 09:30 03/21/18 09:45 Normal Saline - IV 03/22/18 09:26 50 mls/hr ASDIR [facility] Administration Insulin Aspart 1 vial 03/18/18 16:30 03/21/18 06:36 Novolog Vial Sliding Scale - SQ 4 unit ACHS [facility] Administration Protocol Insulin Detemir 16 units 03/16/18 07:00 03/21/18 06:35 Levemir Vial SQ 16 units DAILY@0700 [facility] Administration Morphine Sulfate 1 mg 03/19/18 15:51 Morphine Sulfate IVPUSH Q3H PRN PAIN LEVEL 4 - 6 Sodium Hypochlorite 1 applic 03/18/18 10:00 03/21/18 09:47 Dakin's Solution 0.25% (Half-Strength) - TP 1 applic DAILY [facility] Administration Tamsulosin HCl 0.4 mg 03/17/18 08:30 03/21/18 08:50 Flomax - PO 0.4 mg DAILY@0830 [facility] Administration CBC, BMP 03/21/18 09:56 echo 02/2018: nl lv/rv, no sig valve path, ao root 3.9 cm EKG: sinus rhythm, nonspecific ST changes CXR: no acute process a/p: 77M h/o DM, R AKA, sacral ulcer, dementia p/w decub ulcer with plan for debridement decubitus ulcer, fever - s/p debridement - manage per surgery, primary, ID DM - manage per primary team dementia - nonverbal at baseline PAD, s/p AKA - continue aspirin
[2018-03-21 11:03] LABS: ALBUMIN 1.8 g/dl (3.4-5.0); ALK PHOS 138 U/L (45-117); ANION GAP 8 MMOL/L (8-16); BILIRUBIN,TOTAL 0.3 mg/dL (0.2-1); BLOOD UREA NITROGEN 32 mg/dL (7-18); CALCIUM 7.9 mg/dL (8.5-10.1); CHLORIDE 109 mmol/L (98-107); CO2 25 mmol/L (21-32); CREATININE 2.1 mg/dL (0.55-1.3); GLUCOSE,RANDOM 142 mg/dL (74-106); POTASSIUM 4.3 mmol/L (3.5-5.1); SGOT/AST 21 U/L (15-37); SGPT/ALT 6 U/L (13-61); SODIUM 142 mmol/L (136-145); TOT PROT 6.3 g/dl (6.4-8.2)
--- NOTE | 2018-03-21 14:48 | PN ---
Progress Note, Physician History of Present Illness: Awake, non-verbal No acute distress Nopn toxic appearing Temps down WBC remains elevated Cr increased Blood c/s prelim negative CXR no new infiltrate No diarrhea Cultures mixed organisms - Current Medication List Current Medications: Active Medications Acetaminophen (Tylenol -) 650 mg PO Q6H PRN PRN Reason: FEVER Last Admin: 03/20/18 17:33 Dose: 650 mg Aspirin (Asa -) 81 mg PO DAILY [facility] Last Admin: 03/21/18 09:44 Dose: 81 mg Carbidopa/Levodopa (Sinemet 25/100 -) 2 each PO 0600,1300,2100 [facility] Last Admin: 03/21/18 14:09 Dose: 2 each Carbidopa/Levodopa (Sinemet 25/100 -) 1 each PO 0900,1700 [facility] Last Admin: 03/21/18 09:45 Dose: 1 each Citalopram Hydrobromide (Celexa -) 40 mg PO DAILY [facility] Last Admin: 03/21/18 09:44 Dose: 40 mg Heparin Sodium (Porcine) (Heparin -) 5,000 unit SQ BID [facility] Last Admin: 03/21/18 09:46 Dose: 5,000 unit Piperacillin Sod/Tazobactam (Sod 3.375 gm/ Dextrose) 50 mls @ 100 mls/hr IVPB Q8H-IV [facility]; Protocol Last Admin: 03/21/18 09:46 Dose: 100 mls/hr Sodium Chloride (Normal Saline -) 1,000 mls @ 50 mls/hr IV ASDIR [facility] Stop: 03/22/18 09:26 Last Admin: 03/21/18 09:45 Dose: 50 mls/hr Insulin Aspart (Novolog Vial Sliding Scale -) 1 vial SQ ACHS [facility]; Protocol Last Admin: 03/21/18 12:02 Dose: Not Given Insulin Detemir (Levemir Vial) 16 units SQ DAILY@0700 [facility] Last Admin: 03/21/18 06:35 Dose: 16 units Morphine Sulfate (Morphine Sulfate) 1 mg IVPUSH Q3H PRN PRN Reason: PAIN LEVEL 4 - 6 Sodium Hypochlorite (Dakin's Solution 0.25% (Half-Strength) -) 1 applic TP DAILY [facility] Last Admin: 03/21/18 09:47 Dose: 1 applic Tamsulosin HCl (Flomax -) 0.4 mg PO DAILY@0830 [facility] Last Admin: 03/21/18 08:50 Dose: 0.4 mg - Objective Vital Signs: Vital Signs Temperature 97.4 F L 03/21/18 14:38 Pulse Rate 70 03/21/18 14:38 Respiratory Rate 18 03/21/18 14:38 Blood Pressure 115/52 L 03/21/18 10:00 O2 Sat by Pulse Oximetry (%) 98 03/20/18 21:00 Constitutional: Yes: No Distress, Cachectic Cardiovascular: Yes: Regular Rate and Rhythm, S1, S2 Respiratory: Yes: Diminished Gastrointestinal: Yes: Normal Bowel Sounds, Soft. No: Tenderness Extremities: Yes: Other (S/P AKA) Edema: No Integumentary: Yes: Other (sacral decubitus no drainage/ foul odor) Labs: CBC, BMP 03/21/18 09:56 03/21/18 09:56 INR, PTT INR 1.17 (0.83-1.09) H 03/13/18 20:12 Assessment/Plan Fever/ leukocytosis ? source S/P debridement of sacral decubitus ulcer R/O sepsis secondary to skin source Azotemia Parkinsonism/ dementia Check repeat BC Continue zosyn Local wound care
--- NOTE | 2018-03-21 15:45 | CONSULT ---
Consult - text type - Consultation Consultation Note: Renal consult for YENI This is a 78 year old gentleman with history of DM, PVD s/p Right AKA, Sacral ulcers, Dementia, CKD (baseline Cr ~1.6) presented with sacral ulcerations requiring debridement with rise in serum Cr to 2.1. PMhx: as above Allergies: NKDA Family Hx: NC Social Hx: No T/A/D ROS: as per HPI Home Medications Medication Instructions Recorded Aspirin 81 mg PO DAILY 09/28/17 Acetaminophen [8Hr Arthritis Pain 650 mg PO BID 11/29/17 Relief] Ascorbic Acid [Vitamin C] 500 mg PO DAILY 11/29/17 Citalopram Hydrobromide 40 mg PO DAILY 11/29/17 [Citalopram HBr] Insulin Glargine,Hum.rec.anlog 16 unit SQ DAILY 11/29/17 [Lantus Solostar] Insulin Lispro [Humalog] 5 unit SQ TID 11/29/17 Heparin - 5,000 unit SQ BID vial 12/08/17 Carbidopa/Levodopa 25/100 [Sinemet 1 each PO TID 03/13/18 25/100 -] Carbidopa/Levodopa 1 tab PO BID 03/13/18 [Carbidopa-Levodopa 25-100 Tab] Polyethylene Glycol 3350 17 gm PO DAILY 03/13/18 Vital Signs Temperature 97.4 F L 03/21/18 14:38 Pulse Rate 70 03/21/18 14:38 Respiratory Rate 18 03/21/18 14:38 Blood Pressure 115/41 L 03/21/18 14:38 O2 Sat by Pulse Oximetry (%) 98 03/20/18 21:00 Intake & Output 03/18/18 03/19/18 03/20/18 03/21/18 23:59 23:59 23:59 23:59 Intake Total 900 470 0 340 Output Total 1550 600 400 200 Balance -650 -130 -400 140 Weight 60.056 kg 60.146 kg 60.282 kg CBC, BMP 03/21/18 09:56 03/21/18 09:56 Current Medications Acetaminophen (Tylenol -) 650 mg PO Q6H PRN PRN Reason: FEVER Last Admin: 03/20/18 17:33 Dose: 650 mg Aspirin (Asa -) 81 mg PO DAILY [facility] Last Admin: 03/21/18 09:44 Dose: 81 mg Carbidopa/Levodopa (Sinemet 25/100 -) 2 each PO 0600,1300,2100 [facility] Last Admin: 03/21/18 14:09 Dose: 2 each Carbidopa/Levodopa (Sinemet 25/100 -) 1 each PO 0900,1700 [facility] Last Admin: 03/21/18 09:45 Dose: 1 each Citalopram Hydrobromide (Celexa -) 40 mg PO DAILY [facility] Last Admin: 03/21/18 09:44 Dose: 40 mg Heparin Sodium (Porcine) (Heparin -) 5,000 unit SQ BID [facility] Last Admin: 03/21/18 09:46 Dose: 5,000 unit Piperacillin Sod/Tazobactam (Sod 3.375 gm/ Dextrose) 50 mls @ 100 mls/hr IVPB Q8H-IV [facility]; Protocol Last Admin: 03/21/18 09:46 Dose: 100 mls/hr Sodium Chloride (Normal Saline -) 1,000 mls @ 50 mls/hr IV ASDIR [facility] Stop: 03/22/18 09:26 Last Admin: 03/21/18 09:45 Dose: 50 mls/hr Insulin Aspart (Novolog Vial Sliding Scale -) 1 vial SQ [facility]; Protocol Last Admin: 03/21/18 12:02 Dose: Not Given Insulin Detemir (Levemir Vial) 16 units SQ DAILY@0700 [facility] Last Admin: 03/21/18 06:35 Dose: 16 units Morphine Sulfate (Morphine Sulfate) 1 mg IVPUSH Q3H PRN PRN Reason: PAIN LEVEL 4 - 6 Sodium Hypochlorite (Dakin's Solution 0.25% (Half-Strength) -) 1 applic TP DAILY [facility] Last Admin: 03/21/18 09:47 Dose: 1 applic Tamsulosin HCl (Flomax -) 0.4 mg PO DAILY@0830 [facility] Last Admin: 03/21/18 08:50 Dose: 0.4 mg 78 year old gentleman with history of DM, PVD s/p Right AKA, Sacral ulcers, Dementia, CKD (baseline Cr ~1.6) presented with sacral ulcerations requiring debridement with rise in serum Cr to 2.1. #YENI on CKD #Sacral ulcers #BPH with urinar retention #Anemia #DM #Pseudomonas UTI
[2018-03-21 17:57] LABS: URINE APPEARANCE CLEAR; URINE BILIRUBIN NEGATIVE (<2.0 mg/dL); URINE COLOR LTYELLOW; URINE GLUCOSE (UA) NEGATIVE (NEGATIVE); URINE KETONE NEGATIVE (NEGATIVE); URINE LEUK ESTERASE TRACE (NEGATIVE); URINE NITRITE NEGATIVE (NEGATIVE); URINE PROTEIN 1+ (NEGATIVE); URINE UROBILINOGEN NEGATIVE mg/dL (0.2-1.0)
[2018-03-21] MEDS ORDERED: INSULIN (LEVEMIR) 100 UNITS/ML UNITS SQ ONE (20:37)
[2018-03-21] MEDS ORDERED: INSULIN (NOVOLOG) ASPART 100 UNITS/ML 10ML VIAL ONE (20:37)
[2018-03-21] MEDS ORDERED: PT OWN MED DRAWER 7, Y5N ONE (20:38)
[2018-03-22] MEDS ORDERED: PIPERACILLIN/TAZOBACTAM 3.375 GM VIAL IVPB ONE ×3 (00:28→17:02)
[2018-03-22] MEDS ORDERED: DEXTROSE 5%-WATER - 50 ML IVPB ONE ×3 (00:28→17:02)
[2018-03-22] MEDS: PIPERACILLIN/TAZOB 3.375 GM 3.375 GM in DEXTROSE 5%-WATER - 50 ML IVPB SCH ×3 (01:42→17:32)
[2018-03-22] MEDS: CARBIDOPA/LEVODOPA 25/100 TABLET (FP) PO SCH ×5 (06:05→23:13)
[2018-03-22] MEDS: INSULIN SLIDING SCALE (NOVOLOG) 1 VIAL SQ SCH ×4 (06:06→23:18)
[2018-03-22] MEDS: INSULIN (LEVEMIR) 100 UNITS/ML UNITS SQ SCH (06:44)
[2018-03-22] MEDS ORDERED: INSULIN (LEVEMIR) 100 UNITS/ML UNITS SQ ONE (06:52)
[2018-03-22] MEDS ORDERED: PT OWN MED DRAWER 7, Y5N ONE ×3 (06:53→09:10)
[2018-03-22] MEDS ORDERED: INSULIN (NOVOLOG) ASPART 100 UNITS/ML 10ML VIAL ONE ×2 (06:53→11:34)
--- NOTE | 2018-03-22 07:45 | PN ---
Progress Note (short form) - Note Progress Note: POD #6 s/p excisional sharp Debridement of sacral decubitus eschar No acute events per RN notes. In bed with roll propping patient towards the left. On Zosyn per ID. AVSS. Afebrile. WBC TREND 3 03/19/18 03/20/18 03/21/18 03/22/18 06:30 06:00 09:56 06:00 WBC 9.1 20.9 H 18.5 H Pending Gen: nad Back: Stage 4. Wound looks much better s/p Dakins dressing changes. Capillary oozing to wound borders and base. Patches fibrinous slough to base. No undermining. No purulent drainage. <Severo Roman P - Last Filed: 03/22/18 07:48> - Note Progress Note: Patient seen and evluated; concur w/ a/p as outlined by SANDY Roman. Jose A Davalos MD FACS <Jose A Davalos - Last Filed: 03/22/18 10:54> Problem List - Problems (1) Decubitus ulcer of sacral region, unstageable Assessment/Plan: POD #6 s/p excisional sharp Debridement of sacral decubitus eschar Wound looks much better s/p Dakin's dressing changes. Dakin's dc'd Will continue conservative wound care/management at this time with Santyl ( liberal application) to base. Will re-evaluate in a few days to see if ready for wound VAC. Cont care per primary team. IV ABX Code(s): L89.150 - PRESSURE ULCER OF SACRAL REGION, UNSTAGEABLE (2) Parkinson disease Code(s): G20 - PARKINSON'S DISEASE <Severo Roman P - Last Filed: 03/22/18 07:48>
[2018-03-22 08:08] LABS: ALBUMIN 1.6 g/dl (3.4-5.0); ALK PHOS 137 U/L (45-117); ANION GAP 7 MMOL/L (8-16); BILIRUBIN,TOTAL 0.3 mg/dL (0.2-1); BLOOD UREA NITROGEN 31 mg/dL (7-18); CALCIUM 7.9 mg/dL (8.5-10.1); CHLORIDE 109 mmol/L (98-107); CO2 26 mmol/L (21-32); CREATININE 1.9 mg/dL (0.55-1.3); GLUCOSE,RANDOM 105 mg/dL (74-106); POTASSIUM 4.5 mmol/L (3.5-5.1); SGOT/AST 47 U/L (15-37); SGPT/ALT < 6 U/L (13-61); SODIUM 142 mmol/L (136-145)
[2018-03-22] MEDS: TAMSULOSIN HCL 0.4 MG CAP PO SCH (08:40)
[2018-03-22 09:23] LABS: BASO % 0.5 % (0-2.0); EOS % 2.7 % (0-4.5); HEMATOCRIT 25.1 % (35.4-49); LYMPH % 16.5 % (8-40); MCH 30.2 pg (25.7-33.7); MCHC 31.9 g/dl (32.0-35.9); MEAN CELL VOLUME 94.5 fl (80-96); MEAN PLT VOLUME 7.2 fl (7.5-11.1); MONO % 4.4 % (3.8-10.2); NEUT % 75.9 % (42.8-82.8); PLATELET COUNT 277 K/MM3 (134-434); RBC 2.66 M/mm3 (4.00-5.60); RDW 16.1 % (11.9-15.9); WHITE BLOOD COUNT 10.2 K/mm3 (4.0-10.0)
[2018-03-22] MEDS: HEPARIN NA (PORCINE) 5,000 UNITS/ML 1ML VIAL SQ SCH ×2 (09:36→23:14)
[2018-03-22] MEDS: ASPIRIN 81 MG CHEWABLE TABLETS PO SCH (09:36)
[2018-03-22] MEDS: CITALOPRAM HYDROBROMIDE 20 MG TABLET (FP) PO SCH (09:37)
[2018-03-22] MEDS: COLLAGENASE CLOSTRIDIUM HIST. 30 GRAMS TUBE TP SCH (09:39)
[2018-03-22] MEDS: SODIUM HYPOCHLORITE 0.25%- 473 ML BULK BOTTLE TP SCH (09:39)
--- NOTE | 2018-03-22 10:01 | PN ---
Progress Note (short form) - Note Progress Note: s: lethargic, appears comfortable o: Vital Signs Period Temp Pulse Resp BP Sys/Kebede Pulse Ox Last 24 Hr 97.4 F-98.4 F 65-74 18-20 101-129/41-66 Constitutional: Yes: No Distress, Calm Eyes: Yes: Conjunctiva Clear Respiratory: Yes: Regular, CTA Bilaterally (auscultated anteriorly, poor effort) Gastrointestinal: Yes: Normal Bowel Sounds, Soft Cardiovascular: Yes: Regular Rate and Rhythm JVD: No Carotid Bruit: No Heart Sounds: Yes: S1, S2 Extremities: Yes: Amputation. No: Cold Edema: No Peripheral Pulses WNL: No Integumentary: No: Jaundice Neurological: Yes: Other (nonverbal) Psychiatric: No: Agitated Current Medications Generic Name Dose Route Start Last Admin Trade Name Freq PRN Reason Stop Dose Admin Acetaminophen 650 mg 03/15/18 16:08 03/20/18 17:33 Tylenol - PO 650 mg Q6H PRN Administration FEVER Aspirin 81 mg 03/16/18 10:00 03/22/18 09:36 Asa - PO 81 mg DAILY [facility] Administration Carbidopa/Levodopa 2 each 03/15/18 21:00 03/22/18 06:05 Sinemet 25/100 - PO 2 each 0600,1300,2100 [facility] Administration Carbidopa/Levodopa 1 each 03/15/18 17:00 03/22/18 09:38 Sinemet 25/100 - PO 1 each 0900,1700 [facility] Administration Citalopram Hydrobromide 40 mg 03/16/18 10:00 03/22/18 09:37 Celexa - PO 40 mg DAILY [facility] Administration Collagenase 1 applic 03/22/18 10:00 03/22/18 09:39 Santyl - TP 1 applic DAILY [facility] Administration Protocol Heparin Sodium (Porcine) 5,000 unit 03/15/18 22:00 03/22/18 09:36 Heparin - SQ 5,000 unit BID [facility] Administration Piperacillin Sod/Tazobactam 50 mls @ 100 mls/hr 03/18/18 11:15 03/22/18 09:35 Sod 3.375 gm/ Dextrose IVPB 100 mls/hr Q8H-IV [facility] Administration Protocol Insulin Aspart 1 vial 03/18/18 16:30 03/22/18 06:06 Novolog Vial Sliding Scale - SQ Not Given ACHS [facility] Protocol Insulin Detemir 16 units 03/16/18 07:00 03/22/18 06:44 Levemir Vial SQ 16 units DAILY@0700 [facility] Administration Morphine Sulfate 1 mg 03/19/18 15:51 Morphine Sulfate IVPUSH Q3H PRN PAIN LEVEL 4 - 6 Sodium Hypochlorite 1 applic 03/18/18 10:00 03/22/18 09:39 Dakin's Solution 0.25% (Half-Strength) - TP Not Given DAILY [facility] Tamsulosin HCl 0.4 mg 03/17/18 08:30 03/22/18 08:40 Flomax - PO 0.4 mg DAILY@0830 [facility] Administration CBC, BMP 03/22/18 06:00 03/22/18 06:00 echo 02/2018: nl lv/rv, no sig valve path, ao root 3.9 cm EKG: sinus rhythm, nonspecific ST changes CXR: no acute process a/p: 77M h/o DM, R AKA, sacral ulcer, dementia p/w decub ulcer with plan for debridement decubitus ulcer, fever - s/p debridement - manage per surgery, primary, ID DM - manage per primary team dementia - nonverbal at baseline PAD, s/p AKA - continue aspirin
--- NOTE | 2018-03-22 10:58 | PN ---
Progress Note, Physician History of Present Illness: Pt is not able to provide ROS (secondary to dementia). Pt is awake, looks at his baseline. - Current Medication List Current Medications: Active Medications Acetaminophen (Tylenol -) 650 mg PO Q6H PRN PRN Reason: FEVER Last Admin: 03/20/18 17:33 Dose: 650 mg Aspirin (Asa -) 81 mg PO DAILY [facility] Last Admin: 03/22/18 09:36 Dose: 81 mg Carbidopa/Levodopa (Sinemet 25/100 -) 2 each PO 0600,1300,2100 [facility] Last Admin: 03/22/18 06:05 Dose: 2 each Carbidopa/Levodopa (Sinemet 25/100 -) 1 each PO 0900,1700 [facility] Last Admin: 03/22/18 09:38 Dose: 1 each Citalopram Hydrobromide (Celexa -) 40 mg PO DAILY [facility] Last Admin: 03/22/18 09:37 Dose: 40 mg Collagenase (Santyl -) 1 applic TP DAILY [facility]; Protocol Last Admin: 03/22/18 09:39 Dose: 1 applic Heparin Sodium (Porcine) (Heparin -) 5,000 unit SQ BID [facility] Last Admin: 03/22/18 09:36 Dose: 5,000 unit Piperacillin Sod/Tazobactam (Sod 3.375 gm/ Dextrose) 50 mls @ 100 mls/hr IVPB Q8H-IV [facility]; Protocol Last Admin: 03/22/18 09:35 Dose: 100 mls/hr Insulin Aspart (Novolog Vial Sliding Scale -) 1 vial SQ ACHS [facility]; Protocol Last Admin: 03/22/18 06:06 Dose: Not Given Insulin Detemir (Levemir Vial) 16 units SQ DAILY@0700 [facility] Last Admin: 03/22/18 06:44 Dose: 16 units Morphine Sulfate (Morphine Sulfate) 1 mg IVPUSH Q3H PRN PRN Reason: PAIN LEVEL 4 - 6 Sodium Hypochlorite (Dakin's Solution 0.25% (Half-Strength) -) 1 applic TP DAILY [facility] Last Admin: 03/22/18 09:39 Dose: Not Given Tamsulosin HCl (Flomax -) 0.4 mg PO DAILY@0830 [facility] Last Admin: 03/22/18 08:40 Dose: 0.4 mg - Objective Vital Signs: Vital Signs Temperature 98 F 03/22/18 06:00 Pulse Rate 65 03/22/18 06:00 Respiratory Rate 20 03/22/18 06:00 Blood Pressure 112/50 L 03/22/18 06:00 O2 Sat by Pulse Oximetry (%) 98 03/20/18 21:00 Constitutional: Yes: No Distress, Moderate Distress Cardiovascular: Yes: Regular Rate and Rhythm, S1, S2 Respiratory: Yes: Regular, CTA Bilaterally. No: Rales Gastrointestinal: Yes: Normal Bowel Sounds, Soft. No: Tenderness Edema: No Labs: CBC, BMP 03/22/18 06:00 03/22/18 06:00 INR, PTT INR 1.17 (0.83-1.09) H 03/13/18 20:12 Problem List - Problems (1) Decubitus ulcer of sacral region, unstageable Code(s): L89.150 - PRESSURE ULCER OF SACRAL REGION, UNSTAGEABLE (2) Sepsis Code(s): A41.9 - SEPSIS, UNSPECIFIED ORGANISM Qualifiers: Sepsis type: sepsis due to unspecified organism Qualified Code(s): A41.9 - Sepsis, unspecified organism (3) Anemia Code(s): D64.9 - ANEMIA, UNSPECIFIED (4) Dementia Code(s): F03.90 - UNSPECIFIED DEMENTIA WITHOUT BEHAVIORAL DISTURBANCE (5) Urinary retention Code(s): R33.9 - RETENTION OF URINE, UNSPECIFIED (6) S/P AKA (above knee amputation) unilateral Code(s): Z89.619 - ACQUIRED ABSENCE OF UNSPECIFIED LEG ABOVE KNEE (7) PAD (peripheral artery disease) Code(s): I73.9 - PERIPHERAL VASCULAR DISEASE, UNSPECIFIED (8) Parkinson disease Code(s): G20 - PARKINSON'S DISEASE (9) Dysphagia Code(s): R13.10 - DYSPHAGIA, UNSPECIFIED (10) CRF (chronic renal failure) Code(s): N18.9 - CHRONIC KIDNEY DISEASE, UNSPECIFIED Qualifiers: Chronic kidney disease stage: stage 3 (moderate) Qualified Code(s): N18.3 - Chronic kidney disease, stage 3 (moderate) (11) Chronic heel ulcer Code(s): L97.409 - NON-PRS CHRONIC ULCER OF UNSP HEEL AND MIDFOOT W UNSP SEVERT (12) Obstructive and reflux uropathy Code(s): N13.9 - OBSTRUCTIVE AND REFLUX UROPATHY, UNSPECIFIED (13) YENI (acute kidney injury) Code(s): N17.9 - ACUTE KIDNEY FAILURE, UNSPECIFIED Assessment/Plan IV abtx -per ID Surgery, ID, Cardio consults are appreciated. S/p sacral ulcer debridement; VAC placement per surgery. To DC Hernandez after VAC is placed (it was discussed with pt's ). Local wound care per surgery Pt's care was d/w pt's nurse. AM labs; to f/u H/H
[2018-03-22] MEDS: SODIUM CHLORIDE 1,000 ML IV SCH (11:32)
--- NOTE | 2018-03-22 12:03 | PN ---
Progress Note (short form) - Note Progress Note: Renal follow up for YENI on CKD Pt seen and examined at the bedside awake but not verbal no overnight events Vital Signs Temperature 98.4 F 03/22/18 10:00 Pulse Rate 64 03/22/18 10:00 Respiratory Rate 20 03/22/18 10:00 Blood Pressure 119/55 L 03/22/18 10:00 O2 Sat by Pulse Oximetry (%) 97 03/22/18 09:00 Intake & Output 03/19/18 03/20/18 03/21/18 03/22/18 23:59 23:59 23:59 23:59 Intake Total 470 0 740 800 Output Total 161 274 1018 600 Balance -130 -400 -260 200 Weight 60.056 kg 60.146 kg 60.282 kg 60.781 kg NAD no Le edema CBC, BMP 03/22/18 06:00 03/22/18 06:00 Current Medications Acetaminophen (Tylenol -) 650 mg PO Q6H PRN PRN Reason: FEVER Last Admin: 03/20/18 17:33 Dose: 650 mg Aspirin (Asa -) 81 mg PO DAILY [facility] Last Admin: 03/22/18 09:36 Dose: 81 mg Carbidopa/Levodopa (Sinemet 25/100 -) 2 each PO 0600,1300,2100 [facility] Last Admin: 03/22/18 06:05 Dose: 2 each Carbidopa/Levodopa (Sinemet 25/100 -) 1 each PO 0900,1700 [facility] Last Admin: 03/22/18 09:38 Dose: 1 each Citalopram Hydrobromide (Celexa -) 40 mg PO DAILY [facility] Last Admin: 03/22/18 09:37 Dose: 40 mg Collagenase (Santyl -) 1 applic TP DAILY [facility]; Protocol Last Admin: 03/22/18 09:39 Dose: 1 applic Heparin Sodium (Porcine) (Heparin -) 5,000 unit SQ BID [facility] Last Admin: 03/22/18 09:36 Dose: 5,000 unit Piperacillin Sod/Tazobactam (Sod 3.375 gm/ Dextrose) 50 mls @ 100 mls/hr IVPB Q8H-IV [facility]; Protocol Last Admin: 03/22/18 09:35 Dose: 100 mls/hr Sodium Chloride (Normal Saline -) 1,000 mls @ 50 mls/hr IV ASDIR [facility] Last Admin: 12/07/18 11:32 Dose: Not Given Insulin Aspart (Novolog Vial Sliding Scale -) 1 vial SQ ACHS [facility]; Protocol Last Admin: 03/22/18 11:33 Dose: Not Given Insulin Detemir (Levemir Vial) 16 units SQ DAILY@0700 [facility] Last Admin: 03/22/18 06:44 Dose: 16 units Morphine Sulfate (Morphine Sulfate) 1 mg IVPUSH Q3H PRN PRN Reason: PAIN LEVEL 4 - 6 Sodium Hypochlorite (Dakin's Solution 0.25% (Half-Strength) -) 1 applic TP DAILY [facility] Last Admin: 03/22/18 09:39 Dose: Not Given Tamsulosin HCl (Flomax -) 0.4 mg PO DAILY@0830 [facility] Last Admin: 03/22/18 08:40 Dose: 0.4 mg 78 year old gentleman with history of DM, PVD s/p Right AKA, Sacral ulcers, Dementia, CKD (baseline Cr ~1.6) presented with sacral ulcerations requiring debridement with rise in serum Cr to 2.1. #YENI on CKD #Sacral ulcers #BPH with urinar retention #Anemia #DM #Pseudomonas UTI Urien studies show FeNa of 1.9 renal function essentially unchanged will check US of kidneys to r/o obstruction continue gentle IVF hydration trend renal function and electrolytes Nicolas Kinney DO
[2018-03-22 15:29] LABS: HGB SOLUBILITY Negative (Negative); Hgb A 97.8 % (96.4-98.8); Hgb C 0 % (0.0); Hgb F 0 % (0.0-2.0); Hgb S 0 % (0.0)
[2018-03-22] MEDS: ACETAMINOPHEN 325 MG TABLET (FP) PO PRN (23:13)
[2018-03-23] MEDS ORDERED: DEXTROSE 5%-WATER - 50 ML IVPB ONE ×3 (01:13→15:12)
[2018-03-23] MEDS ORDERED: PIPERACILLIN/TAZOBACTAM 3.375 GM VIAL IVPB ONE ×3 (01:13→15:11)
[2018-03-23] MEDS: PIPERACILLIN/TAZOB 3.375 GM 3.375 GM in DEXTROSE 5%-WATER - 50 ML IVPB SCH ×3 (01:33→17:30)
[2018-03-23] MEDS: CARBIDOPA/LEVODOPA 25/100 TABLET (FP) PO SCH ×5 (05:59→21:41)
[2018-03-23] MEDS: INSULIN (LEVEMIR) 100 UNITS/ML UNITS SQ SCH (05:59)
[2018-03-23] MEDS: INSULIN SLIDING SCALE (NOVOLOG) 1 VIAL SQ SCH ×4 (06:02→21:46)
[2018-03-23 07:24] LABS: HEMATOCRIT 26.9 % (35.4-49); HEMOGLOBIN 8.5 GM/dL (11.7-16.9); MCH 29.9 pg (25.7-33.7); MCHC 31.6 g/dl (32.0-35.9); MEAN CELL VOLUME 94.5 fl (80-96); MEAN PLT VOLUME 6.8 fl (7.5-11.1); PLATELET COUNT 278 K/MM3 (134-434); RBC 2.85 M/mm3 (4.00-5.60); RDW 16.1 % (11.9-15.9); WHITE BLOOD COUNT 7.8 K/mm3 (4.0-10.0)
[2018-03-23 07:53] LABS: ANION GAP 10 MMOL/L (8-16); BLOOD UREA NITROGEN 27 mg/dL (7-18); CALCIUM 7.8 mg/dL (8.5-10.1); CHLORIDE 109 mmol/L (98-107); CO2 24 mmol/L (21-32); CREATININE 1.8 mg/dL (0.55-1.3); GLUCOSE,RANDOM 119 mg/dL (74-106); POTASSIUM 4.5 mmol/L (3.5-5.1); SODIUM 142 mmol/L (136-145)
[2018-03-23] MEDS: CITALOPRAM HYDROBROMIDE 20 MG TABLET (FP) PO SCH (10:09)
[2018-03-23] MEDS: ASPIRIN 81 MG CHEWABLE TABLETS PO SCH (10:09)
[2018-03-23] MEDS: TAMSULOSIN HCL 0.4 MG CAP PO SCH (10:09)
[2018-03-23] MEDS: SODIUM HYPOCHLORITE 0.25%- 473 ML BULK BOTTLE TP SCH (10:10)
[2018-03-23] MEDS: HEPARIN NA (PORCINE) 5,000 UNITS/ML 1ML VIAL SQ SCH ×2 (10:11→21:41)
[2018-03-23] MEDS: COLLAGENASE CLOSTRIDIUM HIST. 30 GRAMS TUBE TP SCH (10:13)
--- NOTE | 2018-03-23 12:30 | PN ---
Progress Note, Physician Chief Complaint: The patient seen and examined in his bed. Seems alert, but non verbal. Maintains good urine output. History of Present Illness: 78 year old gentleman with history of DM, PVD s/p Right AKA, Sacral ulcers, Dementia, CKD (baseline Cr ~1.6) presented with sacral ulcerations requiring debridement with rise in serum Cr to 2.1. Renal functions improving - Current Medication List Current Medications: Active Medications Acetaminophen (Tylenol -) 650 mg PO Q6H PRN PRN Reason: FEVER Last Admin: 03/22/18 23:13 Dose: 650 mg Aspirin (Asa -) 81 mg PO DAILY [facility] Last Admin: 03/23/18 10:09 Dose: 81 mg Carbidopa/Levodopa (Sinemet 25/100 -) 2 each PO 0600,1300,2100 [facility] Last Admin: 03/23/18 05:59 Dose: 2 each Carbidopa/Levodopa (Sinemet 25/100 -) 1 each PO 0900,1700 [facility] Last Admin: 03/23/18 10:10 Dose: 1 each Citalopram Hydrobromide (Celexa -) 40 mg PO DAILY [facility] Last Admin: 03/23/18 10:09 Dose: 40 mg Collagenase (Santyl -) 1 applic TP DAILY [facility]; Protocol Last Admin: 03/23/18 10:13 Dose: 1 applic Heparin Sodium (Porcine) (Heparin -) 5,000 unit SQ BID [facility] Last Admin: 03/23/18 10:11 Dose: 5,000 unit Piperacillin Sod/Tazobactam (Sod 3.375 gm/ Dextrose) 50 mls @ 100 mls/hr IVPB Q8H-IV [facility]; Protocol Last Admin: 03/23/18 10:13 Dose: 100 mls/hr Sodium Chloride (Normal Saline -) 1,000 mls @ 50 mls/hr IV ASDIR [facility] Last Admin: 03/22/18 11:32 Dose: Not Given Insulin Aspart (Novolog Vial Sliding Scale -) 1 vial SQ ACHS [facility]; Protocol Last Admin: 03/23/18 11:28 Dose: Not Given Insulin Detemir (Levemir Vial) 16 units SQ DAILY@0700 [facility] Last Admin: 03/23/18 05:59 Dose: 16 units Morphine Sulfate (Morphine Sulfate) 1 mg IVPUSH Q3H PRN PRN Reason: PAIN LEVEL 4 - 6 Sodium Hypochlorite (Dakin's Solution 0.25% (Half-Strength) -) 1 applic TP DAILY [facility] Last Admin: 03/23/18 10:10 Dose: Not Given Tamsulosin HCl (Flomax -) 0.4 mg PO DAILY@0830 [facility] Last Admin: 03/23/18 10:09 Dose: 0.4 mg - Objective Vital Signs: Vital Signs Temperature 98.8 F 03/23/18 08:48 Pulse Rate 63 03/23/18 08:48 Respiratory Rate 18 03/23/18 09:00 Blood Pressure 111/42 L 03/23/18 08:48 O2 Sat by Pulse Oximetry (%) 96 03/23/18 09:00 Constitutional: Yes: No Distress, Calm HENT: Yes: Atraumatic Neck: Yes: Trachea Midline Cardiovascular: Yes: S1, S2 Respiratory: Yes: Regular, CTA Bilaterally Gastrointestinal: Yes: Normal Bowel Sounds, Soft Edema: No Labs: CBC, BMP 03/23/18 06:00 03/23/18 06:00 INR, PTT INR 1.17 (0.83-1.09) H 03/13/18 20:12 Assessment/Plan 78 year old gentleman with history of DM, PVD s/p Right AKA, Sacral ulcers, Dementia, CKD (baseline Cr ~1.6) presented with sacral ulcerations requiring debridement with rise in serum Cr to 2.1. #YENI on CKD. Renal functions improving. #Sacral ulcers #BPH with urinary retention #Anemia #DM #Pseudomonas UTI IV fluids well tolerated. Will trend renal functions. Codi Willis MD
--- NOTE | 2018-03-23 14:26 | PN ---
Progress Note, Physician Chief Complaint: pt awake alert NAD, occasionally in pain; wound seen at bedside with staff who was changing pt at the time of exam; deep, necrotic, large - Current Medication List Current Medications: Active Medications Acetaminophen (Tylenol -) 650 mg PO Q6H PRN PRN Reason: FEVER Last Admin: 03/22/18 23:13 Dose: 650 mg Aspirin (Asa -) 81 mg PO DAILY [facility] Last Admin: 03/23/18 10:09 Dose: 81 mg Carbidopa/Levodopa (Sinemet 25/100 -) 2 each PO 0600,1300,2100 [facility] Last Admin: 03/23/18 05:59 Dose: 2 each Carbidopa/Levodopa (Sinemet 25/100 -) 1 each PO 0900,1700 [facility] Last Admin: 03/23/18 10:10 Dose: 1 each Citalopram Hydrobromide (Celexa -) 40 mg PO DAILY [facility] Last Admin: 03/23/18 10:09 Dose: 40 mg Collagenase (Santyl -) 1 applic TP DAILY [facility] [place]; Protocol Last Admin: 03/23/18 10:13 Dose: 1 applic Heparin Sodium (Porcine) (Heparin -) 5,000 unit SQ BID [facility] Last Admin: 03/23/18 10:11 Dose: 5,000 unit Piperacillin Sod/Tazobactam (Sod 3.375 gm/ Dextrose) 50 mls @ 100 mls/hr IVPB Q8H-IV [facility]; Protocol Last Admin: 03/23/18 10:13 Dose: 100 mls/hr Sodium Chloride (Normal Saline -) 1,000 mls @ 50 mls/hr IV ASDIR [facility] [place] Last Admin: 03/22/18 11:32 Dose: Not Given Insulin Aspart (Novolog Vial Sliding Scale -) 1 vial SQ ACHS [facility]; Protocol Last Admin: 03/23/18 11:28 Dose: Not Given Insulin Detemir (Levemir Vial) 16 units SQ DAILY@0700 [facility] Last Admin: 03/23/18 05:59 Dose: 16 units Morphine Sulfate (Morphine Sulfate) 1 mg IVPUSH Q3H PRN PRN Reason: PAIN LEVEL 4 - 6 Sodium Hypochlorite (Dakin's Solution 0.25% (Half-Strength) -) 1 applic TP DAILY [facility] [place] Last Admin: 03/23/18 10:10 Dose: Not Given Tamsulosin HCl (Flomax -) 0.4 mg PO DAILY@0830 [facility] Last Admin: 03/23/18 10:09 Dose: 0.4 mg - Objective Vital Signs: Vital Signs Temperature 97.4 F L 03/23/18 13:26 Pulse Rate 58 L 03/23/18 13:26 Respiratory Rate 18 03/23/18 09:00 Blood Pressure 124/55 L 03/23/18 13:26 O2 Sat by Pulse Oximetry (%) 96 03/23/18 09:00 Constitutional: Yes: No Distress, Calm Eyes: Yes: Conjunctiva Clear HENT: Yes: Atraumatic Neck: Yes: Supple Cardiovascular: Yes: Regular Rate and Rhythm Respiratory: Yes: CTA Bilaterally Gastrointestinal: Yes: Soft. No: Distention Genitourinary: No: Hematuria Musculoskeletal: No: Joint Stiffness, Joint Swelling Extremities: Yes: Amputation. No: Cold, Cool, Cyanosis Edema: No Integumentary: Yes: Pressure Ulcer Neurological: Yes: Alert. No: Oriented Psychiatric: Yes: Alert. No: Oriented, Agitated Labs: CBC, BMP 03/23/18 06:00 03/23/18 06:00 INR, PTT INR 1.17 (0.83-1.09) H 03/13/18 20:12 - ....Imaging Other: Report Reviewed Assessment/Plan 78 year old gentleman with history of DM, PVD s/p Right AKA, Sacral ulcers, Dementia, BPH, CKD (baseline Cr ~1.6), anemia, UIT Pseudomonas, presented with sacral ulcerations requiring debridement rising WBC, increase in creatinine also noted IVF, renal f/u, po water; f/u labs IV ATB per ID surgery f/u dr Davalos, to decide about VAC placement prognosis poor turn in bed for decubs PFX aspiration, falls DVT pfx d/w pt and staff.
[2018-03-23] MEDS: SODIUM CHLORIDE 1,000 ML IV SCH (14:32)
[2018-03-23] MEDS: ACETAMINOPHEN 325 MG TABLET (FP) PO PRN (14:59)
[2018-03-23] MEDS ORDERED: INSULIN (NOVOLOG) ASPART 100 UNITS/ML 10ML VIAL ONE (18:39)
[2018-03-24] MEDS ORDERED: PIPERACILLIN/TAZOBACTAM 3.375 GM VIAL IVPB ONE ×3 (01:04→16:01)
[2018-03-24] MEDS ORDERED: DEXTROSE 5%-WATER - 50 ML IVPB ONE ×3 (01:04→16:01)
[2018-03-24] MEDS: PIPERACILLIN/TAZOB 3.375 GM 3.375 GM in DEXTROSE 5%-WATER - 50 ML IVPB SCH ×3 (01:40→17:13)
[2018-03-24] MEDS: CARBIDOPA/LEVODOPA 25/100 TABLET (FP) PO SCH ×5 (06:08→22:38)
[2018-03-24] MEDS: INSULIN (LEVEMIR) 100 UNITS/ML UNITS SQ SCH (06:08)
[2018-03-24] MEDS: INSULIN SLIDING SCALE (NOVOLOG) 1 VIAL SQ SCH ×4 (06:10→22:36)
[2018-03-24 08:15] LABS: ALBUMIN 1.7 g/dl (3.4-5.0); ALK PHOS 122 U/L (45-117); ANION GAP 9 MMOL/L (8-16); BILIRUBIN,TOTAL 0.2 mg/dL (0.2-1); BLOOD UREA NITROGEN 27 mg/dL (7-18); CALCIUM 7.9 mg/dL (8.5-10.1); CHLORIDE 110 mmol/L (98-107); CO2 23 mmol/L (21-32); CREATININE 1.9 mg/dL (0.55-1.3); GLUCOSE,RANDOM 206 mg/dL (74-106); POTASSIUM 4.7 mmol/L (3.5-5.1); SGOT/AST 23 U/L (15-37); SGPT/ALT 10 U/L (13-61); SODIUM 141 mmol/L (136-145); TOT PROT 6.1 g/dl (6.4-8.2)
[2018-03-24] MEDS: TAMSULOSIN HCL 0.4 MG CAP PO SCH (08:47)
--- NOTE | 2018-03-24 09:06 | PN ---
Progress Note, Physician Chief Complaint: in bed awake alert NAD; wound necrotic; seen by surgery; VAC when starts to granulate - Current Medication List Current Medications: Active Medications Acetaminophen (Tylenol -) 650 mg PO Q6H PRN PRN Reason: FEVER Last Admin: 03/23/18 14:59 Dose: 650 mg Aspirin (Asa -) 81 mg PO DAILY [facility] Last Admin: 03/23/18 10:09 Dose: 81 mg Carbidopa/Levodopa (Sinemet 25/100 -) 2 each PO 0600,1300,2100 [facility] Last Admin: 03/24/18 06:08 Dose: 2 each Carbidopa/Levodopa (Sinemet 25/100 -) 1 each PO 0900,1700 [facility] Last Admin: 03/24/18 08:47 Dose: 1 each Citalopram Hydrobromide (Celexa -) 40 mg PO DAILY [facility] Last Admin: 03/23/18 10:09 Dose: 40 mg Collagenase (Santyl -) 1 applic TP DAILY [facility]; Protocol Last Admin: 03/23/18 10:13 Dose: 1 applic Heparin Sodium (Porcine) (Heparin -) 5,000 unit SQ BID [facility] Last Admin: 03/23/18 21:41 Dose: 5,000 unit Piperacillin Sod/Tazobactam (Sod 3.375 gm/ Dextrose) 50 mls @ 100 mls/hr IVPB Q8H-IV [facility]; Protocol Last Admin: 03/24/18 01:40 Dose: 100 mls/hr Sodium Chloride (Normal Saline -) 1,000 mls @ 50 mls/hr IV ASDIR [facility] Last Admin: 03/23/18 14:32 Dose: 50 mls/hr Insulin Aspart (Novolog Vial Sliding Scale -) 1 vial SQ ACHS [facility]; Protocol Last Admin: 03/24/18 06:10 Dose: 4 unit Insulin Detemir (Levemir Vial) 16 units SQ DAILY@0700 [facility] Last Admin: 03/24/18 06:08 Dose: 16 units Morphine Sulfate (Morphine Sulfate) 1 mg IVPUSH Q3H PRN PRN Reason: PAIN LEVEL 4 - 6 Sodium Hypochlorite (Dakin's Solution 0.25% (Half-Strength) -) 1 applic TP DAILY [facility] Last Admin: 03/23/18 10:10 Dose: Not Given Tamsulosin HCl (Flomax -) 0.4 mg PO DAILY@0830 [facility] Last Admin: 03/24/18 08:47 Dose: 0.4 mg - Objective Vital Signs: Vital Signs Temperature 97.9 F 03/24/18 08:30 Pulse Rate 66 03/24/18 08:30 Respiratory Rate 18 03/24/18 08:30 Blood Pressure 141/69 03/24/18 08:30 O2 Sat by Pulse Oximetry (%) 97 03/23/18 21:00 Constitutional: Yes: Calm Eyes: Yes: Conjunctiva Clear HENT: Yes: Atraumatic Neck: Yes: Supple Cardiovascular: Yes: Regular Rate and Rhythm Respiratory: Yes: Diminished Gastrointestinal: Yes: Soft. No: Tenderness Genitourinary: No: Hematuria Musculoskeletal: No: Joint Stiffness, Joint Swelling Extremities: Yes: Amputation. No: Cold, Cool Edema: No Integumentary: Yes: Pressure Ulcer. No: Rash Neurological: Yes: Alert. No: Oriented Psychiatric: Yes: Alert. No: Oriented, Agitated Labs: CBC, BMP 03/23/18 06:00 03/24/18 06:00 INR, PTT INR 1.17 (0.83-1.09) H 03/13/18 20:12 - ....Imaging Other: Report Reviewed Assessment/Plan 78 year old gentleman with history of DM, PVD s/p Right AKA, Sacral ulcers, Dementia, BPH, CKD (baseline Cr ~1.6), anemia, UIT Pseudomonas, presented with sacral ulcerations requiring debridement rising WBC, increase in creatinine also noted IVF, renal f/u, po water; f/u labs IV ATB per ID surgery f/u dr Davalos, to decide about VAC placement prognosis poor turn in bed for decubs PFX aspiration, falls DVT pfx d/w pt and staff.
[2018-03-24] MEDS: HEPARIN NA (PORCINE) 5,000 UNITS/ML 1ML VIAL SQ SCH ×2 (09:10→22:38)
[2018-03-24] MEDS: CITALOPRAM HYDROBROMIDE 20 MG TABLET (FP) PO SCH (09:10)
[2018-03-24] MEDS: ASPIRIN 81 MG CHEWABLE TABLETS PO SCH (09:10)
[2018-03-24] MEDS: SODIUM HYPOCHLORITE 0.25%- 473 ML BULK BOTTLE TP SCH (09:10)
[2018-03-24] MEDS: ACETAMINOPHEN 325 MG TABLET (FP) PO PRN (09:12)
[2018-03-24] MEDS: SODIUM CHLORIDE 1,000 ML IV SCH ×2 (09:21→13:36)
[2018-03-24] MEDS: COLLAGENASE CLOSTRIDIUM HIST. 30 GRAMS TUBE TP SCH (09:21)
--- NOTE | 2018-03-24 10:18 | PN ---
Progress Note, Physician Chief Complaint: fever History of Present Illness: opens eyes, non-verbal. appears comfortable - Current Medication List Current Medications: Active Medications Acetaminophen (Tylenol -) 650 mg PO Q6H PRN PRN Reason: FEVER Last Admin: 03/24/18 09:12 Dose: 650 mg Aspirin (Asa -) 81 mg PO DAILY [facility] Last Admin: 03/24/18 09:10 Dose: 81 mg Carbidopa/Levodopa (Sinemet 25/100 -) 2 each PO 0600,1300,2100 [facility] Last Admin: 03/24/18 06:08 Dose: 2 each Carbidopa/Levodopa (Sinemet 25/100 -) 1 each PO 0900,1700 [facility] Last Admin: 03/24/18 08:47 Dose: 1 each Citalopram Hydrobromide (Celexa -) 40 mg PO DAILY [facility] Last Admin: 03/24/18 09:10 Dose: 40 mg Collagenase (Santyl -) 1 applic TP DAILY [facility]; Protocol Last Admin: 03/24/18 09:21 Dose: 1 applic Heparin Sodium (Porcine) (Heparin -) 5,000 unit SQ BID [facility] Last Admin: 03/24/18 09:10 Dose: 5,000 unit Piperacillin Sod/Tazobactam (Sod 3.375 gm/ Dextrose) 50 mls @ 100 mls/hr IVPB Q8H-IV [facility]; Protocol Last Admin: 03/24/18 09:11 Dose: 100 mls/hr Sodium Chloride (Normal Saline -) 1,000 mls @ 50 mls/hr IV ASDIR [facility] Last Admin: 03/24/18 09:21 Dose: 50 mls/hr Insulin Aspart (Novolog Vial Sliding Scale -) 1 vial SQ ACHS [facility]; Protocol Last Admin: 03/24/18 06:10 Dose: 4 unit Insulin Detemir (Levemir Vial) 16 units SQ DAILY@0700 [facility] Last Admin: 03/24/18 06:08 Dose: 16 units Morphine Sulfate (Morphine Sulfate) 1 mg IVPUSH Q3H PRN PRN Reason: PAIN LEVEL 4 - 6 Sodium Hypochlorite (Dakin's Solution 0.25% (Half-Strength) -) 1 applic TP DAILY [facility] Last Admin: 03/24/18 09:10 Dose: Not Given Tamsulosin HCl (Flomax -) 0.4 mg PO DAILY@0830 [facility] Last Admin: 03/24/18 08:47 Dose: 0.4 mg - Objective Vital Signs: Vital Signs Temperature 97.9 F 03/24/18 08:30 Pulse Rate 66 03/24/18 08:30 Respiratory Rate 18 03/24/18 08:30 Blood Pressure 141/69 03/24/18 08:30 O2 Sat by Pulse Oximetry (%) 97 03/23/18 21:00 Constitutional: Yes: Well Nourished, No Distress, Calm Cardiovascular: Yes: Regular Rate and Rhythm (decr intensity), S1, S2. No: JVD , Gallop, Murmur Respiratory: Yes: Regular, CTA Bilaterally (not taking deep breaths on request) . No: Accessory Muscle Use, Rales, Wheezes Extremities: No: Cold Edema: No (s/p RLE amputation) Neurological: Yes: Alert. No: Seizure Psychiatric: No: Agitated Labs: CBC, BMP 03/23/18 06:00 03/24/18 06:00 INR, PTT INR 1.17 (0.83-1.09) H 03/13/18 20:12 Assessment/Plan echo 02/2018: nl lv/rv, no sig valve path, ao root 3.9 cm EKG: sinus rhythm, nonspecific ST changes CXR: no acute process a/p: 77M h/o DM, R AKA, sacral ulcer, dementia p/w decub ulcer with plan for debridement decubitus ulcer, fever - s/p debridement - manage per surgery, primary, ID DM - manage per primary team dementia - nonverbal at baseline PAD, s/p R AKA - continue aspirin YENI: - ? sec to UTI - on IVF, plan per renal
--- NOTE | 2018-03-24 12:03 | PN ---
Progress Note, Physician Chief Complaint: The patient seen and examined in his bed. Seems alert, but non verbal. Maintains good urine output. No new developments. History of Present Illness: 78 year old gentleman with history of DM, PVD s/p Right AKA, Sacral ulcers, Dementia, CKD presented with sacral ulcerations requiring debridement with rise in serum Cr to 2.1. Renal functions improving slowly - Current Medication List Current Medications: Active Medications Acetaminophen (Tylenol -) 650 mg PO Q6H PRN PRN Reason: FEVER Last Admin: 03/24/18 09:12 Dose: 650 mg Aspirin (Asa -) 81 mg PO DAILY [facility] Last Admin: 03/24/18 09:10 Dose: 81 mg Carbidopa/Levodopa (Sinemet 25/100 -) 2 each PO 0600,1300,2100 [facility] Last Admin: 03/24/18 06:08 Dose: 2 each Carbidopa/Levodopa (Sinemet 25/100 -) 1 each PO 0900,1700 [facility] Last Admin: 03/24/18 08:47 Dose: 1 each Citalopram Hydrobromide (Celexa -) 40 mg PO DAILY [facility] Last Admin: 03/24/18 09:10 Dose: 40 mg Collagenase (Santyl -) 1 applic TP DAILY [facility]; Protocol Last Admin: 03/24/18 09:21 Dose: 1 applic Heparin Sodium (Porcine) (Heparin -) 5,000 unit SQ BID [facility] Last Admin: 03/24/18 09:10 Dose: 5,000 unit Piperacillin Sod/Tazobactam (Sod 3.375 gm/ Dextrose) 50 mls @ 100 mls/hr IVPB Q8H-IV [facility]; Protocol Last Admin: 03/24/18 09:11 Dose: 100 mls/hr Sodium Chloride (Normal Saline -) 1,000 mls @ 50 mls/hr IV ASDIR [facility] Last Admin: 03/24/18 09:21 Dose: 50 mls/hr Insulin Aspart (Novolog Vial Sliding Scale -) 1 vial SQ ACHS [facility]; Protocol Last Admin: 03/24/18 11:18 Dose: Not Given Insulin Detemir (Levemir Vial) 16 units SQ DAILY@0700 [facility] Last Admin: 03/24/18 06:08 Dose: 16 units Morphine Sulfate (Morphine Sulfate) 1 mg IVPUSH Q3H PRN PRN Reason: PAIN LEVEL 4 - 6 Sodium Hypochlorite (Dakin's Solution 0.25% (Half-Strength) -) 1 applic TP DAILY [facility] Last Admin: 03/24/18 09:10 Dose: Not Given Tamsulosin HCl (Flomax -) 0.4 mg PO DAILY@0830 [facility] Last Admin: 03/24/18 08:47 Dose: 0.4 mg - Objective Vital Signs: Vital Signs Temperature 97.9 F 03/24/18 08:30 Pulse Rate 66 03/24/18 08:30 Respiratory Rate 18 03/24/18 09:00 Blood Pressure 141/69 03/24/18 08:30 O2 Sat by Pulse Oximetry (%) 95 03/24/18 09:00 Constitutional: Yes: No Distress HENT: Yes: Normocephalic Cardiovascular: Yes: S1, S2 Respiratory: Yes: CTA Bilaterally Gastrointestinal: Yes: Normal Bowel Sounds, Soft Genitourinary: Yes: Hernandez Present. No: Hematuria Neurological: Yes: Aphasia Labs: CBC, BMP 03/23/18 06:00 03/24/18 06:00 INR, PTT INR 1.17 (0.83-1.09) H 03/13/18 20:12 Assessment/Plan 78 year old gentleman with history of DM, PVD s/p Right AKA, Sacral ulcers, Dementia, CKD presented with sacral ulcerations requiring debridement with rise in serum Cr to 2.1. #YENI on CKD. Renal functions improving. Last Serum Cr 1.9 #Sacral ulcers #BPH with urinary retention . Hernadnez catheter in place. #Anemia #DM #Pseudomonas UTI IV fluids well tolerated. Will trend renal functions. Codi Willis MD
[2018-03-24 15:15] LABS: BASO % 0.7 % (0-2.0); EOS % 3.2 % (0-4.5); HEMATOCRIT 26.2 % (35.4-49); HEMOGLOBIN 8.2 GM/dL (11.7-16.9); LYMPH % 18.2 % (8-40); MCHC 31.4 g/dl (32.0-35.9); MEAN CELL VOLUME 95.5 fl (80-96); MEAN PLT VOLUME 6.9 fl (7.5-11.1); MONO % 6.1 % (3.8-10.2); NEUT % 71.8 % (42.8-82.8); PLATELET COUNT 297 K/MM3 (134-434); RBC 2.74 M/mm3 (4.00-5.60); RDW 15.7 % (11.9-15.9); WHITE BLOOD COUNT 6.2 K/mm3 (4.0-10.0)
[2018-03-25] MEDS ORDERED: PIPERACILLIN/TAZOBACTAM 3.375 GM VIAL IVPB ONE ×3 (00:56→17:01)
[2018-03-25] MEDS ORDERED: DEXTROSE 5%-WATER - 50 ML IVPB ONE ×3 (00:56→17:02)
[2018-03-25] MEDS: PIPERACILLIN/TAZOB 3.375 GM 3.375 GM in DEXTROSE 5%-WATER - 50 ML IVPB SCH ×3 (02:02→17:11)
[2018-03-25] MEDS: CARBIDOPA/LEVODOPA 25/100 TABLET (FP) PO SCH ×5 (06:22→22:01)
[2018-03-25] MEDS: INSULIN SLIDING SCALE (NOVOLOG) 1 VIAL SQ SCH ×4 (06:24→22:01)
[2018-03-25] MEDS: INSULIN (LEVEMIR) 100 UNITS/ML UNITS SQ SCH (06:24)
[2018-03-25 06:30] LABS: BASO % 0.5 % (0-2.0); EOS % 3.6 % (0-4.5); HEMATOCRIT 26.3 % (35.4-49); HEMOGLOBIN 8.3 GM/dL (11.7-16.9); LYMPH % 22.4 % (8-40); MCH 29.7 pg (25.7-33.7); MCHC 31.7 g/dl (32.0-35.9); MEAN CELL VOLUME 93.8 fl (80-96); MEAN PLT VOLUME 6.9 fl (7.5-11.1); MONO % 6.2 % (3.8-10.2); NEUT % 67.3 % (42.8-82.8); PLATELET COUNT 295 K/MM3 (134-434); RDW 15.9 % (11.9-15.9); WHITE BLOOD COUNT 6.6 K/mm3 (4.0-10.0)
[2018-03-25 06:55] LABS: ALBUMIN 1.6 g/dl (3.4-5.0); ALK PHOS 115 U/L (45-117); ANION GAP 6 MMOL/L (8-16); BILIRUBIN,TOTAL 0.4 mg/dL (0.2-1); BLOOD UREA NITROGEN 23 mg/dL (7-18); CALCIUM 7.7 mg/dL (8.5-10.1); CHLORIDE 110 mmol/L (98-107); CO2 24 mmol/L (21-32); CREATININE 1.6 mg/dL (0.55-1.3); GLUCOSE,RANDOM 103 mg/dL (74-106); POTASSIUM 4.8 mmol/L (3.5-5.1); SGOT/AST 19 U/L (15-37); SGPT/ALT 7 U/L (13-61); SODIUM 140 mmol/L (136-145); TOT PROT 5.9 g/dl (6.4-8.2)
--- NOTE | 2018-03-25 07:56 | PN ---
Progress Note (short form) - Note Progress Note: POD #10 s/p excisional sharp Debridement of sacral decubitus eschar No acute events over the weekend per RN. In bed with roll propping patient towards the left. On Zosyn per ID. VSS. Afebrile. Vital Signs Temp 97.6 F 03/25/18 06:00 Pulse 61 03/25/18 06:00 Resp 20 03/25/18 06:00 BP 138/59 L 03/25/18 06:00 Pulse Ox 96 03/24/18 21:00 Intake & Output 03/24/18 03/24/18 03/25/18 11:59 23:59 11:59 Intake Total 350 1120 550 Output Total 800 1300 Balance -450 -180 550 Weight 134 lb 9.6 oz Intake: IV 350 700 500 Normal Saline - 1,000 ml 350 700 500 @ 50 mls/hr IV ASDIR [facility] Rx#:[id number] IVPB 100 Oral 320 50 Output: Urine 800 1300 Hernandez 800 1300 Other: Voiding Method Indwelling Catheter Indwelling Catheter Indwelling Catheter Bowel Movement No Weight Measurement Method Patient Lift Scale CBC, BMP 03/25/18 06:00 03/25/18 06:00 Gen: nad Back: Large, stage 4 sacral decubitus, approx [id number] with approx 3cm of undermining proximally. Proximal half of ulcer base with moderate fibrinous slough well adhered to muscle. Remainder of wound bed clean with good granulation tissue present. Moderate serous drainage on 4x4's. Proximal skin tissue with necrosis along border. No purulent drainage noted. Wound looks improving slowly. Will continue conservative wound care/management at this time with Santyl ( liberal application) to base (cover with damp to dry 4x4's and Allevyn) Will re-evaluate in a few days to see if ready for wound VAC. Cont care per primary team. Continue IV ABX per ID
[2018-03-25] MEDS ORDERED: PT OWN MED DRAWER 7, Y5N ONE ×3 (08:22→21:00)
[2018-03-25] MEDS: MORPHINE SULFATE 2 MG/ML VIAL IVPUSH PRN (09:24)
[2018-03-25] MEDS: ASPIRIN 81 MG CHEWABLE TABLETS PO SCH (09:25)
[2018-03-25] MEDS: CITALOPRAM HYDROBROMIDE 20 MG TABLET (FP) PO SCH (09:25)
[2018-03-25] MEDS: TAMSULOSIN HCL 0.4 MG CAP PO SCH (09:25)
[2018-03-25] MEDS: SODIUM HYPOCHLORITE 0.25%- 473 ML BULK BOTTLE TP SCH (09:26)
[2018-03-25] MEDS: COLLAGENASE CLOSTRIDIUM HIST. 30 GRAMS TUBE TP SCH (09:27)
--- NOTE | 2018-03-25 10:23 | PN ---
Progress Note, Physician Chief Complaint: decub ulcer History of Present Illness: non-verbal/not communicative. eyes open, appears comfortable. - Current Medication List Current Medications: Active Medications Acetaminophen (Tylenol -) 650 mg PO Q6H PRN PRN Reason: FEVER Last Admin: 03/24/18 09:12 Dose: 650 mg Aspirin (Asa -) 81 mg PO DAILY [facility] Last Admin: 03/25/18 09:25 Dose: 81 mg Carbidopa/Levodopa (Sinemet 25/100 -) 2 each PO 0600,1300,2100 [facility] Last Admin: 03/25/18 06:22 Dose: 2 each Carbidopa/Levodopa (Sinemet 25/100 -) 1 each PO 0900,1700 [facility] Last Admin: 03/25/18 09:26 Dose: 1 each Citalopram Hydrobromide (Celexa -) 40 mg PO DAILY [facility] Last Admin: 03/25/18 09:25 Dose: 40 mg Collagenase (Santyl -) 1 applic TP DAILY [facility]; Protocol Last Admin: 03/25/18 09:27 Dose: 1 applic Heparin Sodium (Porcine) (Heparin -) 5,000 unit SQ BID [facility] Last Admin: 03/24/18 22:38 Dose: 5,000 unit Piperacillin Sod/Tazobactam (Sod 3.375 gm/ Dextrose) 50 mls @ 100 mls/hr IVPB Q8H-IV [facility]; Protocol Last Admin: 03/25/18 09:23 Dose: 100 mls/hr Sodium Chloride (Normal Saline -) 1,000 mls @ 50 mls/hr IV ASDIR [facility] Last Admin: 03/24/18 13:36 Dose: Not Given Insulin Aspart (Novolog Vial Sliding Scale -) 1 vial SQ ACHS [facility]; Protocol Last Admin: 03/25/18 06:24 Dose: Not Given Insulin Detemir (Levemir Vial) 16 units SQ DAILY@0700 [facility] Last Admin: 03/25/18 06:24 Dose: 16 units Morphine Sulfate (Morphine Sulfate) 1 mg IVPUSH Q3H PRN PRN Reason: PAIN LEVEL 4 - 6 Last Admin: 03/25/18 09:24 Dose: 1 mg Sodium Hypochlorite (Dakin's Solution 0.25% (Half-Strength) -) 1 applic TP DAILY [facility] Last Admin: 03/25/18 09:26 Dose: Not Given Tamsulosin HCl (Flomax -) 0.4 mg PO DAILY@0830 [facility] Last Admin: 03/25/18 09:25 Dose: 0.4 mg - Objective Vital Signs: Vital Signs Temperature 97.0 F L 03/25/18 09:33 Pulse Rate 68 03/25/18 09:33 Respiratory Rate 20 03/25/18 09:33 Blood Pressure 120/60 03/25/18 09:33 O2 Sat by Pulse Oximetry (%) 96 03/24/18 21:00 Constitutional: Yes: Well Nourished, No Distress, Calm Cardiovascular: Yes: Regular Rate and Rhythm, S1, S2. No: JVD, Gallop, Murmur Respiratory: Yes: Regular, CTA Bilaterally. No: Accessory Muscle Use, Rales, Wheezes Extremities: No: Cold Edema: No (s/p RLE amputation) Neurological: Yes: Alert. No: Seizure Psychiatric: No: Agitated Labs: CBC, BMP 03/25/18 06:00 03/25/18 06:00 INR, PTT INR 1.17 (0.83-1.09) H 03/13/18 20:12 Assessment/Plan echo 02/2018: nl lv/rv, no sig valve path, ao root 3.9 cm EKG: sinus rhythm, nonspecific ST changes CXR: no acute process a/p: 77M h/o DM, R AKA, sacral ulcer, dementia p/w decub ulcer with plan for debridement decubitus ulcer, fever - s/p debridement - manage per surgery, primary, ID DM - manage per primary team dementia - nonverbal at baseline PAD, s/p R AKA - continue aspirin YENI: - ? sec to UTI - on IVF, plan per renal
[2018-03-25] MEDS: HEPARIN NA (PORCINE) 5,000 UNITS/ML 1ML VIAL SQ SCH ×2 (11:00→22:01)
--- NOTE | 2018-03-25 11:57 | PN ---
Progress Note, Physician Chief Complaint: awake alert NAD VSS afebrile no new c/o - Current Medication List Current Medications: Active Medications Acetaminophen (Tylenol -) 650 mg PO Q6H PRN PRN Reason: FEVER Last Admin: 03/24/18 09:12 Dose: 650 mg Aspirin (Asa -) 81 mg PO DAILY [facility] Last Admin: 03/25/18 09:25 Dose: 81 mg Carbidopa/Levodopa (Sinemet 25/100 -) 2 each PO 0600,1300,2100 [facility] Last Admin: 03/25/18 06:22 Dose: 2 each Carbidopa/Levodopa (Sinemet 25/100 -) 1 each PO 0900,1700 [facility] Last Admin: 03/25/18 09:26 Dose: 1 each Citalopram Hydrobromide (Celexa -) 40 mg PO DAILY [facility] Last Admin: 03/25/18 09:25 Dose: 40 mg Collagenase (Santyl -) 1 applic TP DAILY [facility]; Protocol Last Admin: 03/25/18 09:27 Dose: 1 applic Heparin Sodium (Porcine) (Heparin -) 5,000 unit SQ BID [facility] Last Admin: 03/24/18 22:38 Dose: 5,000 unit Piperacillin Sod/Tazobactam (Sod 3.375 gm/ Dextrose) 50 mls @ 100 mls/hr IVPB Q8H-IV [facility]; Protocol Last Admin: 03/25/18 09:23 Dose: 100 mls/hr Sodium Chloride (Normal Saline -) 1,000 mls @ 50 mls/hr IV ASDIR [facility] Last Admin: 03/24/18 13:36 Dose: Not Given Insulin Aspart (Novolog Vial Sliding Scale -) 1 vial SQ ACHS [facility]; Protocol Last Admin: 03/25/18 06:24 Dose: Not Given Insulin Detemir (Levemir Vial) 16 units SQ DAILY@0700 [facility] Last Admin: 03/25/18 06:24 Dose: 16 units Morphine Sulfate (Morphine Sulfate) 1 mg IVPUSH Q3H PRN PRN Reason: PAIN LEVEL 4 - 6 Last Admin: 03/25/18 09:24 Dose: 1 mg Sodium Hypochlorite (Dakin's Solution 0.25% (Half-Strength) -) 1 applic TP DAILY [facility] Last Admin: 03/25/18 09:26 Dose: Not Given Tamsulosin HCl (Flomax -) 0.4 mg PO DAILY@0830 [facility] Last Admin: 03/25/18 09:25 Dose: 0.4 mg - Objective Vital Signs: Vital Signs Temperature 97.0 F L 03/25/18 09:33 Pulse Rate 68 03/25/18 09:33 Respiratory Rate 20 03/25/18 09:33 Blood Pressure 120/60 03/25/18 09:33 O2 Sat by Pulse Oximetry (%) 96 03/24/18 21:00 Constitutional: Yes: No Distress Eyes: Yes: Conjunctiva Clear HENT: Yes: Atraumatic Neck: Yes: Supple Cardiovascular: Yes: Regular Rate and Rhythm Respiratory: Yes: CTA Bilaterally Gastrointestinal: Yes: Soft. No: Tenderness Musculoskeletal: No: Joint Stiffness, Joint Swelling Extremities: No: Cold, Cool Edema: No Integumentary: Yes: Pressure Ulcer Neurological: Yes: Alert. No: Oriented Psychiatric: Yes: Alert. No: Oriented, Agitated Labs: CBC, BMP 03/25/18 06:00 03/25/18 06:00 INR, PTT INR 1.17 (0.83-1.09) H 03/13/18 20:12 - ....Imaging Other: Report Reviewed Assessment/Plan 78 year old gentleman with history of DM, PVD s/p Right AKA, Sacral ulcers, Dementia, BPH, CKD (baseline Cr ~1.6), anemia, UIT Pseudomonas, presented with sacral ulcerations requiring debridement rising WBC,s/p ARF/CRF also noted IVF, renal f/u, po water; f/u labs IV ATB per ID surgery f/u dr Davalos, to decide about VAC placement prognosis poor turn in bed for decubs PFX aspiration, falls DVT pfx d/w pt and staff.
[2018-03-25] MEDS: SODIUM CHLORIDE 1,000 ML IV SCH (12:19)
--- NOTE | 2018-03-25 17:45 | PN ---
Progress Note, Physician History of Present Illness: Awake, responsive No acute distress Chronically ill appearing Temps down WBC WNL Blood c/s negative Cultures mixed organisms - Current Medication List Current Medications: Active Medications Acetaminophen (Tylenol -) 650 mg PO Q6H PRN PRN Reason: FEVER Last Admin: 03/24/18 09:12 Dose: 650 mg Aspirin (Asa -) 81 mg PO DAILY [facility] Last Admin: 03/25/18 09:25 Dose: 81 mg Carbidopa/Levodopa (Sinemet 25/100 -) 2 each PO 0600,1300,2100 [facility] Last Admin: 03/25/18 13:18 Dose: 2 each Carbidopa/Levodopa (Sinemet 25/100 -) 1 each PO 0900,1700 [facility] Last Admin: 03/25/18 17:10 Dose: 1 each Citalopram Hydrobromide (Celexa -) 40 mg PO DAILY [facility] Last Admin: 03/25/18 09:25 Dose: 40 mg Collagenase (Santyl -) 1 applic TP DAILY [facility]; Protocol Last Admin: 03/25/18 09:27 Dose: 1 applic Heparin Sodium (Porcine) (Heparin -) 5,000 unit SQ BID [facility] Last Admin: 03/25/18 11:00 Dose: 5,000 unit Piperacillin Sod/Tazobactam (Sod 3.375 gm/ Dextrose) 50 mls @ 100 mls/hr IVPB Q8H-IV [facility]; Protocol Last Admin: 03/25/18 17:11 Dose: 100 mls/hr Sodium Chloride (Normal Saline -) 1,000 mls @ 50 mls/hr IV ASDIR [facility] Last Admin: 03/25/18 12:19 Dose: Not Given Insulin Aspart (Novolog Vial Sliding Scale -) 1 vial SQ ACHS [facility]; Protocol Last Admin: 03/25/18 17:10 Dose: Not Given Insulin Detemir (Levemir Vial) 16 units SQ DAILY@0700 [facility] Last Admin: 03/25/18 06:24 Dose: 16 units Morphine Sulfate (Morphine Sulfate) 1 mg IVPUSH Q3H PRN PRN Reason: PAIN LEVEL 4 - 6 Last Admin: 03/25/18 09:24 Dose: 1 mg Sodium Hypochlorite (Dakin's Solution 0.25% (Half-Strength) -) 1 applic TP DAILY [facility] Last Admin: 12/10/18 09:26 Dose: Not Given Tamsulosin HCl (Flomax -) 0.4 mg PO DAILY@0830 [facility] Last Admin: 03/25/18 09:25 Dose: 0.4 mg - Objective Vital Signs: Vital Signs Temperature 98.9 F 03/25/18 17:31 Pulse Rate 74 03/25/18 17:31 Respiratory Rate 20 03/25/18 17:31 Blood Pressure 108/55 L 03/25/18 17:31 O2 Sat by Pulse Oximetry (%) 96 03/25/18 09:00 Constitutional: Yes: No Distress Cardiovascular: Yes: Regular Rate and Rhythm, S1, S2 Respiratory: Yes: Diminished Gastrointestinal: Yes: Normal Bowel Sounds, Soft Extremities: Yes: Other (s/p AKA) Integumentary: Yes: Other (large sacral decubitus) Labs: CBC, BMP 03/25/18 06:00 03/25/18 06:00 INR, PTT INR 1.17 (0.83-1.09) H 03/13/18 20:12 Assessment/Plan S/P debridement of sacral decubitus ulcer R/O sepsis secondary to skin source Azotemia Parkinsonism/ dementia Continue zosyn Local wound care
--- NOTE | 2018-03-25 18:10 | PN ---
Progress Note (short form) - Note Progress Note: Renal follow up for YENI on CKD Pt seen and examined at the bedside no overnight events on IVF tolerating oral diet as per aid Vital Signs Temperature 98.9 F 03/25/18 17:31 Pulse Rate 74 03/25/18 17:31 Respiratory Rate 20 03/25/18 17:31 Blood Pressure 108/55 L 03/25/18 17:31 O2 Sat by Pulse Oximetry (%) 96 03/25/18 09:00 NAD no LE edema CBC, BMP 03/25/18 06:00 03/25/18 06:00 Current Medications Acetaminophen (Tylenol -) 650 mg PO Q6H PRN PRN Reason: FEVER Last Admin: 03/24/18 09:12 Dose: 650 mg Aspirin (Asa -) 81 mg PO DAILY [facility] Last Admin: 03/25/18 09:25 Dose: 81 mg Carbidopa/Levodopa (Sinemet 25/100 -) 2 each PO 0600,1300,2100 [facility] Last Admin: 03/25/18 13:18 Dose: 2 each Carbidopa/Levodopa (Sinemet 25/100 -) 1 each PO 0900,1700 [facility] Last Admin: 03/25/18 17:10 Dose: 1 each Citalopram Hydrobromide (Celexa -) 40 mg PO DAILY [facility] Last Admin: 03/25/18 09:25 Dose: 40 mg Collagenase (Santyl -) 1 applic TP DAILY [facility]; Protocol Last Admin: 03/25/18 09:27 Dose: 1 applic Heparin Sodium (Porcine) (Heparin -) 5,000 unit SQ BID [facility] Last Admin: 03/25/18 11:00 Dose: 5,000 unit Piperacillin Sod/Tazobactam (Sod 3.375 gm/ Dextrose) 50 mls @ 100 mls/hr IVPB Q8H-IV [facility]; Protocol Last Admin: 03/25/18 17:11 Dose: 100 mls/hr Sodium Chloride (Normal Saline -) 1,000 mls @ 50 mls/hr IV ASDIR [facility] Last Admin: 03/25/18 12:19 Dose: Not Given Insulin Aspart (Novolog Vial Sliding Scale -) 1 vial SQ ACHS [facility]; Protocol Last Admin: 03/25/18 17:10 Dose: Not Given Insulin Detemir (Levemir Vial) 16 units SQ DAILY@0700 [facility] Last Admin: 03/25/18 06:24 Dose: 16 units Morphine Sulfate (Morphine Sulfate) 1 mg IVPUSH Q3H PRN PRN Reason: PAIN LEVEL 4 - 6 Last Admin: 03/25/18 09:24 Dose: 1 mg Sodium Hypochlorite (Dakin's Solution 0.25% (Half-Strength) -) 1 applic TP DAILY [facility] Last Admin: 03/25/18 09:26 Dose: Not Given Tamsulosin HCl (Flomax -) 0.4 mg PO DAILY@0830 [facility] Last Admin: 03/25/18 09:25 Dose: 0.4 mg 78 year old gentleman with history of DM, PVD s/p Right AKA, Sacral ulcers, Dementia, CKD (baseline Cr ~1.6) presented with sacral ulcerations requiring debridement with rise in serum Cr to 2.1. #YENI on CKD #Sacral ulcers #BPH with urinar retention #Anemia #DM #Pseudomonas UTI Renal function with modest improvement continue IVF for additoional 18 hours Trend renal function and electrolytes Nicolas Kinney DO
[2018-03-26] MEDS ORDERED: PIPERACILLIN/TAZOBACTAM 3.375 GM VIAL IVPB ONE ×3 (02:37→17:01)
[2018-03-26] MEDS ORDERED: DEXTROSE 5%-WATER - 50 ML IVPB ONE ×3 (02:38→17:02)
[2018-03-26] MEDS: PIPERACILLIN/TAZOB 3.375 GM 3.375 GM in DEXTROSE 5%-WATER - 50 ML IVPB SCH ×3 (02:52→17:49)
[2018-03-26] MEDS ORDERED: PT OWN MED DRAWER 7, Y5N ONE (05:09)
[2018-03-26] MEDS: CARBIDOPA/LEVODOPA 25/100 TABLET (FP) PO SCH ×5 (05:59→21:14)
[2018-03-26] MEDS: INSULIN SLIDING SCALE (NOVOLOG) 1 VIAL SQ SCH ×4 (06:03→21:18)
[2018-03-26] MEDS: INSULIN (LEVEMIR) 100 UNITS/ML UNITS SQ SCH (06:04)
[2018-03-26] MEDS: COLLAGENASE CLOSTRIDIUM HIST. 30 GRAMS TUBE TP SCH (09:27)
[2018-03-26] MEDS: ASPIRIN 81 MG CHEWABLE TABLETS PO SCH (09:28)
[2018-03-26] MEDS: CITALOPRAM HYDROBROMIDE 20 MG TABLET (FP) PO SCH (09:28)
[2018-03-26] MEDS: HEPARIN NA (PORCINE) 5,000 UNITS/ML 1ML VIAL SQ SCH ×2 (09:29→21:14)
[2018-03-26] MEDS: SODIUM HYPOCHLORITE 0.25%- 473 ML BULK BOTTLE TP SCH (09:29)
[2018-03-26] MEDS: TAMSULOSIN HCL 0.4 MG CAP PO SCH (09:29)
--- NOTE | 2018-03-26 11:56 | PN ---
Progress Note (short form) - Note Progress Note: Chief Complaint: decub ulcer History of Present Illness: non-verbal. appears comfortable Current Medications Acetaminophen (Tylenol -) 650 mg PO Q6H PRN PRN Reason: FEVER Last Admin: 03/24/18 09:12 Dose: 650 mg Aspirin (Asa -) 81 mg PO DAILY [facility] Last Admin: 03/26/18 09:28 Dose: 81 mg Carbidopa/Levodopa (Sinemet 25/100 -) 2 each PO 0600,1300,2100 [facility] Last Admin: 03/26/18 05:59 Dose: 2 each Carbidopa/Levodopa (Sinemet 25/100 -) 1 each PO 0900,1700 [facility] Last Admin: 03/26/18 09:30 Dose: 1 each Citalopram Hydrobromide (Celexa -) 40 mg PO DAILY [facility] Last Admin: 03/26/18 09:28 Dose: 40 mg Collagenase (Santyl -) 1 applic TP DAILY [facility]; Protocol Last Admin: 03/26/18 09:27 Dose: 1 applic Heparin Sodium (Porcine) (Heparin -) 5,000 unit SQ BID [facility] Last Admin: 03/26/18 09:29 Dose: 5,000 unit Piperacillin Sod/Tazobactam (Sod 3.375 gm/ Dextrose) 50 mls @ 100 mls/hr IVPB Q8H-IV [facility]; Protocol Last Admin: 03/26/18 09:28 Dose: 100 mls/hr Sodium Chloride (Normal Saline -) 1,000 mls @ 50 mls/hr IV [facility]IR [facility] Last Admin: 03/25/18 12:19 Dose: Not Given Insulin Aspart (Novolog Vial Sliding Scale -) 1 vial SQ ACHS [facility]; Protocol Last Admin: 03/26/18 06:03 Dose: Not Given Insulin Detemir (Levemir Vial) 16 units SQ DAILY@0700 [facility] Last Admin: 03/26/18 06:04 Dose: 16 units Morphine Sulfate (Morphine Sulfate) 1 mg IVPUSH Q3H PRN PRN Reason: PAIN LEVEL 4 - 6 Last Admin: 03/25/18 09:24 Dose: 1 mg Sodium Hypochlorite (Dakin's Solution 0.25% (Half-Strength) -) 1 applic TP DAILY [facility] Last Admin: 03/26/18 09:29 Dose: Not Given Tamsulosin HCl (Flomax -) 0.4 mg PO DAILY@0830 [facility] Last Admin: 03/26/18 09:29 Dose: 0.4 mg - Objective Vital Signs Period Temp Pulse Resp BP Sys/Kebede Pulse Ox Last 24 Hr 97.9 F-98.9 F 63-74 18-20 104-129/55-64 97 Constitutional: Yes: Well Nourished, No Distress, Calm Cardiovascular: Yes: Regular Rate and Rhythm, S1, S2. No: JVD, Gallop, Murmur Respiratory: Yes: Regular, CTA Bilaterally. No: Accessory Muscle Use, Rales, Wheezes Extremities: No: Cold Edema: No (s/p RLE amputation) Neurological: Yes: Alert. No: Seizure Psychiatric: No: Agitated Assessment/Plan echo 02/2018: nl lv/rv, no sig valve path, ao root 3.9 cm EKG: sinus rhythm, nonspecific ST changes CXR: no acute process a/p: 77M h/o DM, R AKA, sacral ulcer, dementia p/w decub ulcer with plan for debridement decubitus ulcer, fever - s/p debridement - manage per surgery, primary, ID DM - manage per primary team dementia - nonverbal at baseline PAD, s/p R AKA - continue aspirin YENI: - ? sec to UTI - on IVF, plan per renal
[2018-03-26] MEDS: SODIUM CHLORIDE 1,000 ML IV SCH (12:51)
--- NOTE | 2018-03-26 13:23 | PN ---
Progress Note (short form) - Note Progress Note: Renal follow up for YENI on CKD Vital Signs Temperature 98.0 F 03/26/18 10:00 Pulse Rate 73 03/26/18 10:00 Respiratory Rate 18 03/26/18 10:00 Blood Pressure 104/59 L 03/26/18 10:00 O2 Sat by Pulse Oximetry (%) 97 03/25/18 21:00 Intake & Output 03/23/18 03/24/18 03/25/18 03/26/18 23:59 23:59 23:59 23:59 Intake Total 1250 1470 1618 450 Output Total 2200 2100 1725 1000 Balance -950 -630 -107 -550 Weight 60.781 kg 61.054 kg 60.736 kg 61.745 kg NAD no Le edema CBC, BMP 03/25/18 06:00 03/25/18 06:00 Current Medications Acetaminophen (Tylenol -) 650 mg PO Q6H PRN PRN Reason: FEVER Last Admin: 03/24/18 09:12 Dose: 650 mg Aspirin (Asa -) 81 mg PO DAILY [facility] Last Admin: 03/26/18 09:28 Dose: 81 mg Carbidopa/Levodopa (Sinemet 25/100 -) 2 each PO 0600,1300,2100 [facility] Last Admin: 03/26/18 05:59 Dose: 2 each Carbidopa/Levodopa (Sinemet 25/100 -) 1 each PO 0900,1700 [facility] Last Admin: 03/26/18 09:30 Dose: 1 each Citalopram Hydrobromide (Celexa -) 40 mg PO DAILY [facility] Last Admin: 03/26/18 09:28 Dose: 40 mg Collagenase (Santyl -) 1 applic TP DAILY [facility]; Protocol Last Admin: 03/26/18 09:27 Dose: 1 applic Heparin Sodium (Porcine) (Heparin -) 5,000 unit SQ BID [facility] Last Admin: 03/26/18 09:29 Dose: 5,000 unit Piperacillin Sod/Tazobactam (Sod 3.375 gm/ Dextrose) 50 mls @ 100 mls/hr IVPB Q8H-IV [facility]; Protocol Last Admin: 03/26/18 09:28 Dose: 100 mls/hr Sodium Chloride (Normal Saline -) 1,000 mls @ 50 mls/hr IV ASDIR [facility] Last Admin: 03/26/18 12:51 Dose: Not Given Insulin Aspart (Novolog Vial Sliding Scale -) 1 vial SQ ACHS [facility]; Protocol Last Admin: 03/26/18 12:20 Dose: 4 unit Insulin Detemir (Levemir Vial) 16 units SQ DAILY@0700 [facility] Last Admin: 03/26/18 06:04 Dose: 16 units Morphine Sulfate (Morphine Sulfate) 1 mg IVPUSH Q3H PRN PRN Reason: PAIN LEVEL 4 - 6 Last Admin: 03/25/18 09:24 Dose: 1 mg Sodium Hypochlorite (Dakin's Solution 0.25% (Half-Strength) -) 1 applic TP DAILY [facility] Last Admin: 03/26/18 09:29 Dose: Not Given Tamsulosin HCl (Flomax -) 0.4 mg PO DAILY@0830 [facility] Last Admin: 03/26/18 09:29 Dose: 0.4 mg 78 year old gentleman with history of DM, PVD s/p Right AKA, Sacral ulcers, Dementia, CKD (baseline Cr ~1.6) presented with sacral ulcerations requiring debridement with rise in serum Cr to 2.1. #YENI on CKD #Sacral ulcers #BPH with urinar retention #Anemia #DM #Pseudomonas UTI Renal function improved to near baseline tolerating oral diet will d/c IVF trend BUN/Cr and electrolytes continue abx as per ANDRES Kinney DO
[2018-03-26 14:27] VITALS: BMI 20.7
--- NOTE | 2018-03-26 15:40 | PN ---
Progress Note, Physician Chief Complaint: in bed awake alert NAD afebrile VSS ate OK per staff - Current Medication List Current Medications: Active Medications Acetaminophen (Tylenol -) 650 mg PO Q6H PRN PRN Reason: FEVER Last Admin: 03/24/18 09:12 Dose: 650 mg Aspirin (Asa -) 81 mg PO DAILY [facility] Last Admin: 03/26/18 09:28 Dose: 81 mg Carbidopa/Levodopa (Sinemet 25/100 -) 2 each PO 0600,1300,2100 [facility] Last Admin: 03/26/18 14:00 Dose: 2 each Carbidopa/Levodopa (Sinemet 25/100 -) 1 each PO 0900,1700 [facility] Last Admin: 03/26/18 09:30 Dose: 1 each Citalopram Hydrobromide (Celexa -) 40 mg PO DAILY [facility] Last Admin: 03/26/18 09:28 Dose: 40 mg Collagenase (Santyl -) 1 applic TP DAILY [facility]; Protocol Last Admin: 03/26/18 09:27 Dose: 1 applic Heparin Sodium (Porcine) (Heparin -) 5,000 unit SQ BID [facility] Last Admin: 03/26/18 09:29 Dose: 5,000 unit Piperacillin Sod/Tazobactam (Sod 3.375 gm/ Dextrose) 50 mls @ 100 mls/hr IVPB Q8H-IV [facility]; Protocol Last Admin: 03/26/18 09:28 Dose: 100 mls/hr Insulin Aspart (Novolog Vial Sliding Scale -) 1 vial SQ ACHS [facility]; Protocol Last Admin: 03/26/18 12:20 Dose: 4 unit Insulin Detemir (Levemir Vial) 16 units SQ DAILY@0700 [facility] Last Admin: 03/26/18 06:04 Dose: 16 units Morphine Sulfate (Morphine Sulfate) 1 mg IVPUSH Q3H PRN PRN Reason: PAIN LEVEL 4 - 6 Last Admin: 03/25/18 09:24 Dose: 1 mg Sodium Hypochlorite (Dakin's Solution 0.25% (Half-Strength) -) 1 applic TP DAILY [facility] Last Admin: 03/26/18 09:29 Dose: Not Given Tamsulosin HCl (Flomax -) 0.4 mg PO DAILY@0830 [facility] Last Admin: 03/26/18 09:29 Dose: 0.4 mg - Objective Vital Signs: Vital Signs Temperature 98.8 F 12/11/18 14:08 Pulse Rate 66 03/26/18 14:08 Respiratory Rate 20 03/26/18 14:08 Blood Pressure 110/54 L 03/26/18 14:08 O2 Sat by Pulse Oximetry (%) 97 03/25/18 21:00 Constitutional: Yes: No Distress, Calm Eyes: Yes: Conjunctiva Clear HENT: Yes: Atraumatic Neck: Yes: Supple Cardiovascular: Yes: Regular Rate and Rhythm Respiratory: Yes: CTA Bilaterally Gastrointestinal: Yes: Soft. No: Distention Genitourinary: No: CVA Tenderness - Left, CVA Tenderness - Right, Hematuria Musculoskeletal: No: Joint Stiffness, Joint Swelling Extremities: Yes: Amputation (RUE AKA). No: Cold, Cool, Cyanosis Edema: No (LLE) Integumentary: Yes: Pressure Ulcer (large sacral wound to bone with necrotic tissue, dressed per surgery.). No: Rash, Venous Stasis Changes Neurological: Yes: Alert. No: Oriented Psychiatric: Yes: Alert. No: Oriented, Agitated Labs: CBC, BMP 03/25/18 06:00 03/25/18 06:00 INR, PTT INR 1.17 (0.83-1.09) H 03/13/18 20:12 - ....Imaging Other: Report Reviewed Assessment/Plan 78 year old gentleman with history of DM, PVD s/p Right AKA, Sacral ulcers, Dementia, BPH, CKD (baseline Cr ~1.6), anemia, UIT Pseudomonas, presented with sacral ulcerations requiring debridement rising WBC,s/p ARF/CRF also noted IVF, renal f/u, po water; f/u labs IV ATB per ID surgery f/u dr Davalos, to decide about VAC placement prognosis poor turn in bed for decubs PFX aspiration, falls DVT pfx d/w pt and staff.
[2018-03-26] MEDS ORDERED: INSULIN (NOVOLOG) ASPART 100 UNITS/ML 10ML VIAL ONE ×2 (18:40→20:47)
[2018-03-26] MEDS ORDERED: INSULIN (LEVEMIR) 100 UNITS/ML UNITS SQ ONE (18:41)
[2018-03-27] MEDS ORDERED: PIPERACILLIN/TAZOBACTAM 3.375 GM VIAL IVPB ONE ×3 (00:44→18:06)
[2018-03-27] MEDS ORDERED: DEXTROSE 5%-WATER - 50 ML IVPB ONE ×3 (00:44→18:06)
[2018-03-27] MEDS: PIPERACILLIN/TAZOB 3.375 GM 3.375 GM in DEXTROSE 5%-WATER - 50 ML IVPB SCH ×3 (01:50→18:38)
[2018-03-27] MEDS: CARBIDOPA/LEVODOPA 25/100 TABLET (FP) PO SCH ×5 (05:52→23:10)
[2018-03-27] MEDS: INSULIN SLIDING SCALE (NOVOLOG) 1 VIAL SQ SCH ×4 (06:04→23:10)
[2018-03-27] MEDS: INSULIN (LEVEMIR) 100 UNITS/ML UNITS SQ SCH (06:04)
--- NOTE | 2018-03-27 06:57 | PN ---
Progress Note, Physician Chief Complaint: in bed awake alert NAD afebrile consults appreciated wound care per surgery; IV ATB per ID VAC? renal fct better - Current Medication List Current Medications: Active Medications Acetaminophen (Tylenol -) 650 mg PO Q6H PRN PRN Reason: FEVER Last Admin: 03/24/18 09:12 Dose: 650 mg Aspirin (Asa -) 81 mg PO DAILY [facility] Last Admin: 03/26/18 09:28 Dose: 81 mg Carbidopa/Levodopa (Sinemet 25/100 -) 2 each PO 0600,1300,2100 [facility] Last Admin: 03/27/18 05:52 Dose: 2 each Carbidopa/Levodopa (Sinemet 25/100 -) 1 each PO 0900,1700 [facility] Last Admin: 03/26/18 17:50 Dose: 1 each Citalopram Hydrobromide (Celexa -) 40 mg PO DAILY [facility] Last Admin: 03/26/18 09:28 Dose: 40 mg Collagenase (Santyl -) 1 applic TP DAILY [facility]; Protocol Last Admin: 03/26/18 09:27 Dose: 1 applic Heparin Sodium (Porcine) (Heparin -) 5,000 unit SQ BID [facility] Last Admin: 03/26/18 21:14 Dose: 5,000 unit Piperacillin Sod/Tazobactam (Sod 3.375 gm/ Dextrose) 50 mls @ 100 mls/hr IVPB Q8H-IV [facility]; Protocol Last Admin: 03/27/18 01:50 Dose: 100 mls/hr Insulin Aspart (Novolog Vial Sliding Scale -) 1 vial SQ ACHS [facility]; Protocol Last Admin: 03/27/18 06:04 Dose: 2 unit Insulin Detemir (Levemir Vial) 16 units SQ DAILY@0700 [facility] Last Admin: 03/27/18 06:04 Dose: 16 units Morphine Sulfate (Morphine Sulfate) 1 mg IVPUSH Q3H PRN PRN Reason: PAIN LEVEL 4 - 6 Last Admin: 03/25/18 09:24 Dose: 1 mg Sodium Hypochlorite (Dakin's Solution 0.25% (Half-Strength) -) 1 applic TP DAILY [facility] Last Admin: 03/26/18 09:29 Dose: Not Given Tamsulosin HCl (Flomax -) 0.4 mg PO DAILY@0830 [facility] Last Admin: 03/26/18 09:29 Dose: 0.4 mg - Objective Vital Signs: Vital Signs Temperature 98.7 F 03/27/18 05:59 Pulse Rate 64 03/27/18 05:59 Respiratory Rate 18 03/27/18 05:59 Blood Pressure 122/85 03/27/18 05:59 O2 Sat by Pulse Oximetry (%) 98 03/26/18 21:00 Constitutional: Yes: Calm Eyes: Yes: Conjunctiva Clear HENT: Yes: Atraumatic Neck: Yes: Supple Cardiovascular: Yes: Regular Rate and Rhythm Respiratory: Yes: CTA Bilaterally Gastrointestinal: Yes: Soft. No: Distention Genitourinary: No: Hematuria Musculoskeletal: No: Joint Stiffness, Joint Swelling Extremities: Yes: Amputation (R AKA). No: Cold, Cool, Cyanosis Edema: No Integumentary: No: Rash, Venous Stasis Changes Neurological: Yes: WNL, Alert. No: Oriented ...Motor Strength: WNL Psychiatric: Yes: WNL, Alert. No: Oriented, Agitated Labs: CBC, BMP 03/25/18 06:00 03/25/18 06:00 INR, PTT INR 1.17 (0.83-1.09) H 03/13/18 20:12 - ....Imaging Other: Report Reviewed Assessment/Plan 78 year old gentleman with history of DM, PVD s/p Right AKA, Sacral ulcers, Dementia, BPH, CKD (baseline Cr ~1.6), anemia, UIT Pseudomonas, presented with sacral ulcerations requiring debridement rising WBC,s/p ARF/CRF IVF, renal f/u, po water; f/u labs IV ATB per ID surgery debridement and wound care, to decide about VAC placement prognosis poor turn in bed for decubs PFX aspiration, falls DVT pfx d/w pt and staff.
[2018-03-27 08:07] LABS: ANION GAP 8 MMOL/L (8-16); BLOOD UREA NITROGEN 30 mg/dL (7-18); CALCIUM 7.1 mg/dL (8.5-10.1); CHLORIDE 107 mmol/L (98-107); CO2 26 mmol/L (21-32); CREATININE 1.5 mg/dL (0.55-1.3); GLUCOSE,RANDOM 77 mg/dL (74-106); PHOSPHOROUS 3.2 mg/dL (2.5-4.9); POTASSIUM 3.9 mmol/L (3.5-5.1); SODIUM 141 mmol/L (136-145)
[2018-03-27] MEDS: TAMSULOSIN HCL 0.4 MG CAP PO SCH (08:48)
[2018-03-27] MEDS: CITALOPRAM HYDROBROMIDE 20 MG TABLET (FP) PO SCH (10:41)
[2018-03-27] MEDS: HEPARIN NA (PORCINE) 5,000 UNITS/ML 1ML VIAL SQ SCH ×2 (10:42→23:10)
[2018-03-27] MEDS: ASPIRIN 81 MG CHEWABLE TABLETS PO SCH (10:42)
[2018-03-27] MEDS: SODIUM HYPOCHLORITE 0.25%- 473 ML BULK BOTTLE TP SCH (10:43)
[2018-03-27] MEDS: COLLAGENASE CLOSTRIDIUM HIST. 30 GRAMS TUBE TP SCH (10:43)
--- NOTE | 2018-03-27 12:30 | PN ---
Progress Note (short form) - Note Progress Note: Chief Complaint: decub ulcer History of Present Illness: non-verbal, sleeping comfortably Current Medications Acetaminophen (Tylenol -) 650 mg PO Q6H PRN PRN Reason: FEVER Last Admin: 03/24/18 09:12 Dose: 650 mg Aspirin (Asa -) 81 mg PO DAILY [facility] Last Admin: 03/27/18 10:42 Dose: 81 mg Carbidopa/Levodopa (Sinemet 25/100 -) 2 each PO 0600,1300,2100 [facility] Last Admin: 03/27/18 05:52 Dose: 2 each Carbidopa/Levodopa (Sinemet 25/100 -) 1 each PO 0900,1700 [facility] Last Admin: 03/27/18 10:41 Dose: 1 each Citalopram Hydrobromide (Celexa -) 40 mg PO DAILY [facility] Last Admin: 03/27/18 10:41 Dose: 40 mg Collagenase (Santyl -) 1 applic TP DAILY [facility]; Protocol Last Admin: 03/27/18 10:43 Dose: 1 applic Heparin Sodium (Porcine) (Heparin -) 5,000 unit SQ BID [facility] Last Admin: 03/27/18 10:42 Dose: 5,000 unit Piperacillin Sod/Tazobactam (Sod 3.375 gm/ Dextrose) 50 mls @ 100 mls/hr IVPB Q8H-IV [facility]; Protocol Last Admin: 03/27/18 10:42 Dose: 100 mls/hr Insulin Aspart (Novolog Vial Sliding Scale -) 1 vial SQ ACHS [facility]; Protocol Last Admin: 03/27/18 12:10 Dose: 2 unit Insulin Detemir (Levemir Vial) 16 units SQ DAILY@0700 [facility] Last Admin: 03/27/18 06:04 Dose: 16 units Morphine Sulfate (Morphine Sulfate) 1 mg IVPUSH Q3H PRN PRN Reason: PAIN LEVEL 4 - 6 Last Admin: 03/25/18 09:24 Dose: 1 mg Sodium Hypochlorite (Dakin's Solution 0.25% (Half-Strength) -) 1 applic TP DAILY [facility] Last Admin: 03/27/18 10:43 Dose: Not Given Tamsulosin HCl (Flomax -) 0.4 mg PO DAILY@0830 [facility] Last Admin: 03/27/18 08:48 Dose: 0.4 mg - Objective Vital Signs Period Temp Pulse Resp BP Sys/Kebede Pulse Ox Last 24 Hr 97.4 F-98.8 F 64-77 18-20 110-126/54-85 98 Constitutional: Yes: Well Nourished, No Distress, Calm Cardiovascular: Yes: Regular Rate and Rhythm, S1, S2. No: JVD, Gallop, Murmur Respiratory: Yes: Regular, CTA Bilaterally. No: Accessory Muscle Use, Rales, Wheezes Extremities: No: Cold Edema: No (s/p RLE amputation) Neurological: Yes: Alert. No: Seizure Psychiatric: No: Agitated Assessment/Plan echo 02/2018: nl lv/rv, no sig valve path, ao root 3.9 cm EKG: sinus rhythm, nonspecific ST changes CXR: no acute process a/p: 77M h/o DM, R AKA, sacral ulcer, dementia p/w decub ulcer with plan for debridement decubitus ulcer, fever - s/p debridement - manage per surgery, primary, ID DM - manage per primary team dementia - nonverbal at baseline PAD, s/p R AKA - continue aspirin YENI: - ? sec to UTI - on IVF, plan per renal
[2018-03-27] MEDS ORDERED: EPOETIN ALFA 20,000 UNIT/1 ML VIAL SQ ONE (14:15)
--- NOTE | 2018-03-27 14:15 | PN ---
Progress Note (short form) - Note Progress Note: Renal follow up for YENI on CKD Pt seen and examined at the bedside sleeping no distress no overnight events Vital Signs Temperature 98.1 F 03/27/18 10:00 Pulse Rate 72 03/27/18 10:00 Respiratory Rate 18 03/27/18 10:00 Blood Pressure 135/61 03/27/18 10:00 O2 Sat by Pulse Oximetry (%) 98 03/26/18 21:00 Intake & Output 03/24/18 03/25/18 03/26/18 03/27/18 23:59 23:59 23:59 23:59 Intake Total 1470 1618 1500 150 Output Total 2100 1725 2400 600 Balance -630 -107 -900 -450 Weight 61.054 kg 60.736 kg 61.745 kg 60.872 kg NAD no Le edema CBC, BMP 03/25/18 06:00 03/27/18 06:15 Current Medications Acetaminophen (Tylenol -) 650 mg PO Q6H PRN PRN Reason: FEVER Last Admin: 03/24/18 09:12 Dose: 650 mg Aspirin (Asa -) 81 mg PO DAILY [facility] Last Admin: 03/27/18 10:42 Dose: 81 mg Carbidopa/Levodopa (Sinemet 25/100 -) 2 each PO 0600,1300,2100 [facility] Last Admin: 03/27/18 13:44 Dose: 2 each Carbidopa/Levodopa (Sinemet 25/100 -) 1 each PO 0900,1700 [facility] Last Admin: 03/27/18 10:41 Dose: 1 each Citalopram Hydrobromide (Celexa -) 40 mg PO DAILY [facility] Last Admin: 03/27/18 10:41 Dose: 40 mg Collagenase (Santyl -) 1 applic TP DAILY [facility]; Protocol Last Admin: 03/27/18 10:43 Dose: 1 applic Heparin Sodium (Porcine) (Heparin -) 5,000 unit SQ BID [facility] Last Admin: 03/27/18 10:42 Dose: 5,000 unit Piperacillin Sod/Tazobactam (Sod 3.375 gm/ Dextrose) 50 mls @ 100 mls/hr IVPB Q8H-IV [facility]; Protocol Last Admin: 03/27/18 10:42 Dose: 100 mls/hr Insulin Aspart (Novolog Vial Sliding Scale -) 1 vial SQ ACHS [facility]; Protocol Last Admin: 12/12/18 12:10 Dose: 2 unit Insulin Detemir (Levemir Vial) 16 units SQ DAILY@0700 [facility] Last Admin: 03/27/18 06:04 Dose: 16 units Morphine Sulfate (Morphine Sulfate) 1 mg IVPUSH Q3H PRN PRN Reason: PAIN LEVEL 4 - 6 Last Admin: 03/25/18 09:24 Dose: 1 mg Sodium Hypochlorite (Dakin's Solution 0.25% (Half-Strength) -) 1 applic TP DAILY [facility] Last Admin: 03/27/18 10:43 Dose: Not Given Tamsulosin HCl (Flomax -) 0.4 mg PO DAILY@0830 [facility] Last Admin: 03/27/18 08:48 Dose: 0.4 mg 78 year old gentleman with history of DM, PVD s/p Right AKA, Sacral ulcers, Dementia, CKD (baseline Cr ~1.6) presented with sacral ulcerations requiring debridement with rise in serum Cr to 2.1. #YENI on CKD #Sacral ulcers #BPH with urinar retention #Anemia #DM #Pseudomonas UTI Renal function, electrolytes WNL continue oral intake as tolerated no indication for IVF continue wound care Abx as per ID Trend H/H, iron staturation is at goal will give JENNIFER to rise Hgb Nicolas Kinney DO
[2018-03-27] MEDS ORDERED: PT OWN MED DRAWER 7, Y5N ONE (15:01)
[2018-03-27] MEDS: MORPHINE SULFATE 2 MG/ML VIAL IVPUSH PRN (16:40)
[2018-03-27] MEDS ORDERED: INSULIN (NOVOLOG) ASPART 100 UNITS/ML 10ML VIAL ONE (21:35)
[2018-03-28] MEDS ORDERED: PIPERACILLIN/TAZOBACTAM 3.375 GM VIAL IVPB ONE ×2 (02:01→10:19)
[2018-03-28] MEDS ORDERED: DEXTROSE 5%-WATER - 50 ML IVPB ONE (02:01)
[2018-03-28] MEDS: PIPERACILLIN/TAZOB 3.375 GM 3.375 GM in DEXTROSE 5%-WATER - 50 ML IVPB SCH ×3 (02:42→23:17)
[2018-03-28] MEDS: CARBIDOPA/LEVODOPA 25/100 TABLET (FP) PO SCH ×5 (06:08→21:09)
[2018-03-28] MEDS: INSULIN SLIDING SCALE (NOVOLOG) 1 VIAL SQ SCH ×4 (06:08→21:10)
[2018-03-28] MEDS: INSULIN (LEVEMIR) 100 UNITS/ML UNITS SQ SCH (06:08)
[2018-03-28] MEDS: ACETAMINOPHEN 325 MG TABLET (FP) PO PRN (06:48)
[2018-03-28 07:41] LABS: BASO % 0.6 % (0-2.0); EOS % 2.7 % (0-4.5); HEMATOCRIT 27.4 % (35.4-49); HEMOGLOBIN 8.8 GM/dL (11.7-16.9); LYMPH % 17.6 % (8-40); MCH 30.2 pg (25.7-33.7); MCHC 32.2 g/dl (32.0-35.9); MEAN CELL VOLUME 93.7 fl (80-96); MEAN PLT VOLUME 6.9 fl (7.5-11.1); MONO % 7.1 % (3.8-10.2); PLATELET COUNT 346 K/MM3 (134-434); RBC 2.92 M/mm3 (4.00-5.60); RDW 16.2 % (11.9-15.9); WHITE BLOOD COUNT 7.2 K/mm3 (4.0-10.0)
[2018-03-28] MEDS: TAMSULOSIN HCL 0.4 MG CAP PO SCH (08:30)
[2018-03-28 08:52] LABS: ANION GAP 10 MMOL/L (8-16); BLOOD UREA NITROGEN 28 mg/dL (7-18); CALCIUM 8.2 mg/dL (8.5-10.1); CHLORIDE 105 mmol/L (98-107); CO2 22 mmol/L (21-32); CREATININE 1.8 mg/dL (0.55-1.3); GLUCOSE,RANDOM 177 mg/dL (74-106); POTASSIUM 5.6 mmol/L (3.5-5.1); SODIUM 137 mmol/L (136-145)
[2018-03-28] MEDS ORDERED: PT OWN MED DRAWER 7, Y5N ONE ×2 (10:25→18:22)
[2018-03-28] MEDS: ASPIRIN 81 MG CHEWABLE TABLETS PO SCH (10:28)
[2018-03-28] MEDS: HEPARIN NA (PORCINE) 5,000 UNITS/ML 1ML VIAL SQ SCH ×2 (10:28→21:09)
[2018-03-28] MEDS: CITALOPRAM HYDROBROMIDE 20 MG TABLET (FP) PO SCH (10:29)
[2018-03-28] MEDS: SODIUM HYPOCHLORITE 0.25%- 473 ML BULK BOTTLE TP SCH (10:35)
[2018-03-28] MEDS: COLLAGENASE CLOSTRIDIUM HIST. 30 GRAMS TUBE TP SCH (10:35)
--- NOTE | 2018-03-28 10:43 | PN ---
Progress Note (short form) - Note Progress Note: s: lethargic, appears comfortable o: Vital Signs Period Temp Pulse Resp BP Sys/Kebede Pulse Ox Last 24 Hr 97.7 F-98.5 F 67-75 18-20 103-132/50-63 99 Constitutional: Yes: No Distress, Calm Eyes: Yes: Conjunctiva Clear Respiratory: Yes: Regular, CTA Bilaterally (auscultated anteriorly, poor effort) Gastrointestinal: Yes: Normal Bowel Sounds, Soft Cardiovascular: Yes: Regular Rate and Rhythm JVD: No Carotid Bruit: No Heart Sounds: Yes: S1, S2 Extremities: Yes: Amputation. No: Cold Edema: No Peripheral Pulses WNL: No Integumentary: No: Jaundice Neurological: Yes: Other (nonverbal) Psychiatric: No: Agitated Current Medications Generic Name Dose Route Start Last Admin Trade Name Freq PRN Reason Stop Dose Admin Acetaminophen 650 mg 03/15/18 16:08 03/28/18 06:48 Tylenol - PO 650 mg Q6H PRN Administration FEVER Aspirin 81 mg 03/16/18 10:00 03/28/18 10:28 Asa - PO 81 mg DAILY [facility] Administration Carbidopa/Levodopa 2 each 03/15/18 21:00 03/28/18 06:08 Sinemet 25/100 - PO 2 each 0600,1300,2100 [facility] Administration Carbidopa/Levodopa 1 each 03/15/18 17:00 03/28/18 10:00 Sinemet 25/100 - PO 1 each 0900,1700 [facility] Administration Citalopram Hydrobromide 40 mg 03/16/18 10:00 03/28/18 10:29 Celexa - PO 40 mg DAILY [facility] Administration Collagenase 1 applic 03/22/18 10:00 03/28/18 10:35 Santyl - TP 1 applic DAILY [facility] Administration Protocol Heparin Sodium (Porcine) 5,000 unit 03/15/18 22:00 03/28/18 10:28 Heparin - SQ 5,000 unit BID [facility] Administration Piperacillin Sod/Tazobactam 50 mls @ 100 mls/hr 03/18/18 11:15 03/28/18 10:27 Sod 3.375 gm/ Dextrose IVPB 100 mls/hr Q8H-IV [facility] Administration Protocol Insulin Aspart 1 vial 03/18/18 16:30 03/28/18 06:08 Novolog Vial Sliding Scale - SQ 2 unit ACHS [facility] Administration Protocol Insulin Detemir 16 units 03/16/18 07:00 03/28/18 06:08 Levemir Vial SQ 16 units DAILY@0700 [facility] Administration Morphine Sulfate 1 mg 03/19/18 15:51 03/27/18 16:40 Morphine Sulfate IVPUSH 1 mg Q3H PRN Administration PAIN LEVEL 4 - 6 Sodium Hypochlorite 1 applic 03/18/18 10:00 03/28/18 10:35 Dakin's Solution 0.25% (Half-Strength) - TP 1 applic DAILY [facility] Administration Tamsulosin HCl 0.4 mg 03/17/18 08:30 03/28/18 08:30 Flomax - PO 0.4 mg DAILY@0830 [facility] Administration CBC, BMP 03/28/18 06:15 03/28/18 06:15 echo 02/2018: nl lv/rv, no sig valve path, ao root 3.9 cm EKG: sinus rhythm, nonspecific ST changes CXR: no acute process a/p: 77M h/o DM, R AKA, sacral ulcer, dementia p/w decub ulcer with plan for debridement decubitus ulcer, fever - s/p debridement - manage per surgery, primary, ID DM - manage per primary team dementia - nonverbal at baseline PAD, s/p R AKA - continue aspirin YENI: - ? sec to UTI - on IVF, plan per renal
[2018-03-28] MEDS ORDERED: SODIUM CHLORIDE 1,000 ML IV SCH (11:00)
[2018-03-28] MEDS ORDERED: INSULIN (NOVOLOG) ASPART 100 UNITS/ML 10ML VIAL ONE (11:53)
--- NOTE | 2018-03-28 13:14 | PN ---
Progress Note, Physician Chief Complaint: awake alert NAD VSS afebrile; at bedside consults reviewed and d/w - Current Medication List Current Medications: Active Medications Acetaminophen (Tylenol -) 650 mg PO Q6H PRN PRN Reason: FEVER Last Admin: 03/28/18 06:48 Dose: 650 mg Aspirin (Asa -) 81 mg PO DAILY [facility] Last Admin: 03/28/18 10:28 Dose: 81 mg Carbidopa/Levodopa (Sinemet 25/100 -) 2 each PO 0600,1300,2100 [facility] Last Admin: 03/28/18 06:08 Dose: 2 each Carbidopa/Levodopa (Sinemet 25/100 -) 1 each PO 0900,1700 [facility] Last Admin: 03/28/18 10:00 Dose: 1 each Citalopram Hydrobromide (Celexa -) 40 mg PO DAILY [facility] Last Admin: 03/28/18 10:29 Dose: 40 mg Collagenase (Santyl -) 1 applic TP DAILY [facility]; Protocol Last Admin: 03/28/18 10:35 Dose: 1 applic Heparin Sodium (Porcine) (Heparin -) 5,000 unit SQ BID [facility] Last Admin: 03/28/18 10:28 Dose: 5,000 unit Piperacillin Sod/Tazobactam (Sod 3.375 gm/ Dextrose) 50 mls @ 100 mls/hr IVPB Q8H-IV [facility]; Protocol Last Admin: 03/28/18 10:27 Dose: 100 mls/hr Sodium Chloride (Normal Saline -) 1,000 mls @ 100 mls/hr IV ASDIR [facility] Stop: 03/28/18 22:59 Last Admin: 03/28/18 12:34 Dose: 100 mls/hr Insulin Aspart (Novolog Vial Sliding Scale -) 1 vial SQ ACHS [facility]; Protocol Last Admin: 03/28/18 11:55 Dose: 4 unit Insulin Detemir (Levemir Vial) 16 units SQ DAILY@0700 [facility] Last Admin: 03/28/18 06:08 Dose: 16 units Morphine Sulfate (Morphine Sulfate) 1 mg IVPUSH Q3H PRN PRN Reason: PAIN LEVEL 4 - 6 Last Admin: 03/27/18 16:40 Dose: 1 mg Sodium Hypochlorite (Dakin's Solution 0.25% (Half-Strength) -) 1 applic TP DAILY [facility] Last Admin: 03/28/18 10:35 Dose: 1 applic Tamsulosin HCl (Flomax -) 0.4 mg PO DAILY@0830 [facility] Last Admin: 03/28/18 08:30 Dose: 0.4 mg - Objective Vital Signs: Vital Signs Temperature 98.4 F 03/28/18 10:00 Pulse Rate 78 03/28/18 10:00 Respiratory Rate 18 03/28/18 10:00 Blood Pressure 135/61 03/28/18 10:00 O2 Sat by Pulse Oximetry (%) 99 03/27/18 21:00 Constitutional: Yes: No Distress, Calm Eyes: Yes: Conjunctiva Clear HENT: Yes: Atraumatic Neck: Yes: Supple Cardiovascular: Yes: Regular Rate and Rhythm Respiratory: Yes: CTA Bilaterally Gastrointestinal: Yes: Soft. No: Distention Genitourinary: No: Hematuria Musculoskeletal: No: Joint Stiffness, Joint Swelling Extremities: Yes: Amputation. No: Cold, Cool, Cyanosis Edema: No Integumentary: Yes: Pressure Ulcer. No: Rash, Venous Stasis Changes Neurological: Yes: Alert. No: Oriented Psychiatric: Yes: Alert. No: Oriented, Agitated Labs: CBC, BMP 03/28/18 06:15 03/28/18 06:15 INR, PTT INR 1.17 (0.83-1.09) H 03/13/18 20:12 - ....Imaging Other: Report Reviewed Assessment/Plan 78 year old gentleman with history of DM, PVD s/p Right AKA, Sacral ulcers, Dementia, BPH, CKD (baseline Cr ~1.6), anemia, UIT Pseudomonas, presented with sacral ulcerations requiring debridement rising WBC,s/p ARF/CRF IVF, renal f/u, po water; f/u labs IV ATB per ID surgery debridement and wound care, to decide about VAC placement prognosis poor turn in bed for decubs PFX aspiration, falls DVT pfx d/w pt and staff d/w further management per ID and surgery.
--- NOTE | 2018-03-28 16:55 | PN ---
Progress Note (short form) - Note Progress Note: Renal follow up for YENI on CKD Pt seen and examined at the bedside sleeping no overnight events making urine via dawn Vital Signs Temperature 98.6 F 03/28/18 14:43 Pulse Rate 75 03/28/18 14:43 Respiratory Rate 20 03/28/18 14:43 Blood Pressure 106/48 L 03/28/18 14:43 O2 Sat by Pulse Oximetry (%) 99 03/27/18 21:00 NAD no Le edema CBC, BMP 03/28/18 06:15 03/28/18 06:15 Current Medications Acetaminophen (Tylenol -) 650 mg PO Q6H PRN PRN Reason: FEVER Last Admin: 03/28/18 06:48 Dose: 650 mg Aspirin (Asa -) 81 mg PO DAILY [facility] Last Admin: 03/28/18 10:28 Dose: 81 mg Carbidopa/Levodopa (Sinemet 25/100 -) 2 each PO 0600,1300,2100 [facility] Last Admin: 03/28/18 13:00 Dose: 2 each Carbidopa/Levodopa (Sinemet 25/100 -) 1 each PO 0900,1700 [facility] Last Admin: 03/28/18 10:00 Dose: 1 each Citalopram Hydrobromide (Celexa -) 40 mg PO DAILY [facility] Last Admin: 03/28/18 10:29 Dose: 40 mg Collagenase (Santyl -) 1 applic TP DAILY [facility]; Protocol Last Admin: 03/28/18 10:35 Dose: 1 applic Heparin Sodium (Porcine) (Heparin -) 5,000 unit SQ BID [facility] Last Admin: 03/28/18 10:28 Dose: 5,000 unit Piperacillin Sod/Tazobactam (Sod 3.375 gm/ Dextrose) 50 mls @ 100 mls/hr IVPB Q8H-IV [facility]; Protocol Last Admin: 03/28/18 10:27 Dose: 100 mls/hr Sodium Chloride (Normal Saline -) 1,000 mls @ 100 mls/hr IV [facility] Stop: 03/28/18 22:59 Last Admin: 03/28/18 12:34 Dose: 100 mls/hr Insulin Aspart (Novolog Vial Sliding Scale -) 1 vial SQ ACHS [facility]; Protocol Last Admin: 03/28/18 11:55 Dose: 4 unit Insulin Detemir (Levemir Vial) 16 units SQ DAILY@0700 [facility] Last Admin: 03/28/18 06:08 Dose: 16 units Morphine Sulfate (Morphine Sulfate) 1 mg IVPUSH Q3H PRN PRN Reason: PAIN LEVEL 4 - 6 Last Admin: 03/27/18 16:40 Dose: 1 mg Sodium Hypochlorite (Dakin's Solution 0.25% (Half-Strength) -) 1 applic TP DAILY [facility] Last Admin: 03/28/18 10:35 Dose: 1 applic Tamsulosin HCl (Flomax -) 0.4 mg PO DAILY@0830 [facility] Last Admin: 03/28/18 08:30 Dose: 0.4 mg 78 year old gentleman with history of DM, PVD s/p Right AKA, Sacral ulcers, Dementia, CKD (baseline Cr ~1.6) presented with sacral ulcerations requiring debridement with rise in serum Cr to 2.1. #YENI on CKD #Sacral ulcers #BPH with urinar retention #Anemia #DM #Pseudomonas UTI Cr and K both higher today, ? etiology will give trial of IVF today and repeat labs continue dawn for now continue Abx as per ID Change diet to low potassium Nicolas Kinney DO
--- NOTE | 2018-03-28 18:49 | PN ---
Progress Note, Physician History of Present Illness: Awake, responsive No acute distress Chronically ill appearing Afebrile WBC WNL Blood c/s negative Wound culture mixed organisms - Current Medication List Current Medications: Active Medications Acetaminophen (Tylenol -) 650 mg PO Q6H PRN PRN Reason: FEVER Last Admin: 03/28/18 06:48 Dose: 650 mg Aspirin (Asa -) 81 mg PO DAILY [facility] Last Admin: 03/28/18 10:28 Dose: 81 mg Carbidopa/Levodopa (Sinemet 25/100 -) 2 each PO 0600,1300,2100 [facility] Last Admin: 03/28/18 13:00 Dose: 2 each Carbidopa/Levodopa (Sinemet 25/100 -) 1 each PO 0900,1700 [facility] Last Admin: 03/28/18 17:35 Dose: 1 each Citalopram Hydrobromide (Celexa -) 40 mg PO DAILY [facility] Last Admin: 03/28/18 10:29 Dose: 40 mg Collagenase (Santyl -) 1 applic TP DAILY [facility]; Protocol Last Admin: 03/28/18 10:35 Dose: 1 applic Heparin Sodium (Porcine) (Heparin -) 5,000 unit SQ BID [facility] Last Admin: 03/28/18 10:28 Dose: 5,000 unit Piperacillin Sod/Tazobactam (Sod 3.375 gm/ Dextrose) 50 mls @ 100 mls/hr IVPB Q8H-IV [facility]; Protocol Last Admin: 03/28/18 10:27 Dose: 100 mls/hr Sodium Chloride (Normal Saline -) 1,000 mls @ 100 mls/hr IV ASDIR [facility] Stop: 03/28/18 22:59 Last Admin: 03/28/18 12:34 Dose: 100 mls/hr Insulin Aspart (Novolog Vial Sliding Scale -) 1 vial SQ ACHS [facility]; Protocol Last Admin: 03/28/18 17:38 Dose: Not Given Insulin Detemir (Levemir Vial) 16 units SQ DAILY@0700 [facility] Last Admin: 03/28/18 06:08 Dose: 16 units Morphine Sulfate (Morphine Sulfate) 1 mg IVPUSH Q3H PRN PRN Reason: PAIN LEVEL 4 - 6 Last Admin: 03/27/18 16:40 Dose: 1 mg Sodium Hypochlorite (Dakin's Solution 0.25% (Half-Strength) -) 1 applic TP DAILY [facility] Last Admin: 03/28/18 10:35 Dose: 1 applic Tamsulosin HCl (Flomax -) 0.4 mg PO DAILY@0830 [facility] Last Admin: 03/28/18 08:30 Dose: 0.4 mg - Objective Vital Signs: Vital Signs Temperature 97.8 F 03/28/18 17:19 Pulse Rate 76 03/28/18 17:19 Respiratory Rate 18 03/28/18 17:19 Blood Pressure 131/58 L 03/28/18 17:19 O2 Sat by Pulse Oximetry (%) 99 03/27/18 21:00 Constitutional: Yes: No Distress, Cachectic Cardiovascular: Yes: Regular Rate and Rhythm, S1, S2 Respiratory: Yes: CTA Bilaterally Gastrointestinal: Yes: Normal Bowel Sounds, Soft Extremities: Yes: Other (s/p AKA + necrotic heel ulcer) Labs: CBC, BMP 03/28/18 06:15 03/28/18 06:15 INR, PTT INR 1.17 (0.83-1.09) H 03/13/18 20:12 Assessment/Plan S/P debridement of sacral decubitus ulcer Azotemia Parkinsonism/ dementia Completed 14d course IV antibiotics Will D/C antibiotics, observe Local wound care
[2018-03-28 19:31] LABS: ANION GAP 8 MMOL/L (8-16); BLOOD UREA NITROGEN 30 mg/dL (7-18); CALCIUM 8.2 mg/dL (8.5-10.1); CHLORIDE 104 mmol/L (98-107); CO2 24 mmol/L (21-32); CREATININE 2.2 mg/dL (0.55-1.3); GLUCOSE,RANDOM 79 mg/dL (74-106); POTASSIUM 5.4 mmol/L (3.5-5.1); SODIUM 137 mmol/L (136-145)
[2018-03-29] MEDS: CARBIDOPA/LEVODOPA 25/100 TABLET (FP) PO SCH ×5 (05:23→21:14)
[2018-03-29] MEDS: INSULIN (LEVEMIR) 100 UNITS/ML UNITS SQ SCH (06:18)
[2018-03-29] MEDS: INSULIN SLIDING SCALE (NOVOLOG) 1 VIAL SQ SCH ×4 (06:19→21:19)
[2018-03-29 07:49] LABS: ANION GAP 9 MMOL/L (8-16); BLOOD UREA NITROGEN 32 mg/dL (7-18); CALCIUM 7.7 mg/dL (8.5-10.1); CHLORIDE 108 mmol/L (98-107); CO2 21 mmol/L (21-32); GLUCOSE,RANDOM 100 mg/dL (74-106); POTASSIUM 4.9 mmol/L (3.5-5.1); SODIUM 138 mmol/L (136-145)
[2018-03-29] MEDS: TAMSULOSIN HCL 0.4 MG CAP PO SCH (08:23)
--- NOTE | 2018-03-29 09:42 | PN ---
Progress Note (short form) - Note Progress Note: Attending Surgeon Patient seen in f/u yesterday and today; finished course of antibiotics VSS AFF wound-over sacrum/bone w/ some nonviable tissue; others areas granulating slowly ; o/w negative. IMP: sacral pressure ulcer s/p debridement PLAN: Continue LWC w/BID Santyl; this wound is not amenable to VAC NPWT at this time; we will f/u as needed. Jose A Davalos MD FACS
[2018-03-29] MEDS: ASPIRIN 81 MG CHEWABLE TABLETS PO SCH (10:23)
[2018-03-29] MEDS: CITALOPRAM HYDROBROMIDE 20 MG TABLET (FP) PO SCH (10:24)
[2018-03-29] MEDS: HEPARIN NA (PORCINE) 5,000 UNITS/ML 1ML VIAL SQ SCH ×2 (10:24→21:14)
--- NOTE | 2018-03-29 10:49 | PN ---
Progress Note, Physician Chief Complaint: awake aslert NAD VSS afebrile d/w surgery no VAC indicated at this point; continue local wound care. f/u in office in 1-2 weeks for further management per ID ATB stopped (completed IV 14 days observe off ATB per ID) per renal: no further w/u d/w and CM: NH? home with 24h care? [place]? pt's to d/w CM and decide (pt ran out of medicare days at [place] and would have to private pay for NH) - Current Medication List Current Medications: Active Medications Acetaminophen (Tylenol -) 650 mg PO Q6H PRN PRN Reason: FEVER Last Admin: 03/28/18 06:48 Dose: 650 mg Aspirin (Asa -) [address] [facility] Last Admin: 03/29/18 10:23 Dose: 81 mg Carbidopa/Levodopa (Sinemet 25/100 -) 2 each PO 0600,1300,2100 [facility] Last Admin: 03/29/18 05:23 Dose: 2 each Carbidopa/Levodopa (Sinemet 25/100 -) 1 each PO 0900,1700 [facility] Last Admin: 03/29/18 10:24 Dose: 1 each Citalopram Hydrobromide (Celexa -) [address] [facility] Last Admin: 03/29/18 10:24 Dose: 40 mg Collagenase (Santyl -) [address] [facility]; Protocol Last Admin: 03/28/18 10:35 Dose: 1 applic Heparin Sodium (Porcine) (Heparin -) 5,[address] [facility] Last Admin: 03/29/18 10:24 Dose: 5,000 unit Insulin Aspart (Novolog Vial Sliding Scale -) [address] [facility]; Protocol Last Admin: 03/29/18 06:19 Dose: Not Given Insulin Detemir (Levemir Vial) 16 units SQ DAILY@0700 [facility] Last Admin: 03/29/18 06:18 Dose: 16 units Morphine Sulfate (Morphine Sulfate) 1 mg IVPUSH Q3H PRN PRN Reason: PAIN LEVEL 4 - 6 Last Admin: 03/27/18 16:40 Dose: 1 mg Sodium Hypochlorite (Dakin's Solution 0.25% (Half-Strength) -) [address] [facility] Last Admin: 03/28/18 10:35 Dose: 1 applic Tamsulosin HCl (Flomax -) 0.4 mg PO DAILY@0830 [facility] Last Admin: 03/29/18 08:23 Dose: 0.4 mg - Objective Vital Signs: Vital Signs Temperature 98 F 03/29/18 06:16 Pulse Rate 65 03/29/18 06:16 Respiratory Rate 18 03/29/18 06:16 Blood Pressure 142/53 L 03/29/18 06:16 O2 Sat by Pulse Oximetry (%) 98 03/28/18 21:00 Constitutional: Yes: No Distress, Calm Eyes: Yes: Conjunctiva Clear HENT: Yes: Atraumatic Neck: Yes: Supple Cardiovascular: Yes: Regular Rate and Rhythm Respiratory: Yes: CTA Bilaterally Gastrointestinal: Yes: Soft. No: Distention Genitourinary: No: CVA Tenderness - Left, CVA Tenderness - Right, Hematuria Extremities: Yes: Amputation (RLE AKA) Integumentary: Yes: Pressure Ulcer Neurological: Yes: Alert. No: Oriented Psychiatric: Yes: Alert. No: Oriented, Agitated Labs: CBC, BMP 03/28/18 06:15 03/29/18 06:15 INR, PTT INR 1.17 (0.83-1.09) H 03/13/18 20:12 - ....Imaging Other: Report Reviewed Assessment/Plan 78 year old gentleman with history of DM, PVD s/p Right AKA, Sacral ulcers, Dementia, BPH, CKD (baseline Cr ~1.6), anemia, UIT Pseudomonas, presented with sacral ulcerations requiring debridement rising WBC,s/p ARF/CRF IVF, renal f/u, po water; f/u labs IV ATB completed per ID surgery debridement and wound care f./u outpt prognosis poor turn in bed for decubs PFX aspiration, falls DVT pfx d/w pt and staff d/w and CM
--- NOTE | 2018-03-29 11:49 | PN ---
Progress Note (short form) - Note Progress Note: Renal follow up for YENI on CKD Pt seen and examined at the bedside sleeping, at the bedside no overnight event Vital Signs Temperature 98.6 F 03/28/18 14:43 Pulse Rate 75 03/28/18 14:43 Respiratory Rate 20 03/28/18 14:43 Blood Pressure 106/48 L 03/28/18 14:43 O2 Sat by Pulse Oximetry (%) 99 03/27/18 21:00 NAD No edema dawn in place with clear urine CBC, BMP 03/28/18 06:15 03/29/18 06:15 Current Medications Acetaminophen (Tylenol -) 650 mg PO Q6H PRN PRN Reason: FEVER Last Admin: 03/28/18 06:48 Dose: 650 mg Aspirin (Asa -) 81 mg PO DAILY [facility] Last Admin: 03/29/18 10:23 Dose: 81 mg Carbidopa/Levodopa (Sinemet 25/100 -) 2 each PO 0600,1300,2100 [facility] Last Admin: 03/29/18 05:23 Dose: 2 each Carbidopa/Levodopa (Sinemet 25/100 -) 1 each PO 0900,1700 [facility] Last Admin: 03/29/18 10:24 Dose: 1 each Citalopram Hydrobromide (Celexa -) 40 mg PO DAILY [facility] Last Admin: 03/29/18 10:24 Dose: 40 mg Collagenase (Santyl -) 1 applic TP DAILY [facility]; Protocol Last Admin: 03/28/18 10:35 Dose: 1 applic Heparin Sodium (Porcine) (Heparin -) 5,000 unit SQ BID [facility] Last Admin: 03/29/18 10:24 Dose: 5,000 unit Insulin Aspart (Novolog Vial Sliding Scale -) 1 vial SQ ACHS [facility]; Protocol Last Admin: 03/29/18 06:19 Dose: Not Given Insulin Detemir (Levemir Vial) 16 units SQ DAILY@0700 [facility] Last Admin: 03/29/18 06:18 Dose: 16 units Morphine Sulfate (Morphine Sulfate) 1 mg IVPUSH Q3H PRN PRN Reason: PAIN LEVEL 4 - 6 Last Admin: 03/27/18 16:40 Dose: 1 mg Sodium Hypochlorite (Dakin's Solution 0.25% (Half-Strength) -) 1 applic TP DAILY [facility] Last Admin: 03/28/18 10:35 Dose: 1 applic Tamsulosin HCl (Flomax -) 0.4 mg PO DAILY@0830 [facility] Last Admin: 03/29/18 08:23 Dose: 0.4 mg 78 year old gentleman with history of DM, PVD s/p Right AKA, Sacral ulcers, Dementia, CKD (baseline Cr ~1.6) presented with sacral ulcerations requiring debridement with rise in serum Cr to 2.1. #YENI on CKD #Sacral ulcers #BPH with urinary retention #Anemia #DM #Pseudomonas UTI Cr stable at this time, K is improved likely etiology of secondary injury likely related to hemodynamic changes (BP has been up and down) completed course of Abx Surgery following can d/c IVF today trend renal function and electrolytes with oral intake alone Nicolas Kineny DO
[2018-03-29] MEDS ORDERED: INSULIN (NOVOLOG) ASPART 100 UNITS/ML 10ML VIAL ONE (12:28)
--- NOTE | 2018-03-29 15:24 | PN ---
Progress Note (short form) - Note Progress Note: s: appears comfortable, awake, nonverbal o: Vital Signs Period Temp Pulse Resp BP Sys/Kebede Pulse Ox Last 24 Hr 97.8 F-98.1 F 65-76 18-18 110-142/52-60 98 Constitutional: Yes: No Distress, Calm Eyes: Yes: Conjunctiva Clear Respiratory: Yes: Regular, CTA Bilaterally (auscultated anteriorly, poor effort) Gastrointestinal: Yes: Normal Bowel Sounds, Soft Cardiovascular: Yes: Regular Rate and Rhythm JVD: No Carotid Bruit: No Heart Sounds: Yes: S1, S2 Extremities: Yes: Amputation. No: Cold Edema: No Peripheral Pulses WNL: No Integumentary: No: Jaundice Neurological: Yes: Other (nonverbal) Psychiatric: No: Agitated Current Medications Acetaminophen (Tylenol -) 650 mg PO Q6H PRN PRN Reason: FEVER Last Admin: 03/28/18 06:48 Dose: 650 mg Aspirin (Asa -) 81 mg PO DAILY [facility] Last Admin: 03/29/18 10:23 Dose: 81 mg Carbidopa/Levodopa (Sinemet 25/100 -) 2 each PO 0600,1300,2100 [facility] Last Admin: 03/29/18 05:23 Dose: 2 each Carbidopa/Levodopa (Sinemet 25/100 -) 1 each PO 0900,1700 [facility] Last Admin: 03/29/18 10:24 Dose: 1 each Citalopram Hydrobromide (Celexa -) 40 mg PO DAILY [facility] Last Admin: 03/29/18 10:24 Dose: 40 mg Collagenase (Santyl -) 1 applic TP DAILY [facility]; Protocol Last Admin: 03/28/18 10:35 Dose: 1 applic Heparin Sodium (Porcine) (Heparin -) 5,000 unit SQ BID [facility] Last Admin: 03/29/18 10:24 Dose: 5,000 unit Insulin Aspart (Novolog Vial Sliding Scale -) 1 vial SQ ACHS [facility]; Protocol Last Admin: 03/29/18 12:31 Dose: 2 unit Insulin Detemir (Levemir Vial) 16 units SQ DAILY@0700 [facility] Last Admin: 03/29/18 06:18 Dose: 16 units Morphine Sulfate (Morphine Sulfate) 1 mg IVPUSH Q3H PRN PRN Reason: PAIN LEVEL 4 - 6 Last Admin: 12/12/18 16:40 Dose: 1 mg Sodium Hypochlorite (Dakin's Solution 0.25% (Half-Strength) -) 1 applic TP DAILY [facility] Last Admin: 03/28/18 10:35 Dose: 1 applic Tamsulosin HCl (Flomax -) 0.4 mg PO DAILY@0830 [facility] Last Admin: 03/29/18 08:23 Dose: 0.4 mg echo 02/2018: nl lv/rv, no sig valve path, ao root 3.9 cm EKG: sinus rhythm, nonspecific ST changes CXR: no acute process a/p: 77M h/o DM, R AKA, sacral ulcer, dementia p/w decub ulcer with plan for debridement decubitus ulcer, fever - s/p debridement - manage per surgery, primary, ID DM - manage per primary team dementia - nonverbal at baseline PAD, s/p R AKA - continue aspirin YENI: - ? sec to UTI - IVF held, Cr stable, plan per renal
[2018-03-29] MEDS ORDERED: PT OWN MED DRAWER 7, Y5N ONE (17:40)
[2018-03-30] MEDS: CARBIDOPA/LEVODOPA 25/100 TABLET (FP) PO SCH ×3 (05:38→13:40)
[2018-03-30] MEDS: INSULIN (LEVEMIR) 100 UNITS/ML UNITS SQ SCH (06:18)
[2018-03-30] MEDS: INSULIN SLIDING SCALE (NOVOLOG) 1 VIAL SQ SCH ×2 (06:19→11:28)
[2018-03-30] MEDS ORDERED: PT OWN MED DRAWER 7, Y5N ONE (06:27)
--- NOTE | 2018-03-30 06:33 | PN ---
Progress Note, Physician - Current Medication List Current Medications: Active Medications Acetaminophen (Tylenol -) 650 mg PO Q6H PRN PRN Reason: FEVER Last Admin: 03/28/18 06:48 Dose: 650 mg Aspirin (Asa -) 81 mg PO DAILY [facility] Last Admin: 03/29/18 10:23 Dose: 81 mg Carbidopa/Levodopa (Sinemet 25/100 -) 2 each PO 0600,1300,2100 [facility] Last Admin: 03/30/18 05:38 Dose: 2 each Carbidopa/Levodopa (Sinemet 25/100 -) 1 each PO 0900,1700 [facility] Last Admin: 03/29/18 17:23 Dose: 1 each Citalopram Hydrobromide (Celexa -) 40 mg PO DAILY [facility] Last Admin: 03/29/18 10:24 Dose: 40 mg Collagenase (Santyl -) 1 applic TP DAILY [facility]; Protocol Last Admin: 03/28/18 10:35 Dose: 1 applic Heparin Sodium (Porcine) (Heparin -) 5,000 unit SQ BID [facility] Last Admin: 03/29/18 21:14 Dose: 5,000 unit Insulin Aspart (Novolog Vial Sliding Scale -) 1 vial SQ [facility]; Protocol Last Admin: 03/30/18 06:19 Dose: Not Given Insulin Detemir (Levemir Vial) 16 units SQ DAILY@0700 [facility] Last Admin: 03/30/18 06:18 Dose: 16 units Morphine Sulfate (Morphine Sulfate) 1 mg IVPUSH Q3H PRN PRN Reason: PAIN LEVEL 4 - 6 Last Admin: 03/27/18 16:40 Dose: 1 mg Sodium Hypochlorite (Dakin's Solution 0.25% (Half-Strength) -) 1 applic TP DAILY [facility] Last Admin: 03/28/18 10:35 Dose: 1 applic Tamsulosin HCl (Flomax -) 0.4 mg PO DAILY@0830 [facility] Last Admin: 03/29/18 08:23 Dose: 0.4 mg - Objective Vital Signs: Vital Signs Temperature 98 F 03/30/18 06:00 Pulse Rate 64 03/30/18 06:00 Respiratory Rate 18 03/30/18 06:00 Blood Pressure 102/45 L 03/30/18 06:00 O2 Sat by Pulse Oximetry (%) 98 03/29/18 21:00 Labs: CBC, BMP 03/28/18 06:15 03/29/18 06:15 INR, PTT INR 1.17 (0.83-1.09) H 03/13/18 20:12
[2018-03-30] MEDS: COLLAGENASE CLOSTRIDIUM HIST. 30 GRAMS TUBE TP SCH ×2 (07:32→09:48)
[2018-03-30] MEDS: SODIUM HYPOCHLORITE 0.25%- 473 ML BULK BOTTLE TP SCH ×2 (07:32→09:49)
[2018-03-30 08:19] LABS: BASO % 1.2 % (0-2.0); EOS % 2.6 % (0-4.5); HEMATOCRIT 27.6 % (35.4-49); HEMOGLOBIN 8.9 GM/dL (11.7-16.9); MCH 30.4 pg (25.7-33.7); MCHC 32.2 g/dl (32.0-35.9); MEAN CELL VOLUME 94.5 fl (80-96); MEAN PLT VOLUME 6.5 fl (7.5-11.1); MONO % 6.7 % (3.8-10.2); NEUT % 71.5 % (42.8-82.8); PLATELET COUNT 317 K/MM3 (134-434); RBC 2.92 M/mm3 (4.00-5.60); RDW 16.1 % (11.9-15.9); WHITE BLOOD COUNT 6.5 K/mm3 (4.0-10.0)
[2018-03-30 09:04] LABS: ALBUMIN 1.8 g/dl (3.4-5.0); ALK PHOS 103 U/L (45-117); ANION GAP 8 MMOL/L (8-16); BILIRUBIN,TOTAL 0.2 mg/dL (0.2-1); BLOOD UREA NITROGEN 32 mg/dL (7-18); CALCIUM 8.4 mg/dL (8.5-10.1); CHLORIDE 106 mmol/L (98-107); CO2 24 mmol/L (21-32); CREATININE 1.5 mg/dL (0.55-1.3); GLUCOSE,RANDOM 109 mg/dL (74-106); POTASSIUM 4.6 mmol/L (3.5-5.1); SGOT/AST 17 U/L (15-37); SGPT/ALT < 6 U/L (13-61); SODIUM 137 mmol/L (136-145); TOT PROT 6.4 g/dl (6.4-8.2)
[2018-03-30] MEDS: TAMSULOSIN HCL 0.4 MG CAP PO SCH (09:30)
[2018-03-30] MEDS: HEPARIN NA (PORCINE) 5,000 UNITS/ML 1ML VIAL SQ SCH (09:46)
[2018-03-30] MEDS: CITALOPRAM HYDROBROMIDE 20 MG TABLET (FP) PO SCH (09:47)
[2018-03-30] MEDS: ASPIRIN 81 MG CHEWABLE TABLETS PO SCH (09:47)
[2018-03-30 09:51] VITALS: TEMP 98.5
--- NOTE | 2018-03-30 10:03 | PN ---
Progress Note (short form) - Note Progress Note: Renal follow up for YENI on CKD Pt seen and examined at the bedside no overnight events at the bedside tolerating oral diet Vital Signs Temperature 98.5 F 03/30/18 09:50 Pulse Rate 69 03/30/18 09:50 Respiratory Rate 18 03/30/18 09:50 Blood Pressure 109/49 L 03/30/18 09:50 O2 Sat by Pulse Oximetry (%) 98 03/29/18 21:00 NAD No edema dawn in place with clear urine CBC, BMP 03/30/18 08:00 03/30/18 08:00 Current Medications Acetaminophen (Tylenol -) 650 mg PO Q6H PRN PRN Reason: FEVER Last Admin: 03/28/18 06:48 Dose: 650 mg Aspirin (Asa -) 81 mg PO DAILY [facility] Last Admin: 03/30/18 09:47 Dose: 81 mg Carbidopa/Levodopa (Sinemet 25/100 -) 2 each PO 0600,1300,2100 [facility] Last Admin: 03/30/18 05:38 Dose: 2 each Carbidopa/Levodopa (Sinemet 25/100 -) 1 each PO 0900,1700 [facility] Last Admin: 03/30/18 09:47 Dose: 1 each Citalopram Hydrobromide (Celexa -) 40 mg PO DAILY [facility] Last Admin: 03/30/18 09:47 Dose: 40 mg Collagenase (Santyl -) 1 applic TP DAILY [facility]; Protocol Last Admin: 03/30/18 09:48 Dose: 1 applic Heparin Sodium (Porcine) (Heparin -) 5,000 unit SQ BID [facility] Last Admin: 03/30/18 09:46 Dose: 5,000 unit Insulin Aspart (Novolog Vial Sliding Scale -) 1 vial SQ ACHS [facility]; Protocol Last Admin: 03/30/18 06:19 Dose: Not Given Insulin Detemir (Levemir Vial) 16 units SQ DAILY@0700 [facility] Last Admin: 03/30/18 06:18 Dose: 16 units Morphine Sulfate (Morphine Sulfate) 1 mg IVPUSH Q3H PRN PRN Reason: PAIN LEVEL 4 - 6 Last Admin: 03/27/18 16:40 Dose: 1 mg Sodium Hypochlorite (Dakin's Solution 0.25% (Half-Strength) -) 1 applic TP DAILY [facility] Last Admin: 03/30/18 09:49 Dose: Not Given Tamsulosin HCl (Flomax -) 0.4 mg PO DAILY@0830 [facility] Last Admin: 03/30/18 09:30 Dose: 0.4 mg 78 year old gentleman with history of DM, PVD s/p Right AKA, Sacral ulcers, Dementia, CKD (baseline Cr ~1.6) presented with sacral ulcerations requiring debridement with rise in serum Cr to 2.1. #YENI on CKD #Sacral ulcers #BPH with urinary retention #Anemia #DM #Pseudomonas UTI Renal function improved and K is WNL off IVF continue oral intake as tolerated no antihypertensvies as BP is marginal completed course of Abx Surgery following Nicolas Kinney DO
[2018-03-30 14:30] VITALS: BP 104/55; PULSE 85
--- NOTE | 2018-03-30 17:52 | DS ---
Physical Examination Vital Signs: Vital Signs Temperature 98.5 F 03/30/18 14:27 Pulse Rate 85 03/30/18 14:27 Respiratory Rate 18 03/30/18 09:50 Blood Pressure 104/55 L 03/30/18 14:27 O2 Sat by Pulse Oximetry (%) 98 03/30/18 09:00 Findings/Remarks: in bed awake alert NAD VSS afebrile at bedside; works she can not stay with him home all time; will transfer back to [facility] and to f/u with surgery ID and case management Constitutional: Yes: No Distress, Calm Eyes: Yes: Conjunctiva Clear HENT: Yes: Atraumatic Neck: Yes: Supple Cardiovascular: Yes: Regular Rate and Rhythm Respiratory: Yes: CTA Bilaterally Gastrointestinal: Yes: Soft. No: Distention Renal/: No: Hematuria Extremities: Yes: Amputation. No: Calf Tenderness, Cold, Cool, Cyanosis Edema: No Integumentary: Yes: Pressure Ulcer. No: Rash, Venous Stasis Changes Neurological: Yes: Alert. No: Oriented Psychiatric: Yes: Alert. No: Oriented, Agitated Labs: CBC, BMP 03/30/18 08:00 03/30/18 08:00 Discharge Summary Reason For Visit: FUNCTIONAL QUADRIPLEGIA sacral decubs; ARF/CRF functional quadriplegia Procedures: Principal: admitted with stage 4 sacral decubs nonhealing, h/o DM, advanced dementia, RLE AKA; bed bound and functional quadriplegia. Other Procedures: seen by surgery and ID; local debridement per surgery;. IV antibiotics per ID; wound still nonhealing; pt has RLE amputation, bedbound, functional quadriplegia unable to move or turn himself in bed. also developed ARF/CRF received IVF seen by renal; renal function improved; Hospital Course: DC to [place] and f/u with surgery and ID outpt; local wound care per surgery; turn in bed q1-2 H d/w pt's - poor prognosis. Condition: Guarded - Instructions Diet, Activity, Other Instructions: f/u PCP and wound care in [facility] within1 week check CBC CMP in 2-3 days; wound care per wound dr; surgery and ID f/u in 1-2 weeks; falls decubs aspiration PFX; turn in bed q1 h RTER if fever/worsening wound Referrals: Eliseo Hutton MD [Primary Care Provider] - Jose A Davalos MD [Staff Physician] - Librado Mata MD [Staff Physician] - Disposition: [facility] - Home Medications Comprehensive Discharge Medication List: Ambulatory Orders Aspirin 81 mg PO DAILY 09/28/17 Ascorbic Acid [Vitamin C] 500 mg PO DAILY 11/29/17 Citalopram Hydrobromide [Citalopram HBr] 40 mg PO DAILY 11/29/17 Heparin - 5,000 unit SQ BID vial 12/08/17 Carbidopa/Levodopa 25/100 [Sinemet 25/100 -] 1 each PO TID 03/13/18 Polyethylene Glycol 3350 17 gm PO DAILY 03/13/18 Acetaminophen [Tylenol .Regular Strength -] 650 mg PO Q6H PRN tablet 03/30/18 Collagenase Clostridium Hist. [Santyl -] 1 applic TP DAILY tube 03/30/18 Insulin (Levemir) [Levemir Vial] 16 units SQ DAILY@0700 units 03/30/18 Insulin Sliding Scale [Novolog Vial Sliding Scale -] 1 vial SQ ACHS units 03/30 Sodium Hypochlorite [Dakin's Solution 0.25% (Half-Strength) -] 1 applic TP DAILY ml 03/30/18 Tamsulosin HCl [Flomax -] 0.4 mg PO DAILY@0830 cap.er.24h 03/30/18
== END 2018-03-30 15:58 | DRG 853 ==
LOC: JER 15:57 → JERBED 21:23 → J7W 03-14 21:09
PROVIDERS: ADMIT Specialist; ATTEND Specialist
PROC: 0QB10ZZ Excision of Sacrum, Open Approach (ICD-10-PCS; principal; 2018-03-15 13:00)
PROC: 30233N1 Transfusion of Nonautologous Red Blood Cells into Peripheral Vein, Percutaneous Approach (ICD-10-PCS; 2018-03-17)
DX: A41.9 Sepsis, unspecified organism (principal); L89.154 Pressure ulcer of sacral region, stage 4; R53.2 Functional quadriplegia; E87.2 Acidosis; N39.0 Urinary tract infection, site not specified; N17.9 Acute kidney failure, unspecified; R64 Cachexia; E11.622 Type 2 diabetes mellitus with other skin ulcer; E11.40 Type 2 diabetes mellitus with diabetic neuropathy, unspecified; E11.22 Type 2 diabetes mellitus with diabetic chronic kidney disease; N18.3 Chronic kidney disease, stage 3 (moderate); G31.83 Neurocognitive disorder with Lewy bodies; N13.9 Obstructive and reflux uropathy, unspecified; N40.1 Benign prostatic hyperplasia with lower urinary tract symptoms; R33.8 Other retention of urine; D64.9 Anemia, unspecified; B96.5 Pseudomonas (aeruginosa) (mallei) (pseudomallei) as the cause of diseases classified elsewhere; F02.80 Dementia in other diseases classified elsewhere, unspecified severity, without behavioral disturbance, psychotic disturbance, mood disturbance, and anxiety; Z68.20 Body mass index [BMI] 20.0-20.9, adult; D72.829 Elevated white blood cell count, unspecified
CPT/HCPCS: 36415; 36430; 71045-TC-FY; 76775-TC; 80048; 80053; 81003; 81015; 82272; 82550; 82570; 82607; 82746; 82962; 83021; 83540; 83550; 83605; 83735; 84100; 84156; 84300; 84540; 85025; 85027; 85044; 85610; 85651; 85660; 85730; 86140; 86850; 86900; 86901; 86922; 87040; 87070; 87086; 87186; 87205; 88304-TC; 93005; 93010; 93306-TC; 94760; 99285-25; G0463-25; G0480; J0131; J0885; J1644; J7030; P9038; P9058